=== PATIENT | male | born 1995 | race Caucasian/White ===

== ENCOUNTER 2017-12-21 10:34 | Inpatient (IN) | payer OTHER ==
[2017-12-21] VITALS (12 sets, daily range): BP systolic 102–136; BP diastolic 59–80
[~2017-12-21] VITALS: Ht 175.3 cm; Wt 70.3 kg
[2017-12-21 11:21] LABS: BASOPHILS % (AUTO) 0.7 % (0.0-2.0); EOSINOPHILS % (AUTO) 2.4 % (0.0-3.0); HEMATOCRIT 44.6 % (42.0-52.0); HEMOGLOBIN 14.6 G/DL (14.2-18.0); LYMPHOCYTES % (AUTO) 17.6 % (20.0-45.0); MEAN CORPUSCULAR VOLUME 79 FL (80-99); MONOCYTES % (AUTO) 8.1 % (1.0-10.0); NEUTROPHILS % (AUTO) 71.3 % (45.0-75.0); PLATELET COUNT 173 K/UL (150-450); RED BLOOD COUNT 5.65 M/UL (4.70-6.10); RED CELL DISTRIBUTION WIDTH 11.5 % (11.6-14.8); WHITE BLOOD COUNT 7.7 K/UL (4.8-10.8)
[2017-12-21 11:29] LABS: ANION GAP 7 mmol/L (5-15); BLOOD UREA NITROGEN 14 mg/dL (7-18); CALCIUM 9.3 MG/DL (8.5-10.1); CARBON DIOXIDE 27 MMOL/L (21-32); CHLORIDE 106 MMOL/L (98-107); CREATININE 1.2 MG/DL (0.55-1.30); POTASSIUM 4.1 MMOL/L (3.5-5.1); SODIUM 140 MMOL/L (136-145)
[2017-12-21] MEDS ORDERED: Vancomycin 1 GM in D5W 275 ML IVPB ONE (11:30)
[2017-12-21] MEDS ORDERED: Unasyn 3gm Inj IVPB ONE (11:30)
[2017-12-21 11:33] LABS: ALANINE AMINOTRANSFERASE 16 U/L (12-78); ALBUMIN 3.9 G/DL (3.4-5.0); ALBUMIN/GLOBULIN RATIO 0.9 (1.0-2.7); ALKALINE PHOSPHATASE 89 U/L (46-116); ASPARTATE AMINO TRANSFERASE 18 U/L (15-37); BILIRUBIN,TOTAL 0.6 MG/DL (0.2-1.0); INR 1.1 (0.9-1.1)
--- NOTE | 2017-12-21 13:01 | Emergency Room Report ---
History of Present Illness General Chief Complaint: General Complaint Source: Patient Present Illness HPI Mr. Marquez presents to ER for has infection involving pilonidal cyst. He has had previous surgical interventions by plastic surgeon Dr. Gay who evaluated patient this week. Dr. Gay is concerned for abscess and possible granulomatous tissue in the area. Dr. Gay plans to take patient to OR today for debridement and incision and drainage. Patient has mild pain in the area. Has copious amount of purulent drainage. He denies fever. +nasal congestion with recent cold symptoms. He has not eaten or drank anything since this morning. Allergies: Coded Allergies: No Known Allergies (Unverified , 12/21/17) Patient History Past Medical History: none, other - pilonidal cyst with history of infection Past Surgical History: other - sseveral surgeries for pilonidal cyst Social History: Reports: alcohol use Social History Narrative ggirlfriend is bedside patient is self-employed Nursing Documentation-PMH Past Medical History: No History, Except For Hx Asthma: Yes Review of Systems Constitutional: Denies: fever, malaise Respiratory: Denies: cough Cardiovascular: Denies: chest pain Gastrointestinal: Denies: abdominal pain All Other Systems: negative except mentioned in HPI Physical Exam Vital Signs Date Time Temp Pulse Resp B/P (MAP) Pulse Ox O2 Delivery O2 Flow Rate FiO2 12/21/17 10:49 98.4 80 16 111/62 99 Room Air 98.4 Sp02 EP Interpretation: reviewed, normal General Appearance: no apparent distress, alert, GCS 15, non-toxic Head: normocephalic, atraumatic Eyes: bilateral eye normal inspection ENT: hearing grossly normal, normal pharynx, no angioedema, normal voice Neck: full range of motion, supple/symm/no masses Respiratory: chest non-tender, lungs clear, normal breath sounds, speaking full sentences Cardiovascular #1: regular rate, rhythm Gastrointestinal: normal bowel sounds, non tender, soft, non-distended, no guarding, no rebound Genitourinary: normal inspection Musculoskeletal: normal range of motion, non-tender Neurologic: alert, oriented x3, responsive, motor strength/tone normal, sensory intact, speech normal Psychiatric: judgement/insight normal, memory normal, mood/affect normal Reflexes: 3+ bicep (R), 3+ bicep (L), 3+ tricep (R), 3+ tricep (L), 3+ knee (R) , 3+ knee (L) Skin: well hydrated, other - abscess in sacral region with purulent drainage Medical Decision Making ER Course Dr. Gay evaluated Mr. Marquez in the ED. Abx initiated in the ED as well as preop labs. Patient was transferred to OR. Kept NPO Labs Test 12/21/17 11:10 White Blood Count 7.7 K/UL (4.8-10.8) Red Blood Count 5.65 M/UL (4.70-6.10) Hemoglobin 14.6 G/DL (14.2-18.0) Hematocrit 44.6 % (42.0-52.0) Mean Corpuscular Volume 79 FL (80-99) Mean Corpuscular Hemoglobin 25.9 PG (27.0-31.0) Mean Corpuscular Hemoglobin Concent 32.7 G/DL (32.0-36.0) Red Cell Distribution Width 11.5 % (11.6-14.8) Platelet Count 173 K/UL (150-450) Mean Platelet Volume 8.8 FL (6.5-10.1) Neutrophils (%) (Auto) 71.3 % (45.0-75.0) Lymphocytes (%) (Auto) 17.6 % (20.0-45.0) Monocytes (%) (Auto) 8.1 % (1.0-10.0) Eosinophils (%) (Auto) 2.4 % (0.0-3.0) Basophils (%) (Auto) 0.7 % (0.0-2.0) Prothrombin Time 11.7 SEC (9.30-11.50) Prothromb Time International Ratio 1.1 (0.9-1.1) Activated Partial Thromboplast Time 32 SEC (23-33) Sodium Level 140 MMOL/L (136-145) Potassium Level 4.1 MMOL/L (3.5-5.1) Chloride Level 106 MMOL/L (98-107) Carbon Dioxide Level 27 MMOL/L (21-32) Anion Gap 7 mmol/L (5-15) Blood Urea Nitrogen 14 mg/dL (7-18) Creatinine 1.2 MG/DL (0.55-1.30) Estimat Glomerular Filtration Rate > 60 mL/min (>60) Glucose Level 93 MG/DL (74-106) Calcium Level 9.3 MG/DL (8.5-10.1) Total Bilirubin 0.6 MG/DL (0.2-1.0) Aspartate Amino Transf (AST/SGOT) 18 U/L (15-37) Alanine Aminotransferase (ALT/SGPT) 16 U/L (12-78) Alkaline Phosphatase 89 U/L (46-116) Total Protein 8.1 G/DL (6.4-8.2) Albumin 3.9 G/DL (3.4-5.0) Globulin 4.2 g/dL Albumin/Globulin Ratio 0.9 (1.0-2.7) Lab Results Impression labs are within normal limits Last Vital Signs Date Time Temp Pulse Resp B/P (MAP) Pulse Ox O2 Delivery O2 Flow Rate FiO2 12/21/17 11:11 98.4 16 111/62 99 Room Air 98.4 12/21/17 10:49 80 Disposition: PLACE IN OBSERVATION - OR Admit Decision Time: 11:00 Condition: Stable Physician Consult: Dr. Gay Referrals: NOT APPLICABLE THIS PATIENT,RE (PCP) RAHEL SÁNCHEZ Dec 21, 2017 13:01
--- NOTE | 2017-12-21 13:59 | Pre-Procedure Note/Attestation ---
Pre-Procedure Note/Attestation Complete Prior to Procedure Planned Procedure: not applicable Procedure Narrative: exploration, debridement of infected pilonidal abscess, wound vac placement Indications for Procedure Pre-Operative Diagnosis: infected pilonidal abscess Attestation I attest that I discussed the nature of the procedure; its benefits; risks and complications; and alternatives (and the risks and benefits of such alternatives ), prior to the procedure, with the patient (or the patient's legal customer support representative). I attest that, if there was a reasonable possibility of needing a blood transfusion, the patient (or the patient's legal customer support representative) was given the [facility] standardized written summary, pursuant to the Fred Ramone Blood Safety Act ([place] Health and Safety Code # 1645, as amended). I attest that I re-evaluated the patient just prior to the surgery and that there has been no change in the patient's H&P, except as documented below: Aleksandr Rodriguez M.D. (Steven) Dec 21, 2017 13:59
[2017-12-21] MEDS ORDERED: Bacitracin 50000 Units Vial ONE ×2 (14:29→15:27)
[2017-12-21] MEDS ORDERED: Zemuron 50mg/5ml Inj IV ONE (14:29)
[2017-12-21] MEDS ORDERED: Succinylcholine 20mg/ml 10ml vial ONE (14:29)
[2017-12-21] MEDS ORDERED: Sterile Water Irrig 1000ml IRRIG ONE (14:30)
[2017-12-21] MEDS ORDERED: Bupivacaine 0.5% Inj 30 ml vial INJ ONE (14:30)
[2017-12-21] MEDS ORDERED: NS Irrig 1000ml ONE (14:30)
[2017-12-21] MEDS ORDERED: Ketorolac 30mg Inj ONE (14:30)
[2017-12-21] MEDS ORDERED: LR 1000ml ONE (14:30)
[2017-12-21] MEDS ORDERED: Propofol 200mg/20ml IV ONE (14:32)
[2017-12-21] MEDS ORDERED: fentaNYL 100 mcg/2 mL IV ONE (14:32)
[2017-12-21] MEDS ORDERED: Midazolam 2mg/2ml Inj ONE (14:32)
[2017-12-21] MEDS ORDERED: LR 1000ml 1,000 ML IVLG SCH (15:32)
--- NOTE | 2017-12-21 15:32 | Anethesia Preoperative Eval ---
Anesthesia Pre-op PMH/ROS General Date of Evaluation: Dec 21, 2017 Time of Evaluation: 14:25 Anesthesiologist: Susy ASA Score: ASA 2 Mallampati Score Class I : Soft palate, uvula, fauces, pillars visible Class II: Soft palate, uvula, fauces visible Class III: Soft palate, base of uvula visible Class IV: Only hard plate visible Mallampati Classification: Class II Surgeon: Victor Hugo Diagnosis: Recurrent pylonidal cyst Surgical Procedure: Excision of pylonidal cyst Anesthesia History: none Allergies: Coded Allergies: No Known Allergies (Unverified , 12/21/17) Medications: see eMAR Past Medical History Cardiovascular: Reports: HTN Pulmonary: Denies: asthma, COPD, MABEL, other Gastrointestinal/Genitourinary: Denies: GERD, CRI, ESRD, other Neurologic/Psychiatric: Denies: dementia, CVA, depression/anxiety, TIA, other Endocrine: Denies: DM, hypothyroidism, steroids, other HEENT: Denies: cataract (L), cataract (R), glaucoma, [place] (L), [place] (R), other Hematology/Immune: Denies: anemia, DVT, bleeding disorder, other Musculoskeletal/Integumentary: Reports: other - recurrent infected pylonidal cyst; Denies: OA, RA, DJD, DDD, edema PMH Narrative: as above PSxH Narrative: see H&P Anesthesia Pre-op Phys. Exam Physician Exam Last Vital Signs Date Time Temp Pulse Resp B/P (MAP) Pulse Ox O2 Delivery O2 Flow Rate FiO2 12/21/17 13:25 98.8 76 18 124/68 99 Room Air Constitutional: NAD Neurologic: CN 2-12 intact Cardiovascular: RRR, no M/R/G Respiratory: CTA Gastrointestinal: S/NT/ND Airway Exam Mallampati Score: Class II MO: full Neck: flexible Teeth: intact Dentures: no upper, no lower Anesthesia Pre-op A/P Labs Hematology Test 12/21/17 11:10 White Blood Count 7.7 K/UL (4.8-10.8) Red Blood Count 5.65 M/UL (4.70-6.10) Hemoglobin 14.6 G/DL (14.2-18.0) Hematocrit 44.6 % (42.0-52.0) Mean Corpuscular Volume 79 FL (80-99) L Mean Corpuscular Hemoglobin 25.9 PG (27.0-31.0) L Mean Corpuscular Hemoglobin Concent 32.7 G/DL (32.0-36.0) Red Cell Distribution Width 11.5 % (11.6-14.8) L Platelet Count 173 K/UL (150-450) Mean Platelet Volume 8.8 FL (6.5-10.1) Neutrophils (%) (Auto) 71.3 % (45.0-75.0) Lymphocytes (%) (Auto) 17.6 % (20.0-45.0) L Monocytes (%) (Auto) 8.1 % (1.0-10.0) Eosinophils (%) (Auto) 2.4 % (0.0-3.0) Basophils (%) (Auto) 0.7 % (0.0-2.0) Coagulation Test 12/21/17 11:10 Prothrombin Time 11.7 SEC (9.30-11.50) H Prothromb Time International Ratio 1.1 (0.9-1.1) Activated Partial Thromboplast Time 32 SEC (23-33) Chemistry Test 12/21/17 11:10 Sodium Level 140 MMOL/L (136-145) Potassium Level 4.1 MMOL/L (3.5-5.1) Chloride Level 106 MMOL/L (98-107) Carbon Dioxide Level 27 MMOL/L (21-32) Anion Gap 7 mmol/L (5-15) Blood Urea Nitrogen 14 mg/dL (7-18) Creatinine 1.2 MG/DL (0.55-1.30) Estimat Glomerular Filtration Rate > 60 mL/min (>60) Glucose Level 93 MG/DL (74-106) Calcium Level 9.3 MG/DL (8.5-10.1) Total Bilirubin 0.6 MG/DL (0.2-1.0) Aspartate Amino Transf (AST/SGOT) 18 U/L (15-37) Alanine Aminotransferase (ALT/SGPT) 16 U/L (12-78) Alkaline Phosphatase 89 U/L (46-116) Total Protein 8.1 G/DL (6.4-8.2) Albumin 3.9 G/DL (3.4-5.0) Globulin 4.2 g/dL Albumin/Globulin Ratio 0.9 (1.0-2.7) L Risk Assessment & Plan Assessment: ASA 2 Plan: GA with ETT prone position ponv prevention Status Change Before Surgery: No Pre-Antibiotics Drug: as scheduled Sanchez Jain MD Dec 21, 2017 15:32
[2017-12-21] MEDS ORDERED: Bacitracin Oint 15gm Tube TOPIC ONE (15:39)
[2017-12-21] MEDS ORDERED: Metoclopramide 10mg/2ml Inj IVP PRN (15:45)
[2017-12-21] MEDS ORDERED: Midazolam 2mg/2ml Inj IVP PRN (15:45)
[2017-12-21] MEDS ORDERED: Meperidine 50mg/ml Inj(FOR RIGORS ONLY) IV PRN (15:45)
[2017-12-21] MEDS ORDERED: fentaNYL 100 mcg/2 mL IV PRN (15:45)
[2017-12-21] MEDS ORDERED: DiphenhydrAMINE 50mg/ml Inj IVP PRN (15:45)
[2017-12-21] MEDS ORDERED: Ketorolac 30mg Inj IV PRN (15:45)
--- NOTE | 2017-12-21 16:09 | Operative Note - PDOC ---
Operative Note Operative Note Date of Operation/Procedure: Dec 21, 2017 Pre-op Diagnosis: infected recurrent pilonidal abscess Procedure: exploration, debridement, pulse lavage and drainage and vac placement of infected pilonidal recurrent abscess Post-op Diagnosis: same Post-op Diagnosis: same as pre-op Surgeon: sharmin Ocean Lifeguard: adya Anesthesiologist: jacob Specimen: yes - pilonidal abscess Complications: none Condition: stable Estimated Blood Loss: volume - 50 Drains: wound vac Implant(s) used?: No Indications for Procedure infected recurrent pilonidal abscess Description of Procedure see dictation Aleksandr Rodriguez M.D. (Steven) Dec 21, 2017 16:09
--- NOTE | 2017-12-21 16:20 | Immediate Post-Op Evaluation ---
Immediate Post-Op Evalulation Immediate Post-Op Evalulation Procedure: Excision of infected pilonidal cyst Date of Evaluation: Dec 21, 2017 Time of Evaluation: 16:19 IV Fluids: 1200 Blood Products: none Estimated Blood Loss: 50 Urinary Output: none Blood Pressure Systolic: 120 Blood Pressure Diastolic: 64 Pulse Rate: 82 Respiratory Rate: 20 O2 Sat by Pulse Oximetry: 97 Temperature (Fahrenheit): 97.8 Pain Score (1-10): 2 Nausea: No Vomiting: No Complications none Patient Status: awake, patent, extubated, none Hydration Status: adequate Sanchez Jain MD Dec 21, 2017 16:20
--- NOTE | 2017-12-21 17:45 | 48 Hour Post Anesthesia Eval ---
Post Anesthesia Evaluation Procedure: Excision of infected pilonidal cyst Date of Evaluation: Dec 21, 2017 Time of Evaluation: 18:46 Blood Pressure Systolic: 106 0: 59 Pulse Rate: 60 Respiratory Rate: 16 Temperature (Fahrenheit): 98.3 O2 Sat by Pulse Oximetry: 100 Airway: patent Nausea: No Vomiting: No Pain Intensity: 2 Hydration Status: adequate Cardiopulmonary Status: Stable Mental Status/LOC: patient returned to baseline Follow-up Care/Observations: 0 Post-Anesthesia Complications: 0 Follow-up care needed: N/A Zane Izaguirre MD Dec 21, 2017 17:45
--- NOTE | 2017-12-21 17:55 | Anethesia Preoperative Eval ---
Anesthesia Pre-op PMH/ROS General Date of Evaluation: Dec 21, 2017 Time of Evaluation: 19:46 Anesthesiologist: Michael ASA Score: ASA 2 Mallampati Score Class I : Soft palate, uvula, fauces, pillars visible Class II: Soft palate, uvula, fauces visible Class III: Soft palate, base of uvula visible Class IV: Only hard plate visible Mallampati Classification: Class II Surgeon: Victor Hugo Diagnosis: Recurrant Infected Pyonidal Cyst Surgical Procedure: Excision And Closure Of Recurrant Infected Pyonidal Cyst Anesthesia History: none Family History: no anesthesia problems Allergies: Coded Allergies: No Known Allergies (Unverified , 12/21/17) Medications: see eMAR Past Medical History Cardiovascular: Reports: HTN Musculoskeletal/Integumentary: Reports: other - Recurrant Infected Pyonidal Cyst PSxH Narrative: Same 12/21/17 Anesthesia Pre-op Phys. Exam Physician Exam Last Vital Signs Date Time Temp Pulse Resp B/P (MAP) Pulse Ox O2 Delivery O2 Flow Rate FiO2 12/21/17 17:10 98.3 60 16 106/59 100 Nasal Cannula 3 98.3 Constitutional: NAD Neurologic: CN 2-12 intact Cardiovascular: RRR Respiratory: CTA Gastrointestinal: S/NT/ND Airway Exam Mallampati Score: Class II MO: full ROM: full Teeth: intact Anesthesia Pre-op A/P Labs Hematology Test 12/21/17 11:10 White Blood Count 7.7 K/UL (4.8-10.8) Red Blood Count 5.65 M/UL (4.70-6.10) Hemoglobin 14.6 G/DL (14.2-18.0) Hematocrit 44.6 % (42.0-52.0) Mean Corpuscular Volume 79 FL (80-99) L Mean Corpuscular Hemoglobin 25.9 PG (27.0-31.0) L Mean Corpuscular Hemoglobin Concent 32.7 G/DL (32.0-36.0) Red Cell Distribution Width 11.5 % (11.6-14.8) L Platelet Count 173 K/UL (150-450) Mean Platelet Volume 8.8 FL (6.5-10.1) Neutrophils (%) (Auto) 71.3 % (45.0-75.0) Lymphocytes (%) (Auto) 17.6 % (20.0-45.0) L Monocytes (%) (Auto) 8.1 % (1.0-10.0) Eosinophils (%) (Auto) 2.4 % (0.0-3.0) Basophils (%) (Auto) 0.7 % (0.0-2.0) Coagulation Test 12/21/17 11:10 Prothrombin Time 11.7 SEC (9.30-11.50) H Prothromb Time International Ratio 1.1 (0.9-1.1) Activated Partial Thromboplast Time 32 SEC (23-33) Chemistry Test 12/21/17 11:10 Sodium Level 140 MMOL/L (136-145) Potassium Level 4.1 MMOL/L (3.5-5.1) Chloride Level 106 MMOL/L (98-107) Carbon Dioxide Level 27 MMOL/L (21-32) Anion Gap 7 mmol/L (5-15) Blood Urea Nitrogen 14 mg/dL (7-18) Creatinine 1.2 MG/DL (0.55-1.30) Estimat Glomerular Filtration Rate > 60 mL/min (>60) Glucose Level 93 MG/DL (74-106) Calcium Level 9.3 MG/DL (8.5-10.1) Total Bilirubin 0.6 MG/DL (0.2-1.0) Aspartate Amino Transf (AST/SGOT) 18 U/L (15-37) Alanine Aminotransferase (ALT/SGPT) 16 U/L (12-78) Alkaline Phosphatase 89 U/L (46-116) Total Protein 8.1 G/DL (6.4-8.2) Albumin 3.9 G/DL (3.4-5.0) Globulin 4.2 g/dL Albumin/Globulin Ratio 0.9 (1.0-2.7) L Risk Assessment & Plan Assessment: ASA 2 Plan: GA Status Change Before Surgery: No Pre-Antibiotics Drug: Zane Swann MD Dec 21, 2017 17:55
[2017-12-21] MEDS: Docusate 100mg/10ml Liq NG SCH (18:00)
[2017-12-21] MEDS: LR 1000ml 1,000 ML IV SCH (19:09)
--- NOTE | 2017-12-21 20:06 | History & Physical ---
History and Physical History & Physicial dictated [id number] CARMEN CEDENO M.D. Dec 21, 2017 20:06
[2017-12-21] MEDS: HYDROmorphone 1mg/ml Carpuject IVP PRN (20:58)
[2017-12-21] MEDS: Ampicillin/Sulbactam Sod 3 GM in NS 110 ML IVPB SCH (21:01)
[2017-12-22 00:13] VITALS: BP 101/52
[2017-12-22] MEDS: Vancomycin 1 GM in D5W 275 ML IVPB SCH ×3 (00:34→20:00)
[2017-12-22] MEDS: LR 1000ml 1,000 ML IV SCH (00:34)
[2017-12-22] MEDS: Ampicillin/Sulbactam Sod 3 GM in NS 110 ML IVPB SCH ×3 (03:31→20:00)
[2017-12-22] MEDS: HYDROmorphone 1mg/ml Carpuject IVP PRN ×5 (03:43→22:32)
[2017-12-22 04:00] VITALS: BP 116/55
[2017-12-22] MEDS ORDERED: Albuterol ud Inhalation HHN PRN (07:00)
[2017-12-22 07:45] LABS: EOSINOPHILS % (AUTO) 5.1 % (0.0-3.0); HEMATOCRIT 34.5 % (42.0-52.0); HEMOGLOBIN 12.1 G/DL (14.2-18.0); LYMPHOCYTES % (AUTO) 24.4 % (20.0-45.0); MEAN CORPUSCULAR VOLUME 79 FL (80-99); MONOCYTES % (AUTO) 10.4 % (1.0-10.0); NEUTROPHILS % (AUTO) 59.2 % (45.0-75.0); PLATELET COUNT 142 K/UL (150-450); RED BLOOD COUNT 4.34 M/UL (4.70-6.10); RED CELL DISTRIBUTION WIDTH 11.4 % (11.6-14.8); WHITE BLOOD COUNT 5.5 K/UL (4.8-10.8)
[2017-12-22 07:59] LABS: ANION GAP 6 mmol/L (5-15); BLOOD UREA NITROGEN 20 mg/dL (7-18); CALCIUM 8.5 MG/DL (8.5-10.1); CARBON DIOXIDE 26 MMOL/L (21-32); CHLORIDE 105 MMOL/L (98-107); CREATININE 1.3 MG/DL (0.55-1.30); POTASSIUM 3.6 MMOL/L (3.5-5.1); SODIUM 137 MMOL/L (136-145)
[2017-12-22 08:00] VITALS: BP 96/52
[2017-12-22] MEDS: Docusate 100mg/10ml Liq NG SCH (08:05)
[2017-12-22 12:00] VITALS: BP 108/67
--- NOTE | 2017-12-22 12:16 | General Progress Note ---
Progress Note Progress Note pt doing well; pain controlled PE: flaps viable, VAC functioning; (-) collections (-) signs of infection WBC and H/H normal A/P 1. HLIVF; OOB 2. cont iv abx, f/u wound cx 3. to OR Sunday fo further washout, debridement, possible partial fasciocutaneous flap closure, VAC change 4. d/w pt options of continued hospitalization and gradual closure vs d/c home with VNS/ home VAC and delayed flap closure once space granulates in and he elected for former option. 5. Dr. Rodriguez will be covering/performing followup Ashok Gay M.D. Dec 22, 2017 12:16
[2017-12-22] MEDS ORDERED: Docusate 100mg cap ORAL SCH (13:00)
[2017-12-22] MEDS ORDERED: Docusate 100mg/10ml Liq ORAL SCH ×2 (13:00)
[2017-12-22 16:00] VITALS: BP 103/55
[2017-12-22] MEDS: Docusate 100mg cap ORAL SCH (17:16)
[2017-12-22 20:00] VITALS: BP 99/55
[2017-12-23] VITALS: BP 108/64
[2017-12-23 04:00] VITALS: BP 100/51
[2017-12-23] MEDS: Vancomycin 1 GM in D5W 275 ML IVPB SCH ×3 (04:00→21:36)
[2017-12-23] MEDS: Ampicillin/Sulbactam Sod 3 GM in NS 110 ML IVPB SCH ×3 (04:43→20:21)
[2017-12-23] MEDS: HYDROmorphone 1mg/ml Carpuject IVP PRN ×5 (04:44→23:43)
[2017-12-23 07:48] LABS: BASOPHILS % (AUTO) 0.8 % (0.0-2.0); EOSINOPHILS % (AUTO) 5.5 % (0.0-3.0); HEMATOCRIT 36.8 % (42.0-52.0); HEMOGLOBIN 12.5 G/DL (14.2-18.0); LYMPHOCYTES % (AUTO) 22.6 % (20.0-45.0); MEAN CORPUSCULAR VOLUME 79 FL (80-99); MONOCYTES % (AUTO) 10.1 % (1.0-10.0); NEUTROPHILS % (AUTO) 61.1 % (45.0-75.0); PLATELET COUNT 151 K/UL (150-450); RED BLOOD COUNT 4.66 M/UL (4.70-6.10); RED CELL DISTRIBUTION WIDTH 10.8 % (11.6-14.8); WHITE BLOOD COUNT 4.6 K/UL (4.8-10.8)
[2017-12-23 08:00] VITALS: BP 98/47
[2017-12-23 08:15] LABS: ANION GAP 4 mmol/L (5-15); BLOOD UREA NITROGEN 18 mg/dL (7-18); CALCIUM 8.7 MG/DL (8.5-10.1); CARBON DIOXIDE 31 MMOL/L (21-32); CHLORIDE 103 MMOL/L (98-107); CREATININE 1.3 MG/DL (0.55-1.30); POTASSIUM 4.1 MMOL/L (3.5-5.1); SODIUM 138 MMOL/L (136-145)
[2017-12-23 08:17] LABS: ALANINE AMINOTRANSFERASE 15 U/L (12-78); ALBUMIN 3.2 G/DL (3.4-5.0); ALBUMIN/GLOBULIN RATIO 0.9 (1.0-2.7); ALKALINE PHOSPHATASE 73 U/L (46-116); ANION GAP 5 mmol/L (5-15); ASPARTATE AMINO TRANSFERASE 22 U/L (15-37); BILIRUBIN,TOTAL 0.3 MG/DL (0.2-1.0); BLOOD UREA NITROGEN 18 mg/dL (7-18); CALCIUM 9.1 MG/DL (8.5-10.1); CARBON DIOXIDE 30 MMOL/L (21-32); CHLORIDE 103 MMOL/L (98-107); CREATININE 1.3 MG/DL (0.55-1.30); SODIUM 138 MMOL/L (136-145)
[2017-12-23] MEDS: Docusate 100mg cap ORAL SCH ×3 (08:42→17:45)
--- NOTE | 2017-12-23 12:28 | General Progress Note ---
Progress Note Progress Note pt without and c/o PE: AF/VSS Vac in place and functioning (-) signs infection A/P 1. to OR in am for exploration, debridement, partial flap closure and vac change 2. NPO, IVF p MN 3. cont iv abx 4. case mgmt consult stat for home vac and vns 5. dr Rodriguez will be covering from 12/23 on 6. treatment plan d/w pt and family and all questions answered Ashok Gay M.D. Dec 23, 2017 12:28
[2017-12-23 12:30] VITALS: BP 110/53
--- NOTE | 2017-12-23 12:30 | Pre-Procedure Note/Attestation ---
Pre-Procedure Note/Attestation Complete Prior to Procedure Planned Procedure: not applicable Procedure Narrative: washout, exploration, debridement, partial flap closure vac change to open sacral wound Indications for Procedure Pre-Operative Diagnosis: infected recurrent pilonidal abscess Attestation I attest that I discussed the nature of the procedure; its benefits; risks and complications; and alternatives (and the risks and benefits of such alternatives ), prior to the procedure, with the patient (or the patient's legal communications representative). I attest that, if there was a reasonable possibility of needing a blood transfusion, the patient (or the patient's legal communications representative) was given the [facility] standardized written summary, pursuant to the Fred Ramone Blood Safety Act ([place] Health and Safety Code # 1645, as amended). I attest that I re-evaluated the patient just prior to the surgery and that there has been no change in the patient's H&P, except as documented below: Aleksandr Rodriguez M.D. (Steven) Dec 23, 2017 12:30
[2017-12-23 15:53] VITALS: BP 100/45
[2017-12-23 20:00] VITALS: BP 105/54
[2017-12-24] VITALS (16 sets, daily range): BP systolic 101–125; BP diastolic 51–75
[2017-12-24] MEDS ORDERED: LR 1000ml 1,000 ML IV SCH
[2017-12-24] MEDS: HYDROmorphone 1mg/ml Carpuject IVP PRN ×4 (04:19→21:44)
[2017-12-24] MEDS: Ampicillin/Sulbactam Sod 3 GM in NS 110 ML IVPB SCH ×3 (04:20→20:21)
[2017-12-24] MEDS: Vancomycin 1 GM in D5W 275 ML IVPB SCH ×3 (05:13→20:21)
[2017-12-24 07:21] LABS: BASOPHILS % (AUTO) 1.1 % (0.0-2.0); HEMATOCRIT 38.3 % (42.0-52.0); LYMPHOCYTES % (AUTO) 34.7 % (20.0-45.0); MEAN CORPUSCULAR VOLUME 78 FL (80-99); MONOCYTES % (AUTO) 11.2 % (1.0-10.0); PLATELET COUNT 157 K/UL (150-450); RED CELL DISTRIBUTION WIDTH 10.6 % (11.6-14.8); WHITE BLOOD COUNT 4.5 K/UL (4.8-10.8)
[2017-12-24 07:44] LABS: ALANINE AMINOTRANSFERASE 16 U/L (12-78); ALBUMIN 3.3 G/DL (3.4-5.0); ALBUMIN/GLOBULIN RATIO 0.9 (1.0-2.7); ALKALINE PHOSPHATASE 73 U/L (46-116); ANION GAP 7 mmol/L (5-15); ASPARTATE AMINO TRANSFERASE 20 U/L (15-37); BILIRUBIN,TOTAL 0.3 MG/DL (0.2-1.0); BLOOD UREA NITROGEN 13 mg/dL (7-18); CALCIUM 8.9 MG/DL (8.5-10.1); CARBON DIOXIDE 30 MMOL/L (21-32); CHLORIDE 102 MMOL/L (98-107); CREATININE 1.2 MG/DL (0.55-1.30); POTASSIUM 4.1 MMOL/L (3.5-5.1); SODIUM 139 MMOL/L (136-145)
[2017-12-24] MEDS: Docusate 100mg cap ORAL SCH ×3 (08:21→17:27)
[2017-12-24] MEDS ORDERED: NS Irrig 1000ml ONE (09:30)
[2017-12-24] MEDS ORDERED: Zemuron 50mg/5ml Inj IV ONE (09:30)
[2017-12-24] MEDS ORDERED: Sterile Water Irrig 1000ml IRRIG ONE (09:30)
[2017-12-24] MEDS ORDERED: Dexamethasone 4mg/ml vial ONE (09:30)
[2017-12-24] MEDS ORDERED: LR 1000ml ONE (09:30)
[2017-12-24] MEDS ORDERED: fentaNYL 100 mcg/2 mL IV ONE (09:33)
[2017-12-24] MEDS ORDERED: Lidocaine 1% MPF 10mg/ml 5ml ONE (09:33)
[2017-12-24] MEDS ORDERED: Propofol 200mg/20ml IV ONE (09:33)
[2017-12-24] MEDS ORDERED: Midazolam 2mg/2ml Inj ONE (09:33)
[2017-12-24] MEDS ORDERED: Bacitracin 50000 Units Vial ONE (09:34)
[2017-12-24] MEDS ORDERED: Bupivacaine 0.5% Inj 30 ml vial INJ ONE (09:34)
[2017-12-24] MEDS ORDERED: LR 1000ml 1,000 ML IVLG SCH (09:35)
[2017-12-24] MEDS ORDERED: fentaNYL 100 mcg/2 mL IV PRN (09:45)
[2017-12-24] MEDS ORDERED: LORazepam Inj 2mg/ml 1ml IV PRN (09:45)
[2017-12-24] MEDS ORDERED: DiphenhydrAMINE 50mg/ml Inj IVP PRN (09:45)
[2017-12-24] MEDS ORDERED: Midazolam 2mg/2ml Inj IVP PRN (09:45)
[2017-12-24] MEDS ORDERED: Labetalol 5mg/ml 20ml vial IV PRN (09:45)
[2017-12-24] MEDS: LR 1000ml 1,000 ML IV SCH ×4 (10:00→20:21)
[2017-12-24] MEDS ORDERED: Bacitracin 50000 Units Vial IRRIG ONE (10:15)
--- NOTE | 2017-12-24 10:54 | Immediate Post-Op Evaluation ---
Immediate Post-Op Evalulation Immediate Post-Op Evalulation Procedure: Excision of infected pilonidal cyst Date of Evaluation: Dec 24, 2017 Time of Evaluation: 10:56 IV Fluids: 600 Blood Products: 0 Estimated Blood Loss: min Urinary Output: 0 Blood Pressure Systolic: 101 Blood Pressure Diastolic: 58 Pulse Rate: 57 Respiratory Rate: 16 O2 Sat by Pulse Oximetry: 100 Temperature (Fahrenheit): 97 Pain Score (1-10): 0 Nausea: No Vomiting: No Complications 0 Patient Status: awake, reacts, patent, none Hydration Status: adequate Drug: Unasyn and vanco Given Within 1 Hr of Incision: Yes Francoise Razo MD Dec 24, 2017 10:54
[2017-12-24] MEDS ORDERED: Bacitracin Oint 15gm Tube TOPIC ONE (10:55)
[2017-12-24] MEDS: Hydromorphone 0.5mg/0.5ml inj IVP PRN ×2 (11:27→11:52)
--- NOTE | 2017-12-24 12:31 | Operative Note - PDOC ---
Operative Note Operative Note Pre-op Diagnosis: infected recurrent pilonidal abscess Procedure: exploration, debridement, pulse lavage andpartial wound flap closure and vac placement of infected pilonidal recurrent abscess Post-op Diagnosis: same Post-op Diagnosis: same as pre-op Surgeon: sharmin Manufacturing Maintenance Manager: daya Anesthesiologist: marilou Anesthesia: general Specimen: none Complications: none Condition: stable Estimated Blood Loss: minimal Drains: wound vac Implant(s) used?: No Indications for Procedure infected recurrent pilonidal cyst Description of Procedure see dictation Aleksandr Rodriguez M.D. (Steven) Dec 24, 2017 12:31
[2017-12-24] MEDS ORDERED: oxyCODONE HCL/Acetaminophen 5/325mg ORAL PRN (12:47)
--- NOTE | 2017-12-24 19:02 | Consultation ---
History of Present Illness General Date patient seen: Dec 24, 2017 Chief Complaint: General Complaint Present Illness HPI the pt is a 22 yo male presents to ER for has infection involving pilonidal cyst. He has had previous surgical interventions by plastic surgeon Dr. Gay who evaluated patient this week. the pt pw severe anxiety he stated that he has suicidal thoughts however he doesn't have plan. the pt is having insomnia no current si Allergies: Coded Allergies: No Known Allergies (Unverified , 12/21/17) Patient History Limited by: medical condition History Provided By: Patient, Medical Record, PMD Healthcare decision maker Resuscitation status Full Code Advanced Directive on File Past Medical/Surgical History Past Medical/Surgical History: (1) Infected pilonidal cyst (2) pilonidal (3) Suicidal thoughts Review of Systems Psychiatric: Reports: prior hx, anxiety, depressed feelings, emotional problems Physical Exam General Appearance: no apparent distress, alert Neurologic: oriented x 3, responsive, depressed affect Last 24 Hour Vital Signs Date Time Temp Pulse Resp B/P (MAP) Pulse Ox O2 Delivery O2 Flow Rate FiO2 12/24/17 18:01 97.8 12/24/17 17:31 97.8 12/24/17 16:00 97.8 82 20 123/69 (87) 99 97.8 12/24/17 14:40 98.2 78 20 121/66 (84) 97 98.2 12/24/17 14:22 66 20 Room Air 12/24/17 13:27 98.7 12/24/17 12:25 97.9 66 20 119/51 (73) 100 97.9 12/24/17 12:22 98.7 12/24/17 12:15 98.7 55 17 125/66 100 Nasal Cannula 3 98.7 12/24/17 12:05 57 23 110/66 100 Nasal Cannula 3 12/24/17 11:52 59 15 117/73 100 Nasal Cannula 3 12/24/17 11:52 98.3 12/24/17 11:35 59 17 120/69 100 Nasal Cannula 3 12/24/17 11:27 98.3 12/24/17 11:25 54 15 116/75 100 Nasal Cannula 3 12/24/17 11:10 61 15 118/74 100 Nasal Cannula 3 12/24/17 11:00 62 15 116/62 100 Simple Mask 6 12/24/17 10:56 59 22 114/71 100 Simple Mask 6 12/24/17 10:54 206.6 57 16 100 12/24/17 10:51 97.0 57 16 101/58 100 Simple Mask 6 97.0 12/24/17 08:04 Room Air 12/24/17 08:00 97.1 65 21 103/55 (71) 97.1 12/24/17 04:00 97.5 60 16 101/52 (68) 99 97.5 12/24/17 00:00 97.9 65 16 108/58 (75) 97 97.9 12/23/17 21:00 Room Air 12/23/17 20:00 97.9 72 18 105/54 (71) 98 97.9 12/23/17 19:32 97.8 12/23/17 19:00 54 20 Room Air Intake and Output 12/23/17 12/24/17 19:00 07:00 Intake Total 855 ml 1170.000 ml Output Total 1030 ml 800 ml Balance -175 ml 370.000 ml Intake Oral 470 ml IV Total 385 ml 1170.000 ml Output Urine Total 1000 ml 800 ml Drainage Total 30 ml # Voids 3 2 Laboratory Tests Test 12/24/17 06:15 White Blood Count 4.5 K/UL (4.8-10.8) L Red Blood Count 4.90 M/UL (4.70-6.10) Hemoglobin 13.0 G/DL (14.2-18.0) L Hematocrit 38.3 % (42.0-52.0) L Mean Corpuscular Volume 78 FL (80-99) L Mean Corpuscular Hemoglobin 26.5 PG (27.0-31.0) L Mean Corpuscular Hemoglobin Concent 34.0 G/DL (32.0-36.0) Red Cell Distribution Width 10.6 % (11.6-14.8) L Platelet Count 157 K/UL (150-450) Mean Platelet Volume 8.7 FL (6.5-10.1) Neutrophils (%) (Auto) 46.0 % (45.0-75.0) Lymphocytes (%) (Auto) 34.7 % (20.0-45.0) Monocytes (%) (Auto) 11.2 % (1.0-10.0) H Eosinophils (%) (Auto) 7.0 % (0.0-3.0) H Basophils (%) (Auto) 1.1 % (0.0-2.0) Sodium Level 139 MMOL/L (136-145) Potassium Level 4.1 MMOL/L (3.5-5.1) Chloride Level 102 MMOL/L (98-107) Carbon Dioxide Level 30 MMOL/L (21-32) Anion Gap 7 mmol/L (5-15) Blood Urea Nitrogen 13 mg/dL (7-18) Creatinine 1.2 MG/DL (0.55-1.30) Estimat Glomerular Filtration Rate > 60 mL/min (>60) Glucose Level 109 MG/DL (74-106) H Calcium Level 8.9 MG/DL (8.5-10.1) Total Bilirubin 0.3 MG/DL (0.2-1.0) Aspartate Amino Transf (AST/SGOT) 20 U/L (15-37) Alanine Aminotransferase (ALT/SGPT) 16 U/L (12-78) Alkaline Phosphatase 73 U/L (46-116) Total Protein 6.8 G/DL (6.4-8.2) Albumin 3.3 G/DL (3.4-5.0) L Globulin 3.5 g/dL Albumin/Globulin Ratio 0.9 (1.0-2.7) L Height (Feet): 5 Height (Inches): 9.00 Weight (Pounds): 155 Medications Current Medications Medications (Trade) Dose Ordered Sig/Miguelina Route PRN Reason Start Time Stop Time Status Last Admin Dose Admin Albuterol Sulfate (Proventil) 2.5 mg TIDRT PRN HHN sob 12/22/17 07:00 12/27/17 06:59 Ampicillin Sodium/ Sulbactam Sodium 3 gm/Sodium Chloride 110 ml @ 220 mls/hr Q8H IVPB 12/21/17 20:00 12/28/17 19:59 12/24/17 14:18 Docusate Sodium (Colace) 100 mg THREE TIMES A DAY ORAL 12/22/17 18:00 01/21/18 17:59 12/24/17 17:27 Escitalopram Oxalate (Lexapro) 10 mg DAILY ORAL 12/25/17 09:00 01/24/18 08:59 Famotidine (Pepcid) 20 mg Q12H PRN ORAL HEARTBURN 12/22/17 14:00 01/21/18 13:59 12/24/17 17:30 Hydromorphone HCl (Dilaudid) 1 mg Q4H PRN IVP For severe pain 12/24/17 10:00 12/31/17 09:59 12/24/17 17:31 Lactated Ringer's 1,000 ml @ 100 mls/hr Q10H IV 12/24/17 10:00 01/23/18 09:59 12/24/17 17:39 Ondansetron HCl (Zofran) 4 mg Q6H PRN IVP Nausea & Vomiting 12/22/17 13:15 01/21/18 13:14 12/22/17 15:27 Oxycodone/ Acetaminophen (Percocet 5-325) 1 tab Q4H PRN ORAL Mild Pain (Pain Scale 1-3) 12/24/17 12:47 12/31/17 12:46 Vancomycin HCl 1 gm/Dextrose 275 ml @ 183.708 mls/hr Q8H IVPB 12/22/17 20:00 12/27/17 19:59 12/24/17 12:41 Assessment/Plan Status: stable, progressing Assessment/Plan Anxiety d/o mdd lexapro 10mg klonopin 1mg qhs Birdie Solomon MD Dec 24, 2017 19:02
--- NOTE | 2017-12-24 19:29 | Internal Med Progress Note ---
Subjective Physician Name Dom Cedeno Attending Physician Dom Cedeno M.D. Current Medications Medications (Trade) Dose Ordered Sig/Miguelina Route PRN Reason Start Time Stop Time Status Last Admin Dose Admin Albuterol Sulfate (Proventil) 2.5 mg TIDRT PRN HHN sob 12/22/17 07:00 12/27/17 06:59 Ampicillin Sodium/ Sulbactam Sodium 3 gm/Sodium Chloride 110 ml @ 220 mls/hr Q8H IVPB 12/21/17 20:00 12/28/17 19:59 12/24/17 14:18 Clonazepam (KlonoPIN) 1 mg BEDTIME ORAL 12/24/17 21:00 12/31/17 20:59 Docusate Sodium (Colace) 100 mg THREE TIMES A DAY ORAL 12/22/17 18:00 01/21/18 17:59 12/24/17 17:27 Escitalopram Oxalate (Lexapro) 10 mg DAILY ORAL 12/25/17 09:00 01/24/18 08:59 Famotidine (Pepcid) 20 mg Q12H PRN ORAL HEARTBURN 12/22/17 14:00 01/21/18 13:59 12/24/17 17:30 Hydromorphone HCl (Dilaudid) 1 mg Q4H PRN IVP For severe pain 12/24/17 10:00 12/31/17 09:59 12/24/17 17:31 Lactated Ringer's 1,000 ml @ 100 mls/hr Q10H IV 12/24/17 10:00 01/23/18 09:59 12/24/17 17:39 Ondansetron HCl (Zofran) 4 mg Q6H PRN IVP Nausea & Vomiting 12/22/17 13:15 01/21/18 13:14 12/22/17 15:27 Oxycodone/ Acetaminophen (Percocet 5-325) 1 tab Q4H PRN ORAL Mild Pain (Pain Scale 1-3) 12/24/17 12:47 12/31/17 12:46 Vancomycin HCl 1 gm/Dextrose 275 ml @ 183.708 mls/hr Q8H IVPB 12/22/17 20:00 12/27/17 19:59 12/24/17 12:41 Allergies: Coded Allergies: No Known Allergies (Unverified , 12/21/17) All Systems: reviewed and negative except above - + gas; no buttocks pain Objective Last Vital Signs Date Time Temp Pulse Resp B/P (MAP) Pulse Ox O2 Delivery O2 Flow Rate FiO2 12/24/17 18:01 97.8 12/24/17 16:00 82 20 123/69 (87) 99 12/24/17 14:22 Room Air 12/24/17 12:15 3 12/22/17 10:23 21 Laboratory Tests Test 12/24/17 06:15 White Blood Count 4.5 K/UL (4.8-10.8) L Red Blood Count 4.90 M/UL (4.70-6.10) Hemoglobin 13.0 G/DL (14.2-18.0) L Hematocrit 38.3 % (42.0-52.0) L Mean Corpuscular Volume 78 FL (80-99) L Mean Corpuscular Hemoglobin 26.5 PG (27.0-31.0) L Mean Corpuscular Hemoglobin Concent 34.0 G/DL (32.0-36.0) Red Cell Distribution Width 10.6 % (11.6-14.8) L Platelet Count 157 K/UL (150-450) Mean Platelet Volume 8.7 FL (6.5-10.1) Neutrophils (%) (Auto) 46.0 % (45.0-75.0) Lymphocytes (%) (Auto) 34.7 % (20.0-45.0) Monocytes (%) (Auto) 11.2 % (1.0-10.0) H Eosinophils (%) (Auto) 7.0 % (0.0-3.0) H Basophils (%) (Auto) 1.1 % (0.0-2.0) Sodium Level 139 MMOL/L (136-145) Potassium Level 4.1 MMOL/L (3.5-5.1) Chloride Level 102 MMOL/L (98-107) Carbon Dioxide Level 30 MMOL/L (21-32) Anion Gap 7 mmol/L (5-15) Blood Urea Nitrogen 13 mg/dL (7-18) Creatinine 1.2 MG/DL (0.55-1.30) Estimat Glomerular Filtration Rate > 60 mL/min (>60) Glucose Level 109 MG/DL (74-106) H Calcium Level 8.9 MG/DL (8.5-10.1) Total Bilirubin 0.3 MG/DL (0.2-1.0) Aspartate Amino Transf (AST/SGOT) 20 U/L (15-37) Alanine Aminotransferase (ALT/SGPT) 16 U/L (12-78) Alkaline Phosphatase 73 U/L (46-116) Total Protein 6.8 G/DL (6.4-8.2) Albumin 3.3 G/DL (3.4-5.0) L Globulin 3.5 g/dL Albumin/Globulin Ratio 0.9 (1.0-2.7) L Intake and Output 12/23/17 12/24/17 19:00 07:00 Intake Total 855 ml 1170.000 ml Output Total 1030 ml 800 ml Balance -175 ml 370.000 ml Intake Oral 470 ml IV Total 385 ml 1170.000 ml Output Urine Total 1000 ml 800 ml Drainage Total 30 ml # Voids 3 2 Objective gen - NAD. awake HEENT - NC/AT CVS - RRR. nl s1,s2 Lungs : CTA b/l ABd - nt/nd Gluteal - Wound vac in place, surgical wound covered, c/d/i Ext - no c/c/i Assessment/Plan Assessment/Plan Infected pilonidal recurrent abscess s/p exploration, debridement, pulse lavage and partial wound flap closure and vac placement - Pain control - Wound vac in place - Zofran prn nausea/vomiting - Plastics recs appreciated - Abx dc planning - possibly tomorrow if Wound vac arrives tomorrow; Rx in chart DOM CEDENO M.D. Dec 24, 2017 19:29
[2017-12-25 00:36] VITALS: BP 109/54
[2017-12-25 04:00] VITALS: BP 102/56
[2017-12-25] MEDS: Ampicillin/Sulbactam Sod 3 GM in NS 110 ML IVPB SCH ×2 (04:49→11:38)
[2017-12-25] MEDS: Vancomycin 1 GM in D5W 275 ML IVPB SCH ×2 (04:50→12:47)
[2017-12-25] MEDS: LR 1000ml 1,000 ML IV SCH (05:24)
[2017-12-25] MEDS: HYDROmorphone 1mg/ml Carpuject IVP PRN ×2 (05:54→11:43)
[2017-12-25 08:00] VITALS: BP 108/56
[2017-12-25] MEDS: Docusate 100mg cap ORAL SCH ×2 (08:47→13:18)
[2017-12-25] MEDS ORDERED: SOMA350 MG PO (10:43)
[2017-12-25] MEDS ORDERED: NORCO 5-325 TA1 EACH ORAL (10:43)
--- NOTE | 2017-12-25 10:49 | Operative Note - Dictated ---
DATE OF OPERATION: 12/21/2017 SURGEON: Aleksandr Rodriguez M.D. SUMAC TANNER: Ashok Gay M.D. ANESTHESIOLOGIST: Sanchez Jain M.D. ANESTHESIA: General endotracheal tube anesthesia. PREOPERATIVE DIAGNOSES: 1. Recurrent infected pilonidal cyst. 2. Open wound of sacrum. POSTOPERATIVE DIAGNOSES: 1. Recurrent infected pilonidal cyst. 2. Open wound of sacrum. PROCEDURES PERFORMED: 1. Exploration of open wound of sacrum/coccyx. 2. Incision and drainage of pilonidal abscess cyst. 3. Debridement of necrotic skin and soft tissues on sacral wound. 4. A 10 x 3 or 30 sq.cm. wound preparation for flap closure. 5. Pulse jet lavage irrigation of the open sacral wound. 6. Wound VAC placement of the open sacral wound. ANESTHESIA: General endotracheal anesthesia 0.5% Marcaine for postoperative analgesia. INDICATIONS FOR PROCEDURE FOLLOWS: Please refer to the consultation for history and physical. DESCRIPTION OF PROCEDURE: The patient was taken to the operating room. IV antibiotics, vancomycin, and Zosyn were given in the emergency room just prior to the patient getting to the operating room. SCDs were placed on bilateral lower extremities. He was intubated and then flipped in the prone position. After appropriate positioning and padding of his arms, the area was prepped and draped in the usual sterile manner. We started the operation by exploring the open superior wound. The 4 x 2 cm elliptical excision of skin and necrotic soft tissue was performed with a #10 scalpel. There was a significant drainage of serous purulent fluid. Wound cultures were sent. Gram stain was also sent superficial and deep into the open wound. We then explored the wound by making incision slightly larger with a blunt clamp. After doing this, we noticed there was pus that was coming out about two-thirds of the way down to a separate sinus to explore this. There were several strands of hair that were ingrown and going inside the midline wound recurrent pilonidal sinus tract, which is removed. We then debrided the skin edges with a #15 scalpel of that second inferior wound. After irrigating the wound, we then used a curette and we scraped all different aspects of the tunnel and the sinus and debrided some soft tissue with the rongeur instrument to get a healthy bleeding tissue. Hemostasis was achieved with electrocautery. We then pulse lavaged 2 liters of antibiotic irrigation. Bleeding streaked the wound to stimulate granulation tissue for eventual graft closure or flap closure. It was 30 sq. cm, 10 x 3. Wound preparation was performed by scraping the wound to get off of the fibrinous exudate and get the healthy tissue. Again, we did a significant debridement of skin and soft tissue and exploration and broke up any loculations. After doing this, we closed the inferior wound debriding the skin edges with a 2-0 chromic vertical mattress suture. Bacitracin, Xeroform, 4x4s and Tegaderm were placed in the inferior wound. For the upper wound, we open wound. The skin bridge was still intact. We then set the wound VAC to 125 mmHg. There is no leak The patient was flipped over, extubated, and transferred to recovery room in stable condition. FINDINGS: As above. SPECIMENS: Debrided skin and soft tissue and wound cultures and sacral ulcer abscess. Sacral open wound/pilonidal abscess/pilonidal cyst recurrence. ESTIMATED BLOOD LOSS: About 30 mL. DRAINS: Wound VAC to sacral open wound. COMPLICATIONS: None. CONDITION: Stable. Aleksandr Rodriguez M.D. DR: CAROL JOB#: [id number] CC: LOWELL
--- NOTE | 2017-12-25 11:47 | Consultation ---
DATE OF CONSULTATION: 12/21/2017 NOTE: "VERY POOR AUDIO QUALITY/DISTORTED AUDIO" EMERGENCY CONSULTATION CONSULTING PHYSICIAN: Aleksandr Rodriguez M.D. HISTORY OF PRESENT ILLNESS: Emergency room consultation is as follows. This is a 21-year-old male who presented to the emergency room open wound of his sacrum, likely a recurrent pilonidal abscess or cyst 10 months ago. The patient had radical debridement for pilonidal cyst and wounds are left to heal secondarily. The patient tolerated dressing changes with multiresistant bacteria. He was treated with IV antibiotic . He had flap closure of the open sacral wounds by Dr. Gay, plastic surgery, approximately 6 months ago. The patient has been doing well up until 2 to 3 weeks ago at which point, he noticed some drainage from the superior aspect of his wound and in the past day or so, there was significant drainage, redness, and pain, so he presented to the emergency room. PHYSICAL EXAMINATION: The superior aspect of his incision was erythematous and warm and there was pedunculated 1 x 1 cm . There was significant drainage and some tenderness to the area. There was another small sinus communicating approximately 7 cm inferior. I explained to the patient that recurrent pilonidal cyst and he would need to go to the operating room for excision and drainage, exploration, washout, debridement, and wound VAC placement. I explained to the patient after the aforementioned, we will discuss with him his options going forward that it is going to a multistaged approach, but the first goal today is to get IV antibiotics and has emergent washout, drainage, and wound VAC placement. He understood this and wished to proceed. I will now dictate a separate operative report. Aleksandr Rodriguez M.D. DR: Korin JOB#: [id number] CC:
[2017-12-25 12:08] VITALS: BP 108/51
[2017-12-25 14:18] VITALS: BP 108/51
--- NOTE | 2017-12-25 14:18 | 48 Hour Post Anesthesia Eval ---
Post Anesthesia Evaluation Procedure: Excision of infected pilonidal cyst Date of Evaluation: Dec 25, 2017 Time of Evaluation: 14:20 Blood Pressure Systolic: 108 0: 51 Pulse Rate: 73 Respiratory Rate: 14 Temperature (Fahrenheit): 97.5 O2 Sat by Pulse Oximetry: 97 Airway: patent Nausea: No Vomiting: No Pain Intensity: 3 Hydration Status: adequate Cardiopulmonary Status: Stable Mental Status/LOC: patient returned to baseline Follow-up Care/Observations: As per surgery Post-Anesthesia Complications: No anesthetic complication Follow-up care needed: N/A Fred Casey MD Dec 25, 2017 14:18
[2017-12-25] MEDS ORDERED: AUGMENTIN 875-1 EAC1 ORAL (15:14)
[2017-12-25] MEDS ORDERED: PERCOCET 5-3251 EACH ORAL (15:15)
--- NOTE | 2017-12-25 16:24 | Discharge Summary ---
Discharge Summary Hospital Course Date of Admission Dec 21, 2017 at 18:30 Date of Discharge Admitting Diagnosis INFECTED PYLAR ABSCESS HPI Sandip Marquez is a 22 year old male who was admitted on Dec 21, 2017 at 18:30 for Infected Pylar Abscess dc summary dictated [id number] Discharge Condition Upon Discharge: stable Discharge Disposition Patient was discharged to Home with Home Health(06) CARMEN CEDENO M.D. Dec 25, 2017 16:24
--- NOTE | 2017-12-25 22:01 | Discharge Summary ---
DATE OF ADMISSION: 12/21/2017 DATE OF DISCHARGE: 12/25/2017 REASON FOR ADMISSION: The patient has infected pilonidal cyst. PROCEDURES DONE HERE: Exploration, debridement, pulse lavage, and partial wound flap closure with VAC placement for infected pilonidal cyst. BRIEF HOSPITAL COURSE AND SUMMARY: This is a 22-year-old male with history of infected pilonidal cyst with recurrent abscess of the buttocks, who underwent exploration, debridement, pulse lavage, and pressure wound flap closure with VAC placement. The patient was given postop antibiotics. His pain is well controlled. His wound VAC is in place. He is stable for discharge. The patient did have episode of anxiety and he was started on Lexapro 10 mg p.o. daily. The patient no longer has much insight. He denies any suicidal ideation. The patient is stable for discharge. The patient is to follow up with Dr. Rodriguez in one week. DISCHARGE DIAGNOSES: 1. Infected pilonidal recurrent abscess status post exploration, debridement, pulse lavage, and partial wound flap closure with VAC placement. 2. Anxiety disorder. DISCHARGE INSTRUCTIONS: The patient to go home with wound VAC. The patient to have home health change wound VAC. The patient to return hospital for worsening symptoms or condition. The patient will follow up with Dr. Rodriguez within one week. Dom Fried MD DR: SHASHI JOB#: [id number] CC:
--- NOTE | 2017-12-27 09:02 | History and Physical Report ---
DATE OF ADMISSION: 12/21/2017 REASON FOR ADMISSION: The patient is here for infected perineal cyst. HISTORY OF PRESENT ILLNESS: This is a 22-year-old male with history of perineal cyst, status post resection in March of 2017, who was admitted because of infected recurrent perineal cyst of gluteal region. The patient underwent exploration, debridement, lavage, drainage, and wound VAC placement for the infected perineal recurrent abscess. The patient had estimated blood loss of 50 mL. He has a wound VAC that is intact and in place. He has no drainage. The patient denies any chest pain, shortness of breath, nausea, or vomiting. PAST MEDICAL HISTORY: History of asthma and perineal cyst. PAST SURGICAL HISTORY: Resection of perineal cyst. MEDICATIONS: Reviewed in [employer]. ALLERGIES: No known drug allergies. SOCIAL HISTORY: The patient does not smoke. He drinks alcohol occasionally. No drugs. FAMILY HISTORY: Noncontributory. REVIEW OF SYSTEMS: A 12-point review of systems is negative except for pertinent positives as mentioned above. PHYSICAL EXAMINATION: VITAL SIGNS: Temperature is 98, pulse is 65, respiratory rate 14, blood pressure 109/65, and O2 saturation is 100% on 3 liters. GENERAL: No acute distress. The patient is awake, alert, and oriented x3. HEENT: Normocephalic/atraumatic. NECK: Supple. No JVD. LUNGS: Clear to auscultation bilaterally. No crackles, rhonchi, or rales. CARDIOVASCULAR: Regular rate and rhythm. Normal S1, S2. ABDOMEN: Soft, nontender, and nondistended. EXTREMITIES: No clubbing, cyanosis, or edema. Gluteal region, the patient has a wound VAC over his gluteal region with no drainage. There is no tenderness. LABORATORY DATA: CBC, white count of 7.7, hemoglobin of 14.6, and platelet count of 173,000. BMP, sodium 140, potassium 4.1, chloride is 106, CO2 27, BUN is 14, and creatinine is 1.2. INR is 1.1. ASSESSMENT AND PLAN: Infected perineal cyst, status post debridement, wound VAC placement. PLAN: 1. The patient is admitted to Med/Surg. 2. Plastic Surgery following. 3. Pain control. 4. Lactated Ringer's 100 mL/hour. 5. Antibiotics/Unasyn. 6. Colace 3 times a day. 7. DVT prophylaxis, SCDs low risk. 8. Albuterol as needed for shortness of breath/asthma. Dom Fried MD DR: SHASHI JOB#: [id number] CC:
== END 2017-12-25 16:50 | disposition home health service (06) | DRG 581 ==
LOC: EMR 11:16 → EDBEDREQ 13:21 → SDS 13:22 → EDBEDREQ 14:09 → 3E 18:30
PROC: 0JX70ZZ Transfer Back Subcutaneous Tissue and Fascia, Open Approach (ICD-10-PCS; principal; 2017-12-21 16:15)
PROC: 0JD70ZZ Extraction of Back Subcutaneous Tissue and Fascia, Open Approach (ICD-10-PCS; principal; 2017-12-21 16:15)
PROC: 0H98XZZ Drainage of Buttock Skin, External Approach (ICD-10-PCS; principal; 2017-12-21 16:15)
DX: L05.01 Pilonidal cyst with abscess (principal); F41.9 Anxiety disorder, unspecified; G47.00 Insomnia, unspecified; S31.000A Unspecified open wound of lower back and pelvis without penetration into retroperitoneum, initial encounter; I10 Essential (primary) hypertension
CPT/HCPCS: 36415; 80048; 80053; 80202; 85025; 85610; 85730; 86850; 86900; 86901; 87070; 87075; 87205; 94003; 94150; 94664; 94760; J2250; J2405

== ENCOUNTER 2019-06-04 10:34 | Inpatient (IN) | payer OTHER ==
[~2019-06-04] VITALS: Ht 165.1 cm; Wt 81.6 kg
[2019-06-04] VITALS (14 sets, daily range): BP systolic 104–150; BP diastolic 54–89
[~2019-06-04 10:34] MED LIST: AUGMENTIN 875-1 EAC1 ORAL; NORCO 5-325 TA1 EACH ORAL; PERCOCET 5-3251 EACH ORAL; PROAIR HFA8.5 GM INH; SOMA350 MG PO
--- NOTE | 2019-06-04 11:32 | Anethesia Preoperative Eval ---
Anesthesia Pre-op PMH/ROS General Date of Evaluation: Jun 04, 2019 Anesthesiologist: John ASA Score: ASA 2 Mallampati Score Class I : Soft palate, uvula, fauces, pillars visible Class II: Soft palate, uvula, fauces visible Class III: Soft palate, base of uvula visible Class IV: Only hard plate visible Mallampati Classification: Class II Surgeon: Victor Hugo Diagnosis: Recurrent pilonidal cyst Surgical Procedure: Excision recurrent pilonidal cyst Anesthesia History: none Family History: no anesthesia problems Allergies: Coded Allergies: No Known Allergies (Unverified , 12/21/17) Medications: see eMAR Patient NPO?: Yes NPO Date: Jun 03, 2019 NPO Time: 1999 Past Medical History Cardiovascular: Denies: HTN, CAD, CA, valve dz, arrhythmia, other Pulmonary: Reports: asthma; Denies: COPD, MABEL, other Gastrointestinal/Genitourinary: Reports: GERD; Denies: CRI, ESRD, other Neurologic/Psychiatric: Reports: depression/anxiety; Denies: dementia, CVA, TIA, other Endocrine: Denies: DM, hypothyroidism, steroids, other HEENT: Denies: cataract (L), cataract (R), glaucoma, C[place]BA (L), C[place]BA (R), other Hematology/Immune: Denies: anemia, DVT, bleeding disorder, other Musculoskeletal/Integumentary: Denies: OA, RA, DJD, DDD, edema, other PSxH Narrative: pilonidal cyst excision Anesthesia Pre-op Phys. Exam Physician Exam Last Vital Signs Date Time Temp Pulse Resp B/P (MAP) Pulse Ox O2 Delivery O2 Flow Rate FiO2 06/04/19 11:18 97.9 62 18 104/70 (81) 97 Constitutional: NAD Cardiovascular: RRR Respiratory: CTA Airway Exam Mallampati Score: Class II MO: full ROM: full Teeth: intact Anesthesia Pre-op A/P Labs see chart Risk Assessment & Plan Assessment: ASA II Plan: GA Status Change Before Surgery: No Pre-Antibiotics Drug: TBD Given Within 1 Hr of Incision: Yes Francoise Razo MD Jun 04, 2019 11:32
[2019-06-04] MEDS ORDERED: PRILOSEC OTC20 MG ORAL (11:33)
[2019-06-04] MEDS ORDERED: Bacitracin 50000 Units Vial ONE (12:04)
[2019-06-04] MEDS ORDERED: NeoSporin Gu Irrig 1ml Amp IRRIG ONE (12:04)
[2019-06-04] MEDS ORDERED: Lidocaine 1% 10mg/ml/Epi 0.005mg/ml 30ml vial INJ ONE (12:04)
[2019-06-04] MEDS ORDERED: Lidocaine 1% MPF 10mg/ml 5ml ONE (12:12)
[2019-06-04] MEDS ORDERED: Propofol 200mg/20ml IV ONE (12:12)
[2019-06-04] MEDS ORDERED: Midazolam 2mg/2ml Inj ONE (12:12)
[2019-06-04] MEDS ORDERED: fentaNYL 100 mcg/2 mL IV ONE (12:12)
[2019-06-04] MEDS ORDERED: LR 1000ml 1,000 ML IVLG SCH (12:19)
[2019-06-04] MEDS ORDERED: Dexamethasone 4mg/ml vial ONE (12:24)
[2019-06-04] MEDS ORDERED: Hydromorphone 0.5mg/0.5ml inj IVP PRN (12:30)
[2019-06-04] MEDS ORDERED: Midazolam 2mg/2ml Inj IVP PRN (12:30)
[2019-06-04] MEDS ORDERED: Ketorolac 30mg Inj IV PRN (12:30)
[2019-06-04] MEDS ORDERED: DiphenhydrAMINE 50mg/ml Inj IVP PRN (12:30)
[2019-06-04] MEDS ORDERED: LORazepam Inj 2mg/ml 1ml IV PRN (12:30)
[2019-06-04] MEDS ORDERED: Metoclopramide 10mg/2ml Inj IVP PRN (12:30)
[2019-06-04] MEDS ORDERED: fentaNYL 100 mcg/2 mL IV PRN (12:30)
[2019-06-04] MEDS ORDERED: LR 1000ml ONE (13:00)
[2019-06-04] MEDS ORDERED: Sterile Water Irrig 1000ml IRRIG ONE (13:00)
[2019-06-04] MEDS ORDERED: NS Irrig 1000ml ONE (13:00)
--- NOTE | 2019-06-04 13:02 | Pre-Procedure Note/Attestation ---
Pre-Procedure Note/Attestation Complete Prior to Procedure Planned Procedure: not applicable Procedure Narrative: recurrent pilonidal cyst/sinus Indications for Procedure Pre-Operative Diagnosis: recurrent pilonidal cyst/sinus Attestation I attest that I discussed the nature of the procedure; its benefits; risks and complications; and alternatives (and the risks and benefits of such alternatives ), prior to the procedure, with the patient (or the patient's legal technical account representative). I attest that, if there was a reasonable possibility of needing a blood transfusion, the patient (or the patient's legal technical account representative) was given the [facility] standardized written summary, pursuant to the Fred Ramone Blood Safety Act ([place] Health and Safety Code # 1645, as amended). I attest that I re-evaluated the patient just prior to the surgery and that there has been no change in the patient's H&P, except as documented below: Ashok Gay M.D. Jun 04, 2019 13:02
[2019-06-04] MEDS ORDERED: cefOXitin 2gm Inj ONE (13:24)
[2019-06-04] MEDS ORDERED: Bupivacaine 0.5% Inj 30 ml vial INJ ONE (13:45)
--- NOTE | 2019-06-04 14:59 | Immediate Post-Op Evaluation ---
Immediate Post-Op Evalulation Immediate Post-Op Evalulation Procedure: Excision pilonidal cyst with wound vac placement Date of Evaluation: Jun 04, 2019 Time of Evaluation: 14:59 IV Fluids: 1L Blood Products: 0 Estimated Blood Loss: 10 Urinary Output: 0 Blood Pressure Systolic: 126 Blood Pressure Diastolic: 55 Pulse Rate: 68 Respiratory Rate: 18 O2 Sat by Pulse Oximetry: 98 Temperature (Fahrenheit): 97.1 Pain Score (1-10): 0 Nausea: No Vomiting: No Complications 0 Patient Status: awake, reacts, patent, none Hydration Status: adequate Drug: Cefoxitin 2g Given Within 1 Hr of Incision: Yes Francoise Razo MD Jun 04, 2019 14:59
--- NOTE | 2019-06-04 15:07 | Operative Note - PDOC ---
Operative Note Operative Note Date of Operation/Procedure: Jun 04, 2019 Chief Complaint: drainage pain sacrum Pre-op Diagnosis: recurrent pilonidal cyst/sinus Procedure: radical excision of recurrent pilonidal cyst; wound vac placement Post-op Diagnosis: same Post-op Diagnosis: same as pre-op Surgeon: daya Anesthesiologist: marilou Anesthesia: general Specimen: yes - pilonidal sinus cyst and wound cultures Complications: none Condition: stable Estimated Blood Loss: volume - 50 Drains: wound vac Implant(s) used?: No Indications for Procedure infected draining recurrent pilonidal cyst/sinus Description of Procedure see op note Ashok Gay M.D. Jun 04, 2019 15:06
[2019-06-04] MEDS ORDERED: PCA Education Pamphlet MISC ONE (15:15)
[2019-06-04] MEDS ORDERED: Naloxone 0.4mg/ml Inj IVP PRN (15:15)
[2019-06-04] MEDS ORDERED: Rate Change PCA 1 Each MISC PRN (15:15)
[2019-06-04] MEDS ORDERED: PCA HYDROmorphone 1mg/ml 30 ML IV PRN (15:17)
--- NOTE | 2019-06-04 16:10 | NUR ---
NURSE NOTES: Patient was admitted to room 318-1. Pt a/o x 4, in bed. No respiratory distress noted. Pt mentioned pain scale is 5/10. Recommended using FRONT END LOADER OPERATOR. Verbalized understanding. Wound vac is 125mmHg continuous mild for sacral surgical area. LR is running at this time. SCD is on. Unit orientation was given. Bed in lowest position, call light within reach. Will continue to monitor.
--- NOTE | 2019-06-04 16:48 | NUR ---
NURSE NOTES: Reconciles home meds with Dr. Cooper. Dr. Cooper ordered continue home meds.
--- NOTE | 2019-06-04 17:03 | Consultation ---
History of Present Illness General Date patient seen: Jun 04, 2019 Present Illness HPI This is a very pleasant 24-year-old male with history of chronic recurrent debilitating pilonidal cyst which has had multiple interventions in the past currently underwent with radical excision of recurrent pilonidal cyst wound vac placement by Dr. Maldonado. Patient admitted for further care and management postoperatively given extent of disease process and care plan required. Patient currently with wound VAC and large open wound in the sacrum requiring extensive prolonged care. Surgery called to evaluate and assist with the care plan as inpatient as well as therefore following outpatient. Patient seen, patient evaluated, chart reviewed. Patient states he is well but has been dealing with some time now. Caused him to go through a lot of discomfort in his knees hoping and happy to have it eliminated and managed Allergies: Coded Allergies: No Known Allergies (Unverified , 12/21/17) Medication History Scheduled Albuterol Sulfate* (Proair Hfa*), 2 PUFFS INH Q6H, (Reported) Omeprazole Magnesium (Prilosec Otc), 20 MG ORAL DAILY, (Reported) Discontinued Medications Amoxicillin/Potassium Clav 875-125* (Augmentin 875-125 Tablet*), 1 TAB ORAL TWICE A DAY, (Reported) Discontinued Reason: Pt stopped taking med Oxycodone/Acetaminophen 5-325* (Percocet 5-325 Mg Tablet*), 1 TAB ORAL Q4H PRN for For Pain, (Reported) Discontinued Reason: Pt stopped taking med Patient History History Provided By: Patient Healthcare decision maker parris(luis e) Resuscitation status Full Code Advanced Directive on File No Past Medical/Surgical History Past Medical/Surgical History: (1) Suicidal thoughts (2) Infected pilonidal cyst (3) pilonidal (4) PILONIDAL CYST SACRUM (5) PILONIDAL CSYT SACRUM Review of Systems Review of Symptoms General ROS: no weight loss or fever Psychological ROS: no depression or mood changes, no memory loss Ophthalmic ROS: no visual changes or eye irritation ENT ROS: no nasal congestion, hearing loss, dizziness Allergy and Immunology ROS: no allergic symptoms or urticaria Hematological and Lymphatic ROS: no swollen glands, unusual bleeding or bruising Endocrine ROS: no polyuria, polydipsia, weight changes, temperature intolerance Respiratory ROS: no cough, shortness of breath, or wheezing Cardiovascular ROS: no chest pain or dyspnea on exertion Gastrointestinal ROS: denies abdominal pain, bright red blood in stool. Musculoskeletal ROS: no myalgias or arthralgias Neurological ROS: no TIA or stroke symptoms Dermatological ROS: no new or changing skin lesions, rashes or pruritis Physical Exam Physical Exam General appearance: alert, cooperative, no distress, appears stated age Head: Normocephalic, without obvious abnormality, atraumatic Eyes: conjunctivae/corneas clear. PERRL, EOM's intact. Fundi benign Throat: Lips, mucosa, and tongue normal. Teeth and gums normal Neck: supple, symmetrical, trachea midline, no adenopathy, thyroid: not enlarged, symmetric, no tenderness/mass/nodules, no carotid bruit and no JVD Lungs: clear to auscultation bilaterally Heart: regular rate and rhythm, S1, S2 normal, no murmur, click, rub or gallop Abdomen: soft, non-tender. Bowel sounds normal. No masses, no organomegaly Extremities: extremities normal, atraumatic, no cyanosis or edema Pulses: 2+ and symmetric Skin: Skin see below Neurologic: Grossly normal Last 24 Hour Vital Signs Date Time Temp Pulse Resp B/P (MAP) Pulse Ox O2 Delivery O2 Flow Rate FiO2 06/04/19 16:00 15 06/04/19 15:55 97.9 62 15 129/76 100 Nasal Cannula 3 06/04/19 15:49 15 06/04/19 15:40 74 16 150/89 100 Nasal Cannula 3 06/04/19 15:24 73 15 126/73 100 Nasal Cannula 3 06/04/19 15:14 61 14 120/56 100 Simple Mask 6 06/04/19 15:04 62 15 122/55 100 Simple Mask 6 06/04/19 14:59 61 16 114/54 100 Simple Mask 6 06/04/19 14:59 68 18 98 06/04/19 14:54 97.1 68 18 126/55 98 Simple Mask 6 06/04/19 11:30 Room Air 06/04/19 11:18 97.9 62 18 104/70 (81) 97 Height (Feet): 5 Height (Inches): 10.00 Weight (Pounds): 170 Medications Current Medications Medications (Trade) Dose Ordered Sig/Miguelina Route PRN Reason Start Time Stop Time Status Last Admin Dose Admin Diphenhydramine HCl (Benadryl) 25 mg Q6H PRN IVP Itching/Pruritis 06/04/19 15:15 06/06/19 15:14 Heparin Sodium (Porcine) (Heparin 5000 units/ml) 5,000 units EVERY 8 HOURS SUBQ 06/04/19 22:00 07/04/19 21:59 Hydromorphone HCl 30 ml @ 0 mls/hr Q24H PRN IV For Pain 06/04/19 15:17 06/06/19 15:16 06/04/19 15:49 Lactated Ringer's 1,000 ml @ 100 mls/hr Q10H IV 06/04/19 18:00 07/04/19 17:59 Metronidazole 100 ml @ 100 mls/hr Q8HR IVPB 06/04/19 22:00 06/11/19 21:59 Miscellaneous Medication (FISH SKINNING MACHINE FEEDER Rate Change) 1 ea DAILY PRN MISC rate change 06/04/19 15:15 06/06/19 15:14 Miscellaneous Medication (FISH SKINNING MACHINE FEEDER shift volume) 1 ea Q12HR@0700,1900 MISC 06/04/19 19:00 06/06/19 18:59 Naloxone HCl (Narcan) 0.1 mg Q1M PRN IVP RR<10/min OR SBP<90 mmHg 06/04/19 15:15 06/06/19 15:14 Ondansetron HCl (Zofran) 4 mg Q6H PRN IVP Nausea & Vomiting 06/04/19 15:15 06/06/19 15:14 Piperacillin Sod/ Tazobactam Sod 3.375 gm/Sodium Chloride 110 ml @ 27.5 mls/hr EVERY 8 HOURS IVPB 06/04/19 22:00 06/09/19 21:59 Temazepam (RestoriL) 7.5 mg HSPRN PRN ORAL Insomnia 06/04/19 15:15 06/06/19 15:14 Assessment/Plan Problem List: (1) Infected pilonidal cyst Assessment & Plan: This is a 24-year-old male with 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 Maldonado for radical excision of recurrent pilonidal cyst; wound vac placement. Patient will require prolonged care plan and close monitoring to ensure adequate healing and improvement. Patient will be admitted postoperatively Okay for diet Plan for take back on Sunday for wound VAC change which given the location and size and recent intervention would be better utilized in the operating room as bedside would not be tolerated. I would be available with Dr. Maldonado for evaluation and change in the operating room Wound VAC settings as entered Rx is written Given chronicity and evaluation wound is been cultured and infectious disease has been called to evaluate We will follow with recommendations Thank you for let me participate in patient's care ICD Codes: L05.91 - Pilonidal cyst without abscess SNOMED: [id number], [id number] Chet Cooper Jun 04, 2019 17:03
[2019-06-04] MEDS ORDERED: Albuterol 90mcg Inhaler 8gm INH SCH (17:15)
--- NOTE | 2019-06-04 18:39 | Infectious Diseases Prog Note ---
Assessment/Plan Assessment/Plan Full consult dictated: A) 1) sacral/left buttock wound infection 2) recurrent pilonidal cyst/sinus 3) s/p pilonidal cyst resection and wound vac P) 1) vancomycin and zosyn 2) f/u on wound culture 3) d/w Dr. Cooper 4) thank you Subjective Allergies: Coded Allergies: No Known Allergies (Unverified , 12/21/17) Objective Vital Signs Last 24 Hour Vital Signs Date Time Temp Pulse Resp B/P (MAP) Pulse Ox O2 Delivery O2 Flow Rate FiO2 06/04/19 16:00 15 06/04/19 15:55 97.9 62 15 129/76 100 Nasal Cannula 3 06/04/19 15:49 15 06/04/19 15:40 74 16 150/89 100 Nasal Cannula 3 06/04/19 15:24 73 15 126/73 100 Nasal Cannula 3 06/04/19 15:14 61 14 120/56 100 Simple Mask 6 06/04/19 15:04 62 15 122/55 100 Simple Mask 6 06/04/19 14:59 61 16 114/54 100 Simple Mask 6 06/04/19 14:59 68 18 98 06/04/19 14:54 97.1 68 18 126/55 98 Simple Mask 6 06/04/19 11:30 Room Air 06/04/19 11:18 97.9 62 18 104/70 (81) 97 Height (Feet): 5 Height (Inches): 10.00 Weight (Pounds): 170 Current Medications Medications (Trade) Dose Ordered Sig/Miguelina Route PRN Reason Start Time Stop Time Status Last Admin Dose Admin Albuterol Sulfate (Proventil MDI) 1 puff Q6H INH 06/04/19 17:15 07/04/19 17:14 UNV Diphenhydramine HCl (Benadryl) 25 mg Q6H PRN IVP Itching/Pruritis 06/04/19 15:15 06/06/19 15:14 Heparin Sodium (Porcine) (Heparin 5000 units/ml) 5,000 units EVERY 8 HOURS SUBQ 06/04/19 22:00 07/04/19 21:59 Hydromorphone HCl 30 ml @ 0 mls/hr Q24H PRN IV For Pain 06/04/19 15:17 06/06/19 15:16 06/04/19 15:49 Lactated Ringer's 1,000 ml @ 100 mls/hr Q10H IV 06/04/19 18:00 07/04/19 17:59 Metronidazole 100 ml @ 100 mls/hr Q8HR IVPB 06/04/19 22:00 06/11/19 21:59 Miscellaneous Medication (JEWEL DIAMETER GAUGER Rate Change) 1 ea DAILY PRN MISC rate change 06/04/19 15:15 06/06/19 15:14 Miscellaneous Medication (JEWEL DIAMETER GAUGER shift volume) 1 ea Q12HR@0700,1900 MISC 06/04/19 19:00 06/06/19 18:59 Naloxone HCl (Narcan) 0.1 mg Q1M PRN IVP RR<10/min OR SBP<90 mmHg 06/04/19 15:15 06/06/19 15:14 Ondansetron HCl (Zofran) 4 mg Q6H PRN IVP Nausea & Vomiting 06/04/19 15:15 06/06/19 15:14 Piperacillin Sod/ Tazobactam Sod 3.375 gm/Sodium Chloride 110 ml @ 27.5 mls/hr EVERY 8 HOURS IVPB 06/04/19 22:00 06/09/19 21:59 Temazepam (RestoriL) 7.5 mg HSPRN PRN ORAL Insomnia 06/04/19 15:15 06/06/19 15:14 Navneet Oakes MD Jun 04, 2019 18:39
[2019-06-04] MEDS: LR 1000ml 1,000 ML IV SCH (18:40)
[2019-06-04] MEDS ORDERED: Albuterol 90mcg Inhaler 8gm INH PRN (18:45)
[2019-06-04] MEDS: PCA shift volume MISC SCH (19:00)
--- NOTE | 2019-06-04 19:31 | History & Physical ---
History and Physical History & Physicial #[id number] H&P dictated Dom Fried MD Jun 04, 2019 19:31
--- NOTE | 2019-06-04 19:36 | NUR ---
HAND-OFF: Report given to ANDIE Dominguez. Pt is stable.
--- NOTE | 2019-06-04 20:00 | NUR ---
NURSE NOTES: RECEIVED PT FROM ANDIE BAÑUELOS. PT IS AWAKE, AAOX4, ON NC 3L, NO ACUTE DISTRESS NOTED. PT IS ON CERTIFIED CONTROL SYSTEMS TECHNICIAN DILAUDID. WOUND VAC ON SACRUM IS IN PLACE, INTACT AND DRY. IV ON LEFT HAND IS INTACT AND PATENT. BED IS LOCKED AND LOW, BED ALARMS ACTIVE, SIDE RAILS UP X2, AND CALL LIGHT IS WITHIN REACH. WILL CONTINUE TO MONITOR.
[2019-06-04] MEDS ORDERED: Vancomycin 1.5gm/NS Premix IVPB ONE (20:30)
[2019-06-04] MEDS ORDERED: Piperacillin/Tazobactam 3.375 GM in NS 110 ML IVPB SCH (22:00)
[2019-06-04] MEDS: DiphenhydrAMINE 50mg/ml Inj IVP PRN (22:49)
[2019-06-04] MEDS: Heparin 5000 units/ml inj SUBQ SCH (22:57)
[2019-06-05] VITALS: BP 110/54
[2019-06-05] MEDS: LR 1000ml 1,000 ML IV SCH (03:56)
[2019-06-05 04:00] VITALS: BP 126/73
[2019-06-05] MEDS: DiphenhydrAMINE 50mg/ml Inj IVP PRN ×3 (05:37→22:28)
[2019-06-05] MEDS: Heparin 5000 units/ml inj SUBQ SCH ×3 (05:45→22:31)
[2019-06-05] MEDS: PCA shift volume MISC SCH ×2 (07:00→19:00)
[2019-06-05 07:07] LABS: ANION GAP 8 mmol/L (5-15); BLOOD UREA NITROGEN 15 mg/dL (7-18); CALCIUM 8.5 MG/DL (8.5-10.1); CARBON DIOXIDE 28 MMOL/L (21-32); CHLORIDE 104 MMOL/L (98-107); CREATININE 1.3 MG/DL (0.55-1.30); POTASSIUM 3.9 MMOL/L (3.5-5.1); SODIUM 140 MMOL/L (136-145)
--- NOTE | 2019-06-05 07:17 | History and Physical Report ---
DATE OF ADMISSION: 06/04/2019 HISTORY OF PRESENT ILLNESS: This is a pleasant 24-year-old male with history of pilonidal cyst in sacrum with past surgery, asthma, GERD, and history of depression, who underwent radical excision of recurrent pilonidal cyst with wound VAC. He had an estimated blood loss of 50 mL. The patient does not have significant pain. He has wound VAC in place. He denies any nausea vomiting, or shortness of breath. He denies any fevers. PAST MEDICAL HISTORY: Includes recurrent pilonidal cyst, status post pilonidal cyst resection in the past, asthma, GERD, and depression. PAST SURGICAL HISTORY: As above, history of pilonidal cyst resection. SOCIAL HISTORY: The patient smokes marijuana. No cigarettes. Alcohol occasionally. No drugs. FAMILY HISTORY: Noncontributory. MEDICATIONS: Reviewed in [employer]. PHYSICAL EXAMINATION: VITAL SIGNS: Temperature is 97.9, pulse 62, respiratory rate of 15, and blood pressure 129/76. O2 saturation 100% on room air. GENERAL: No acute distress. The patient is alert, awake, and oriented x3. HEENT: Normocephalic/atraumatic. NECK: Supple. No JVD. LUNGS: Clear to auscultation bilaterally. No crackles, rhonchi, or rales. CARDIOVASCULAR: Regular rate and rhythm. Normal S1, S2. ABDOMEN: Soft, nontender, and nondistended. EXTREMITIES: No clubbing, cyanosis, or edema. LABORATORY DATA: None. ASSESSMENT: 1. Pilonidal cyst status post resection and wound VAC placement. 2. Gastroesophageal reflux disease. 3. Asthma-controlled. PLAN: 1. The patient to be admitted to Med/Surg. 2. Antibiotics-vancomycin and Zosyn. 3. ID consult. 4. IV fluids. 5. SQUIRT MACHINE OPERATOR for pain. 6. Surgery is following. 7. Plan for a flap in the next few days. 8. DVT prophylaxis. 9. Full Code. Dom Fried MD DR: MICHAEL JOB#: [id number] CC:
--- NOTE | 2019-06-05 07:17 | Consultation ---
DATE OF CONSULTATION: 06/04/2019 INFECTIOUS DISEASE CONSULTATION CONSULTING PHYSICIAN: Navneet Oakes M.D. ATTENDING PHYSICIAN: Ashok Gay M.D. REFERRING PHYSICIAN: Chet Cooper M.D. REASON FOR CONSULTATION: Is what looks like possible sacral and left buttock infected wound with history of recurrent pilonidal cyst and secondary infected wounds. CHIEF COMPLAINT: The patient's chief complaint coming in to the hospital is open sacral wound, sacral pain, drainage of sacral wound, and also excision of pilonidal cyst of the sacrum. HISTORY OF PRESENT ILLNESS: This is a very pleasant 24-year-old male, who has a history of recurrent pilonidal cyst with what sounds like is recurrent infected wounds and possible abscesses with closure of wound and then wound being opened again with drainage. The patient has had this issue since 2017 and has a history of recurrent chronic pilonidal cysts with multiple interventions. The patient comes to [facility] and is status post radical excision of the recurrent pilonidal cyst. The patient had sacral pain and wound drainage. It looks like also his left buttock is involved. The patient has a wound VAC at this time postsurgery. Infectious Disease consultation is requested for antibiotic management. The patient was placed on vancomycin and Zosyn. He is also on Flagyl, which I will discontinue since Zosyn has excellent anaerobic coverage. Wound culture is pending at this time. Case discussed with Dr. Cooper. Case discussed with the RN and the patient also. REVIEW OF SYSTEMS: The patient has no fever or chills. He did come in with sacral pain.CARDIAC: No chest pain. GASTROINTESTINAL: No nausea, vomiting, or diarrhea. GENITOURINARY: No dysuria or frequency. PULMONARY: No congestion or shortness of breath. SKIN: No rash. EXTREMITIES: No pain. NEUROLOGIC: No seizures. PAST MEDICAL HISTORY: The patient's past medical history includes the history of the recurrent pilonidal cyst with history of what sounds like multiple wounds that close and reopen. The patient has multiple interventions with this. The patient also has history of asthma. Otherwise, past medical history is unremarkable. MEDICATIONS: Upon reviewing the MAR, he is on following medications. He is on heparin, Zosyn, and vancomycin. I stopped Flagyl. He is on albuterol, lactated Ringer's, hydromorphone, Zofran p.r.n., diphenhydramine p.r.n., and Restoril p.r.n. ALLERGIES: No known drug allergies. SOCIAL HISTORY: Negative for smoking, alcohol, or drug abuse. FAMILY HISTORY: Noncontributory. PHYSICAL EXAMINATION: VITAL SIGNS: Temperature 98.0, pulse rate 80, respiratory rate 18, blood pressure 112/56, and saturation 98%. GENERAL: The patient is alert, responsive, and in no acute distress. He is oriented x3. HEAD AND NECK: Oral exam, no thrush. Eye exam, no icterus. Normocephalic. No JVD. Neck is supple. HEART: Regular. No gallop or murmur. No friction rub. ABDOMEN: Soft. Positive bowel sounds. Nontender. LUNGS: Clear bilaterally. No rhonchi or rales. SKIN: No rash. MUSCULOSKELETAL: No effusion. Legs are without cellulitis. PERIPHERAL VASCULAR: No gangrene or cyanosis. GENITOURINARY: No Freedman. NEUROLOGIC: Intact. Line sites without phlebitis. He has the wound VAC of the left buttock and also the sacral wound. This is post surgery. LABORATORY DATA: White count 4.5 and hemoglobin 13.0. Creatinine is 1.2. That is the most recent laboratories I have. This is from what looks like 2018. Followup laboratories have been ordered. Wound culture is pending from the surgery. ASSESSMENT AND PLAN: 1. The patient has recurrent pilonidal cyst what looks like sacral and left buttock wounds, possible infection with drainage and sacral pain. The patient is status post radical excision of the recurrent pilonidal cyst. The patient has wound VAC. We will continue with vancomycin and Zosyn for polymicrobial coverage including Staph aureus, gram-negatives, and anaerobes. Zosyn has excellent anaerobic coverage and we will discontinue Flagyl. Continue vancomycin and Zosyn. Follow up on wound culture again for possible infected sacral and left buttock wound. The patient has wound VAC. Continue treatment per Dr. Gay and Dr. Cooper. 2. History of asthma. 3. History of recurrent pilonidal cyst. 4. History of wounds. 5. History of antibiotic use. 6. Asthma. Continue treatment per primary care team. 7. Allergies are negative. 8. Social history is negative. 9. Family history is noncontributory. 10. MAR is noted. 11. Case was discussed with RN. 12. Case was discussed with Dr. Cooper. Navneet Oakes M.D. DR: LAURA JOB#: [id number] CC:
[2019-06-05 07:44] LABS: BASOPHILS % (AUTO) 0.5 % (0.0-2.0); EOSINOPHILS % (AUTO) 0.1 % (0.0-3.0); HEMATOCRIT 39.7 % (42.0-52.0); LYMPHOCYTES % (AUTO) 15.9 % (20.0-45.0); MEAN CORPUSCULAR VOLUME 82 FL (80-99); MONOCYTES % (AUTO) 8.9 % (1.0-10.0); NEUTROPHILS % (AUTO) 74.6 % (45.0-75.0); PLATELET COUNT 125 K/UL (150-450); RED BLOOD COUNT 4.85 M/UL (4.70-6.10); RED CELL DISTRIBUTION WIDTH 11.1 % (11.6-14.8); WHITE BLOOD COUNT 9.7 K/UL (4.8-10.8)
--- NOTE | 2019-06-05 07:49 | NUR ---
NURSE NOTES: Received report from Angelica, RN. Rounding done with outgoing nurse. Pt a/o x 4, in bed. Pt c/o itching for whole body and medicine will be given as MD ordered. Surgical site dressing is C/D/I. Wound vac is on. Pt is on left side. Pt mentioned pain level is 4/10. Bed in lowest position, call light within reach. Will continue to monitor.
--- NOTE | 2019-06-05 07:53 | NUR ---
HAND-OFF: Report given to ANDIE Saldana. Endorsed plan of care.
[2019-06-05 08:00] VITALS: BP 121/72
[2019-06-05] MEDS ORDERED: Vancomycin 1.25gm/NS Premix IVPB SCH (09:00)
--- NOTE | 2019-06-05 09:56 | 48 Hour Post Anesthesia Eval ---
Post Anesthesia Evaluation Procedure: Excision pilonidal cyst with wound vac placement Date of Evaluation: Jun 05, 2019 Time of Evaluation: 09:55 Blood Pressure Systolic: 132 0: 74 Pulse Rate: 68 Respiratory Rate: 20 Temperature (Fahrenheit): 97.6 O2 Sat by Pulse Oximetry: 98 Airway: patent Nausea: No Vomiting: No Pain Intensity: 3 Hydration Status: adequate Cardiopulmonary Status: stable Mental Status/LOC: patient returned to baseline Follow-up Care/Observations: n/a Post-Anesthesia Complications: none Follow-up care needed: N/A Sanchez Jain MD Jun 05, 2019 09:56
[2019-06-05 12:00] VITALS: BP 120/59
--- NOTE | 2019-06-05 12:12 | General Progress Note ---
Subjective Date patient seen: Jun 05, 2019 Time patient seen: 12:00 ROS Limited/Unobtainable: No Allergies: Coded Allergies: No Known Allergies (Unverified , 12/21/17) All Systems: reviewed and negative except above Subjective PT is POD # 1 s/p radical re-excision of recurrent (3rd recurrence) pilonidal sinus/cyst and partial closure and wound VAC placement Pt w/o any c/o (+) OOB PE: AF,VSS VAC in place sacrum and functioning A/P1. Cont wound vac 2. f/u wound cx; abx per ID 3. OOB, DVT ppx 4. to OR tmw am with General Surgery for exploration/possible debridement/ possible partial flap closure/VAC change 5. NPO after midnight6. d/w pt and family he will likely be discharged next week after visiting nurses set up with a home wound VAC to allow the large 10 x 8 cm open sacral wound to granulate given his complicated history; appropriate positioning/ limitations in activity/ proper hygiene/etx d/w pt and all questions answered Objective Last 24 Hour Vital Signs Date Time Temp Pulse Resp B/P (MAP) Pulse Ox O2 Delivery O2 Flow Rate FiO2 06/05/19 09:56 68 20 98 06/05/19 09:00 Room Air 06/05/19 08:00 97.3 76 18 121/72 (88) 97 06/05/19 08:00 76 18 97 06/05/19 04:00 97.6 82 14 126/73 (90) 98 06/05/19 04:00 82 14 98 06/05/19 00:00 72 14 97 06/05/19 00:00 97.5 72 15 110/54 (72) 97 06/04/19 21:00 Room Air 06/04/19 20:57 87 15 96 06/04/19 20:00 97.8 87 16 117/67 (84) 96 06/04/19 18:10 98.2 68 18 108/70 (83) 98 06/04/19 17:10 97.8 70 18 115/70 (85) 98 06/04/19 16:40 97.8 77 18 120/62 (81) 98 06/04/19 16:10 98.0 80 18 112/56 (74) 98 06/04/19 16:00 15 06/04/19 15:55 97.9 62 15 129/76 100 Nasal Cannula 3 06/04/19 15:49 15 06/04/19 15:40 74 16 150/89 100 Nasal Cannula 3 06/04/19 15:24 73 15 126/73 100 Nasal Cannula 3 06/04/19 15:14 61 14 120/56 100 Simple Mask 6 06/04/19 15:04 62 15 122/55 100 Simple Mask 6 06/04/19 14:59 61 16 114/54 100 Simple Mask 6 06/04/19 14:59 68 18 98 06/04/19 14:54 97.1 68 18 126/55 98 Simple Mask 6 Intake and Output 06/04/19 06/05/19 19:00 07:00 Intake Total 1400 ml 1200 ml Output Total 15 ml 1000 ml Balance 1385 ml 200 ml Intake Oral 200 ml IV Total 1200 ml 1200 ml Output Urine Total 1000 ml Estimated Blood Loss 15 ml # Voids 1 Laboratory Tests 06/05/19 06:20: White Blood Count 9.7, Red Blood Count 4.85, Hemoglobin 14.0L, Hematocrit 39.7L , Mean Corpuscular Volume 82, Mean Corpuscular Hemoglobin 28.9, Mean Corpuscular Hemoglobin Concent 35.3, Red Cell Distribution Width 11.1L, Platelet Count 125L, Mean Platelet Volume 10.2H, Neutrophils (%) (Auto) 74.6, Lymphocytes (%) (Auto) 15.9L, Monocytes (%) (Auto) 8.9, Eosinophils (%) (Auto) 0.1, Basophils (%) (Auto) 0.5, Sodium Level 140, Potassium Level 3.9, Chloride Level 104, Carbon Dioxide Level 28, Anion Gap 8, Blood Urea Nitrogen 15, Creatinine 1.3, Estimat Glomerular Filtration Rate > 60, Glucose Level 82, Calcium Level 8.5 Height (Feet): 5 Height (Inches): 10.00 Weight (Pounds): 170 Ashok Gay M.D. Jun 05, 2019 12:12
--- NOTE | 2019-06-05 12:13 | Pre-Procedure Note/Attestation ---
Pre-Procedure Note/Attestation Complete Prior to Procedure Planned Procedure: not applicable Procedure Narrative: sacral wound washout/exploration/possible debridement/possible flap closure/ VAC change Indications for Procedure Pre-Operative Diagnosis: recurrent pilonidal cyst/sinus Attestation I attest that I discussed the nature of the procedure; its benefits; risks and complications; and alternatives (and the risks and benefits of such alternatives ), prior to the procedure, with the patient (or the patient's legal indirect sales representative). I attest that, if there was a reasonable possibility of needing a blood transfusion, the patient (or the patient's legal indirect sales representative) was given the [facility] standardized written summary, pursuant to the Fred Ramone Blood Safety Act ([place] Health and Safety Code # 1645, as amended). I attest that I re-evaluated the patient just prior to the surgery and that there has been no change in the patient's H&P, except as documented below: Ahsok Gay M.D. Jun 05, 2019 12:13
--- NOTE | 2019-06-05 13:10 | NUR ---
CASE MANAGEMENT:REVIEW 24YR OLD MALE HERE FOR ELECTIVE SURGERY SI: RECURRENT PILONIDAL CYST/SINUS 97.9 62 18 104/70 97% ON RA WBC+14.0/39.7 PLT-125 IS: TO SURGERY FOR: RADICAL EXCISION OF RECURRENT PILONIDAL CYST W/WOUND VAC PLACEMENT IV VANCOMYCIN Q12 IV ZOSYN Q8HRS [place] NURSE DILAUDID : MED/SURG STATUS 3 EAST PLAN: ORDER FOR WOUND VAC UPON DISCHARGE ~ NEED INSURANCE AUTHORIZATION
--- NOTE | 2019-06-05 13:19 | NUR ---
8WOUND VAC FOR DISCHARGE [facility] WOUND VAC FORM PLACED IN FRONT OF CHART. NEEDS TO BE COMPLETED BY MD NOTIFY TOOL DESIGN DRAFTER ONCE FORM IS COMPLETED
--- NOTE | 2019-06-05 13:34 | NUR ---
*-* INSURANCE *-* ALL CLINICALS AND REVIEWS HAVE BEENF AXED TO: [facility] REF # [id number] GARRISON GARCIA PLS FAX CLINICALS TO [phone] PER TASHIA REP [phone]
--- NOTE | 2019-06-05 13:54 | Internal Med Progress Note ---
Subjective Physician Name RosaleeDom vazquez Attending Physician Ashok Gay M.D. Current Medications Medications (Trade) Dose Ordered Sig/Miguelina Route PRN Reason Start Time Stop Time Status Last Admin Dose Admin Albuterol Sulfate (Proventil MDI) 1 puff Q6H PRN INH Shortness of Breath 06/04/19 18:45 07/04/19 17:14 Diphenhydramine HCl (Benadryl) 25 mg Q6H PRN IVP Itching/Pruritis 06/04/19 15:15 06/06/19 15:14 06/05/19 11:58 Heparin Sodium (Porcine) (Heparin 5000 units/ml) 5,000 units EVERY 8 HOURS SUBQ 06/04/19 22:00 07/04/19 21:59 06/05/19 05:45 Hydromorphone HCl 30 ml @ 0 mls/hr Q24H PRN IV For Pain 06/04/19 15:17 06/06/19 15:16 06/04/19 15:49 Miscellaneous Medication (FUR SEWER Rate Change) 1 ea DAILY PRN MISC rate change 06/04/19 15:15 06/06/19 15:14 Miscellaneous Medication (FUR SEWER shift volume) 1 ea Q12HR@0700,1900 MISC 06/04/19 19:00 06/06/19 18:59 06/05/19 07:00 Naloxone HCl (Narcan) 0.1 mg Q1M PRN IVP RR<10/min OR SBP<90 mmHg 06/04/19 15:15 06/06/19 15:14 Ondansetron HCl (Zofran) 4 mg Q6H PRN IVP Nausea & Vomiting 06/04/19 15:15 06/06/19 15:14 Pantoprazole (Protonix) 40 mg DAILY ORAL 06/05/19 09:00 07/05/19 08:59 06/05/19 09:40 Piperacillin Sod/ Tazobactam Sod 3.375 gm/Dextrose 100 ml @ 25 mls/hr EVERY 8 HOURS IVPB 06/04/19 22:00 06/09/19 21:59 06/05/19 05:37 Temazepam (RestoriL) 7.5 mg HSPRN PRN ORAL Insomnia 06/04/19 15:15 06/06/19 15:14 Vancomycin HCl (Vanco rx to dose) 1 ea DAILY PRN MISC Per rx protocol 06/04/19 18:45 07/04/19 18:44 Vancomycin/Sodium Chloride 275 ml @ 183.333 mls/hr Q12H IVPB 06/05/19 09:00 06/10/19 08:59 06/05/19 09:40 Allergies: Coded Allergies: No Known Allergies (Unverified , 12/21/17) All Systems: reviewed and negative except above - itching w vancomycin Objective Last Vital Signs Date Time Temp Pulse Resp B/P (MAP) Pulse Ox O2 Delivery O2 Flow Rate FiO2 06/05/19 12:00 98.8 84 20 120/59 (79) 99 06/05/19 09:00 Room Air 06/04/19 15:55 3 General Appearance: WD/WN, no apparent distress EENT: PERRL/EOMI, normal ENT inspection Neck: normal alignment, supple Cardiovascular: normal rate, regular rhythm Respiratory/Chest: lungs clear, normal breath sounds Abdomen: soft, no organomegaly Extremities: normal range of motion, non-tender Edema: trace edema Laboratory Tests Test 06/05/19 06:20 White Blood Count 9.7 K/UL (4.8-10.8) Red Blood Count 4.85 M/UL (4.70-6.10) Hemoglobin 14.0 G/DL (14.2-18.0) L Hematocrit 39.7 % (42.0-52.0) L Mean Corpuscular Volume 82 FL (80-99) Mean Corpuscular Hemoglobin 28.9 PG (27.0-31.0) Mean Corpuscular Hemoglobin Concent 35.3 G/DL (32.0-36.0) Red Cell Distribution Width 11.1 % (11.6-14.8) L Platelet Count 125 K/UL (150-450) L Mean Platelet Volume 10.2 FL (6.5-10.1) H Neutrophils (%) (Auto) 74.6 % (45.0-75.0) Lymphocytes (%) (Auto) 15.9 % (20.0-45.0) L Monocytes (%) (Auto) 8.9 % (1.0-10.0) Eosinophils (%) (Auto) 0.1 % (0.0-3.0) Basophils (%) (Auto) 0.5 % (0.0-2.0) Sodium Level 140 MMOL/L (136-145) Potassium Level 3.9 MMOL/L (3.5-5.1) Chloride Level 104 MMOL/L (98-107) Carbon Dioxide Level 28 MMOL/L (21-32) Anion Gap 8 mmol/L (5-15) Blood Urea Nitrogen 15 mg/dL (7-18) Creatinine 1.3 MG/DL (0.55-1.30) Estimat Glomerular Filtration Rate > 60 mL/min (>60) Glucose Level 82 MG/DL (74-106) Calcium Level 8.5 MG/DL (8.5-10.1) Intake and Output 06/04/19 06/05/19 19:00 07:00 Intake Total 1400 ml 1200 ml Output Total 15 ml 1000 ml Balance 1385 ml 200 ml Intake Oral 200 ml IV Total 1200 ml 1200 ml Output Urine Total 1000 ml Estimated Blood Loss 15 ml # Voids 1 Assessment/Plan Assessment/Plan ASSESSMENT: 1. Pilonidal cyst status post resection s/p wound VAC placement. 2. Gastroesophageal reflux disease. 3. Asthma-controlled. PLAN: 1. Med/Surg. 2. Antibiotics- Zosyn. dc vanco bc itching. start doxycycline 100mg PO BID 3. ID consult. 4. IV fluids. 5. FUR SEWER for pain. 6. Surgery is following. 7. Plan for a woundvac change tomorrow ; NPO past midnight 8. DVT prophylaxis. 9. Full Code. oDm Fried MD Jun 05, 2019 13:54
--- NOTE | 2019-06-05 14:19 | NUR ---
NURSE NOTES: PLT was 125 and pt will get surgery tomorrow. Asked Dr. Cooper if it is okay to give heparin. said that okay to give heparin. Will carry out.
--- NOTE | 2019-06-05 15:19 | Surgery Progress Note ---
Surgery Progress Note Subjective Additional Comments pain controlled no n/v/f/c labs noted exam stabl vac in place Objective Last 24 Hour Vital Signs Date Time Temp Pulse Resp B/P (MAP) Pulse Ox O2 Delivery O2 Flow Rate FiO2 06/05/19 12:00 98.8 84 20 120/59 (79) 99 06/05/19 12:00 84 20 99 06/05/19 09:56 68 20 98 06/05/19 09:00 Room Air 06/05/19 08:00 97.3 76 18 121/72 (88) 97 06/05/19 08:00 76 18 97 06/05/19 04:00 97.6 82 14 126/73 (90) 98 06/05/19 04:00 82 14 98 06/05/19 00:00 72 14 97 06/05/19 00:00 97.5 72 15 110/54 (72) 97 06/04/19 21:00 Room Air 06/04/19 20:57 87 15 96 06/04/19 20:00 97.8 87 16 117/67 (84) 96 06/04/19 18:10 98.2 68 18 108/70 (83) 98 06/04/19 17:10 97.8 70 18 115/70 (85) 98 06/04/19 16:40 97.8 77 18 120/62 (81) 98 06/04/19 16:10 98.0 80 18 112/56 (74) 98 06/04/19 16:00 15 06/04/19 15:55 97.9 62 15 129/76 100 Nasal Cannula 3 06/04/19 15:49 15 06/04/19 15:40 74 16 150/89 100 Nasal Cannula 3 06/04/19 15:24 73 15 126/73 100 Nasal Cannula 3 I&O Intake and Output 06/04/19 06/05/19 19:00 07:00 Intake Total 1400 ml 1200 ml Output Total 15 ml 1000 ml Balance 1385 ml 200 ml Intake Oral 200 ml IV Total 1200 ml 1200 ml Output Urine Total 1000 ml Estimated Blood Loss 15 ml # Voids 1 Dressing: dry Wound: clean Drains: wound vac Cardiovascular: RSR Respiratory: clear Abdomen: soft, flat, non-tender, present bowel sounds Extremities: no edema, no tenderness, no cyanosis Laboratory Tests Test 06/05/19 06:20 White Blood Count 9.7 K/UL (4.8-10.8) Red Blood Count 4.85 M/UL (4.70-6.10) Hemoglobin 14.0 G/DL (14.2-18.0) L Hematocrit 39.7 % (42.0-52.0) L Mean Corpuscular Volume 82 FL (80-99) Mean Corpuscular Hemoglobin 28.9 PG (27.0-31.0) Mean Corpuscular Hemoglobin Concent 35.3 G/DL (32.0-36.0) Red Cell Distribution Width 11.1 % (11.6-14.8) L Platelet Count 125 K/UL (150-450) L Mean Platelet Volume 10.2 FL (6.5-10.1) H Neutrophils (%) (Auto) 74.6 % (45.0-75.0) Lymphocytes (%) (Auto) 15.9 % (20.0-45.0) L Monocytes (%) (Auto) 8.9 % (1.0-10.0) Eosinophils (%) (Auto) 0.1 % (0.0-3.0) Basophils (%) (Auto) 0.5 % (0.0-2.0) Sodium Level 140 MMOL/L (136-145) Potassium Level 3.9 MMOL/L (3.5-5.1) Chloride Level 104 MMOL/L (98-107) Carbon Dioxide Level 28 MMOL/L (21-32) Anion Gap 8 mmol/L (5-15) Blood Urea Nitrogen 15 mg/dL (7-18) Creatinine 1.3 MG/DL (0.55-1.30) Estimat Glomerular Filtration Rate > 60 mL/min (>60) Glucose Level 82 MG/DL (74-106) Calcium Level 8.5 MG/DL (8.5-10.1) Plan Problems: (1) Infected pilonidal cyst Assessment & Plan: This is a 24-year-old male with 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 Maldonado for radical excision of recurrent pilonidal cyst; wound vac placement. Patient will require prolonged care plan and close monitoring to ensure adequate healing and improvement. Patient will be admitted postoperatively Okay for diet Plan for take back on Sunday for wound VAC change which given the location and size and recent intervention would be better utilized in the operating room as bedside would not be tolerated. I would be available with Dr. Maldonado for evaluation and change in the operating room Wound VAC settings as entered Rx is written Given chronicity and evaluation wound is been cultured and infectious disease has been called to evaluate We will follow with recommendations npo p mn Thank you for let me participate in patient's care Chet Cooper Jun 05, 2019 15:19
[2019-06-05 16:00] VITALS: BP 101/60
[2019-06-05] MEDS ORDERED: NS w/KCl 20mEq 1000ml 1,000 ML IV SCH (16:00)
--- NOTE | 2019-06-05 17:22 | NUR ---
NURSE NOTES: Offered getting out of bed two times but pt said will do later.
[2019-06-05 20:00] VITALS: BP 101/53
--- NOTE | 2019-06-05 20:04 | NUR ---
HAND-OFF: Report given to ANDIE Garrett. Pt is stable.
--- NOTE | 2019-06-05 20:05 | NUR ---
NURSE NOTES: Patient in bed, awake and alert x4. Surgical site dressing dry and intact. Wound vac in place - 125/continuous/mild. No C/O pain at this time. Bed locked and in lowest position. Call light within easy reach. Will continue to monitor.
[2019-06-05] MEDS: Doxycycline Monohydrate 100mg ORAL SCH (22:24)
[2019-06-06] VITALS (16 sets, daily range): BP systolic 101–114; BP diastolic 49–70
[2019-06-06] MEDS: Heparin 5000 units/ml inj SUBQ SCH ×3 (04:32→21:19)
[2019-06-06] MEDS ORDERED: Rocuronium Bromide 50mg/5ml Inj IV ONE (06:56)
[2019-06-06] MEDS ORDERED: cefOXitin 2gm Inj ONE (06:56)
[2019-06-06] MEDS ORDERED: Bacitracin 50000 Units Vial ONE (06:57)
[2019-06-06] MEDS: PCA shift volume MISC SCH (07:00)
[2019-06-06] MEDS ORDERED: LR 1000ml 1,000 ML IVLG SCH (07:03)
--- NOTE | 2019-06-06 07:03 | Anethesia Preoperative Eval ---
Anesthesia Pre-op PMH/ROS General Date of Evaluation: Jun 06, 2019 Anesthesiologist: John ASA Score: ASA 2 Mallampati Score Class I : Soft palate, uvula, fauces, pillars visible Class II: Soft palate, uvula, fauces visible Class III: Soft palate, base of uvula visible Class IV: Only hard plate visible Mallampati Classification: Class II Surgeon: Victor Hugo Diagnosis: Sacral wound Surgical Procedure: Wound vac change vs wound closure sacral wound Anesthesia History: none Family History: no anesthesia problems Allergies: Coded Allergies: No Known Allergies (Unverified , 12/21/17) Medications: see eMAR Patient NPO?: Yes NPO Date: Jun 06, 2019 NPO Time: 1999 Past Medical History Cardiovascular: Denies: HTN, CAD, SD, valve dz, arrhythmia, other Pulmonary: Reports: asthma; Denies: COPD, MABEL, other Gastrointestinal/Genitourinary: Denies: GERD, CRI, ESRD, other Neurologic/Psychiatric: Reports: depression/anxiety; Denies: dementia, CVA, TIA, other Endocrine: Denies: DM, hypothyroidism, steroids, other HEENT: Denies: cataract (L), cataract (R), glaucoma, [place] (L), [place] (R), other Hematology/Immune: Denies: anemia, DVT, bleeding disorder, other Musculoskeletal/Integumentary: Denies: OA, RA, DJD, DDD, edema, other PSxH Narrative: multiple pilonidal cyst surgeries Anesthesia Pre-op Phys. Exam Physician Exam Last Vital Signs Date Time Temp Pulse Resp B/P (MAP) Pulse Ox O2 Delivery O2 Flow Rate FiO2 06/06/19 04:00 69 12 96 06/06/19 04:00 97.9 114/64 (81) 06/05/19 20:30 Room Air 06/05/19 19:57 21 06/04/19 15:55 3 Constitutional: NAD Cardiovascular: RRR Respiratory: CTA Airway Exam Mallampati Score: Class II MO: full ROM: full Teeth: intact Anesthesia Pre-op A/P Labs Chemistry Test 06/06/19 06:46 Sodium Level Pending Potassium Level Pending Chloride Level Pending Carbon Dioxide Level Pending Blood Urea Nitrogen Pending Creatinine Pending Estimat Glomerular Filtration Rate Pending Glucose Level Pending Calcium Level Pending Studies Pre-op Studies: EKG - sr Risk Assessment & Plan Assessment: ASA II Plan: GA Status Change Before Surgery: No Pre-Antibiotics Drug: cefoxitin 2g Given Within 1 Hr of Incision: Yes Francoise Razo MD Jun 06, 2019 07:03
[2019-06-06] MEDS ORDERED: DiphenhydrAMINE 50mg/ml Inj IVP PRN (07:15)
[2019-06-06] MEDS ORDERED: Hydromorphone 0.5mg/0.5ml inj IVP PRN (07:15)
[2019-06-06] MEDS ORDERED: fentaNYL 100 mcg/2 mL IV PRN (07:15)
[2019-06-06] MEDS ORDERED: Midazolam 2mg/2ml Inj IVP PRN (07:15)
[2019-06-06] MEDS ORDERED: LORazepam Inj 2mg/ml 1ml IV PRN (07:15)
[2019-06-06] MEDS ORDERED: oxyCODONE HCL/Acetaminophen 5/325mg ORAL PRN (07:15)
[2019-06-06] MEDS ORDERED: Lidocaine 1% MPF 10mg/ml 5ml ONE (07:23)
[2019-06-06] MEDS ORDERED: Propofol 200mg/20ml IV ONE (07:23)
[2019-06-06 07:27] LABS: ANION GAP 8 mmol/L (5-15); BLOOD UREA NITROGEN 13 mg/dL (7-18); CALCIUM 8.5 MG/DL (8.5-10.1); CARBON DIOXIDE 29 MMOL/L (21-32); CHLORIDE 106 MMOL/L (98-107); CREATININE 1.5 MG/DL (0.55-1.30); POTASSIUM 3.8 MMOL/L (3.5-5.1); SODIUM 143 MMOL/L (136-145)
[2019-06-06] MEDS ORDERED: Dexamethasone 4mg/ml vial ONE (07:30)
[2019-06-06] MEDS ORDERED: Sterile Water Irrig 1000ml IRRIG ONE (07:30)
[2019-06-06] MEDS ORDERED: NS Irrig 1000ml ONE (07:30)
[2019-06-06] MEDS ORDERED: LR 1000ml ONE (07:30)
--- NOTE | 2019-06-06 07:30 | NUR ---
NURSE NOTES: Patient is off unit.
--- NOTE | 2019-06-06 07:41 | NUR ---
HAND-OFF: Report given to ANDIE Rodriguez.
[2019-06-06] MEDS ORDERED: NS Irrig 2000ml IRRIG ONE (07:45)
--- NOTE | 2019-06-06 08:34 | Operative Note - PDOC ---
Operative Note Operative Note Chief Complaint: drainage pain sacrum Pre-op Diagnosis: recurrent pilonidal cyst/sinus Procedure: washout, partial closure, vac change to open sacral wound s/p radical debridement of recurrent pilonidal sinus Post-op Diagnosis: same Post-op Diagnosis: same as pre-op Surgeon: daya News Librarian: noemy Anesthesiologist: marilou Anesthesia: general Specimen: yes Complications: none Condition: stable Estimated Blood Loss: volume - 10 Drains: wound vac Implant(s) used?: No Ashok Gay M.D. Jun 06, 2019 08:34
--- NOTE | 2019-06-06 08:43 | General Progress Note ---
Progress Note Progress Note pt went to operating room with me and dr salguero today for washout vac change and partial closure; wound looks grossly clean and free of infection. CR increased to 1.5. I would suggest stopping vancomycin and hydrating and repeat daily BMP; may consider renal consult; Dr. salguero will assume surgical care for me starting 06/08. next operation is friday 06/09; cont vac and abx per ID; f/u wound cx Ashok Gay M.D. Jun 06, 2019 08:43
--- NOTE | 2019-06-06 08:51 | Immediate Post-Op Evaluation ---
Immediate Post-Op Evalulation Immediate Post-Op Evalulation Procedure: wound vac change sacral wound Date of Evaluation: Jun 06, 2019 Time of Evaluation: 08:48 IV Fluids: 500 Blood Products: 0 Estimated Blood Loss: min Urinary Output: 0 Blood Pressure Systolic: 102 Blood Pressure Diastolic: 52 Pulse Rate: 58 Respiratory Rate: 16 O2 Sat by Pulse Oximetry: 100 Temperature (Fahrenheit): 97 Pain Score (1-10): 0 Nausea: No Vomiting: No Complications 0 Patient Status: awake, reacts, patent, none Hydration Status: adequate Drug: Zosyn Given Within 1 Hr of Incision: Yes Francoise Razo MD Jun 06, 2019 08:51
--- NOTE | 2019-06-06 10:21 | Surgery Progress Note ---
Surgery Progress Note Subjective Additional Comments no acute events OR this AM wound looks good healthy no signs of active infection labs noted Objective Last 24 Hour Vital Signs Date Time Temp Pulse Resp B/P (MAP) Pulse Ox O2 Delivery O2 Flow Rate FiO2 06/06/19 09:59 97.4 57 15 108/58 100 Nasal Cannula 3 06/06/19 09:50 57 12 112/56 100 Nasal Cannula 3 06/06/19 09:45 60 15 111/62 100 Nasal Cannula 3 06/06/19 09:25 63 16 107/58 100 Nasal Cannula 3 06/06/19 09:15 59 15 105/55 100 Nasal Cannula 3 06/06/19 09:10 61 12 104/54 100 Simple Mask 6 06/06/19 09:00 60 12 103/55 100 Simple Mask 6 06/06/19 08:55 57 11 102/54 100 Simple Mask 6 06/06/19 08:51 58 16 100 06/06/19 08:50 57 13 103/51 100 Simple Mask 6 06/06/19 08:43 97.0 58 12 102/52 100 Simple Mask 6 06/06/19 04:00 69 12 96 06/06/19 04:00 97.9 69 12 114/64 (81) 96 06/06/19 00:00 98.2 77 12 101/53 (69) 98 06/06/19 00:00 77 12 98 06/05/19 20:30 Room Air 06/05/19 20:00 73 12 95 06/05/19 20:00 98.4 73 12 101/53 (69) 95 06/05/19 19:57 98 Room Air 21 06/05/19 16:00 98.2 70 21 101/60 (74) 95 06/05/19 16:00 70 21 95 06/05/19 12:00 98.8 84 20 120/59 (79) 99 06/05/19 12:00 84 20 99 I&O Intake and Output 06/05/19 06/06/19 19:00 07:00 Intake Total 1030.000 ml 50 ml Output Total 1200 ml 1000 ml Balance -170.000 ml -950 ml Intake Oral 480 ml IV Total 550.000 ml 50 ml Output Urine Total 1200 ml 1000 ml Drains: wound vac Cardiovascular: RSR Respiratory: clear Abdomen: soft, flat, non-tender, present bowel sounds Extremities: no edema, no tenderness, no cyanosis Laboratory Tests Test 06/06/19 05:50 06/06/19 06:46 Vancomycin Level Trough Pending Sodium Level 143 MMOL/L (136-145) Potassium Level 3.8 MMOL/L (3.5-5.1) Chloride Level 106 MMOL/L (98-107) Carbon Dioxide Level 29 MMOL/L (21-32) Anion Gap 8 mmol/L (5-15) Blood Urea Nitrogen 13 mg/dL (7-18) Creatinine 1.5 MG/DL (0.55-1.30) H Estimat Glomerular Filtration Rate 56.6 mL/min (>60) Glucose Level 83 MG/DL (74-106) Calcium Level 8.5 MG/DL (8.5-10.1) Plan Problems: (1) Infected pilonidal cyst Assessment & Plan: This is a 24-year-old male with 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 Maldonado for radical excision of recurrent pilonidal cyst; wound vac placement. Patient will require prolonged care plan and close monitoring to ensure adequate healing and improvement. Okay for diet Plan VAC change in the operating room Sunday Wound VAC settings as entered Rx is written stop vanco hydration We will follow with recommendations Thank you for let me participate in patient's care Chet Cooper Jun 06, 2019 10:21
--- NOTE | 2019-06-06 10:31 | NUR ---
NURSE NOTES: Patient arrived on unit via hospital bed. Stable. Breathing is even and unlabored. Patient AOx4, able to verbalize needs. Patient complains of pain and is reconnected to [employer]. Patient's surgical dressing c/d/i. Wound vac on and set at 125 continuous suction. Patient is side lying in bed in locked and lowest position with call light within reach. All needs met at this time. Will continue to monitor.
[2019-06-06] MEDS: Doxycycline Monohydrate 100mg ORAL SCH ×2 (10:44→21:19)
[2019-06-06] MEDS: DiphenhydrAMINE 50mg/ml Inj IVP PRN ×2 (12:05→22:05)
--- NOTE | 2019-06-06 13:03 | Anethesia Preoperative Eval ---
Anesthesia Pre-op PMH/ROS General Date of Evaluation: Jun 06, 2019 Anesthesiologist: Zina ASA Score: ASA 2 Mallampati Score Class I : Soft palate, uvula, fauces, pillars visible Class II: Soft palate, uvula, fauces visible Class III: Soft palate, base of uvula visible Class IV: Only hard plate visible Mallampati Classification: Class II Surgeon: Allison Diagnosis: Recurrent Pilonidal Cyst Surgical Procedure: Vac Change, Possible Closure, Open Sacral Wound Anesthesia History: none Family History: no anesthesia problems Allergies: Coded Allergies: No Known Allergies (Unverified , 12/21/17) Medications: see eMAR Patient NPO?: Yes NPO Date: Jun 06, 2019 NPO Time: 1999 Past Medical History Pulmonary: Reports: asthma Neurologic/Psychiatric: Reports: depression/anxiety PSxH Narrative: Multiole Pilonidal Cyst SX Anesthesia Pre-op Phys. Exam Physician Exam Last Vital Signs Date Time Temp Pulse Resp B/P (MAP) Pulse Ox O2 Delivery O2 Flow Rate FiO2 06/06/19 12:00 97.7 82 16 108/70 (83) 98 06/06/19 09:59 Nasal Cannula 3 06/06/19 09:00 21 Constitutional: NAD Neurologic: CN 2-12 intact Cardiovascular: RRR Respiratory: CTA Gastrointestinal: S/NT/ND Airway Exam Mallampati Score: Class II MO: full ROM: full Teeth: intact Anesthesia Pre-op A/P Labs Chemistry Test 06/06/19 06:46 Sodium Level 143 MMOL/L (136-145) Potassium Level 3.8 MMOL/L (3.5-5.1) Chloride Level 106 MMOL/L (98-107) Carbon Dioxide Level 29 MMOL/L (21-32) Anion Gap 8 mmol/L (5-15) Blood Urea Nitrogen 13 mg/dL (7-18) Creatinine 1.5 MG/DL (0.55-1.30) H Estimat Glomerular Filtration Rate 56.6 mL/min (>60) Glucose Level 83 MG/DL (74-106) Calcium Level 8.5 MG/DL (8.5-10.1) Risk Assessment & Plan Assessment: ASA 2 Plan: GA Pre-Antibiotics Drug: Zane Swann MD Jun 06, 2019 13:02
[2019-06-06] MEDS: Hydromorphone 0.5mg/0.5ml inj IVP PRN (13:52)
[2019-06-06] MEDS ORDERED: NS w/KCl 20mEq 1000ml 1,000 ML IV SCH (16:00)
--- NOTE | 2019-06-06 16:45 | History and Physical Report ---
DATE OF ADMISSION: 06/04/2019 SURGEON: Ashok Gay M.D. CHIEF COMPLAINT: Drainage from the sacral wound/pilonidal cyst. HISTORY OF PRESENT ILLNESS: This is a 24-year-old male with a past surgical history significant for pilonidal cyst excisions and flap closures and wound VAC treatments in the past, who presents now for the fourth time with recurrent large pilonidal cyst and sinus, and he is scheduled today for further surgery. PAST MEDICAL HISTORY: Significant for asthma that is controlled with an inhaler. The patient denies any other medical history. MEDICATIONS: An inhaler for asthma. SOCIAL HISTORY: The patient smokes marijuana. He does not smoke cigarettes. He does drink alcohol. PAST SURGICAL HISTORY: The patient has had radical wide excisions of pilonidal cyst x3. He has also had multiple closure operations including muscle flap closure as well as wound VAC placement as well as wet-to-dry dressing. PHYSICAL EXAMINATION: GENERAL: The patient has a large pilonidal recurrent cyst measured 14 cm long x 7 cm wide. The superior aspect of the wound is very attenuated, skin very thin. In the midportion of the sinus, there was open wound and overlapping skin and in an inferior portion, there was an open wound with drainage. There was communication from both sides of the top and the inferior portion. This was all connected. With active drainage from the wound, the patient was unable to sit. CARDIAC: S1, S2. Regular rate and rhythm. LUNGS: Clear to auscultation bilaterally. ABDOMEN: Soft. NEURO: Alert and oriented x3. No acute distress. He had good pulses to his left lower extremities and radial pulse. SKIN: There was a large pilonidal cyst as described above. ASSESSMENT/PLAN: The patient went to the operating room with me today for radical excision for the fourth time of the recurrent infected pilonidal cyst and sinus is left with a 14 x 7 cm open wound. Wound VAC was placed. There was a partial flap closure of the inferior portion of the wound. Wound cultures were sent. General surgeon Dr. Cooper, was consulted for assistance, Infectious Disease was consulted, and Dr. Fried, from Internal Medicine is also consulted for multidisciplinary team. The patient is to be admitted to the hospital with IV antibiotics for Infectious Disease, wound VAC placement, DVT prophylaxis, and we are going to follow up with wound cultures and the patient is going to go back to the operating room for VAC change in a couple days and was explained to the patient and his mother that he will likely be in the hospital for several days and have to go to the operating room for serial washout, debridement, partial closures of the granulation. Ashok Gay M.D. DR: DAPHNE JOB#: [id number] CC:
--- NOTE | 2019-06-06 17:23 | NUR ---
CASE MANAGEMENT:REVIEW 06/06/19 SI: POD #2 S/P RADICAL EXCISION 97.4 82 16 108/70 98% ON RA IS: BACK TO SURGERY FOR PARTIAL CLOSURE IVF@125/HR `RAIL CAR REPAIR CARMAN DILAUDID IV ZOSYN Q8HRS : MED/SURG 3 EAST PLAN: PATIENT WILL NEED WOUND VAC FOR HOME USE.....FAXED REQUEST TO [facility]
--- NOTE | 2019-06-06 17:26 | NUR ---
DISCHARGE PLANNING WOUND VAC FORM COMPLETED BY DR ACOSTA FAXED FORM TO [facility]
--- NOTE | 2019-06-06 18:34 | General Progress Note ---
Assessment/Plan Assessment/Plan: ASSESSMENT: 1. Pilonidal cyst status post resection and wound VAC placement. 2. Gastroesophageal reflux disease. 3. Asthma-controlled. PLAN: 1. Med/Surg. 2. Antibiotics-Doxycycline + Zosyn. 3. ID recs appreciated 4. IV fluids. 5. TILTING HEAD BAND SAWYER for pain. 6. Surgery is following. 7. wound vac changed 06/06 8. DVT prophylaxis. 9. Full Code. DR BELTRAN TO Cover over the weekend Subjective Allergies: Coded Allergies: No Known Allergies (Unverified , 12/21/17) All Systems: reviewed and negative except above - less itching Objective Last 24 Hour Vital Signs Date Time Temp Pulse Resp B/P (MAP) Pulse Ox O2 Delivery O2 Flow Rate FiO2 06/06/19 16:00 62 20 95 06/06/19 16:00 96.8 62 20 108/69 (82) 95 06/06/19 12:00 97.7 82 16 108/70 (83) 98 06/06/19 12:00 82 16 98 06/06/19 10:00 97.4 06/06/19 09:59 97.4 57 15 108/58 100 Nasal Cannula 3 06/06/19 09:50 57 12 112/56 100 Nasal Cannula 3 06/06/19 09:45 60 15 111/62 100 Nasal Cannula 3 06/06/19 09:25 63 16 107/58 100 Nasal Cannula 3 06/06/19 09:15 59 15 105/55 100 Nasal Cannula 3 06/06/19 09:10 61 12 104/54 100 Simple Mask 6 06/06/19 09:00 Nasal Cannula 2.0 06/06/19 09:00 60 12 103/55 100 Simple Mask 6 06/06/19 09:00 100 Room Air 21 06/06/19 08:55 57 11 102/54 100 Simple Mask 6 06/06/19 08:51 58 16 100 06/06/19 08:50 57 13 103/51 100 Simple Mask 6 06/06/19 08:43 97.0 58 12 102/52 100 Simple Mask 6 06/06/19 04:00 69 12 96 06/06/19 04:00 97.9 69 12 114/64 (81) 96 06/06/19 00:00 98.2 77 12 101/53 (69) 98 06/06/19 00:00 77 12 98 06/05/19 20:30 Room Air 06/05/19 20:00 73 12 95 06/05/19 20:00 98.4 73 12 101/53 (69) 95 06/05/19 19:57 98 Room Air 21 Intake and Output 06/05/19 06/06/19 19:00 07:00 Intake Total 1030.000 ml 50 ml Output Total 1200 ml 1000 ml Balance -170.000 ml -950 ml Intake Oral 480 ml IV Total 550.000 ml 50 ml Output Urine Total 1200 ml 1000 ml Laboratory Tests 06/06/19 05:50: Vancomycin Level Trough 4.0L 06/06/19 06:46: Sodium Level 143, Potassium Level 3.8, Chloride Level 106, Carbon Dioxide Level 29, Anion Gap 8, Blood Urea Nitrogen 13, Creatinine 1.5H, Estimat Glomerular Filtration Rate 56.6, Glucose Level 83, Calcium Level 8.5 Height (Feet): 5 Height (Inches): 10.00 Weight (Pounds): 170 General Appearance: WD/WN, no apparent distress EENT: PERRL/EOMI, normal ENT inspection Neck: non-tender, normal alignment Cardiovascular: normal peripheral pulses, regular rhythm Respiratory/Chest: chest wall non-tender, normal breath sounds Abdomen: non tender, soft Extremities: normal range of motion, non-tender Skin: normal pigmentation - wound vac over sacrum Dom Fried MD Jun 06, 2019 18:34
--- NOTE | 2019-06-06 18:37 | NUR ---
NURSE NOTES: Patient voided x2. No c/o burning or discomfort at this time.
--- NOTE | 2019-06-06 19:00 | NUR ---
NURSE NOTES: wound vac output: 50cc .
--- NOTE | 2019-06-06 19:16 | 48 Hour Post Anesthesia Eval ---
Post Anesthesia Evaluation Procedure: wound vac change sacral wound Date of Evaluation: Jun 06, 2019 Time of Evaluation: 19:14 Blood Pressure Systolic: 106 0: 69 Pulse Rate: 62 Respiratory Rate: 20 Temperature (Fahrenheit): 96.6 O2 Sat by Pulse Oximetry: 95 Airway: patent Nausea: No Vomiting: No Pain Intensity: 2 Hydration Status: adequate Cardiopulmonary Status: Stable Mental Status/LOC: patient returned to baseline Follow-up Care/Observations: 0 Post-Anesthesia Complications: 0 Follow-up care needed: N/A Zane Iazguirre MD Jun 06, 2019 19:16
--- NOTE | 2019-06-06 19:30 | Infectious Diseases Prog Note ---
Assessment/Plan Assessment/Plan A) 1) sacral/left buttock wound infection 2) recurrent pilonidal cyst/sinus, hx asthma 3) s/p pilonidal cyst resection and wound vac 4) allergies - ? vancomycin infusion, sh-negative, fh-nc 5) d/w RN P) 1) zosyn and doxycycline, vancomycin discontinued yesterday secondary to rash 2) f/u on wound culture, monitor labs 3) d/w Dr. Cooper 4) d/w Dr. Fried 5) d/w patient 6) will f/u Subjective Constitutional: Denies: fever HEENT: Denies: congestion Respiratory: Denies: shortness of breath Cardiovascular: Denies: chest pain Gastrointestinal/Abdominal: Denies: nausea, vomiting, diarrhea Genitourinary: Denies: dysuria Neurologic: Denies: headache Psychiatric: Denies: depression Skin: Reports: rash - + rash with vancomycin infusion, less rash with doxycycline Hematologic: Denies: bleeding Musculoskeletal: Denies: pain Allergies: Coded Allergies: No Known Allergies (Unverified , 12/21/17) Objective Vital Signs Last 24 Hour Vital Signs Date Time Temp Pulse Resp B/P (MAP) Pulse Ox O2 Delivery O2 Flow Rate FiO2 06/06/19 19:16 62 20 95 06/06/19 16:00 62 20 95 06/06/19 16:00 96.8 62 20 108/69 (82) 95 06/06/19 12:00 97.7 82 16 108/70 (83) 98 06/06/19 12:00 82 16 98 06/06/19 10:00 97.4 06/06/19 09:59 97.4 57 15 108/58 100 Nasal Cannula 3 06/06/19 09:50 57 12 112/56 100 Nasal Cannula 3 06/06/19 09:45 60 15 111/62 100 Nasal Cannula 3 06/06/19 09:25 63 16 107/58 100 Nasal Cannula 3 06/06/19 09:15 59 15 105/55 100 Nasal Cannula 3 06/06/19 09:10 61 12 104/54 100 Simple Mask 6 06/06/19 09:00 Nasal Cannula 2.0 06/06/19 09:00 60 12 103/55 100 Simple Mask 6 06/06/19 09:00 100 Room Air 21 06/06/19 08:55 57 11 102/54 100 Simple Mask 6 06/06/19 08:51 58 16 100 06/06/19 08:50 57 13 103/51 100 Simple Mask 6 06/06/19 08:43 97.0 58 12 102/52 100 Simple Mask 6 06/06/19 04:00 69 12 96 06/06/19 04:00 97.9 69 12 114/64 (81) 96 06/06/19 00:00 98.2 77 12 101/53 (69) 98 06/06/19 00:00 77 12 98 06/05/19 20:30 Room Air 06/05/19 20:00 73 12 95 06/05/19 20:00 98.4 73 12 101/53 (69) 95 06/05/19 19:57 98 Room Air 21 Height (Feet): 5 Height (Inches): 10.00 Weight (Pounds): 170 General Appearance: no acute distress HEENT: normocephalic, atraumatic, anicteric, mucous membranes moist Respiratory/Chest: lungs clear, normal breath sounds, no accessory muscle use, respiratory distress Cardiovascular: normal rate, regular rhythm, no gallop/murmur, no JVD Abdomen: normal bowel sounds, soft, non tender, no organomegaly, non distended Genitourinary: other - no garza Extremities: no cyanosis Skin: other - rash better off vancomycin 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 Complete 06/04/19 13:05 Sacral Cyst Gram Stain - Final Resulted 06/04/19 13:05 Sacral Cyst Aerobic Culture - Preliminary Resulted 06/04/19 13:05 Sacral Cyst Anaerobic Culture - Preliminary Resulted 06/04/19 13:05 Sacral Cyst Gram Stain - Final Resulted 06/04/19 13:05 Sacral Cyst Aerobic Culture - Preliminary NO GROWTH AFTER 24 HOURS Resulted 06/04/19 13:05 Sacral Cyst Anaerobic Culture - Preliminary NO GROWTH AFTER 24 HOURS Resulted Labs Test 06/05/19 06:20 06/06/19 05:50 06/06/19 06:46 White Blood Count 9.7 K/UL (4.8-10.8) Red Blood Count 4.85 M/UL (4.70-6.10) Hemoglobin 14.0 G/DL (14.2-18.0) Hematocrit 39.7 % (42.0-52.0) Mean Corpuscular Volume 82 FL (80-99) Mean Corpuscular Hemoglobin 28.9 PG (27.0-31.0) Mean Corpuscular Hemoglobin Concent 35.3 G/DL (32.0-36.0) Red Cell Distribution Width 11.1 % (11.6-14.8) Platelet Count 125 K/UL (150-450) Mean Platelet Volume 10.2 FL (6.5-10.1) Neutrophils (%) (Auto) 74.6 % (45.0-75.0) Lymphocytes (%) (Auto) 15.9 % (20.0-45.0) Monocytes (%) (Auto) 8.9 % (1.0-10.0) Eosinophils (%) (Auto) 0.1 % (0.0-3.0) Basophils (%) (Auto) 0.5 % (0.0-2.0) Sodium Level 140 MMOL/L (136-145) 143 MMOL/L (136-145) Potassium Level 3.9 MMOL/L (3.5-5.1) 3.8 MMOL/L (3.5-5.1) Chloride Level 104 MMOL/L (98-107) 106 MMOL/L (98-107) Carbon Dioxide Level 28 MMOL/L (21-32) 29 MMOL/L (21-32) Anion Gap 8 mmol/L (5-15) 8 mmol/L (5-15) Blood Urea Nitrogen 15 mg/dL (7-18) 13 mg/dL (7-18) Creatinine 1.3 MG/DL (0.55-1.30) 1.5 MG/DL (0.55-1.30) Estimat Glomerular Filtration Rate > 60 mL/min (>60) 56.6 mL/min (>60) Glucose Level 82 MG/DL (74-106) 83 MG/DL (74-106) Calcium Level 8.5 MG/DL (8.5-10.1) 8.5 MG/DL (8.5-10.1) Vancomycin Level Trough 4.0 ug/mL (5.0-12.0) Laboratory Tests Test 06/06/19 05:50 06/06/19 06:46 Vancomycin Level Trough 4.0 ug/mL (5.0-12.0) L Sodium Level 143 MMOL/L (136-145) Potassium Level 3.8 MMOL/L (3.5-5.1) Chloride Level 106 MMOL/L (98-107) Carbon Dioxide Level 29 MMOL/L (21-32) Anion Gap 8 mmol/L (5-15) Blood Urea Nitrogen 13 mg/dL (7-18) Creatinine 1.5 MG/DL (0.55-1.30) H Estimat Glomerular Filtration Rate 56.6 mL/min (>60) Glucose Level 83 MG/DL (74-106) Calcium Level 8.5 MG/DL (8.5-10.1) Current Medications Medications (Trade) Dose Ordered Sig/Miguelina Route PRN Reason Start Time Stop Time Status Last Admin Dose Admin Albuterol Sulfate (Proventil MDI) 1 puff Q6H PRN INH Shortness of Breath 06/04/19 18:45 07/04/19 17:14 Doxycycline Monohydrate (Doxycycline Monohydrate) 100 mg EVERY 12 HOURS ORAL 06/05/19 21:00 06/12/19 20:59 06/06/19 10:44 Heparin Sodium (Porcine) (Heparin 5000 units/ml) 5,000 units EVERY 8 HOURS SUBQ 06/04/19 22:00 07/04/19 21:59 06/05/19 14:51 Hydromorphone HCl (Dilaudid) 0.5 mg Q4H PRN IVP Severe Breakthru Pain (>7) 06/06/19 11:15 06/13/19 11:14 06/06/19 13:52 Pantoprazole (Protonix) 40 mg DAILY ORAL 06/05/19 09:00 07/05/19 08:59 06/06/19 10:44 Piperacillin Sod/ Tazobactam Sod 3.375 gm/Dextrose 100 ml @ 25 mls/hr EVERY 8 HOURS IVPB 06/04/19 22:00 06/09/19 21:59 06/06/19 14:06 Sodium Chloride 1,000 ml @ 125 mls/hr Q8H IV 06/06/19 10:40 07/06/19 10:39 06/06/19 18:13 Navneet Oakes MD Jun 06, 2019 19:30
--- NOTE | 2019-06-06 19:40 | NUR ---
NURSE NOTES: Received report from ANDIE Rodriguez. Pt is awake, lying semi correa's; comfortably resting. No signs of acute distress noted. Pt denies any pain at this time. AOx4; able to make needs known. Checked IV site, line, and rate; patent and running. No erythema, bleeding, or infiltration noted. Bed at lowest position. Brakes on. Siderails up x2. Call light within reach. Will continue to monitor.
--- NOTE | 2019-06-06 20:14 | NUR ---
HAND-OFF: Report given to Mary CHAVES. Patient is stable.
[2019-06-06] MEDS ORDERED: PCA HYDROmorphone 1mg/ml 30 ML IV PRN (20:15)
[2019-06-06] MEDS ORDERED: Rate Change PCA 1 Each MISC PRN (20:30)
[2019-06-06] MEDS ORDERED: Naloxone 0.4mg/ml Inj IVP PRN (20:30)
--- NOTE | 2019-06-06 20:45 | Operative Note - Dictated ---
DATE OF OPERATION: 06/06/2019 SURGEON: Ashok Gay M.D. BENEFITS CLERK SURGEON: Chet Cooper M.D. ANESTHESIOLOGIST: Francoise Lopez M.D. ANESTHESIA: General endotracheal tube anesthesia. PREOPERATIVE DIAGNOSES: 1. A 9 x 6 cm open wound to the sacrum on the superior aspect and 3 cm open inferior aspect of sacrum. 2. Status post radical debridement of recurrent pilonidal cyst sinus. POSTOPERATIVE DIAGNOSES: 1. A 9 x 6 cm open wound to the sacrum on the superior aspect and 3 cm open inferior aspect of sacrum. 2. Status post radical debridement of recurrent pilonidal cyst sinus. PROCEDURE PERFORMED: 1. Wound preparation of 54 square cm open superior sacral wound for future graft and the flap closure. 2. Complex closure of 3 cm inferior sacrum/buttock open wound. 3. Wound VAC change to open sacral wound. INDICATIONS FOR PROCEDURE: This is a 24-year-old male who I previously operated on 3 days ago. The patient's baseline creatinine was 1.3 when he came into the hospital. He has been on vancomycin and Zosyn per the Infectious Disease consult. Dr. Fried of Internal Medicine has been following him. Dr. Cooper of General Surgery/Colorectal Surgery to assist me in the operation as well and to take care of the wound care after today's operation because the patient need an extensive wound care. In the last couple of days, the patient has been doing well on the floor. His white count was normal. Again, his creatinine was elevated. Wound cultures were pending. They were growing some bacteria, which were growing in the preliminary results. Today the plan is to take the patient back to the operating room since it was such an extensive wound right at the anus for further washout, possible debridement, possible partial closure, and possible VAC change. Risks and benefits to the operation including, but not limited to wound dehiscence, bleeding, infection, hematoma, seroma, open wounds, poor scarring, sinus fracture, recurrence of pilonidal cyst, need for multiple operations, possibility of letting this heal secondarily with a VAC and then needing a skin graft or flap closure in the future and was discussed with the patient and his mother in the preop holding area. All questions were answered. It was explained to the patient and his mother that after today's operation, Dr. Cooper is going to take over his care. The patient will likely go home back with a wound VAC and have to have VAC changes 3 times a week by the bedside and he will see Dr. Cooper once a week and appropriate wound care. Positioning, limitations in physical activity, meticulous hygiene especially after bowel movements, need to be on antibiotics per Infectious Disease doctor and the possibility of this being a very extensive recovery and need for future operations were discussed and all questions answered. DESCRIPTION OF PROCEDURE: The patient was taken to the operating room, placed under general endotracheal tube anesthesia. Perioperative antibiotics were given. SCDs were placed on bilateral lower extremities in a prone position. The wound VAC was removed. The area was prepped and draped in usual clean sterile manner. We explored the wound. There was a 3 cm dehiscence of the inferior portion of the wound. The rest of the wounds were free of any gross infection. There was no significant evidence of disease or bleeding. We then did wound preparation of 9 x6 or 54 square cm with a Bovie scratch pad and the curette. off and given the fact that bacteria from the wound for preparations of graft, future flap closure, or grafting. After doing the wound preparation, we also pulse lavaged 2 L of antibiotic irrigation to the open wound. The inferior part of the wound was dehisced 3 cm debrided the skin edges with scissors and undermined to take tension off the wound and then closed this with 2-0 chromic vertical mattress sutures. We then were unable to close the superior aspect of the wound with the significant amount of tension and also we put the wound VAC sponge back in the wound. We placed some stoma paste and Xeroform on the inferior portion of the wound and then did a VAC wedge over protective skin, set the VAC to 175 mmHg. Once the VAC was in place, there was no leak. We then put the patient over, extubated, transferred to recovery room in stable condition. SPECIMENS: None. ESTIMATED BLOOD LOSS: 120 mL. DRAINS: Wound VAC. COMPLICATIONS: None. CONDITION: Stable. Ashok Gay M.D. DR: SANDIP JOB#: [id number] CC:
--- NOTE | 2019-06-06 20:45 | Operative Note - Dictated ---
DATE OF OPERATION: 06/04/2019 SURGEON: Ashok Gay M.D. ANESTHESIOLOGIST: Dr. Francoise Lopez. ANESTHESIA: General anesthesia as well as local 60 mL of 0.5% Marcaine. PREOPERATIVE DIAGNOSIS: Recurrent infected pilonidal cyst/pilonidal sinus. POSTOPERATIVE DIAGNOSIS: Recurrent infected pilonidal cyst/pilonidal sinus. PROCEDURES PERFORMED: 1. Wide plus radical excision of recurrent pilonidal cyst/sinus. 2. Wound preparation 14 x 7 or 98 square centimeters flap closure or grafting. 3. A 35 square centimeter adjacent tissue transfer for partial wound closure, inferior aspect of the wound. 4. Wound VAC placement to open sacral wound. INDICATIONS FOR PROCEDURE: This is a 24-year-old male who is scheduled today to go to the operating room for his fourth pilonidal cyst/sinus recurrent infected pilonidal cyst excision. The patient has been having significant pain and drainage from his pilonidal cyst in sacrum area for the past many months. He has been seeing Dr. Rodriguez in the office. The patient has not gotten any better. On physical exam, there was a large 14 x 7 centimeter area of very attenuated skin. There are three components to his wound. The superior aspect of the wound with very attenuated skin. On mid aspect of the wound, there was skin that overlapped and healed secondarily and in the inferior aspect there was an open draining wound that was communicating at the 12 o'clock position. When we put pressure on the 12 o'clock position of the sinus, there was significant drainage. The wound was probed and it showed that the entire sinus came back and there was an infected recurrent pilonidal cyst. The plan today was to take the patient to the operating room under general anesthesia to do radical wide excision with recurrent pilonidal cyst, sinus and a possible partial flap closure and wound VAC placement. Wound cultures will be sent. Infectious Disease doctor will be consulted and his mother noted that even in the hospital likely if the wound cannot be closed depending on the intraoperative findings are for some amount of time and he may need to have a delayed closure in the next several days to weeks or months or may go home with local wound care for wound VAC dressing to let it granulate in. Risks and benefits included, but not limited to, need for future operations, infection, bleeding, hematoma, seroma, secondary effects of antibiotics to the kidneys and other parts of the body, need for meticulous wound care, need for proper hygiene, pressure avoidance, limitations in sitting were discussed and all questions were answered. DESCRIPTION OF PROCEDURE: The patient was taken to the operating room. Perioperative antibiotics were given and SCDs were placed on bilateral lower extremities. He was placed under general endotracheal tube anesthesia in the supine position. He was then flipped in the prone position after appropriate positioning and padding of the arms and the rest of the body, the area was prepped and draped in usual clean sterile manner. I started the operation by probing with a small probe and entered three different parts of his wounds, which were 14 x 7 centimeters. There was communication and fluid and drainage that is coming out. Wound cultures were sent superficially as well as deep to the lab. We have to cut out a large amount of skin and soft tissue 14 centimeters long and 7 centimeters wide and this was marked with a marking pen with a #10 scalpel and electrocautery and we are cutting out this recurrent pilonidal cyst. There were several draining sinus tracts and necrotic hard scar tissue inside. We went all the way down to the gluteus amanda muscle and the presacral fascia with electrocautery. We stayed away from the levator muscle. We sent wound cultures deep as well to the lab for Gram stain, wound culture, AFB, and fungus. After doing this, we selected a 14 x 7 centimeter wound with the pulse lavage irrigation, 2 liters of antibiotic irrigation given a wound preparation with the curette to prepare the wound for future grafting with flap closure thus creating this 98 square centimeters. I was left with a huge defect. At this point, it could not be closed primarily. However, the inferior portion of the wound was very close to the anus. I needed to close this, so that I can get a seal from the wound VAC as well as try to prevent contamination from the anus into the wound, so I did a 7 x 5 centimeter or 35 square centimeters adjacent tissue transfer by making a back cut using the Portage clamps and rotating the skin, so I can close the inferior portion. I used 2-0 PDS for the deep Andrew fascial sutures to close any space after making a back cut and reorienting the skin and then 2-0 PDS for the deep dermis and then 2-0 and 3-0 chromic vertical mattress sutures. After doing this, I placed a wound VAC in the superior portion of the wound, I then placed stoma Xeroform on the inferior portion of the wound and I placed a wound VAC set at 125 mmHg. There was no leak and a good seal. The ABDs were placed underneath the wound VAC tubing for padding. The patient was flipped over, extubated, transferred to the recovery room in stable condition. FINDINGS: As above. SPECIMENS: Wound culture x2 and open sacral wound. ESTIMATED BLOOD LOSS: Was about 75 mL. COMPLICATIONS: None. CONDITION: Stable. DRAINS: Wound VAC wound. Ashok Gay M.D. DR: DAPHNE JOB#: [id number] CC:
[2019-06-07] VITALS: BP 111/66
[2019-06-07] MEDS: Hydromorphone 0.5mg/0.5ml inj IVP PRN ×2 (03:11→09:02)
[2019-06-07 04:00] VITALS: BP 128/68
[2019-06-07 05:48] LABS: BASOPHILS % (AUTO) 0.8 % (0.0-2.0); EOSINOPHILS % (AUTO) 0.6 % (0.0-3.0); HEMATOCRIT 36.6 % (42.0-52.0); LYMPHOCYTES % (AUTO) 25.9 % (20.0-45.0); MEAN CORPUSCULAR VOLUME 83 FL (80-99); MONOCYTES % (AUTO) 8.6 % (1.0-10.0); NEUTROPHILS % (AUTO) 64.1 % (45.0-75.0); PLATELET COUNT 102 K/UL (150-450); RED BLOOD COUNT 4.41 M/UL (4.70-6.10); RED CELL DISTRIBUTION WIDTH 11.1 % (11.6-14.8); WHITE BLOOD COUNT 7.4 K/UL (4.8-10.8)
[2019-06-07 05:57] LABS: ANION GAP 7 mmol/L (5-15); BLOOD UREA NITROGEN 11 mg/dL (7-18); CALCIUM 8.3 MG/DL (8.5-10.1); CARBON DIOXIDE 28 MMOL/L (21-32); CHLORIDE 105 MMOL/L (98-107); CREATININE 1.3 MG/DL (0.55-1.30); POTASSIUM 3.8 MMOL/L (3.5-5.1); SODIUM 140 MMOL/L (136-145)
[2019-06-07] MEDS: Heparin 5000 units/ml inj SUBQ SCH ×3 (06:00→21:05)
[2019-06-07] MEDS: PCA shift volume MISC SCH ×2 (07:21→19:00)
--- NOTE | 2019-06-07 07:45 | NUR ---
NURSE NOTES: Received report from Mary CHAVSE. Patient is awake and oriented, no acute distress noted, reporting pain in lumbosacral area, patient reports he would like breakthrough medication when AM meds are due, patient using [employer], settings checked and verified against order. IV running IVF and antibiotic per order. Wound vac running at 125mmHg continuous without issue. Patient updated on plan of care for the day. Side rails upx2, bed low and locked, call light within reach.
[2019-06-07 08:00] VITALS: BP 126/73
--- NOTE | 2019-06-07 08:07 | NUR ---
HAND-OFF: Report given to ANDIE Skinner. Pt is awake and in stable condition. Plan of care endorsed.
[2019-06-07] MEDS: Doxycycline Monohydrate 100mg ORAL SCH ×2 (09:01→21:04)
--- NOTE | 2019-06-07 10:51 | NUR ---
NURSE NOTES: Informed Dr. Cooper platelets 102, MD stated to proceed with ordered subcut heparin, per MD "don't hold it unless there's a 50% drop in platelets."
--- NOTE | 2019-06-07 11:47 | Surgery Progress Note ---
Surgery Progress Note Subjective Additional Comments doing well post op no n/v/f/c comfortable pain controlled no n/v/f/c labs noted vac functional Objective Last 24 Hour Vital Signs Date Time Temp Pulse Resp B/P (MAP) Pulse Ox O2 Delivery O2 Flow Rate FiO2 06/07/19 08:00 96.6 86 16 126/73 (90) 97 06/07/19 04:00 98.0 60 16 128/68 (88) 99 06/07/19 04:00 60 16 60 06/07/19 00:00 98.0 69 12 111/66 (81) 96 06/07/19 00:00 69 12 96 06/06/19 21:00 Nasal Cannula 2.0 06/06/19 20:00 68 16 95 06/06/19 20:00 97.9 68 16 111/64 (80) 95 06/06/19 19:28 99 Room Air 21 06/06/19 19:16 62 20 95 06/06/19 16:00 62 20 95 06/06/19 16:00 96.8 62 20 108/69 (82) 95 06/06/19 12:00 97.7 82 16 108/70 (83) 98 06/06/19 12:00 82 16 98 I&O Intake and Output 06/06/19 06/07/19 19:00 07:00 Intake Total 850 ml Output Total 50 ml Balance 800 ml Intake Oral 300 ml IV Total 550 ml Estimated Blood Loss 50 ml # Voids 2 3 Drains: wound vac Cardiovascular: RSR Respiratory: clear Abdomen: soft, flat, non-tender, present bowel sounds Extremities: no edema, no tenderness, no cyanosis Laboratory Tests Test 06/07/19 04:35 White Blood Count 7.4 K/UL (4.8-10.8) Red Blood Count 4.41 M/UL (4.70-6.10) L Hemoglobin 13.0 G/DL (14.2-18.0) L Hematocrit 36.6 % (42.0-52.0) L Mean Corpuscular Volume 83 FL (80-99) Mean Corpuscular Hemoglobin 29.5 PG (27.0-31.0) Mean Corpuscular Hemoglobin Concent 35.5 G/DL (32.0-36.0) Red Cell Distribution Width 11.1 % (11.6-14.8) L Platelet Count 102 K/UL (150-450) L Mean Platelet Volume 9.7 FL (6.5-10.1) Neutrophils (%) (Auto) 64.1 % (45.0-75.0) Lymphocytes (%) (Auto) 25.9 % (20.0-45.0) Monocytes (%) (Auto) 8.6 % (1.0-10.0) Eosinophils (%) (Auto) 0.6 % (0.0-3.0) Basophils (%) (Auto) 0.8 % (0.0-2.0) Sodium Level 140 MMOL/L (136-145) Potassium Level 3.8 MMOL/L (3.5-5.1) Chloride Level 105 MMOL/L (98-107) Carbon Dioxide Level 28 MMOL/L (21-32) Anion Gap 7 mmol/L (5-15) Blood Urea Nitrogen 11 mg/dL (7-18) Creatinine 1.3 MG/DL (0.55-1.30) Estimat Glomerular Filtration Rate > 60 mL/min (>60) Glucose Level 90 MG/DL (74-106) Calcium Level 8.3 MG/DL (8.5-10.1) L Plan Problems: (1) Infected pilonidal cyst Assessment & Plan: This is a 24-year-old male with 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 Maldonado for radical excision of recurrent pilonidal cyst; wound vac placement. Patient will require prolonged care plan and close monitoring to ensure adequate healing and improvement. Okay for diet Plan VAC change in the operating room Sunday Wound VAC settings as entered Rx is written We will follow with recommendations Thank you for let me participate in patient's care Chet Cooper Jun 07, 2019 11:47
[2019-06-07 12:00] VITALS: BP 127/74
[2019-06-07 16:00] VITALS: BP 113/64
--- NOTE | 2019-06-07 16:56 | NUR ---
CASE MANAGEMENT: REVIEW SI: INFECTED PILONIDAL CYST . DRAINAGE PAIN SACRUM RADICAL EXCISION OF RECURRENT PILONIDAL CYST 06/04 T 97.0 HR 68 RR 16 BP 113/64 SAT 97% ROOM AIR H/H 13.0/36.6 IS: IVF@125/HR CLINICAL PHARMACOLOGIST DILAUDID ZOSYN IV Q8HR DOXYCYCLINE 100MG PO Q12 HR WOUND VAC PLACEMENT TO OPEN SACRAL WOUND MED/SURG STATUS DCP: PATIENT IS FROM HOME
--- NOTE | 2019-06-07 17:52 | General Progress Note ---
Assessment/Plan Problem List: (1) Infected pilonidal cyst ICD Codes: L05.91 - Pilonidal cyst without abscess SNOMED: 89139140, 244249122 (2) Constipation ICD Codes: K59.00 - Constipation, unspecified SNOMED: 03370815 Assessment/Plan: start Miralax Abxs pain meds Subjective Allergies: Coded Allergies: No Known Allergies (Unverified , 12/21/17) Subjective C/O constipation Objective Last 24 Hour Vital Signs Date Time Temp Pulse Resp B/P (MAP) Pulse Ox O2 Delivery O2 Flow Rate FiO2 06/07/19 16:00 16 06/07/19 16:00 97.0 68 16 113/64 (80) 97 06/07/19 12:00 16 06/07/19 12:00 96.8 70 16 127/74 (91) 96 06/07/19 09:00 Room Air 06/07/19 08:00 96.6 86 16 126/73 (90) 97 06/07/19 08:00 16 06/07/19 04:00 98.0 60 16 128/68 (88) 99 06/07/19 04:00 60 16 60 06/07/19 00:00 98.0 69 12 111/66 (81) 96 06/07/19 00:00 69 12 96 06/06/19 21:00 Nasal Cannula 2.0 06/06/19 20:00 68 16 95 06/06/19 20:00 97.9 68 16 111/64 (80) 95 06/06/19 19:28 99 Room Air 21 06/06/19 19:16 62 20 95 Intake and Output 06/06/19 06/07/19 19:00 07:00 Intake Total 850 ml 125 ml Output Total 50 ml Balance 800 ml 125 ml Intake Oral 300 ml IV Total 550 ml 125 ml Estimated Blood Loss 50 ml # Voids 2 3 Laboratory Tests 06/07/19 04:35: White Blood Count 7.4, Red Blood Count 4.41L, Hemoglobin 13.0L, Hematocrit 36.6L , Mean Corpuscular Volume 83, Mean Corpuscular Hemoglobin 29.5, Mean Corpuscular Hemoglobin Concent 35.5, Red Cell Distribution Width 11.1L, Platelet Count 102L, Mean Platelet Volume 9.7, Neutrophils (%) (Auto) 64.1, Lymphocytes (%) (Auto) 25.9, Monocytes (%) (Auto) 8.6, Eosinophils (%) (Auto) 0.6, Basophils (%) (Auto) 0.8, Sodium Level 140, Potassium Level 3.8, Chloride Level 105, Carbon Dioxide Level 28, Anion Gap 7, Blood Urea Nitrogen 11, Creatinine 1.3, Estimat Glomerular Filtration Rate > 60, Glucose Level 90, Calcium Level 8.3L Height (Feet): 5 Height (Inches): 10.00 Weight (Pounds): 170 Cardiovascular: normal rate Respiratory/Chest: lungs clear Abdomen: distended Edema: no edema noted Generalized Andre Charles MD Jun 07, 2019 17:52
[2019-06-07] MEDS ORDERED: Miralax 17gm pkt ORAL ONE (18:00)
--- NOTE | 2019-06-07 19:30 | NUR ---
HAND-OFF: Report given to Arianna CHAVES.
[2019-06-07 20:00] VITALS: BP 120/68
--- NOTE | 2019-06-07 20:32 | NUR ---
NURSE NOTES: Received patient in bed. awake, alert, oriented, able to make his needs known, IV site is clean dry and intact, wound vac is in place, CURBING STONECUTTER pump is being used accordingly. Call light is within reach, bed is lowered, locked and alarm is on, will continue to monitor for comfort and safety.
[2019-06-07] MEDS: DiphenhydrAMINE 50mg/ml Inj IVP PRN (21:04)
[2019-06-08] VITALS: BP 116/72
[2019-06-08 04:00] VITALS: BP 113/69
[2019-06-08] MEDS: Heparin 5000 units/ml inj SUBQ SCH ×3 (05:46→22:00)
[2019-06-08 06:01] LABS: ANION GAP 7 mmol/L (5-15); BLOOD UREA NITROGEN 10 mg/dL (7-18); CALCIUM 8.9 MG/DL (8.5-10.1); CARBON DIOXIDE 31 MMOL/L (21-32); CHLORIDE 103 MMOL/L (98-107); CREATININE 1.2 MG/DL (0.55-1.30); POTASSIUM 3.8 MMOL/L (3.5-5.1); SODIUM 141 MMOL/L (136-145)
[2019-06-08] MEDS: PCA shift volume MISC SCH ×2 (07:29→19:00)
--- NOTE | 2019-06-08 07:45 | NUR ---
NURSE NOTES: Received report from Arianna CHAVES. Patient is awake and oriented, no acute distress noted, reporting breakthrough pain rated 8/10, will medicate per order, TRAFFIC CHECKER settings checked and verified against order. Noted patient's IV leaking during rounds, removed IV intact and started new IV in LAC 18g. IVF running per order. Patient updated on plan of care. Side rails upx2, bed low and locked, call light within reach.
[2019-06-08 08:00] VITALS: BP 105/54
[2019-06-08] MEDS: Doxycycline Monohydrate 100mg ORAL SCH (08:17)
[2019-06-08] MEDS: Hydromorphone 0.5mg/0.5ml inj IVP PRN (08:18)
[2019-06-08] MEDS ORDERED: Rate Change PCA 1 Each MISC PRN (10:45)
--- NOTE | 2019-06-08 11:08 | NUR ---
NURSE NOTES: Received order from Dr. Cooper to renew PROJECT ACCOUNTANT, orders entered.
--- NOTE | 2019-06-08 11:56 | Surgery Progress Note ---
Surgery Progress Note Subjective Symptoms: improved, tolerating diet, passing flatus Objective Last 24 Hour Vital Signs Date Time Temp Pulse Resp B/P (MAP) Pulse Ox O2 Delivery O2 Flow Rate FiO2 06/08/19 08:00 97.5 56 16 105/54 (71) 97 06/08/19 04:00 16 06/08/19 04:00 97.4 59 20 113/69 (84) 98 06/08/19 00:00 97.6 61 20 116/72 (87) 98 06/08/19 00:00 16 06/07/19 21:46 Nasal Cannula 2.0 06/07/19 20:35 98 Room Air 21 06/07/19 20:00 16 06/07/19 20:00 97.2 61 20 120/68 (85) 98 06/07/19 16:00 16 06/07/19 16:00 97.0 68 16 113/64 (80) 97 06/07/19 12:00 16 06/07/19 12:00 96.8 70 16 127/74 (91) 96 I&O Intake and Output 06/07/19 06/08/19 19:00 07:00 Intake Total 1975 ml Output Total 1050 ml Balance 925 ml Intake Oral 400 ml IV Total 1575 ml Output Urine Total 1000 ml Drainage Total 50 ml Drains: wound vac Cardiovascular: RSR Respiratory: clear Abdomen: soft, non-tender, present bowel sounds Extremities: no edema, no tenderness, no cyanosis Laboratory Tests Test 06/08/19 04:35 Sodium Level 141 MMOL/L (136-145) Potassium Level 3.8 MMOL/L (3.5-5.1) Chloride Level 103 MMOL/L (98-107) Carbon Dioxide Level 31 MMOL/L (21-32) Anion Gap 7 mmol/L (5-15) Blood Urea Nitrogen 10 mg/dL (7-18) Creatinine 1.2 MG/DL (0.55-1.30) Estimat Glomerular Filtration Rate > 60 mL/min (>60) Glucose Level 88 MG/DL (74-106) Calcium Level 8.9 MG/DL (8.5-10.1) Plan Problems: (1) Infected pilonidal cyst Assessment & Plan: This is a 24-year-old male with 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 Maldonado for radical excision of recurrent pilonidal cyst; wound vac placement. Patient will require prolonged care plan and close monitoring to ensure adequate healing and improvement. Okay for diet Plan VAC change in the operating room Sunday Wound VAC settings as entered Rx is written We will follow with recommendations Thank you for let me participate in patient's care Chet Cooper Jun 08, 2019 11:56
[2019-06-08 12:00] VITALS: BP 107/65
--- NOTE | 2019-06-08 12:00 | Pre-Procedure Note/Attestation ---
Pre-Procedure Note/Attestation Complete Prior to Procedure Procedure Narrative: wound vac change sacrum possible excisional debridement of non viable tissue Indications for Procedure Pre-Operative Diagnosis: open wound sacrum Attestation I attest that I discussed the nature of the procedure; its benefits; risks and complications; and alternatives (and the risks and benefits of such alternatives ), prior to the procedure, with the patient (or the patient's legal tour sales representative). I attest that, if there was a reasonable possibility of needing a blood transfusion, the patient (or the patient's legal tour sales representative) was given the [place] Department [employer] Services standardized written summary, pursuant to the Fred [place]one Blood Safety Act ([place] Health and Safety Code # 1645, as amended). I attest that I re-evaluated the patient just prior to the surgery and that there has been no change in the patient's H&P, except as documented below: Chet Cooper Jun 08, 2019 12:00
[2019-06-08] MEDS: Miralax 17gm pkt ORAL PRN ×2 (12:15→21:46)
--- NOTE | 2019-06-08 12:49 | General Progress Note ---
Assessment/Plan Problem List: (1) Infected pilonidal cyst ICD Codes: L05.91 - Pilonidal cyst without abscess SNOMED: 51757699, [id number] (2) Constipation ICD Codes: K59.00 - Constipation, unspecified SNOMED: [id number] Assessment/Plan: cont Miralax fleet enema X1 Abxs pain meds discussed with pt and RN Subjective Allergies: Coded Allergies: No Known Allergies (Unverified , 12/21/17) Subjective no BM yet Objective Last 24 Hour Vital Signs Date Time Temp Pulse Resp B/P (MAP) Pulse Ox O2 Delivery O2 Flow Rate FiO2 06/08/19 08:00 97.5 56 16 105/54 (71) 97 06/08/19 04:00 16 06/08/19 04:00 97.4 59 20 113/69 (84) 98 06/08/19 00:00 97.6 61 20 116/72 (87) 98 06/08/19 00:00 16 06/07/19 21:46 Nasal Cannula 2.0 06/07/19 20:35 98 Room Air 21 06/07/19 20:00 16 06/07/19 20:00 97.2 61 20 120/68 (85) 98 06/07/19 16:00 16 06/07/19 16:00 97.0 68 16 113/64 (80) 97 Intake and Output 06/07/19 06/08/19 19:00 07:00 Intake Total 1975 ml Output Total 1050 ml Balance 925 ml Intake Oral 400 ml IV Total 1575 ml Output Urine Total 1000 ml Drainage Total 50 ml Laboratory Tests 06/08/19 04:35: Sodium Level 141, Potassium Level 3.8, Chloride Level 103, Carbon Dioxide Level 31, Anion Gap 7, Blood Urea Nitrogen 10, Creatinine 1.2, Estimat Glomerular Filtration Rate > 60, Glucose Level 88, Calcium Level 8.9 Height (Feet): 5 Height (Inches): 10.00 Weight (Pounds): 170 Cardiovascular: normal rate Respiratory/Chest: lungs clear Abdomen: distended Andre Charles MD Jun 08, 2019 12:49
[2019-06-08] MEDS: PCA HYDROmorphone 1mg/ml 30 ML IV PRN (14:12)
--- NOTE | 2019-06-08 15:31 | NUR ---
NURSE NOTES: Patient had small BM, refusing enema, stated he will continue taking Miralax instead.
--- NOTE | 2019-06-08 15:55 | Infectious Diseases Prog Note ---
Assessment/Plan Assessment/Plan A) 1) sacral/left buttock wound infection - wound culture with strep species and marketing development representative cultured at two different sites 2) recurrent pilonidal cyst/sinus, hx asthma 3) s/p pilonidal cyst resection and wound vac 4) allergies - ? vancomycin infusion, sh-negative, fh-nc 5) d/w RN P) 1) zosyn and zyvox 2) f/u on wound culture final, monitor labs 3) d/w Dr. Cooper 4) d/w Dr. Fried 5) d/w patient and mom 6) will f/u Subjective Constitutional: Denies: fever HEENT: Denies: congestion Respiratory: Denies: shortness of breath Cardiovascular: Denies: chest pain Gastrointestinal/Abdominal: Denies: nausea, vomiting, diarrhea Genitourinary: Denies: dysuria, hematuria Neurologic: Denies: headache Psychiatric: Denies: depression Skin: Denies: rash Hematologic: Denies: bleeding Musculoskeletal: Denies: pain Allergies: Coded Allergies: No Known Allergies (Unverified , 12/21/17) Objective Vital Signs Last 24 Hour Vital Signs Date Time Temp Pulse Resp B/P (MAP) Pulse Ox O2 Delivery O2 Flow Rate FiO2 06/08/19 12:00 97.8 62 16 107/65 (79) 97 06/08/19 12:00 16 06/08/19 09:00 Room Air 06/08/19 08:00 97.5 56 16 105/54 (71) 97 06/08/19 08:00 16 06/08/19 04:00 16 06/08/19 04:00 97.4 59 20 113/69 (84) 98 06/08/19 00:00 97.6 61 20 116/72 (87) 98 06/08/19 00:00 16 06/07/19 21:46 Nasal Cannula 2.0 06/07/19 20:35 98 Room Air 21 06/07/19 20:00 16 06/07/19 20:00 97.2 61 20 120/68 (85) 98 06/07/19 16:00 16 06/07/19 16:00 97.0 68 16 113/64 (80) 97 Height (Feet): 5 Height (Inches): 10.00 Weight (Pounds): 170 General Appearance: no acute distress HEENT: normocephalic, atraumatic, anicteric, mucous membranes moist Respiratory/Chest: lungs clear, normal breath sounds, no respiratory distress, no accessory muscle use Cardiovascular: normal rate, regular rhythm, no gallop/murmur, no JVD Abdomen: normal bowel sounds, soft, non tender, no organomegaly, non distended Genitourinary: other - no garza Extremities: no cyanosis Skin: no rash Neurologic/Psychiatric: automatic engraver II-XII grossly normal, alert, oriented x 3, responsive Lymphatic: no neck adenopathy Musculoskeletal: no effusion Objective none Microbiology Date/Time Source Procedure Growth Status 06/04/19 11:15 Nasal Nares MRSA Culture - Final NO METHICILLIN RESISTANT STAPH AUREUS... Complete 06/04/19 13:05 Sacral Cyst Gram Stain - Final Complete 06/04/19 13:05 Aerobic Culture - Final Staphylococcus Sp Coag Neg Complete 06/04/19 13:05 Sacral Cyst Anaerobic Culture - Final NO ANAEROBES ISOLATED Complete Labs Test 06/06/19 05:50 06/06/19 06:46 06/07/19 04:35 06/08/19 04:35 Vancomycin Level Trough 4.0 ug/mL (5.0-12.0) Sodium Level 143 MMOL/L (136-145) 140 MMOL/L (136-145) 141 MMOL/L (136-145) Potassium Level 3.8 MMOL/L (3.5-5.1) 3.8 MMOL/L (3.5-5.1) 3.8 MMOL/L (3.5-5.1) Chloride Level 106 MMOL/L (98-107) 105 MMOL/L (98-107) 103 MMOL/L (98-107) Carbon Dioxide Level 29 MMOL/L (21-32) 28 MMOL/L (21-32) 31 MMOL/L (21-32) Anion Gap 8 mmol/L (5-15) 7 mmol/L (5-15) 7 mmol/L (5-15) Blood Urea Nitrogen 13 mg/dL (7-18) 11 mg/dL (7-18) 10 mg/dL (7-18) Creatinine 1.5 MG/DL (0.55-1.30) 1.3 MG/DL (0.55-1.30) 1.2 MG/DL (0.55-1.30) Estimat Glomerular Filtration Rate 56.6 mL/min (>60) > 60 mL/min (>60) > 60 mL/min (>60) Glucose Level 83 MG/DL (74-106) 90 MG/DL (74-106) 88 MG/DL (74-106) Calcium Level 8.5 MG/DL (8.5-10.1) 8.3 MG/DL (8.5-10.1) 8.9 MG/DL (8.5-10.1) White Blood Count 7.4 K/UL (4.8-10.8) Red Blood Count 4.41 M/UL (4.70-6.10) Hemoglobin 13.0 G/DL (14.2-18.0) Hematocrit 36.6 % (42.0-52.0) Mean Corpuscular Volume 83 FL (80-99) Mean Corpuscular Hemoglobin 29.5 PG (27.0-31.0) Mean Corpuscular Hemoglobin Concent 35.5 G/DL (32.0-36.0) Red Cell Distribution Width 11.1 % (11.6-14.8) Platelet Count 102 K/UL (150-450) Mean Platelet Volume 9.7 FL (6.5-10.1) Neutrophils (%) (Auto) 64.1 % (45.0-75.0) Lymphocytes (%) (Auto) 25.9 % (20.0-45.0) Monocytes (%) (Auto) 8.6 % (1.0-10.0) Eosinophils (%) (Auto) 0.6 % (0.0-3.0) Basophils (%) (Auto) 0.8 % (0.0-2.0) Laboratory Tests Test 06/08/19 04:35 Sodium Level 141 MMOL/L (136-145) Potassium Level 3.8 MMOL/L (3.5-5.1) Chloride Level 103 MMOL/L (98-107) Carbon Dioxide Level 31 MMOL/L (21-32) Anion Gap 7 mmol/L (5-15) Blood Urea Nitrogen 10 mg/dL (7-18) Creatinine 1.2 MG/DL (0.55-1.30) Estimat Glomerular Filtration Rate > 60 mL/min (>60) Glucose Level 88 MG/DL (74-106) Calcium Level 8.9 MG/DL (8.5-10.1) Current Medications Medications (Trade) Dose Ordered Sig/Miguelina Route PRN Reason Start Time Stop Time Status Last Admin Dose Admin Albuterol Sulfate (Proventil MDI) 1 puff Q6H PRN INH Shortness of Breath 06/04/19 18:45 07/04/19 17:14 Diphenhydramine HCl (Benadryl) 25 mg Q6H PRN IVP Itching/Pruritis 06/06/19 20:30 07/06/19 20:29 06/07/19 21:04 Heparin Sodium (Porcine) (Heparin 5000 units/ml) 5,000 units EVERY 8 HOURS SUBQ 06/04/19 22:00 07/04/19 21:59 06/08/19 14:11 Hydromorphone HCl 30 ml @ 0 mls/hr CHIEF ENGINEER WATERWORKS protocol PRN IV For Pain 06/08/19 11:00 06/10/19 10:59 06/08/19 14:12 Hydromorphone HCl (Dilaudid) 0.5 mg Q4H PRN IVP Severe Breakthru Pain (>7) 06/06/19 11:15 06/13/19 11:14 06/08/19 08:18 Linezolid (Zyvox) 600 mg EVERY 12 HOURS ORAL 06/08/19 21:00 06/13/19 20:59 Miscellaneous Medication (CHIEF ENGINEER WATERWORKS Rate Change) 1 ea DAILY PRN MISC rate change 06/08/19 10:45 06/10/19 10:44 Miscellaneous Medication (CHIEF ENGINEER WATERWORKS shift volume) 1 ea Q12HR@0700,1900 MISC 06/08/19 19:00 06/10/19 18:59 Naloxone HCl (Narcan) 0.1 mg Q1M PRN IVP RR<10/min OR SBP<90 mmHg 06/06/19 20:30 07/06/19 20:29 Ondansetron HCl (Zofran) 4 mg Q6H PRN IVP Nausea & Vomiting 06/06/19 20:30 07/06/19 20:29 Pantoprazole (Protonix) 40 mg DAILY ORAL 06/05/19 09:00 07/05/19 08:59 06/08/19 08:17 Piperacillin Sod/ Tazobactam Sod 3.375 gm/Dextrose 100 ml @ 25 mls/hr EVERY 8 HOURS IVPB 06/08/19 22:00 06/13/19 21:59 Polyethylene Glycol (Miralax) 17 gm TID PRN ORAL Constipation 06/07/19 18:00 07/07/19 17:59 06/08/19 12:15 Sodium Chloride 1,000 ml @ 125 mls/hr Q8H IV 06/06/19 10:40 07/06/19 10:39 06/08/19 04:29 Sodium Phosphate (Fleet's Sodium Phosl Enema) 133 ml ONCE RECTAL 06/08/19 16:00 06/08/19 18:00 Navneet Oakes MD Jun 08, 2019 15:55
[2019-06-08 16:00] VITALS: BP 135/69
[2019-06-08] MEDS ORDERED: Fleet's Enema 133ml RECTAL SCH (16:00)
--- NOTE | 2019-06-08 19:35 | NUR ---
HAND-OFF: Report given to Micha CHAVES.
--- NOTE | 2019-06-08 19:40 | NUR ---
NURSE NOTES: Received report from ANDIE Skinner and rounds made with outgoing nurse. Received pt lying in bed, AOx4, pain level 3/10. No distress noted. SUSTAINABILITY OFFICER setting checked and verified. Instructed pt to use SUSTAINABILITY OFFICER for pain management. Verbalized understanding. Sacral area with wound vac. Setting checked and verified 125mm Hg mild continuos. Bed in lowest position and locked, side rails up x 2, call light within reach. Will continue to monitor.
[2019-06-08 20:00] VITALS: BP 110/75
[2019-06-09] VITALS (11 sets, daily range): BP systolic 102–136; BP diastolic 54–74
[2019-06-09] MEDS: DiphenhydrAMINE 50mg/ml Inj IVP PRN (00:02)
--- NOTE | 2019-06-09 02:50 | NUR ---
NURSE NOTES: Pt's mom called and states her son was texting his sister stating he is having Sudal Ideation due to recent brake up with his girlfriend. Per pt's mom, she states the pt texted "he does not want to live", "he does not want to get out of surgery alive". Mom states she's on her way here to the hospital to spend the night. Checked on pt in the room. Pt is sleeping, no distress noted. Will continue to monitor.
[2019-06-09] MEDS: Heparin 5000 units/ml inj SUBQ SCH ×3 (05:40→21:46)
[2019-06-09 06:27] LABS: BASOPHILS % (AUTO) 1.3 % (0.0-2.0); EOSINOPHILS % (AUTO) 6.1 % (0.0-3.0); HEMATOCRIT 42.2 % (42.0-52.0); HEMOGLOBIN 14.5 G/DL (14.2-18.0); LYMPHOCYTES % (AUTO) 31.5 % (20.0-45.0); MEAN CORPUSCULAR VOLUME 83 FL (80-99); NEUTROPHILS % (AUTO) 51.2 % (45.0-75.0); PLATELET COUNT 120 K/UL (150-450); RED BLOOD COUNT 5.12 M/UL (4.70-6.10); RED CELL DISTRIBUTION WIDTH 11.2 % (11.6-14.8); WHITE BLOOD COUNT 5.4 K/UL (4.8-10.8)
[2019-06-09] MEDS ORDERED: Lidocaine 1% Plain 30 ml INJ ONE (06:46)
[2019-06-09] MEDS ORDERED: Sodium Chloride 10ml vial INJ ONE (06:52)
[2019-06-09] MEDS ORDERED: Dexamethasone 4mg/ml vial ONE (06:52)
[2019-06-09] MEDS ORDERED: Lidocaine 1% MPF 10mg/ml 5ml ONE (06:52)
[2019-06-09] MEDS ORDERED: Alfentanil 2ml Inj ONE (06:57)
[2019-06-09] MEDS ORDERED: cefOXitin 2gm Inj ONE (06:59)
[2019-06-09] MEDS ORDERED: Bacitracin Oint 15gm Tube TOPIC ONE (07:00)
[2019-06-09] MEDS ORDERED: Propofol 1,000mg/ 100ml btl IV ONE (07:00)
[2019-06-09] MEDS ORDERED: Bupivacaine w/Epi 0.5% 30ml Vial INJ ONE (07:01)
[2019-06-09] MEDS ORDERED: Bacitracin 50000 Units Vial ONE (07:01)
--- NOTE | 2019-06-09 07:09 | NUR ---
NURSE NOTES: Pt taken down to O.R. for procedure. Pt in stable condition.
[2019-06-09 07:10] LABS: ANION GAP 4 mmol/L (5-15); BLOOD UREA NITROGEN 11 mg/dL (7-18); CALCIUM 8.9 MG/DL (8.5-10.1); CARBON DIOXIDE 30 MMOL/L (21-32); CHLORIDE 105 MMOL/L (98-107); CREATININE 1.3 MG/DL (0.55-1.30); POTASSIUM 4.1 MMOL/L (3.5-5.1); SODIUM 139 MMOL/L (136-145)
[2019-06-09] MEDS ORDERED: NS Irrig 2000ml IRRIG ONE ×3 (07:11→07:48)
[2019-06-09] MEDS: PCA shift volume MISC SCH ×2 (07:14→19:28)
--- NOTE | 2019-06-09 07:15 | NUR ---
HAND-OFF: Report given to ANDIE Rodriguez via phone. Pt in stable condition.
[2019-06-09] MEDS ORDERED: LR 1000ml ONE (07:30)
[2019-06-09] MEDS ORDERED: NS Irrig 1000ml ONE (07:30)
[2019-06-09] MEDS ORDERED: Sterile Water Irrig 1000ml IRRIG ONE (07:30)
[2019-06-09] MEDS ORDERED: LR 1000ml 1,000 ML IVLG SCH (07:38)
[2019-06-09] MEDS ORDERED: DiphenhydrAMINE 50mg/ml Inj IVP PRN (07:45)
[2019-06-09] MEDS ORDERED: HYDROcodone/Acetamin 7.5/325 tab ORAL PRN (07:45)
[2019-06-09] MEDS ORDERED: Acetaminophen (Non formulary) 100 ML IV ONE (07:45)
[2019-06-09] MEDS ORDERED: LORazepam Inj 2mg/ml 1ml IV PRN (07:45)
[2019-06-09] MEDS ORDERED: Midazolam 2mg/2ml Inj IVP PRN (07:45)
[2019-06-09] MEDS ORDERED: Hydromorphone 0.5mg/0.5ml inj IVP PRN (07:45)
[2019-06-09] MEDS ORDERED: oxyCODONE HCL/Acetaminophen 5/325mg ORAL PRN (07:45)
[2019-06-09] MEDS ORDERED: Atropine Sulfate 0.4mg/ml inj IVP PRN (07:45)
[2019-06-09] MEDS ORDERED: HYDROcodone/Acetamin 5/325 tab ORAL PRN (07:45)
[2019-06-09] MEDS ORDERED: Labetalol 5mg/ml 20ml vial IV PRN (07:45)
--- NOTE | 2019-06-09 08:00 | NUR ---
NURSE NOTES: Patient is off unit.
--- NOTE | 2019-06-09 08:48 | Immediate Post-Op Evaluation ---
Immediate Post-Op Evalulation Immediate Post-Op Evalulation Procedure: wound vac change sacral wound Date of Evaluation: Jun 09, 2019 Time of Evaluation: 08:57 IV Fluids: 300 LR Blood Products: 0 Estimated Blood Loss: 5 Urinary Output: 0 Blood Pressure Systolic: 102 Blood Pressure Diastolic: 56 Pulse Rate: 73 Respiratory Rate: 16 O2 Sat by Pulse Oximetry: 100 Temperature (Fahrenheit): 97.7 Pain Score (1-10): 1 Nausea: No Vomiting: No Complications 0 Patient Status: awake, reacts, patent, none Hydration Status: adequate Dru Grams Cefoxitin IV Given Within 1 Hr of Incision: Yes Time Given: 07:46 Zane Izaguirre MD Jun 09, 2019 08:48
--- NOTE | 2019-06-09 09:30 | NUR ---
NURSE NOTES: Patient arrived on unit. Stable. Breathing is even and unlabored. Patient arousable to verbal stimuli. Patient appears comfortable. No distress noted at this time. Wound vac dressing c/d/i. RN spoke to mother regarding patient's alleged suicidal ideation. Dr. Cooper aware and gave orders for social service consult and consult by Dr. Solomon. Patient is in bed in locked and lowest position with call light within reach and mother at bedside. WIll continue to monitor.
--- NOTE | 2019-06-09 09:36 | Brief Operative Note ---
Immediate Post Operative Note Operative Note Pre-op Diagnosis: open wound sacrum Procedure: 1. wound vac change under MAC 2. preparation of wound bed for potential closure Post-op Diagnosis: same as pre-op Surgeon: Chet Cooper MD Anesthesiologist: Michael Anesthesia: MAC Specimen: none Complications: none Condition: stable Fluids: see records Estimated Blood Loss: minimal Drains: none Implant(s) used?: No Chet Cooper Jun 09, 2019 09:36
--- NOTE | 2019-06-09 10:00 | NUR ---
NURSE NOTES: Wound vac running as ordered. 125 continuous mild suction.
[2019-06-09] MEDS ORDERED: LORazepam 1mg tab ORAL SCH (11:00)
[2019-06-09] MEDS: Hydromorphone 0.5mg/0.5ml inj IVP PRN ×2 (11:27→18:54)
--- NOTE | 2019-06-09 11:57 | NUR ---
RD ASSESSMENT & RECOMMENDATIONS SEE CARE ACTIVITY FOR COMPLETE ASSESSMENT DAILY ESTIMATED NEEDS: Needs based on wound/ 67kg abw 25-30 kcals/kg total kcals 1.25-1.5 g protein/kg 83-100 g total protein 25-30 mL/kg total fluid mLs NUTRITION DIAGNOSIS: Increased protein intake needs R/T wound healing as evidenced by s/p radical excision of recurrent pilonidal cyst, wound vac placement and change. CURRENT DIET:Regular PO DIET RECOMMENDATIONS: REGULAR ADDITIONAL RECOMMENDATIONS: * Calibrated bedscale wt * Wound healing: add MVI x 1, Vit C 500mg QD Cesar 1pkt BID * Plastic utensils only for safety: suicidal ideation reported * High prot snacks BID in b/w meals
--- NOTE | 2019-06-09 13:37 | NUR ---
BIOMEDICAL INSTRUMENT TECHNICIAN CONSULT SW received a referral for assessing suicidal ideation on 06/09/2019. Per chart review, pt texted his sister endorsing SI. SW met w/ pt and completed the assessment. Pt presents as A&O 4x, cooperative, and depressed. 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 Pt resides w/ two roommates at [address] [place] [address]. Pt has hx of Depression and Anxiety. Pt states he is currently prescribed w/ psychotropic medication. Pt has hx of attending therapy/counseling in the past. Pt reports he has hx of SI a few times. However, pt denies hx of suicide attempt and having no suicide specific plan. Pt reports he had SI last night d/t loneliness but pt currently denies SI and a clear suicide plan. Per pt, break up w/ his girlfriend whom he dated for 4 years triggered him to feel suicidal last night. Pt currently blocked his ex-girlfriend's phone number. Pt reports poor social support in [place]. Emergency contact provided: Charlee Marquez (mother living in [place]) [phone]. Pt uses THC but denies other substance abuse/tobacco use. Pt declined counseling/tx intervention/resource on substance abuse. SW reviewed the safety plan w/ pt. SW provided mental health resource and encouraged pt to utilize such as suicide prevention hotline and [facility] for non-crisis counseling. Pt was able to identify possible contact people when pt is in crisis. Pt states he will consider starting therapy. Pt plans to return home upon DC. SW met w/ pt's mother Charlee Marquez who is currently visiting pt for a few weeks. Pt's mother addressed pt's safety concern upon DC. SW discussed possible safety plan that Charlee can assist. SW encouraged Charlee to have roommates' contact information, contact local police station for welfare check if she concerns pt's safety, encourage pt to check himself to get evaluated by MH clinician at any emergency room, encourage pt to receive in person or online therapy. Charlee verbalized understanding. Signed: 06/09/19 at 1352 by LATISHA BECERRA <Co-Signature Required>
--- NOTE | 2019-06-09 16:18 | NUR ---
CASE MANAGEMENT: REVIEW 06/08/2019 SI:INFECTED PILONIDAL CYST . DRAINAGE PAIN SACRUM RADICAL EXCISION OF RECURRENT PILONIDAL CYST 06/04 97.5 56 16 105/54 97% ROOM AIR IS: IV NS@50/HR GYM TEACHER DILAUDID ZOSYN IV Q8HR MED/SURG STATUS DCP: PATIENT IS FROM HOME CASE MANAGEMENT: REVIEW 06/09/2019 SI:INFECTED PILONIDAL CYST . DRAINAGE PAIN SACRUM RADICAL EXCISION OF RECURRENT PILONIDAL CYST 06/04 97.7 73 12 102/56 100% SIMPLE MASK 6L IS: IV NS@50/HR GYM TEACHER DILAUDID ZOSYN IV Q8HR MED/SURG STATUS DCP: PATIENT IS FROM HOME PLAN: I&D OF SACRAL WOUND PLACEMENT OF WOUND VAC ORDER WOUND VAC
--- NOTE | 2019-06-09 18:04 | Internal Med Progress Note ---
Subjective Physician Name RosaleeDom vazquez Attending Physician Ashok Gay M.D. Current Medications Medications (Trade) Dose Ordered Sig/Miguelina Route PRN Reason Start Time Stop Time Status Last Admin Dose Admin Albuterol Sulfate (Proventil MDI) 1 puff Q6H PRN INH Shortness of Breath 06/04/19 18:45 07/04/19 17:14 Clonazepam (KlonoPIN) 1 mg BEDTIME ORAL 06/09/19 21:00 06/16/19 20:59 Diphenhydramine HCl (Benadryl) 25 mg Q6H PRN IVP Itching/Pruritis 06/06/19 20:30 07/06/19 20:29 06/09/19 00:02 Escitalopram Oxalate (Lexapro) 10 mg DAILY ORAL 06/09/19 11:00 07/09/19 10:59 06/09/19 11:28 Heparin Sodium (Porcine) (Heparin 5000 units/ml) 5,000 units EVERY 8 HOURS SUBQ 06/04/19 22:00 07/04/19 21:59 06/08/19 14:11 Hydromorphone HCl 30 ml @ 0 mls/hr MOLD CAR PUSHER protocol PRN IV For Pain 06/08/19 11:00 06/10/19 10:59 06/08/19 14:12 Hydromorphone HCl (Dilaudid) 0.5 mg Q4H PRN IVP Severe Breakthru Pain (>7) 06/06/19 11:15 06/13/19 11:14 06/09/19 11:27 Miscellaneous Medication (MOLD CAR PUSHER Rate Change) 1 ea DAILY PRN MISC rate change 06/08/19 10:45 06/10/19 10:44 Miscellaneous Medication (MOLD CAR PUSHER shift volume) 1 ea Q12HR@0700,1900 MISC 06/08/19 19:00 06/10/19 18:59 06/09/19 07:14 Naloxone HCl (Narcan) 0.1 mg Q1M PRN IVP RR<10/min OR SBP<90 mmHg 06/06/19 20:30 07/06/19 20:29 Ondansetron HCl (Zofran) 4 mg Q6H PRN IVP Nausea & Vomiting 06/06/19 20:30 07/06/19 20:29 Pantoprazole (Protonix) 40 mg DAILY ORAL 06/05/19 09:00 07/05/19 08:59 06/08/19 08:17 Polyethylene Glycol (Miralax) 17 gm TID PRN ORAL Constipation 06/07/19 18:00 07/07/19 17:59 06/08/19 21:46 Sodium Chloride 1,000 ml @ 50 mls/hr Q20H IV 06/09/19 10:00 07/09/19 09:59 06/09/19 10:00 Allergies: Coded Allergies: No Known Allergies (Unverified , 12/21/17) Subjective no pain + depression screen w/ suicidal thoughts s/p wound vac exchanged Objective Last Vital Signs Date Time Temp Pulse Resp B/P (MAP) Pulse Ox O2 Delivery O2 Flow Rate FiO2 06/09/19 12:00 97.5 66 20 122/59 (80) 98 06/09/19 09:25 Nasal Cannula 3 06/07/19 20:35 21 General Appearance: WD/WN, no apparent distress EENT: PERRL/EOMI, normal ENT inspection Neck: non-tender, normal alignment Cardiovascular: normal peripheral pulses, normal rate Respiratory/Chest: chest wall non-tender, lungs clear Abdomen: normal bowel sounds, non tender Extremities: normal range of motion, non-tender Edema: trace edema, mild edema Skin: normal pigmentation, warm/dry Laboratory Tests Test 06/09/19 05:45 White Blood Count 5.4 K/UL (4.8-10.8) Red Blood Count 5.12 M/UL (4.70-6.10) Hemoglobin 14.5 G/DL (14.2-18.0) Hematocrit 42.2 % (42.0-52.0) Mean Corpuscular Volume 83 FL (80-99) Mean Corpuscular Hemoglobin 28.4 PG (27.0-31.0) Mean Corpuscular Hemoglobin Concent 34.4 G/DL (32.0-36.0) Red Cell Distribution Width 11.2 % (11.6-14.8) L Platelet Count 120 K/UL (150-450) L Mean Platelet Volume 8.9 FL (6.5-10.1) Neutrophils (%) (Auto) 51.2 % (45.0-75.0) Lymphocytes (%) (Auto) 31.5 % (20.0-45.0) Monocytes (%) (Auto) 10.0 % (1.0-10.0) Eosinophils (%) (Auto) 6.1 % (0.0-3.0) H Basophils (%) (Auto) 1.3 % (0.0-2.0) Sodium Level 139 MMOL/L (136-145) Potassium Level 4.1 MMOL/L (3.5-5.1) Chloride Level 105 MMOL/L (98-107) Carbon Dioxide Level 30 MMOL/L (21-32) Anion Gap 4 mmol/L (5-15) L Blood Urea Nitrogen 11 mg/dL (7-18) Creatinine 1.3 MG/DL (0.55-1.30) Estimat Glomerular Filtration Rate > 60 mL/min (>60) Glucose Level 93 MG/DL (74-106) Calcium Level 8.9 MG/DL (8.5-10.1) Intake and Output 06/08/19 06/09/19 19:00 07:00 Intake Total 1575 ml 1325 ml Output Total 845 ml 600 ml Balance 730 ml 725 ml Intake Oral 700 ml 200 ml IV Total 875 ml 1125 ml Output Urine Total 800 ml 600 ml Drainage Total 45 ml # Voids 2 # Bowel Movements 1 Assessment/Plan Assessment/Plan ASSESSMENT: 1. Pilonidal cyst status post resection s/p wound VAC placement s/p wound vac change sacral wound 06/09 2. Gastroesophageal reflux disease. 3. Asthma-controlled. 4. + depression screen w/ suicidal thoughts PLAN: 1. Med/Surg. 2. Antibiotics- off 3. ID consult. 4. IV fluids. 5. pain control 6. Surgery is following. 7. s/p wound vac exchange today 8. DVT prophylaxis. 9. Full Code. 10. Psych consulted Dom Fried MD Jun 09, 2019 18:04
--- NOTE | 2019-06-09 19:00 | NUR ---
NURSE NOTES: 0cc output noted from wound vac.
--- NOTE | 2019-06-09 19:15 | Operative Note - Dictated ---
DATE OF OPERATION: 06/09/2019 PREOPERATIVE DIAGNOSIS: Open wound in the sacrum. POSTOPERATIVE DIAGNOSIS: Open wound in the sacrum. OPERATION PERFORMED: 1. Wound VAC change under MAC. 2. Preparation of wound bed for potential closure in the future. ATTENDING SURGEON: Chet Cooper M.D. SOCIAL SCIENCE TEACHER: None. ANESTHESIOLOGIST: Zane Izaguirre M.D. ANESTHESIA: MAC. SPECIMENS: None. DRAINS: Wound VAC. COUNTS: Sponge and needle count correct x2. ESTIMATED BLOOD LOSS: Minimal. IV FLUIDS: Please see anesthesia records. COMPLICATIONS: None. ANTIBIOTICS: The patient is on scheduled IV antibiotics. 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 He recently had prior flap excision with large remaining open wound by Dr. Ashok Gay and now is undergoing wound care for potential closure versus secondary intention closure. The patient is requiring a second wound VAC change since initial placement and pressure with discomfort. Given the size and location requiring CHILDREN'S TUTOR NURSERY and would not be able to tolerate at bedside, therefore taken to the operating room for MAC as well as preparation of the wound for potential closure if possible currently or at a later time. Consent was obtained from the patient. OPERATIVE NOTE: The patient was taken to the operating room and placed on the operating table in the prone position with all bony prominences well padded. The patient was monitored and given MAC sedation by the anesthesiologist. Preoperative time-out was taken identifying the patient, procedure, operative staff, and surgical staff. The prior wound VAC was removed and the wound bed was evaluated. All the wound VAC dressing was removed in entirety as well as the wound VAC placed. Once this was completed, the wound was washed, prepped and draped in standard surgical fashion. The wound was inspected and good granulation tissue is currently forming. Prior areas of closure in the inferior aspect near the anus have been holding well. The wound bed was debrided non-excisionally with gauze. Following this, electrocautery was used and the wound bed was prepped by slowly elevating fat flaps in multiple directions in the right and left lateral aspects to allow for a more suitable tension-free closure as the skin and granulation tissue come together during secondary intention. The wide area of defect was approximately 8 cm in width x 15 cm in the craniocaudal direction as well as 5 to 6 cm deep depending on the aspect. The sacral bone was palpable and the prior flap was viable and noted. Wound bed was irrigated. Hemostasis was achieved with electrocautery. Following this, a wound VAC was placed bridging to the right hip. Wound VAC was placed on suction and good seal was identified. The patient was taken back to postanesthesia care unit at which time in stable condition. Planned change of wound VAC in the next subsequently 3-4 days. Chet Cooper M.D. DR: Deandra JOB#: [id number] CC: LOWELL
--- NOTE | 2019-06-09 19:30 | NUR ---
NURSE NOTES: SCIENTIFIC DATABASE CURATOR Dilaudid syringe wasted with To pharmacist.
--- NOTE | 2019-06-09 19:30 | NUR ---
HAND-OFF: Report given to Sofia CHAVES. Patient is stable.
[2019-06-09] MEDS: PCA HYDROmorphone 1mg/ml 30 ML IV PRN (19:50)
[2019-06-10] VITALS (7 sets, daily range): BP systolic 109–142; BP diastolic 54–70
[2019-06-10] MEDS: DiphenhydrAMINE 50mg/ml Inj IVP PRN ×2 (00:06→21:46)
[2019-06-10] MEDS: Miralax 17gm pkt ORAL PRN ×2 (01:06→08:32)
--- NOTE | 2019-06-10 02:19 | NUR ---
NURSES NOTE: Met pt in bed, A/OX4, able to express needs. No outward s/s of distress noted. Breathing pattern is even and unlabored on RA. INSTRUMENT REPAIR SUPERVISOR pump syringe, Dilaudid, changed, and infusing according to EMAR. New Iv site started, R hand, 22 gauge. Pt being monitored for suicidal thoughts. Pt demonstrates no ideation NOC shift thus far. Stable affect noted. Wound vac set to low suction, continuous setting, 125 mmhg. All due meds will be given. Bed at lowest level. Call light within reach. Mother at bed side.
[2019-06-10] MEDS: Hydromorphone 0.5mg/0.5ml inj IVP PRN (04:38)
[2019-06-10] MEDS: Heparin 5000 units/ml inj SUBQ SCH ×3 (06:00→21:54)
[2019-06-10 06:38] LABS: BASOPHILS % (AUTO) 0.3 % (0.0-2.0); EOSINOPHILS % (AUTO) 0.5 % (0.0-3.0); HEMATOCRIT 40.3 % (42.0-52.0); HEMOGLOBIN 14.1 G/DL (14.2-18.0); LYMPHOCYTES % (AUTO) 16.6 % (20.0-45.0); MEAN CORPUSCULAR VOLUME 82 FL (80-99); MONOCYTES % (AUTO) 8.4 % (1.0-10.0); NEUTROPHILS % (AUTO) 74.2 % (45.0-75.0); PLATELET COUNT 135 K/UL (150-450); RED BLOOD COUNT 4.89 M/UL (4.70-6.10); WHITE BLOOD COUNT 10.3 K/UL (4.8-10.8)
[2019-06-10] MEDS: PCA shift volume MISC SCH (07:10)
[2019-06-10 07:16] LABS: ANION GAP 7 mmol/L (5-15); BLOOD UREA NITROGEN 15 mg/dL (7-18); CARBON DIOXIDE 28 MMOL/L (21-32); CHLORIDE 104 MMOL/L (98-107); CREATININE 1.1 MG/DL (0.55-1.30); POTASSIUM 3.8 MMOL/L (3.5-5.1); SODIUM 139 MMOL/L (136-145)
--- NOTE | 2019-06-10 07:25 | NUR ---
HAND OFF: Report given to ANDIE Burns. Pt stable. Wound vac- 50cc
--- NOTE | 2019-06-10 07:35 | NUR ---
NURSE NOTES: WALKING ROUNDS DONE WITH OUTGOING NIGHT RN. PT AOX4 AND SMILING. MOTHER AT BEDSIDE. QUESTIONS ANSWERED, NEEDS MET. WOUND VAC AND SENIOR ENVIRONMENTAL TECHNICIAN SETTINGS VERIFIED AGAINST MD ORDERS. DISCUSSED PLAN OF CARE FOR THE DAY. VERBALIZED UNDERSTANDING. PATIENT STATES THEY HAD A RESTFUL NIGHT. BED IN LOW AND LOCKED POSITION. CALL LIGHT WITHIN REACH.
--- NOTE | 2019-06-10 07:45 | Consultation ---
DATE OF CONSULTATION: 06/09/2019 CONSULTING PHYSICIAN: Birdie Solomon M.D. HISTORY OF PRESENT ILLNESS: This is a 24-year-old male with a history of depression and anxiety who has been admitted to the hospital due to The patient is presenting with depressed mood and anxiety. He and went through a breakup with a girlfriend after four years and stated that he wants to end his life. During the evaluation, the mother was at bedside and was concerned. The patient presents with depressed mood, anhedonia, worthlessness, decreased energy, anxiety, insomnia, and decreased appetite. PAST PSYCHIATRIC HISTORY: Depression and anxiety. Has been taking Zoloft in the past. PAST MEDICAL HISTORY: Asthma. ALLERGIES: No known drug allergies. SUBSTANCE ABUSE HISTORY: The patient smokes marijuana and socially drink alcohol. MENTAL STATUS EXAMINATION: Alert and oriented times self, place, situation, and date. Mood is depressed. Affect is blunted, congruent with mood. Thought process is linear and goal oriented. Thought content, no suicidal or homicidal ideation. Cognition is intact. Insight and judgement are fair. ASSESSMENT: Tyler I Major depressive disorder, rule out adjustment disorder. Tyler II Deferred. Tyler III As above. Tyler IV Moderate. Tyler V 50. PLAN: 1. Start the patient on Lexapro. 2. Remeron. 3. Ativan p.r.n. 4. Provide the patient with reality orientation and supportive therapy. Birdie Solomon M.D. DR: MANOHAR JOB#: [id number] CC: LOWELL
--- NOTE | 2019-06-10 08:06 | 48 Hour Post Anesthesia Eval ---
Post Anesthesia Evaluation Procedure: wound vac change sacral wound Date of Evaluation: Jun 10, 2019 Time of Evaluation: 06:16 Blood Pressure Systolic: 109 0: 54 Pulse Rate: 79 Respiratory Rate: 19 Temperature (Fahrenheit): 97.9 O2 Sat by Pulse Oximetry: 96 Airway: patent Nausea: No Vomiting: No Pain Intensity: 2 Hydration Status: adequate Cardiopulmonary Status: Stable Mental Status/LOC: patient returned to baseline Follow-up Care/Observations: 0 Post-Anesthesia Complications: 0 Follow-up care needed: N/A Zane Izaguirre MD Jun 10, 2019 08:06
--- NOTE | 2019-06-10 08:29 | NUR ---
CASE MANAGEMENT:REVIEW 06/10/19 SI: POD#6...S/P RADICAL EXCISION OF RECURRENT PILONIDAL CYST POD #4..S/P WASHOUT,PARTIAL CLOSURE AND WOUND VAC CHANGE 97.9 99 16 111/67 98% ON RA H/H-14.1/40.3 PLT-135 IS: IVF@50/HR NURSERY WORKER DILAUDID HEPARIN SQ Q8HRS : MED/SURG STATUS PLAN: DISCHARGE PLANNING ~ NEEDS WOUND VAC AND HOME HEALTH UPON DISCHARGE DO NOT HAVE A DIRECT PHONE NUMBER TO DIETITIAN ASSISTANT MINH AND HE HAS NOT CALLED US SINCE ADMISSION OF THIS PATIENT
--- NOTE | 2019-06-10 08:44 | NUR ---
INSURANCE FAXED UPDATED CLINICALS AND [facility] FORM TO [facility]ILKIN[facility] REF#[id number] F: [phone]
--- NOTE | 2019-06-10 12:55 | Internal Med Progress Note ---
Subjective Physician Name RosaleeDom vazquez Attending Physician Ashok Gay M.D. Current Medications Medications (Trade) Dose Ordered Sig/Miguelina Route PRN Reason Start Time Stop Time Status Last Admin Dose Admin Albuterol Sulfate (Proventil MDI) 1 puff Q6H PRN INH Shortness of Breath 06/04/19 18:45 07/04/19 17:14 Clonazepam (KlonoPIN) 1 mg BEDTIME ORAL 06/09/19 21:00 06/16/19 20:59 06/09/19 21:42 Diphenhydramine HCl (Benadryl) 25 mg Q6H PRN IVP Itching/Pruritis 06/06/19 20:30 07/06/19 20:29 06/10/19 00:06 Escitalopram Oxalate (Lexapro) 10 mg DAILY ORAL 06/09/19 11:00 07/09/19 10:59 06/10/19 08:32 Heparin Sodium (Porcine) (Heparin 5000 units/ml) 5,000 units EVERY 8 HOURS SUBQ 06/04/19 22:00 07/04/19 21:59 06/08/19 14:11 Hydromorphone HCl (Dilaudid) 0.5 mg Q4H PRN IVP Severe Breakthru Pain (>7) 06/06/19 11:15 06/13/19 11:14 06/10/19 04:38 Miscellaneous Medication (QUILL BUNCHER AND SORTER shift volume) 1 ea Q12HR@0700,1900 MISC 06/08/19 19:00 06/10/19 18:59 06/10/19 07:10 Naloxone HCl (Narcan) 0.1 mg Q1M PRN IVP RR<10/min OR SBP<90 mmHg 06/06/19 20:30 07/06/19 20:29 Ondansetron HCl (Zofran) 4 mg Q6H PRN IVP Nausea & Vomiting 06/06/19 20:30 07/06/19 20:29 Pantoprazole (Protonix) 40 mg DAILY ORAL 06/05/19 09:00 07/05/19 08:59 06/10/19 08:32 Polyethylene Glycol (Miralax) 17 gm TID PRN ORAL Constipation 06/07/19 18:00 07/07/19 17:59 06/10/19 08:32 Sodium Chloride 1,000 ml @ 50 mls/hr Q20H IV 06/09/19 10:00 07/09/19 09:59 06/09/19 10:00 Allergies: Coded Allergies: No Known Allergies (Unverified , 12/21/17) Subjective pain over sacrum; requires dilaudid no depression trying to have a bowel movement Objective Last Vital Signs Date Time Temp Pulse Resp B/P (MAP) Pulse Ox O2 Delivery O2 Flow Rate FiO2 06/10/19 12:00 78 20 96 06/10/19 11:49 97.9 109/70 (83) 06/10/19 09:00 Room Air 06/10/19 08:08 21 06/09/19 09:25 3 General Appearance: WD/WN, no apparent distress EENT: PERRL/EOMI, normal ENT inspection Neck: non-tender, normal alignment Cardiovascular: normal peripheral pulses, normal rate Respiratory/Chest: normal breath sounds Abdomen: normal bowel sounds, non tender, soft Edema: trace edema, mild edema Skin: normal pigmentation, other - wound vac over sacrum Laboratory Tests Test 06/10/19 05:50 White Blood Count 10.3 K/UL (4.8-10.8) # Red Blood Count 4.89 M/UL (4.70-6.10) Hemoglobin 14.1 G/DL (14.2-18.0) L Hematocrit 40.3 % (42.0-52.0) L Mean Corpuscular Volume 82 FL (80-99) Mean Corpuscular Hemoglobin 28.8 PG (27.0-31.0) Mean Corpuscular Hemoglobin Concent 35.0 G/DL (32.0-36.0) Red Cell Distribution Width 11.0 % (11.6-14.8) L Platelet Count 135 K/UL (150-450) L Mean Platelet Volume 9.2 FL (6.5-10.1) Neutrophils (%) (Auto) 74.2 % (45.0-75.0) Lymphocytes (%) (Auto) 16.6 % (20.0-45.0) L Monocytes (%) (Auto) 8.4 % (1.0-10.0) Eosinophils (%) (Auto) 0.5 % (0.0-3.0) Basophils (%) (Auto) 0.3 % (0.0-2.0) Sodium Level 139 MMOL/L (136-145) Potassium Level 3.8 MMOL/L (3.5-5.1) Chloride Level 104 MMOL/L (98-107) Carbon Dioxide Level 28 MMOL/L (21-32) Anion Gap 7 mmol/L (5-15) Blood Urea Nitrogen 15 mg/dL (7-18) Creatinine 1.1 MG/DL (0.55-1.30) Estimat Glomerular Filtration Rate > 60 mL/min (>60) Glucose Level 105 MG/DL (74-106) Calcium Level 9.0 MG/DL (8.5-10.1) Intake and Output 06/09/19 06/10/19 19:00 07:00 Intake Total 1180 ml 290 ml Output Total 5 ml 850 ml Balance 1175 ml -560 ml Intake Oral 780 ml 240 ml IV Total 400 ml 50 ml Output Urine Total 800 ml Drainage Total 50 ml Estimated Blood Loss 5 ml # Voids 2 Assessment/Plan Assessment/Plan ASSESSMENT: 1. Pilonidal cyst status post resection s/p wound VAC placement s/p wound vac change sacral wound 06/09 2. Gastroesophageal reflux disease. 3. Asthma-controlled. 4. + depression screen w/ suicidal thoughts PLAN: 1. Med/Surg. 2. Antibiotics- off 3. ID consult. 4. IV fluids. 5. pain control 6. Surgery is following. 7. lexpro for depression 8. DVT prophylaxis. 9. Full Code. 10. Psych consulted awaiting insurance approval for wound vac Dom Fried MD Jun 10, 2019 12:55
--- NOTE | 2019-06-10 13:28 | Surgery Progress Note ---
Surgery Progress Note Subjective Procedure Performed 1. wound vac change under MAC 2. preparation of wound bed for potential closure Symptoms: improved Additional Comments Patient seen exam bedside. States he feels well. Mother at bedside. States he had a full night sleep last night. Reviewed notes and discussed with renal case manager still no reply from his insurance company for home health and supplies. Patient will be ready for discharge soon if has supplies and home health set up. Otherwise we will continue to manage inpatient. Objective Last 24 Hour Vital Signs Date Time Temp Pulse Resp B/P (MAP) Pulse Ox O2 Delivery O2 Flow Rate FiO2 06/10/19 12:00 78 20 96 06/10/19 11:49 97.9 78 20 109/70 (83) 96 06/10/19 09:00 Room Air 06/10/19 08:08 98 Room Air 21 06/10/19 08:06 79 19 96 06/10/19 08:00 97.9 99 16 111/67 (82) 98 06/10/19 08:00 99 16 98 06/10/19 04:00 97.9 79 19 109/54 (72) 96 06/10/19 04:00 79 19 96 06/09/19 21:00 Room Air 06/09/19 20:48 96 Room Air 21 06/09/19 20:00 98.7 92 19 136/74 (94) 96 06/09/19 16:00 94 19 98 06/09/19 16:00 98.0 94 19 107/59 (75) 98 I&O Intake and Output 06/09/19 06/10/19 19:00 07:00 Intake Total 1180 ml 290 ml Output Total 5 ml 850 ml Balance 1175 ml -560 ml Intake Oral 780 ml 240 ml IV Total 400 ml 50 ml Output Urine Total 800 ml Drainage Total 50 ml Estimated Blood Loss 5 ml # Voids 2 Dressing: dry Wound: clean Drains: wound vac Cardiovascular: RSR Respiratory: clear Abdomen: soft, non-tender, present bowel sounds, non-distended Extremities: no edema, no tenderness, no cyanosis Laboratory Tests Test 06/10/19 05:50 White Blood Count 10.3 K/UL (4.8-10.8) # Red Blood Count 4.89 M/UL (4.70-6.10) Hemoglobin 14.1 G/DL (14.2-18.0) L Hematocrit 40.3 % (42.0-52.0) L Mean Corpuscular Volume 82 FL (80-99) Mean Corpuscular Hemoglobin 28.8 PG (27.0-31.0) Mean Corpuscular Hemoglobin Concent 35.0 G/DL (32.0-36.0) Red Cell Distribution Width 11.0 % (11.6-14.8) L Platelet Count 135 K/UL (150-450) L Mean Platelet Volume 9.2 FL (6.5-10.1) Neutrophils (%) (Auto) 74.2 % (45.0-75.0) Lymphocytes (%) (Auto) 16.6 % (20.0-45.0) L Monocytes (%) (Auto) 8.4 % (1.0-10.0) Eosinophils (%) (Auto) 0.5 % (0.0-3.0) Basophils (%) (Auto) 0.3 % (0.0-2.0) Sodium Level 139 MMOL/L (136-145) Potassium Level 3.8 MMOL/L (3.5-5.1) Chloride Level 104 MMOL/L (98-107) Carbon Dioxide Level 28 MMOL/L (21-32) Anion Gap 7 mmol/L (5-15) Blood Urea Nitrogen 15 mg/dL (7-18) Creatinine 1.1 MG/DL (0.55-1.30) Estimat Glomerular Filtration Rate > 60 mL/min (>60) Glucose Level 105 MG/DL (74-106) Calcium Level 9.0 MG/DL (8.5-10.1) Plan Problems: (1) Infected pilonidal cyst Assessment & Plan: This is a 24-year-old male with 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 Maldonado for radical excision of recurrent pilonidal cyst; wound vac placement. Patient will require prolonged care plan and close monitoring to ensure adequate healing and improvement. Okay for diet Plan VAC change in the operating room Sunday Wound VAC settings as entered Rx is written awaiting supplies and coordination for home health seen by psych, input appreciated d/c planning will plan for wound vac change at bedside if still in patient We will follow with recommendations Thank you for let me participate in patient's care Chet Cooper Jun 10, 2019 13:28
--- NOTE | 2019-06-10 14:23 | NUR ---
DISCHARGE PLANNING WOUND VAC FORM WAS FAXED LAST WEEK CALLED JACK @ [phone] AND SPOKE WITH CHRIS PEREZ THE WOUND VAC HAS BEEN APPROVED AND SUGGESTED WE CALL BACK IN THE MORNING REGARDING DELIVERY TIME. PATIENT WAS PREVIOUSLY ON SERVICE WITH [facility] T: [phone] F: [phone] Addendum: 06/10/19 at 1646 by OSEI WIGGINS LVN LVN FAXED CLINICALS TO [facility]
--- NOTE | 2019-06-10 18:38 | Infectious Diseases Prog Note ---
Assessment/Plan Assessment/Plan A) 1) sacral/left buttock wound infection - wound culture with strep species and repair department manager cultured at two different sites 2) recurrent pilonidal cyst/sinus, hx asthma 3) s/p pilonidal cyst resection and wound vac 4) allergies - ? vancomycin infusion, sh-negative, fh-nc 5) d/w RN P) 1) zosyn and zyvox - s/p abx, discontinued 2) d/w Dr. Cooper and wound healing well and will discontinue abx and continue with local wound care 3) wound VAC, local wound care 4) d/w Dr. Fried 5) d/w patient 6) will f/u Subjective Constitutional: Denies: fever, fatigue HEENT: Denies: congestion Respiratory: Denies: shortness of breath Cardiovascular: Denies: chest pain Gastrointestinal/Abdominal: Denies: nausea, vomiting, diarrhea Genitourinary: Reports: other - no garza Neurologic: Denies: headache Psychiatric: Denies: depression Skin: Denies: rash Hematologic: Denies: bleeding Musculoskeletal: Denies: pain Allergies: Coded Allergies: No Known Allergies (Unverified , 12/21/17) Objective Vital Signs Last 24 Hour Vital Signs Date Time Temp Pulse Resp B/P (MAP) Pulse Ox O2 Delivery O2 Flow Rate FiO2 06/10/19 16:00 70 20 95 06/10/19 16:00 97.9 82 20 127/67 (87) 95 06/10/19 12:00 78 20 96 06/10/19 11:49 97.9 78 20 109/70 (83) 96 06/10/19 09:00 Room Air 06/10/19 08:08 98 Room Air 21 06/10/19 08:06 79 19 96 06/10/19 08:00 97.9 99 16 111/67 (82) 98 06/10/19 08:00 99 16 98 06/10/19 04:00 97.9 79 19 109/54 (72) 96 06/10/19 04:00 79 19 96 06/09/19 21:00 Room Air 06/09/19 20:48 96 Room Air 21 06/09/19 20:00 98.7 92 19 136/74 (94) 96 Height (Feet): 5 Height (Inches): 5.00 Weight (Pounds): 180 General Appearance: no acute distress HEENT: normocephalic, atraumatic, anicteric Respiratory/Chest: lungs clear, normal breath sounds, no respiratory distress, no accessory muscle use Cardiovascular: normal rate, regular rhythm, no gallop/murmur, no JVD Abdomen: normal bowel sounds, soft, non tender, no organomegaly, non distended Extremities: no cyanosis Skin: no rash, other - wound covered Neurologic/Psychiatric: embossing machine tender II-XII grossly normal, alert, oriented x 3, responsive Lymphatic: no neck adenopathy Musculoskeletal: no effusion Objective none Laboratory Tests Test 06/10/19 05:50 White Blood Count 10.3 K/UL (4.8-10.8) # Red Blood Count 4.89 M/UL (4.70-6.10) Hemoglobin 14.1 G/DL (14.2-18.0) L Hematocrit 40.3 % (42.0-52.0) L Mean Corpuscular Volume 82 FL (80-99) Mean Corpuscular Hemoglobin 28.8 PG (27.0-31.0) Mean Corpuscular Hemoglobin Concent 35.0 G/DL (32.0-36.0) Red Cell Distribution Width 11.0 % (11.6-14.8) L Platelet Count 135 K/UL (150-450) L Mean Platelet Volume 9.2 FL (6.5-10.1) Neutrophils (%) (Auto) 74.2 % (45.0-75.0) Lymphocytes (%) (Auto) 16.6 % (20.0-45.0) L Monocytes (%) (Auto) 8.4 % (1.0-10.0) Eosinophils (%) (Auto) 0.5 % (0.0-3.0) Basophils (%) (Auto) 0.3 % (0.0-2.0) Sodium Level 139 MMOL/L (136-145) Potassium Level 3.8 MMOL/L (3.5-5.1) Chloride Level 104 MMOL/L (98-107) Carbon Dioxide Level 28 MMOL/L (21-32) Anion Gap 7 mmol/L (5-15) Blood Urea Nitrogen 15 mg/dL (7-18) Creatinine 1.1 MG/DL (0.55-1.30) Estimat Glomerular Filtration Rate > 60 mL/min (>60) Glucose Level 105 MG/DL (74-106) Calcium Level 9.0 MG/DL (8.5-10.1) Current Medications Medications (Trade) Dose Ordered Sig/Miguelina Route PRN Reason Start Time Stop Time Status Last Admin Dose Admin Albuterol Sulfate (Proventil MDI) 1 puff Q6H PRN INH Shortness of Breath 06/04/19 18:45 07/04/19 17:14 Clonazepam (KlonoPIN) 1 mg BEDTIME ORAL 06/09/19 21:00 06/16/19 20:59 06/09/19 21:42 Diphenhydramine HCl (Benadryl) 25 mg Q6H PRN IVP Itching/Pruritis 06/06/19 20:30 07/06/19 20:29 06/10/19 00:06 Escitalopram Oxalate (Lexapro) 10 mg DAILY ORAL 06/09/19 11:00 07/09/19 10:59 06/10/19 08:32 Heparin Sodium (Porcine) (Heparin 5000 units/ml) 5,000 units EVERY 8 HOURS SUBQ 06/10/19 22:00 07/04/19 21:59 Hydromorphone HCl (Dilaudid) 0.5 mg Q4H PRN IVP Severe Breakthru Pain (>7) 06/06/19 11:15 06/13/19 11:14 06/10/19 04:38 Miscellaneous Medication (FILTER TIP INSPECTOR shift volume) 1 ea Q12HR@0700,1900 MISC 06/08/19 19:00 06/10/19 18:59 06/10/19 07:10 Naloxone HCl (Narcan) 0.1 mg Q1M PRN IVP RR<10/min OR SBP<90 mmHg 06/06/19 20:30 07/06/19 20:29 Ondansetron HCl (Zofran) 4 mg Q6H PRN IVP Nausea & Vomiting 06/06/19 20:30 07/06/19 20:29 Pantoprazole (Protonix) 40 mg DAILY ORAL 06/05/19 09:00 07/05/19 08:59 06/10/19 08:32 Polyethylene Glycol (Miralax) 17 gm TID PRN ORAL Constipation 06/07/19 18:00 07/07/19 17:59 06/10/19 08:32 Sodium Chloride 1,000 ml @ 50 mls/hr Q20H IV 06/09/19 10:00 07/09/19 09:59 06/10/19 16:36 Navneet Oakes MD Jun 10, 2019 18:37
--- NOTE | 2019-06-10 18:44 | NUR ---
NURSE NOTES: UNEVENTFUL DAY. PATIENT STATES HE HAD A BETTER DAY TODAY. ENGAGING IN CONVERSATION WITH STAFF AND ON CELL PHONE. PAIN MANAGED WITH BIZTALK CONSULTANT. MOTHER AT BEDSIDE MOST OF THE DAY.
[2019-06-10] MEDS ORDERED: LORazepam 1mg tab ORAL PRN (19:30)
[2019-06-10] MEDS ORDERED: PCA Education Pamphlet MISC ONE (19:30)
[2019-06-10] MEDS ORDERED: Naloxone 0.4mg/ml Inj IVP PRN (20:00)
[2019-06-10] MEDS ORDERED: Rate Change PCA 1 Each MISC PRN (20:00)
[2019-06-10] MEDS ORDERED: PCA HYDROmorphone 1mg/ml 30 ML IV PRN (20:00)
--- NOTE | 2019-06-10 20:00 | NUR ---
NURSE NOTES: Pt is in bed, awake and alert. No acute distress noted. Pt is ambulatory. Vials stable. Pt has SHOTGUN SHELL REPRINTING UNIT OPERATOR Dilaudid in place. Pt complains of no pain at this moment. Wound vac in place, no leaks, barely producing any output. Pt's mom is by bedside. Bed lockwed low in position,side rails up and call light within reach. Pt will be monitored.
[2019-06-11] VITALS: BP 126/78
[2019-06-11 04:00] VITALS: BP 123/80
--- NOTE | 2019-06-11 05:31 | NUR ---
NURSE NOTES: Pt slept well overnight without any complaints of pain or discomfort. PHYSICIAN LIAISON Dilaudid in place. NO significant amount of drainge from the wound vac. Pt's mother by bedside.
[2019-06-11] MEDS: Heparin 5000 units/ml inj SUBQ SCH ×3 (05:40→21:12)
[2019-06-11] MEDS: PCA shift volume MISC SCH ×2 (07:20→19:21)
--- NOTE | 2019-06-11 07:23 | NUR ---
HAND-OFF: Report given to ANDIE Skinner.
--- NOTE | 2019-06-11 07:30 | NUR ---
NURSE NOTES: Received report from Jose Luis RN. Patient is awake and oriented, no acute distress noted, reporting pain rated 7/10 at surgical site currently but does not want breakthrough pain medication, patient states he will continue using REAL ESTATE SERVICES COORDINATOR as needed. REAL ESTATE SERVICES COORDINATOR settings checked and verified against order, IVF running per order. Wound vac running at 125mmHg continuous suction, surgical site is clean, wound vac seal intact with no leaks. Patient updated on plan of care for the day. Side rails upx2, bed low and locked, call light within reach.
[2019-06-11 08:00] VITALS: BP 116/74
[2019-06-11 12:00] VITALS: BP 121/68
--- NOTE | 2019-06-11 12:36 | NUR ---
DISCHARGE PLANNING: SPOKE TO (ERICK) FROM [facility] ABOUT WOUND VAC T:[phone] WOUND VAC IS STILL PENDING AUTHORIZATION MAY TAKE 72HRS WILL CONT TO F/U PATIENT WILL REESTABLISH SERVICES WITH [facility] POST DISCHARGE T: [phone]
--- NOTE | 2019-06-11 13:29 | NUR ---
CASE MANAGEMENT:REVIEW 06/11/19 SI: POD#7...S/P RADICAL EXCISION OF RECURRENT PILONIDAL CYST POD #5..S/P WASHOUT,PARTIAL CLOSURE AND WOUND VAC CHANGE 98.1 85 16 116/74 98% ON RA IS: IVF NS@50/HR GRIEF COUNSELOR DILAUDID Q24HR HEPARIN SQ Q8HRS PROTONIX PO QD :3E MED/SURG STATUS PLAN: DISCHARGE PLANNING ~ NEEDS WOUND VAC AUTHORIZATION FOR WOUND VAC -PENDING HOME HEALTH SERVICES ESTABLISHED WITH [facility]
--- NOTE | 2019-06-11 14:57 | Surgery Progress Note ---
Surgery Progress Note Subjective Procedure Performed 1. wound vac change under MAC 2. preparation of wound bed for potential closure Additional Comments doing well comfortable no n/v/f/c comfortable Objective Last 24 Hour Vital Signs Date Time Temp Pulse Resp B/P (MAP) Pulse Ox O2 Delivery O2 Flow Rate FiO2 06/11/19 12:00 98.0 76 16 121/68 (85) 94 06/11/19 12:00 16 06/11/19 09:00 Room Air 06/11/19 08:00 16 06/11/19 08:00 98.1 85 16 116/74 (88) 98 06/11/19 04:00 74 18 96 06/11/19 04:00 98.1 74 18 123/80 (94) 96 06/11/19 00:00 79 18 96 06/11/19 00:00 97.9 79 18 126/78 (94) 96 06/10/19 21:00 Room Air 06/10/19 20:00 60 18 96 06/10/19 20:00 99.8 56 16 142/58 (86) 96 06/10/19 16:00 70 20 95 06/10/19 16:00 97.9 82 20 127/67 (87) 95 I&O Intake and Output 06/10/19 06/11/19 19:00 07:00 Intake Total 1025 ml 960 ml Output Total 810 ml 600 ml Balance 215 ml 360 ml Intake Oral 700 ml 360 ml IV Total 325 ml 600 ml Output Urine Total 800 ml 600 ml Drainage Total 10 ml # Voids 1 Dressing: dry Wound: clean Drains: wound vac Cardiovascular: RSR Respiratory: clear Abdomen: soft, flat, non-tender, present bowel sounds Extremities: no edema, no tenderness, no cyanosis Plan Problems: (1) Infected pilonidal cyst Assessment & Plan: This is a 24-year-old male with 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 Maldonado for radical excision of recurrent pilonidal cyst; wound vac placement. Patient will require prolonged care plan and close monitoring to ensure adequate healing and improvement. Okay for diet Plan VAC change in the operating room Sunday Wound VAC settings as entered Rx is written awaiting supplies and coordination for home health seen by psych, input appreciated d/c planning will plan for wound vac change at bedside tomorrow needs home health, supplies cannot d/c without these items We will follow with recommendations Thank you for let me participate in patient's care Chet Cooper Jun 11, 2019 14:57
[2019-06-11 16:00] VITALS: BP 112/73
--- NOTE | 2019-06-11 17:11 | Internal Med Progress Note ---
Subjective Physician Name RosaleetaylorDom Attending Physician Ashok Gay M.D. Current Medications Medications (Trade) Dose Ordered Sig/Miguelina Route PRN Reason Start Time Stop Time Status Last Admin Dose Admin Albuterol Sulfate (Proventil MDI) 1 puff Q6H PRN INH Shortness of Breath 06/04/19 18:45 07/04/19 17:14 Clonazepam (KlonoPIN) 1 mg BEDTIME ORAL 06/09/19 21:00 06/16/19 20:59 06/10/19 21:46 Diphenhydramine HCl (Benadryl) 25 mg Q6H PRN IVP Itching/Pruritis 06/06/19 20:30 07/06/19 20:29 06/10/19 21:46 Escitalopram Oxalate (Lexapro) 10 mg DAILY ORAL 06/09/19 11:00 07/09/19 10:59 06/11/19 08:45 Heparin Sodium (Porcine) (Heparin 5000 units/ml) 5,000 units EVERY 8 HOURS SUBQ 06/10/19 22:00 07/04/19 21:59 06/11/19 14:40 Hydromorphone HCl 30 ml @ 0 mls/hr Q24H PRN IV For Pain 06/10/19 20:00 06/12/19 19:59 Hydromorphone HCl (Dilaudid) 0.5 mg Q4H PRN IVP Severe Breakthru Pain (>7) 06/06/19 11:15 06/13/19 11:14 06/10/19 04:38 Lorazepam (Ativan) 1 mg Q4H PRN ORAL Muscle Spasm 06/10/19 19:30 06/12/19 19:29 Miscellaneous Medication (OUTPATIENT SERVICES DIRECTOR Rate Change) 1 ea DAILY PRN MISC rate change 06/10/19 20:00 06/12/19 19:59 Miscellaneous Medication (OUTPATIENT SERVICES DIRECTOR shift volume) 1 ea Q12HR@0700,1900 MISC 06/11/19 07:00 06/13/19 06:59 06/11/19 07:20 Naloxone HCl (Narcan) 0.1 mg Q1M PRN IVP RR<10/min OR SBP<90 mmHg 06/10/19 20:00 06/12/19 19:59 Ondansetron HCl (Zofran) 4 mg Q6H PRN IVP Nausea & Vomiting 06/10/19 19:30 06/12/19 19:29 Pantoprazole (Protonix) 40 mg DAILY ORAL 06/05/19 09:00 07/05/19 08:59 06/11/19 08:45 Polyethylene Glycol (Miralax) 17 gm TID PRN ORAL Constipation 06/07/19 18:00 07/07/19 17:59 06/10/19 08:32 Sodium Chloride 1,000 ml @ 50 mls/hr Q20H IV 06/09/19 10:00 07/09/19 09:59 06/10/19 16:36 Temazepam (RestoriL) 7.5 mg HSPRN PRN ORAL Insomnia 06/10/19 19:30 06/12/19 19:29 Allergies: Coded Allergies: No Known Allergies (Unverified , 12/21/17) Subjective Less pain over sacrum + BM no depression Objective Last Vital Signs Date Time Temp Pulse Resp B/P (MAP) Pulse Ox O2 Delivery O2 Flow Rate FiO2 06/11/19 12:00 98.0 76 16 121/68 (85) 94 06/11/19 09:00 Room Air 06/10/19 08:08 21 06/09/19 09:25 3 General Appearance: no apparent distress, mild distress EENT: PERRL/EOMI, normal ENT inspection Neck: non-tender, normal alignment Cardiovascular: normal rate, regular rhythm Respiratory/Chest: lungs clear, normal breath sounds Abdomen: non tender, soft Extremities: normal range of motion, non-tender Edema: trace edema Skin: other - sacral wound vac c/d/i Intake and Output 06/10/19 06/11/19 19:00 07:00 Intake Total 1025 ml 960 ml Output Total 810 ml 600 ml Balance 215 ml 360 ml Intake Oral 700 ml 360 ml IV Total 325 ml 600 ml Output Urine Total 800 ml 600 ml Drainage Total 10 ml # Voids 1 Assessment/Plan Assessment/Plan ASSESSMENT: 1. Pilonidal cyst status post resection s/p wound VAC placement s/p wound vac change sacral wound 06/09 2. Gastroesophageal reflux disease. 3. Asthma-controlled. 4. + depression screen w/ suicidal thoughts PLAN: 1. Med/Surg. 2. Antibiotics- off 3. ID consult. 4. IV fluids. 5. pain control 6. Surgery is following. 7. lexpro for depression 8. DVT prophylaxis. 9. Full Code. 10. Psych consulted awaiting insurance approval for wound vac Dom Fried MD Jun 11, 2019 17:11
--- NOTE | 2019-06-11 19:15 | NUR ---
NURSE NOTES: Received report from ANDIE Skinner. Pt is awake, lying semi-correa's; comfortably resting. No signs of acute distress noted. Pt denies any pain at this time. AOx4; able to make needs known. Checked IV site, line, and rate; patent and running. Wound vac drainage noted. No erythema, bleeding, or infiltration noted. Bed at lowest position. Brakes on. Siderails up x2. Call light within reach. Will continue to monitor.
--- NOTE | 2019-06-11 19:23 | NUR ---
HAND-OFF: Report given to Mary CHAVES.
[2019-06-11 20:00] VITALS: BP 125/74
--- NOTE | 2019-06-11 21:01 | Progress Note ---
DATE: 06/11/2019 SUBJECTIVE: The patient is doing better. No behavioral issues noted. He continues to have anxiety, however, much improved. We discussed the case with the mother. MENTAL STATUS EXAMINATION: Alert, oriented times self, place, situation, and date. Mood is anxious. Affect is constricted, congruent with mood. Thought process is concrete. Thought content, no suicidal or homicidal ideations. ASSESSMENT: Stable. PLAN: 1. We will continue current medications. 2. Provide the patient with reality orientation, supportive therapy. Birdie Solomon M.D. DR: JOSE JOB#: [id number] CC:
[2019-06-11] MEDS: DiphenhydrAMINE 50mg/ml Inj IVP PRN (21:07)
[2019-06-11] MEDS: Miralax 17gm pkt ORAL PRN (21:08)
[2019-06-12] VITALS: BP 139/70
[2019-06-12] MEDS: Hydromorphone 0.5mg/0.5ml inj IVP PRN (03:49)
[2019-06-12 04:00] VITALS: BP 114/67
[2019-06-12] MEDS: Heparin 5000 units/ml inj SUBQ SCH ×3 (06:00→21:54)
--- NOTE | 2019-06-12 07:12 | NUR ---
NURSE NOTES: Report received from Mary RN, rounds made. Patient resting in right lateral position in bed. No distress on RA, no NV, denies need for breakthrough pain medication. IV (NS at 50 ml/hr) with FLEXO OPERATOR (Dilaudid) in place, to right hand. Sacral wound dressing CDI, wound vac at continuous, low, 125 mmHg setting, serosanguineous output noted in canister. Bilateral SCDs on. Mom at bedside. Call light in reach, bed in lowest position, will continue to monitor.
--- NOTE | 2019-06-12 07:15 | NUR ---
HAND-OFF: Report given to ANDIE Jose. Pt is awake and in stable condition. Plan of care endorsed.
[2019-06-12] MEDS: PCA shift volume MISC SCH ×2 (07:18→19:00)
[2019-06-12 08:00] VITALS: BP 121/61
[2019-06-12 12:00] VITALS: BP 109/74
--- NOTE | 2019-06-12 12:35 | Surgery Progress Note ---
Surgery Progress Note Subjective Procedure Performed 1. wound vac change under MAC 2. preparation of wound bed for potential closure Additional Comments vac changed at bedside Objective Last 24 Hour Vital Signs Date Time Temp Pulse Resp B/P (MAP) Pulse Ox O2 Delivery O2 Flow Rate FiO2 06/12/19 08:00 84 18 95 06/12/19 08:00 97.7 84 18 121/61 (81) 95 06/12/19 07:25 97 Room Air 21 06/12/19 07:25 78 16 97 Room Air 21 06/12/19 04:00 77 16 97 06/12/19 04:00 98.1 77 16 114/67 (83) 97 06/12/19 00:00 97.5 79 20 139/70 (93) 98 06/12/19 00:00 79 20 98 06/11/19 21:00 Room Air 06/11/19 20:02 98 Room Air 21 06/11/19 20:00 78 16 97 06/11/19 20:00 98.7 78 20 125/74 (91) 97 06/11/19 16:00 98.4 83 16 112/73 (86) 98 06/11/19 16:00 16 I&O Intake and Output 06/11/19 06/12/19 19:00 07:00 Intake Total 1350 ml 1100 ml Output Total 0 ml 30 ml Balance 1350 ml 1070 ml Intake Oral 1000 ml 600 ml IV Total 350 ml 500 ml Drainage Total 0 ml 30 ml # Voids 3 Dressing: dry Wound: clean Drains: wound vac Cardiovascular: RSR Respiratory: clear Abdomen: soft, flat, non-tender, present bowel sounds Extremities: no edema, no tenderness, no cyanosis Plan Problems: (1) Infected pilonidal cyst Assessment & Plan: This is a 24-year-old male with 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 Maldonado for radical excision of recurrent pilonidal cyst; wound vac placement. Patient will require prolonged care plan and close monitoring to ensure adequate healing and improvement. Okay for diet Plan VAC change in the operating room Sunday Wound VAC settings as entered Rx is written awaiting supplies and coordination for home health seen by psych, input appreciated d/c planning will plan for wound vac change at bedside sunday needs home health, supplies cannot d/c without these items We will follow with recommendations Thank you for let me participate in patient's care Chet Cooper Jun 12, 2019 12:35
--- NOTE | 2019-06-12 12:38 | Operative Note - PDOC ---
Operative Note Operative Note Chief Complaint: drainage pain sacrum Pre-op Diagnosis: open wound sacrum Procedure: 1. wound vac change Post-op Diagnosis: same as pre-op Surgeon: Chet Cooper MD Doctor Of Naprapathy: noemy Specimen: none Complications: none Condition: stable Fluids: see records Estimated Blood Loss: minimal Drains: none Implant(s) used?: No Indications for Procedure 24-year-old male with open sacral wound from excision of pilonidal cyst chronic debilitating disease. Recently is been having wound VAC change in the operating room but this is the third change and likely pain threshold to be lower at this point to be allowing for change at the bedside. Plan for change the bedside which is scheduled today. Patient prepped Description of Procedure Patient was made comfortable at the bedside in the prone position. The prior wound VAC was disconnected. Prior wound VAC was removed. Wound bed was inspected noted to be hemostatic granulation tissue forming well-healing no compromise no infection no issues. New tape and foam dressing applied bridging to the right hip. Wound VAC initiated good seal noted no complication. Patient tolerated well. We will plan for next wound VAC change soon. Chet Cooper Jun 12, 2019 12:38
--- NOTE | 2019-06-12 13:14 | NUR ---
CASE MANAGEMENT:REVIEW 06/12/19 SI: POD#8...S/P RADICAL EXCISION OF RECURRENT PILONIDAL CYST POD #6..S/P WASHOUT,PARTIAL CLOSURE AND WOUND VAC CHANGE 97.7 84 18 121/61 95% ON RA IS: IVF NS@50/HR COGNOS ARCHITECT DILAUDID Q24HR HEPARIN SQ Q8HRS PROTONIX PO QD :3E MED/SURG STATUS PLAN: DISCHARGE PLANNING ~ NEEDS WOUND VAC AUTHORIZATION FOR WOUND VAC -PENDING INSURANCE HOME HEALTH SERVICES ESTABLISHED WITH [facility]
--- NOTE | 2019-06-12 13:17 | NUR ---
DISCHARGE PLANNING: SPOKE WITH [facility] THIS AM T:[phone] PATIENT WOUND VAC STILL PENDING SPOKE TO AGUSTO FROM [facility] WHO WILL REACH OUT TO [facility] TO RESOLVE THIS MATTER T:[phone]
--- NOTE | 2019-06-12 15:00 | NUR ---
NURSE NOTES: No suicidal ideation throughout shift. Mom at bedside. Patient remains safe. Will continue to monitor.
[2019-06-12 16:00] VITALS: BP 109/57
--- NOTE | 2019-06-12 17:27 | Infectious Diseases Prog Note ---
Assessment/Plan Assessment/Plan A) 1) sacral/left buttock wound infection - wound culture with strep species and independent film maker cultured at two different sites 2) recurrent pilonidal cyst/sinus, hx asthma 3) s/p pilonidal cyst resection and wound vac 4) allergies - ? vancomycin infusion, sh-negative, fh-nc 5) d/w RN P) 1) stable off abx, wound without infection per operative report, s/p wound vac 2) will sign off, call if any questions 3) thank you Subjective Constitutional: Reports: fatigue; Denies: fever HEENT: Denies: congestion Respiratory: Denies: shortness of breath Cardiovascular: Denies: chest pain Gastrointestinal/Abdominal: Denies: nausea, vomiting, diarrhea Genitourinary: Reports: other - no garza Neurologic: Denies: headache Psychiatric: Denies: depression Skin: Denies: rash Hematologic: Denies: bleeding Musculoskeletal: Denies: pain Allergies: Coded Allergies: No Known Allergies (Unverified , 12/21/17) Objective Vital Signs Last 24 Hour Vital Signs Date Time Temp Pulse Resp B/P (MAP) Pulse Ox O2 Delivery O2 Flow Rate FiO2 06/12/19 12:00 98.0 73 16 109/74 (86) 97 06/12/19 09:00 Room Air 06/12/19 08:00 84 18 95 06/12/19 08:00 97.7 84 18 121/61 (81) 95 06/12/19 07:25 97 Room Air 21 06/12/19 07:25 78 16 97 Room Air 21 06/12/19 04:00 77 16 97 06/12/19 04:00 98.1 77 16 114/67 (83) 97 06/12/19 00:00 97.5 79 20 139/70 (93) 98 06/12/19 00:00 79 20 98 06/11/19 21:00 Room Air 06/11/19 20:02 98 Room Air 21 06/11/19 20:00 78 16 97 06/11/19 20:00 98.7 78 20 125/74 (91) 97 Height (Feet): 5 Height (Inches): 5.00 Weight (Pounds): 180 General Appearance: no acute distress HEENT: normocephalic, atraumatic, anicteric, mucous membranes moist Respiratory/Chest: lungs clear, normal breath sounds, no respiratory distress, no accessory muscle use Cardiovascular: normal rate, regular rhythm, no gallop/murmur, no JVD Abdomen: normal bowel sounds, soft, non tender, no organomegaly, non distended Genitourinary: other - no garza Extremities: no cyanosis Skin: no rash Neurologic/Psychiatric: mothers helper II-XII grossly normal, alert, responsive Lymphatic: no neck adenopathy Musculoskeletal: no effusion Objective none Microbiology Date/Time Source Procedure Growth Status 06/04/19 11:15 Nasal Nares MRSA Culture - Final NO METHICILLIN RESISTANT STAPH AUREUS... Complete 06/04/19 13:05 Sacral Cyst Gram Stain - Final Complete 06/04/19 13:05 Aerobic Culture - Final Staphylococcus Sp Coag Neg Complete 06/04/19 13:05 Sacral Cyst Anaerobic Culture - Final NO ANAEROBES ISOLATED Complete Labs Test 06/10/19 05:50 White Blood Count 10.3 K/UL (4.8-10.8) Red Blood Count 4.89 M/UL (4.70-6.10) Hemoglobin 14.1 G/DL (14.2-18.0) Hematocrit 40.3 % (42.0-52.0) Mean Corpuscular Volume 82 FL (80-99) Mean Corpuscular Hemoglobin 28.8 PG (27.0-31.0) Mean Corpuscular Hemoglobin Concent 35.0 G/DL (32.0-36.0) Red Cell Distribution Width 11.0 % (11.6-14.8) Platelet Count 135 K/UL (150-450) Mean Platelet Volume 9.2 FL (6.5-10.1) Neutrophils (%) (Auto) 74.2 % (45.0-75.0) Lymphocytes (%) (Auto) 16.6 % (20.0-45.0) Monocytes (%) (Auto) 8.4 % (1.0-10.0) Eosinophils (%) (Auto) 0.5 % (0.0-3.0) Basophils (%) (Auto) 0.3 % (0.0-2.0) Sodium Level 139 MMOL/L (136-145) Potassium Level 3.8 MMOL/L (3.5-5.1) Chloride Level 104 MMOL/L (98-107) Carbon Dioxide Level 28 MMOL/L (21-32) Anion Gap 7 mmol/L (5-15) Blood Urea Nitrogen 15 mg/dL (7-18) Creatinine 1.1 MG/DL (0.55-1.30) Estimat Glomerular Filtration Rate > 60 mL/min (>60) Glucose Level 105 MG/DL (74-106) Calcium Level 9.0 MG/DL (8.5-10.1) Current Medications Medications (Trade) Dose Ordered Sig/Miguelina Route PRN Reason Start Time Stop Time Status Last Admin Dose Admin Albuterol Sulfate (Proventil MDI) 1 puff Q6H PRN INH Shortness of Breath 06/04/19 18:45 07/04/19 17:14 Clonazepam (KlonoPIN) 1 mg BEDTIME ORAL 06/09/19 21:00 06/16/19 20:59 06/11/19 21:08 Diphenhydramine HCl (Benadryl) 25 mg Q6H PRN IVP Itching/Pruritis 06/06/19 20:30 07/06/19 20:29 06/11/19 21:07 Escitalopram Oxalate (Lexapro) 10 mg DAILY ORAL 06/09/19 11:00 07/09/19 10:59 06/12/19 09:26 Heparin Sodium (Porcine) (Heparin 5000 units/ml) 5,000 units EVERY 8 HOURS SUBQ 06/10/19 22:00 07/04/19 21:59 06/12/19 15:07 Hydromorphone HCl 30 ml @ 0 mls/hr Q24H PRN IV For Pain 06/10/19 20:00 06/12/19 19:59 06/11/19 18:14 Hydromorphone HCl (Dilaudid) 0.5 mg Q4H PRN IVP Severe Breakthru Pain (>7) 06/06/19 11:15 06/13/19 11:14 06/12/19 03:49 Lorazepam (Ativan) 1 mg Q4H PRN ORAL Muscle Spasm 06/10/19 19:30 06/12/19 19:29 Miscellaneous Medication (TURBINE ATTENDANT Rate Change) 1 ea DAILY PRN MISC rate change 06/10/19 20:00 06/12/19 19:59 Miscellaneous Medication (TURBINE ATTENDANT shift volume) 1 ea Q12HR@0700,1900 MISC 06/11/19 07:00 06/13/19 06:59 06/12/19 07:18 Naloxone HCl (Narcan) 0.1 mg Q1M PRN IVP RR<10/min OR SBP<90 mmHg 06/10/19 20:00 06/12/19 19:59 Ondansetron HCl (Zofran) 4 mg Q6H PRN IVP Nausea & Vomiting 06/10/19 19:30 06/12/19 19:29 Pantoprazole (Protonix) 40 mg DAILY ORAL 06/05/19 09:00 07/05/19 08:59 06/12/19 09:26 Polyethylene Glycol (Miralax) 17 gm TID PRN ORAL Constipation 06/07/19 18:00 07/07/19 17:59 06/11/19 21:08 Sodium Chloride 1,000 ml @ 50 mls/hr Q20H IV 06/09/19 10:00 07/09/19 09:59 06/12/19 15:10 Temazepam (RestoriL) 7.5 mg HSPRN PRN ORAL Insomnia 06/10/19 19:30 06/12/19 19:29 Navneet Oakes MD Jun 12, 2019 17:27
--- NOTE | 2019-06-12 19:32 | NUR ---
NURSE NOTES: Received report from ANDIE Jose. Pt is awake, lying semi-correa's; comfortably resting. No signs of acute distress noted. Pt denies any pain at this time. Family at bedside. AOx4; able to make needs known. Checked IV site, line, and rate; patent and running. No erythema, bleeding, or infiltration noted. Bed at lowest position. Brakes on. Siderails up x2. Call light within reach. Will continue to monitor.
--- NOTE | 2019-06-12 19:32 | NUR ---
HAND-OFF: Report given to Mary CHAVES, rounds made. Output: Wound Vac: 20 ml
[2019-06-12 20:00] VITALS: BP 122/65
[2019-06-12] MEDS ORDERED: Rate Change PCA 1 Each MISC PRN (20:15)
[2019-06-12] MEDS ORDERED: PCA Education Pamphlet MISC ONE (20:15)
[2019-06-12] MEDS: Miralax 17gm pkt ORAL PRN (20:44)
[2019-06-12] MEDS: DiphenhydrAMINE 50mg/ml Inj IVP PRN (20:44)
[2019-06-13] VITALS: BP 131/85
[2019-06-13 04:00] VITALS: BP 108/60
[2019-06-13] MEDS: PCA HYDROmorphone 1mg/ml 30 ML IV PRN (04:54)
[2019-06-13] MEDS: PCA shift volume MISC SCH ×2 (07:00→19:30)
[2019-06-13] MEDS: Heparin 5000 units/ml inj SUBQ SCH ×3 (07:02→21:07)
--- NOTE | 2019-06-13 07:20 | NUR ---
HAND-OFF: Report given to ANDIE Saldana. Pt is awake and in stable condition. Plan of care endorsed. Addendum: 06/13/19 at 0822 by Ana Sargent RN Wound vac output: 25 mL
--- NOTE | 2019-06-13 07:50 | NUR ---
NURSE NOTES: Received report from ANDIE Ortiz. Rounding done with outgoing nurse. Pt a/o x 4, in bed, watching movie with his mom. No respiratory distress noted. Wound vac is on, 125mmHg with low continuous. NS is running @50ml/hr. Bed in lowest position, call light within reach. Will continue to monitor.
[2019-06-13 08:00] VITALS: BP 103/59
[2019-06-13] MEDS: DiphenhydrAMINE 50mg/ml Inj IVP PRN ×2 (11:23→19:42)
[2019-06-13 12:00] VITALS: BP 117/73
--- NOTE | 2019-06-13 14:52 | Surgery Progress Note ---
Surgery Progress Note Subjective Procedure Performed 1. wound vac change Symptoms: improved, tolerating diet, voiding well, passing flatus, BM, pain decreased Objective Last 24 Hour Vital Signs Date Time Temp Pulse Resp B/P (MAP) Pulse Ox O2 Delivery O2 Flow Rate FiO2 06/13/19 12:00 76 18 99 06/13/19 12:00 98.2 76 18 117/73 (88) 99 06/13/19 09:00 Room Air 06/13/19 08:32 80 17 97 Room Air 21 06/13/19 08:30 97 Room Air 21 06/13/19 08:00 85 20 99 06/13/19 08:00 98.0 85 20 103/59 (74) 99 06/13/19 04:00 72 20 98 06/13/19 04:00 97.8 72 20 108/60 (76) 98 06/13/19 00:00 97.1 71 19 131/85 (100) 98 06/13/19 00:00 71 19 98 06/12/19 21:00 Room Air 06/12/19 20:04 82 18 96 Room Air 21 06/12/19 20:04 96 Room Air 21 06/12/19 20:00 81 18 96 06/12/19 20:00 98.8 81 18 122/65 (84) 96 06/12/19 16:00 81 20 95 06/12/19 16:00 97.7 81 20 109/57 (74) 95 I&O Intake and Output 06/12/19 06/13/19 19:00 07:00 Intake Total 900 ml 550 ml Output Total 1020 ml 1035 ml Balance -120 ml -485 ml Intake Oral 400 ml 400 ml IV Total 500 ml 150 ml Output Urine Total 1000 ml 1000 ml Drainage Total 20 ml 30 ml Estimated Blood Loss 5 ml # Voids 3 # Bowel Movements 1 Drains: wound vac Cardiovascular: RSR Respiratory: clear Abdomen: soft, non-tender, present bowel sounds Extremities: no edema, no tenderness, no cyanosis Plan Problems: (1) Infected pilonidal cyst Assessment & Plan: This is a 24-year-old male with 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 Maldonado for radical excision of recurrent pilonidal cyst; wound vac placement. Patient will require prolonged care plan and close monitoring to ensure adequate healing and improvement. Okay for diet Plan VAC change in the operating room Sunday Wound VAC settings as entered Rx is written awaiting supplies and coordination for home health seen by psych, input appreciated d/c planning will plan for wound vac change at bedside sunday needs home health, supplies cannot d/c without these items We will follow with recommendations Thank you for let me participate in patient's care Chet Cooper Jun 13, 2019 14:52
[2019-06-13 16:00] VITALS: BP 110/62
[2019-06-13] MEDS: Miralax 17gm pkt ORAL PRN (16:52)
--- NOTE | 2019-06-13 17:03 | NUR ---
CASE MANAGEMENT:REVIEW 06/13/19 SI: POD#9...S/P RADICAL EXCISION OF RECURRENT PILONIDAL CYST POD #7..S/P WASHOUT,PARTIAL CLOSURE AND WOUND VAC CHANGE 98.4 80 18 110/62 99% ON RA IS: IVF NS@50/HR SENIOR SCRUM MASTER DILAUDID Q24HR HEPARIN SQ Q8HRS PROTONIX PO QD KLONOPIN PO QHS :3E MED/SURG STATUS PLAN: DISCHARGE PLANNING ~ NEEDS WOUND VAC AUTHORIZATION FOR WOUND VAC -PENDING INSURANCE HOME HEALTH SERVICES ESTABLISHED WITH [facility] CALLED TO VERIFY STATUS -STILL PENDING PER INSURANCE
--- NOTE | 2019-06-13 17:15 | Progress Note ---
DATE: 06/13/2019 SUBJECTIVE: The patient is doing better. Less depressed and anxious. Coping more. We discussed his anxiety, insomnia. Compliant with medication. No behavior issues noted. MENTAL STATUS EXAMINATION: The patient is alert, oriented times self, place, and situation. Mood is depressed and anxious. Affect is constricted, congruent with mood. Thought process, linear and goal oriented. Thought content, no suicidal or homicidal ideation. Cognition is intact. Insight and judgment is fair. ASSESSMENT: 1. Anxiety disorder. 2. Major depressive disorder. 3. Adjustment disorder. PLAN: 1. Continue the Lexapro. 2. Continue the Ativan p.r.n. 3. Continue Remeron. 4. Provide the patient with reality orientation and supportive therapy. Birdie Solomon M.D. DR: MADINA JOB#: [id number] CC:
--- NOTE | 2019-06-13 18:19 | Internal Med Progress Note ---
Subjective Physician Name CourtneyDom crockett Attending Physician Ashok Gay M.D. Current Medications Medications (Trade) Dose Ordered Sig/Miguelina Route PRN Reason Start Time Stop Time Status Last Admin Dose Admin Albuterol Sulfate (Proventil MDI) 1 puff Q6H PRN INH Shortness of Breath 06/04/19 18:45 07/04/19 17:14 Clonazepam (KlonoPIN) 1 mg BEDTIME ORAL 06/09/19 21:00 06/16/19 20:59 06/12/19 20:44 Diphenhydramine HCl (Benadryl) 25 mg Q6H PRN IVP Itching/Pruritis 06/06/19 20:30 07/06/19 20:29 06/13/19 11:23 Escitalopram Oxalate (Lexapro) 10 mg DAILY ORAL 06/09/19 11:00 07/09/19 10:59 06/13/19 08:59 Heparin Sodium (Porcine) (Heparin 5000 units/ml) 5,000 units EVERY 8 HOURS SUBQ 06/10/19 22:00 07/04/19 21:59 06/13/19 14:11 Hydromorphone HCl 30 ml @ 0 mls/hr Q24H PRN IV For Pain 06/12/19 20:15 06/14/19 20:14 06/13/19 04:54 Miscellaneous Medication (OPERA SINGER Rate Change) 1 ea DAILY PRN MISC rate change 06/12/19 20:15 06/14/19 20:14 Miscellaneous Medication (OPERA SINGER shift volume) 1 ea Q12HR@0700,1900 MISC 06/13/19 07:00 06/15/19 06:59 06/13/19 07:00 Pantoprazole (Protonix) 40 mg DAILY ORAL 06/05/19 09:00 07/05/19 08:59 06/13/19 08:59 Polyethylene Glycol (Miralax) 17 gm TID PRN ORAL Constipation 06/07/19 18:00 07/07/19 17:59 06/13/19 16:52 Sodium Chloride 1,000 ml @ 50 mls/hr Q20H IV 06/09/19 10:00 07/09/19 09:59 06/13/19 11:14 Allergies: Coded Allergies: No Known Allergies (Unverified , 12/21/17) ROS Limited/Unobtainable: No Subjective reports pain over sacrum no BM awaiting Insurance to send wound vac in no depression Objective Last Vital Signs Date Time Temp Pulse Resp B/P (MAP) Pulse Ox O2 Delivery O2 Flow Rate FiO2 06/13/19 16:00 80 18 99 06/13/19 16:00 98.4 110/62 (78) 06/13/19 09:00 Room Air 06/13/19 08:32 21 06/09/19 09:25 3 Intake and Output 06/12/19 06/13/19 18:59 06:59 Intake Total 950 ml 550 ml Output Total 1020 ml 1035 ml Balance -70 ml -485 ml Intake Oral 400 ml 400 ml IV Total 550 ml 150 ml Output Urine Total 1000 ml 1000 ml Drainage Total 20 ml 30 ml Estimated Blood Loss 5 ml # Voids 3 # Bowel Movements 1 Assessment/Plan Assessment/Plan ASSESSMENT: 1. Pilonidal cyst status post resection s/p wound VAC placement s/p wound vac change sacral wound 06/09 2. Gastroesophageal reflux disease. 3. Asthma-controlled. 4. + depression screen w/ suicidal thoughts PLAN: 1. Med/Surg. 2. Antibiotics- off 3. ID consult. 4. IV fluids. 5. pain control 6. Surgery is following. 7. lexpro for depression 8. DVT prophylaxis. 9. Full Code. 10. Psych recs appreciated 11. change wound vac on sunday awaiting insurance approval for wound vac Dom Fried MD Jun 13, 2019 18:19
--- NOTE | 2019-06-13 19:22 | NUR ---
HAND-OFF: Report given to ANDIE Muse. Pt is stable.
--- NOTE | 2019-06-13 19:30 | NUR ---
NURSE NOTES: Pt. received from ANDIE Ennis. Pt. AAOx4, on room air, no indications of respiratory distress at this time. Pt. reports pain 4/10, manageable with current pain interventions. IV right hand 22g asymptomatic, intact, and patent, running NS 50cc/hr. Sacral wound vac intact, 125mmHg, continuous. Parent currently at bedside. Bed is low and locked, side rails x2 up, and call light is in reach. Will continue to monitor.
[2019-06-13 20:00] VITALS: BP 112/61
[2019-06-14] VITALS: BP 107/51
[2019-06-14 04:00] VITALS: BP 105/69
[2019-06-14] MEDS: Miralax 17gm pkt ORAL PRN (05:14)
[2019-06-14] MEDS: DiphenhydrAMINE 50mg/ml Inj IVP PRN ×3 (05:17→21:38)
[2019-06-14] MEDS: Heparin 5000 units/ml inj SUBQ SCH ×3 (05:18→21:37)
[2019-06-14] MEDS: PCA shift volume MISC SCH (07:00)
[2019-06-14 07:18] LABS: BASOPHILS % (AUTO) 0.8 % (0.0-2.0); EOSINOPHILS % (AUTO) 3.2 % (0.0-3.0); HEMATOCRIT 40.9 % (42.0-52.0); HEMOGLOBIN 14.1 G/DL (14.2-18.0); LYMPHOCYTES % (AUTO) 20.9 % (20.0-45.0); MEAN CORPUSCULAR VOLUME 82 FL (80-99); MONOCYTES % (AUTO) 10.4 % (1.0-10.0); NEUTROPHILS % (AUTO) 64.7 % (45.0-75.0); PLATELET COUNT 125 K/UL (150-450); RED BLOOD COUNT 4.97 M/UL (4.70-6.10); RED CELL DISTRIBUTION WIDTH 10.9 % (11.6-14.8); WHITE BLOOD COUNT 8.5 K/UL (4.8-10.8)
--- NOTE | 2019-06-14 07:48 | NUR ---
HAND-OFF: Report given to ANDIE Wheatley. Pt in stable condition.
[2019-06-14 08:00] VITALS: BP_SYST 105; BP_SYST 109; BP_DIAS 62; BP_DIAS 69
--- NOTE | 2019-06-14 08:02 | NUR ---
NURSE NOTES: Received pt from ANDIE Chin. Pt was resting c/o pain 3/10, managed with STEM THRESHING MACHINE OPERATOR, sacral wound vac was in place 125mmHg, continuous, call light w/in reach. and mom was at bedside. will continue to monitor.
[2019-06-14] MEDS: PCA HYDROmorphone 1mg/ml 30 ML IV PRN (08:47)
[2019-06-14 12:00] VITALS: BP_SYST 102; BP_SYST 105; BP_DIAS 61; BP_DIAS 69
--- NOTE | 2019-06-14 13:25 | Surgery Progress Note ---
Surgery Progress Note Subjective Procedure Performed 1. wound vac change Additional Comments need to wean off research electrician otherwise well vac functional Objective Last 24 Hour Vital Signs Date Time Temp Pulse Resp B/P (MAP) Pulse Ox O2 Delivery O2 Flow Rate FiO2 06/14/19 12:00 96 16 95 06/14/19 12:00 98.3 95 18 102/61 (75) 95 06/14/19 09:00 Room Air 06/14/19 08:00 97.7 81 18 109/62 (78) 95 06/14/19 08:00 96 16 95 06/14/19 04:00 96 16 95 06/14/19 04:00 98.0 96 16 105/69 (81) 95 06/14/19 00:00 87 16 96 06/14/19 00:00 99.1 87 16 107/51 (69) 96 06/13/19 21:00 Room Air 06/13/19 20:23 82 18 96 Room Air 21 06/13/19 20:23 96 Room Air 21 06/13/19 20:00 96 18 96 06/13/19 20:00 98.0 96 18 112/61 (78) 96 06/13/19 16:00 80 18 99 06/13/19 16:00 98.4 80 18 110/62 (78) 99 I&O Intake and Output 06/13/19 06/14/19 19:00 07:00 Intake Total 2550 ml 840 ml Output Total 900 ml 125 ml Balance 1650 ml 715 ml Intake Oral 2000 ml 240 ml IV Total 550 ml 600 ml Output Urine Total 900 ml Drainage Total 125 ml # Voids 1 Wound: clean, dry Drains: wound vac Cardiovascular: RSR Respiratory: clear Abdomen: soft, flat, non-tender, present bowel sounds Extremities: no edema, no tenderness, no cyanosis Laboratory Tests Test 06/14/19 05:30 White Blood Count 8.5 K/UL (4.8-10.8) Red Blood Count 4.97 M/UL (4.70-6.10) Hemoglobin 14.1 G/DL (14.2-18.0) L Hematocrit 40.9 % (42.0-52.0) L Mean Corpuscular Volume 82 FL (80-99) Mean Corpuscular Hemoglobin 28.4 PG (27.0-31.0) Mean Corpuscular Hemoglobin Concent 34.6 G/DL (32.0-36.0) Red Cell Distribution Width 10.9 % (11.6-14.8) L Platelet Count 125 K/UL (150-450) L Mean Platelet Volume 9.8 FL (6.5-10.1) Neutrophils (%) (Auto) 64.7 % (45.0-75.0) Lymphocytes (%) (Auto) 20.9 % (20.0-45.0) Monocytes (%) (Auto) 10.4 % (1.0-10.0) H Eosinophils (%) (Auto) 3.2 % (0.0-3.0) H Basophils (%) (Auto) 0.8 % (0.0-2.0) Plan Problems: (1) Infected pilonidal cyst Assessment & Plan: This is a 24-year-old male with 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 Maldonado for radical excision of recurrent pilonidal cyst; wound vac placement. Patient will require prolonged care plan and close monitoring to ensure adequate healing and improvement. Okay for diet Plan VAC change in the operating room Sunday Wound VAC settings as entered Rx is written awaiting supplies and coordination for home health seen by psych, input appreciated d/c planning will plan for wound vac change at bedside sunday needs home health, supplies cannot d/c without these items d/c research electrician start oral meds We will follow with recommendations Thank you for let me participate in patient's care Chet Cooper Jun 14, 2019 13:24
[2019-06-14 15:48] VITALS: BP 121/72
[2019-06-14] MEDS: Ketorolac 30mg Inj IV PRN (15:53)
--- NOTE | 2019-06-14 18:26 | General Progress Note ---
Assessment/Plan Problem List: (1) Infected pilonidal cyst ICD Codes: L05.91 - Pilonidal cyst without abscess SNOMED: 56805339, 652156806 (2) Constipation ICD Codes: K59.00 - Constipation, unspecified SNOMED: 18465337 (3) ARF (acute renal failure) Assessment & Plan: resolved ICD Codes: N17.9 - Acute kidney failure, unspecified SNOMED: 63424362 Status Narrative had BMs today Assessment/Plan: laxatives PRN off Abxs pain meds tapered discussed with pt await outpt wound vac Subjective Allergies: Coded Allergies: No Known Allergies (Unverified , 12/21/17) Subjective feels ok Objective Last 24 Hour Vital Signs Date Time Temp Pulse Resp B/P (MAP) Pulse Ox O2 Delivery O2 Flow Rate FiO2 06/14/19 15:48 98.8 83 18 121/72 (88) 95 06/14/19 12:00 96 16 95 06/14/19 12:00 98.3 95 18 102/61 (75) 95 06/14/19 09:00 Room Air 06/14/19 08:00 97.7 81 18 109/62 (78) 95 06/14/19 08:00 96 16 95 06/14/19 04:00 96 16 95 06/14/19 04:00 98.0 96 16 105/69 (81) 95 06/14/19 00:00 87 16 96 06/14/19 00:00 99.1 87 16 107/51 (69) 96 06/13/19 21:00 Room Air 06/13/19 20:23 82 18 96 Room Air 21 06/13/19 20:23 96 Room Air 21 06/13/19 20:00 96 18 96 06/13/19 20:00 98.0 96 18 112/61 (78) 96 Intake and Output 06/13/19 06/14/19 19:00 07:00 Intake Total 2550 ml 840 ml Output Total 900 ml 125 ml Balance 1650 ml 715 ml Intake Oral 2000 ml 240 ml IV Total 550 ml 600 ml Output Urine Total 900 ml Drainage Total 125 ml # Voids 1 Laboratory Tests 06/14/19 05:30: White Blood Count 8.5, Red Blood Count 4.97, Hemoglobin 14.1L, Hematocrit 40.9L , Mean Corpuscular Volume 82, Mean Corpuscular Hemoglobin 28.4, Mean Corpuscular Hemoglobin Concent 34.6, Red Cell Distribution Width 10.9L, Platelet Count 125L, Mean Platelet Volume 9.8, Neutrophils (%) (Auto) 64.7, Lymphocytes (%) (Auto) 20.9, Monocytes (%) (Auto) 10.4H, Eosinophils (%) (Auto) 3.2H, Basophils (%) (Auto) 0.8 Height (Feet): 5 Height (Inches): 5.00 Weight (Pounds): 180 Cardiovascular: normal rate Respiratory/Chest: lungs clear Andre Charles MD Jun 14, 2019 18:26
--- NOTE | 2019-06-14 19:46 | NUR ---
HAND-OFF: Report given to ANDIE Daley. pt is in stable condition.
--- NOTE | 2019-06-14 19:47 | NUR ---
NURSE NOTES: Received report & pt from ANDIE Wheatley. Pt lying in bed, a&ox4, in room air, family member at bedside. No s/s of acute distress & c/o 7/10 pain. Will give PRN pain med when due. Wound vac intact & settings checked, 125mmHG mild continuous. Sacral drsg C/D/I. IV site intact. Plan of care discussed.
[2019-06-14 20:00] VITALS: BP 120/69
[2019-06-14] MEDS: Tylenol #3 tab (300mg/30mg) ORAL PRN (20:17)
[2019-06-15] VITALS: BP 100/69
[2019-06-15] MEDS: Heparin 5000 units/ml inj SUBQ SCH ×3 (05:20→21:03)
[2019-06-15] MEDS: Tylenol #3 tab (300mg/30mg) ORAL PRN ×2 (05:23→13:44)
[2019-06-15 06:37] LABS: BASOPHILS % (AUTO) 0.8 % (0.0-2.0); EOSINOPHILS % (AUTO) 4.1 % (0.0-3.0); HEMATOCRIT 38.8 % (42.0-52.0); HEMOGLOBIN 13.5 G/DL (14.2-18.0); LYMPHOCYTES % (AUTO) 26.1 % (20.0-45.0); MEAN CORPUSCULAR VOLUME 82 FL (80-99); PLATELET COUNT 119 K/UL (150-450); RED BLOOD COUNT 4.73 M/UL (4.70-6.10); RED CELL DISTRIBUTION WIDTH 11.1 % (11.6-14.8); WHITE BLOOD COUNT 5.4 K/UL (4.8-10.8)
[2019-06-15 07:07] LABS: ALANINE AMINOTRANSFERASE 57 U/L (12-78); ALBUMIN 3.5 G/DL (3.4-5.0); ALKALINE PHOSPHATASE 85 U/L (46-116); ANION GAP 7 mmol/L (5-15); ASPARTATE AMINO TRANSFERASE 34 U/L (15-37); BILIRUBIN,TOTAL 0.3 MG/DL (0.2-1.0); BLOOD UREA NITROGEN 17 mg/dL (7-18); CARBON DIOXIDE 28 MMOL/L (21-32); CHLORIDE 105 MMOL/L (98-107); CREATININE 1.2 MG/DL (0.55-1.30); POTASSIUM 4.2 MMOL/L (3.5-5.1); SODIUM 140 MMOL/L (136-145)
--- NOTE | 2019-06-15 07:25 | NUR ---
HAND-OFF: Report given to ANDIE Dorsey. Rounds done.
[2019-06-15 08:00] VITALS: BP 127/65
[2019-06-15] MEDS: Ketorolac 30mg Inj IV PRN ×2 (08:45→18:24)
[2019-06-15] MEDS: DiphenhydrAMINE 50mg/ml Inj IVP PRN ×2 (08:45→21:11)
--- NOTE | 2019-06-15 10:51 | Surgery Progress Note ---
Surgery Progress Note Subjective Procedure Performed 1. wound vac change Additional Comments no acute events comfortable no n/v/f/c/ Objective Last 24 Hour Vital Signs Date Time Temp Pulse Resp B/P (MAP) Pulse Ox O2 Delivery O2 Flow Rate FiO2 06/15/19 00:00 97.8 71 16 100/69 (79) 96 06/14/19 21:00 Room Air 06/14/19 20:00 98.3 86 18 120/69 (86) 97 06/14/19 15:48 98.8 83 18 121/72 (88) 95 06/14/19 12:00 96 16 95 06/14/19 12:00 98.3 95 18 102/61 (75) 95 I&O Intake and Output 06/14/19 06/15/19 19:00 07:00 Intake Total 700 ml 360 ml Output Total 15 ml 20 ml Balance 685 ml 340 ml Intake Oral 700 ml 360 ml Drainage Total 15 ml 20 ml # Voids 3 2 Drains: wound vac Cardiovascular: RSR Respiratory: clear Abdomen: soft, non-tender, present bowel sounds, non-distended Extremities: no edema, no tenderness, no cyanosis Laboratory Tests Test 06/15/19 05:20 White Blood Count 5.4 K/UL (4.8-10.8) Red Blood Count 4.73 M/UL (4.70-6.10) Hemoglobin 13.5 G/DL (14.2-18.0) L Hematocrit 38.8 % (42.0-52.0) L Mean Corpuscular Volume 82 FL (80-99) Mean Corpuscular Hemoglobin 28.5 PG (27.0-31.0) Mean Corpuscular Hemoglobin Concent 34.7 G/DL (32.0-36.0) Red Cell Distribution Width 11.1 % (11.6-14.8) L Platelet Count 119 K/UL (150-450) L Mean Platelet Volume 10.7 FL (6.5-10.1) H Neutrophils (%) (Auto) 56.0 % (45.0-75.0) Lymphocytes (%) (Auto) 26.1 % (20.0-45.0) Monocytes (%) (Auto) 13.0 % (1.0-10.0) H Eosinophils (%) (Auto) 4.1 % (0.0-3.0) H Basophils (%) (Auto) 0.8 % (0.0-2.0) Sodium Level 140 MMOL/L (136-145) Potassium Level 4.2 MMOL/L (3.5-5.1) Chloride Level 105 MMOL/L (98-107) Carbon Dioxide Level 28 MMOL/L (21-32) Anion Gap 7 mmol/L (5-15) Blood Urea Nitrogen 17 mg/dL (7-18) Creatinine 1.2 MG/DL (0.55-1.30) Estimat Glomerular Filtration Rate > 60 mL/min (>60) Glucose Level 82 MG/DL (74-106) Calcium Level 9.0 MG/DL (8.5-10.1) Total Bilirubin 0.3 MG/DL (0.2-1.0) Aspartate Amino Transf (AST/SGOT) 34 U/L (15-37) Alanine Aminotransferase (ALT/SGPT) 57 U/L (12-78) Alkaline Phosphatase 85 U/L (46-116) Total Protein 7.1 G/DL (6.4-8.2) Albumin 3.5 G/DL (3.4-5.0) Globulin 3.6 g/dL Albumin/Globulin Ratio 1.0 (1.0-2.7) Plan Problems: (1) Infected pilonidal cyst Assessment & Plan: This is a 24-year-old male with 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 Maldonado for radical excision of recurrent pilonidal cyst; wound vac placement. Patient will require prolonged care plan and close monitoring to ensure adequate healing and improvement. Okay for diet Plan VAC change in the operating room Sunday Wound VAC settings as entered Rx is written awaiting supplies and coordination for home health seen by psych, input appreciated d/c planning will plan for wound vac change at bedside sunday needs home health, supplies cannot d/c without these items cont oral meds We will follow with recommendations Thank you for let me participate in patient's care Chet Cooper Jun 15, 2019 10:51
[2019-06-15 12:00] VITALS: BP 128/75
[2019-06-15 16:00] VITALS: BP 114/63
--- NOTE | 2019-06-15 19:32 | NUR ---
HAND-OFF: Report given to ANDIE Daley.
--- NOTE | 2019-06-15 19:35 | NUR ---
NURSE NOTES: Received report & pt from ANDIE Dorsey. Pt lying in bed, a&ox4, in room air, family member at bedside. No s/s of acute distress & c/o 6/10 pain. Will give PRN pain med when due. Wound vac intact & settings checked, 125mmHG mild continuous. Sacral drsg C/D/I. IV site intact & S/L'd. Bed in lowest position, call light within reach. Will continue to monitor.
[2019-06-15 20:00] VITALS: BP 119/73
[2019-06-16] MEDS: Heparin 5000 units/ml inj SUBQ SCH ×2 (06:39→14:01)
[2019-06-16] MEDS: Ketorolac 30mg Inj IV PRN ×2 (06:45→14:03)
--- NOTE | 2019-06-16 07:30 | NUR ---
HAND-OFF: Report given to ANDIE Glover. Rounds done.
--- NOTE | 2019-06-16 07:30 | NUR ---
NURSE NOTES: Report received from Thuy CHAVES. Patient awake and alert x 4. Patient currently has no complaints at this time. Wound vac noted running at 125. Patient noted to have 22 poly IV in right hand, patent and in tact. Will continue to follow plan of care.
[2019-06-16 08:00] VITALS: BP 115/66
[2019-06-16] MEDS: Tylenol #3 tab (300mg/30mg) ORAL PRN (08:16)
--- NOTE | 2019-06-16 09:40 | NUR ---
DISCHARGE BARRIERS: SPOKE TO SHERI FROM [facility] WHO STATED THAT WOUND VAC IS PARTIALLY DENIED. TWO REFERENCE NUMBERS HAVE BEEN ASSIGNED REF#[id number] (DENIED D/T SURGERY HAS NOT TAKE PLACE) REF#[id number] ([facility]-PENDING) THE 2ND CASE WAS STARTED ON 06/11/19 SHERI INFORMED ME THAT THIS PROSSES COULD TAKE TWO WEEKS
[2019-06-16 12:00] VITALS: BP 102/60
--- NOTE | 2019-06-16 12:20 | Surgery Progress Note ---
Surgery Progress Note Subjective Procedure Performed 1. wound vac change Symptoms: improved Additional Comments VAC changed at bedside Objective Last 24 Hour Vital Signs Date Time Temp Pulse Resp B/P (MAP) Pulse Ox O2 Delivery O2 Flow Rate FiO2 06/16/19 12:00 98.4 73 20 102/60 (74) 98 06/16/19 09:00 Room Air 06/16/19 08:11 81 16 95 Room Air 21 06/16/19 08:11 96 Room Air 21 06/16/19 08:00 98.4 81 20 115/66 (82) 97 06/15/19 20:54 Room Air 06/15/19 20:19 96 Room Air 21 06/15/19 20:18 81 16 95 Room Air 21 06/15/19 20:00 98.1 66 16 119/73 (88) 98 06/15/19 16:00 98.5 81 18 114/63 (80) 97 I&O Intake and Output 06/15/19 06/16/19 19:00 07:00 Intake Total 480 ml Output Total 15 ml 15 ml Balance -15 ml 465 ml Intake Oral 480 ml Drainage Total 15 ml 15 ml # Voids 2 2 # Bowel Movements 1 Dressing: dry Wound: clean Drains: wound vac Cardiovascular: RSR Respiratory: clear Abdomen: soft, non-tender, present bowel sounds Extremities: no tenderness, no cyanosis Plan Problems: (1) Infected pilonidal cyst Assessment & Plan: This is a 24-year-old male with 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 Maldonado for radical excision of recurrent pilonidal cyst; wound vac placement. Patient will require prolonged care plan and close monitoring to ensure adequate healing and improvement. Okay for diet Plan VAC change in the operating room Sunday Wound VAC settings as entered Rx is written awaiting supplies and coordination for home health seen by psych, input appreciated d/c planning will plan for wound vac change at bedside as needed needs home health, supplies cannot d/c without these items cont oral meds We will follow with recommendations Thank you for let me participate in patient's care Chet Cooper Jun 16, 2019 12:20
--- NOTE | 2019-06-16 12:21 | Operative Note - PDOC ---
Operative Note Operative Note Chief Complaint: drainage pain sacrum Pre-op Diagnosis: open wound sacrum Procedure: 1. wound vac change Post-op Diagnosis: same as pre-op Surgeon: Chet Cooper MD Environmental Health Technologist: noemy Specimen: none Complications: none Condition: stable Fluids: see records Estimated Blood Loss: minimal Drains: none Implant(s) used?: No Description of Procedure Chief Complaint: drainage pain sacrum Pre-op Diagnosis: open wound sacrum Procedure: 1. wound vac change Post-op Diagnosis: same as pre-op Surgeon: Chet Cooper MD Environmental Health Technologist: noemy Specimen: none Complications: none Condition: stable Fluids: see records Estimated Blood Loss: minimal Drains: none Implant(s) used?: No Indications for Procedure 24-year-old male with open sacral wound from excision of pilonidal cyst chronic debilitating disease. Recently is been having wound VAC change in the operating room but this is the third change and likely pain threshold to be lower at this point to be allowing for change at the bedside. Plan for change the bedside which is scheduled today. Patient prepped Description of Procedure Patient was made comfortable at the bedside in the prone position. The prior wound VAC was disconnected. Prior wound VAC was removed. Wound bed was inspected noted to be hemostatic granulation tissue forming well-healing no compromise no infection no issues. New tape and foam dressing applied bridging to the right hip. Wound VAC initiated good seal noted no complication. Patient tolerated well. We will plan for next wound VAC change soon. Chet Cooper Jun 16, 2019 12:21
[2019-06-16] MEDS: DiphenhydrAMINE 50mg/ml Inj IVP PRN (14:02)
--- NOTE | 2019-06-16 14:18 | NUR ---
WOUND VAC DELIVERY RECEIVED CALL FROM KARSTEN DAVIES WITH [facility] PER KARSTEN WOUND VAC WILL BE DELIVERED IN 3-4 HOURS, POSSIBLY SOONER
--- NOTE | 2019-06-16 15:52 | NUR ---
CASE MANAGEMENT:REVIEW 06/14/19 SI: POD#10...S/P RADICAL EXCISION OF RECURRENT PILONIDAL CYST POD #8..S/P WASHOUT,PARTIAL CLOSURE AND WOUND VAC CHANGE 97.7 81 18 109/62 95% ON RA IS: IVF NS@50/HR EDITOR & CO FOUNDER DILAUDID Q24HR HEPARIN SQ Q8HRS PROTONIX PO QD KLONOPIN PO QHS :3E MED/SURG STATUS PLAN: DISCHARGE PLANNING ~ NEEDS WOUND VAC AUTHORIZATION FOR WOUND VAC -PENDING INSURANCE HOME HEALTH SERVICES ESTABLISHED WITH [facility] CALLED TO VERIFY STATUS -STILL PENDING PER INSURANCE CASE MANAGEMENT:REVIEW 06/15/19 SI: POD#11...S/P RADICAL EXCISION OF RECURRENT PILONIDAL CYST POD #9..S/P WASHOUT,PARTIAL CLOSURE AND WOUND VAC CHANGE 98.2 83 18 127/65 95% ON RA IS: TORADOL Q6HR/PRN HEPARIN SQ Q8HRS KLONOPIN PO QHS :3E MED/SURG STATUS PLAN: DISCHARGE PLANNING ~ NEEDS WOUND VAC AUTHORIZATION FOR WOUND VAC -PENDING INSURANCE HOME HEALTH SERVICES ESTABLISHED WITH [facility]
[2019-06-16 16:00] VITALS: BP_SYST 116; BP_SYST 166; BP_DIAS 66
--- NOTE | 2019-06-16 17:35 | NUR ---
DISCHARGE PLANNED: PATIENT WILL REESTABLISH SERVICES WITH [facility] POST DISCHARGE T: [phone] WOUND VAC TO BE PLACED ON PATIENT BY NURSE PATIENT TO BE DISCHARGE WITH Addendum: 06/16/19 at 1739 by RIGO HUGHES LVN SPOKE TO JR) FROM [facility] PATIENT WILL ESTABLISH SERVICES IN
--- NOTE | 2019-06-16 17:56 | NUR ---
NURSE NOTES: Wound vac dressing and sponge changed today by Doctor Cooper. Patients wound vac to take home has arrived. Will transfer patient to new wound vac prior to discharge.
--- NOTE | 2019-06-16 18:53 | Discharge Summary ---
Discharge Summary Hospital Course Date of Admission Jun 04, 2019 at 10:34 Date of Discharge Jun Admitting Diagnosis HPI Sandip Marquez is a 24 year old male who was admitted on Jun 04, 2019 at 10:34 for pilonial cyst s/p resection s/p wound vac. Patient was empirically started on abx during hospitalization. wound vac placed and wound is clean/dry. Procedures Piloneal cyst excision Hospital Course 1. Pilonidal cyst status post resection and wound VAC placement. 2. Gastroesophageal reflux disease. 3. Asthma-controlled. Discharge Condition Upon Discharge: stable Discharge Disposition Patient was discharged to HOME Dom Fried MD Jun 16, 2019 18:53
--- NOTE | 2019-06-16 19:00 | NUR ---
Patient discharge home with home health services with [facility]. Patient discharged with mother. Patient sent home with own wound vac and set home with all supplies needed. Transferred to patient to new wound vac and ensured proper function. Ensured patient had prescription and all supplies needed. Ensured patient had number to [facility]. IV and name band removed. Patient left care in stable condition
--- NOTE | 2019-06-17 | Progress Note ---
DATE: 06/16/2019 SUBJECTIVE: The patient is doing well, much improved. The patient has no behavior issues. Episodes of anxiety, depressed mood is improved. No suicidal or homicidal ideation noted. The patient is calm. MENTAL STATUS EXAMINATION: The patient is alert and oriented times to self, place, situation, and date. Mood is neutral. Affect is constricted, congruent with mood. Thought process is concrete. Thought content, no suicidal or homicidal ideation noted. Cognition is intact. Insight and judgment is intact. ASSESSMENT: Major depressive disorder. PLAN: 1. We will continue the Lexapro. 2. Continue the Remeron. 3. The patient will be followed with outpatient psychiatrist. Birdie Solomon M.D. DR: MAYE JOB#: [id number] CC:
== END 2019-06-16 19:00 | disposition home or self-care (01) | DRG 577 ==
LOC: SDSOVERFLO 10:34 → 3E 16:10
PROC: 0JB90ZZ Excision of Buttock Subcutaneous Tissue and Fascia, Open Approach (ICD-10-PCS; 2019-06-04)
PROC: 0JX70ZC Transfer Back Subcutaneous Tissue and Fascia with Skin, Subcutaneous Tissue and Fascia, Open Approach (ICD-10-PCS; 2019-06-04)
PROC: 2W15X6Z Compression of Back using Pressure Dressing (ICD-10-PCS; 2019-06-04)
PROC: 2W15X6Z Compression of Back using Pressure Dressing (ICD-10-PCS; principal; 2019-06-06 07:30)
PROC: 0JD70ZZ Extraction of Back Subcutaneous Tissue and Fascia, Open Approach (ICD-10-PCS; principal; 2019-06-06 07:30)
PROC: 0JQ70ZZ Repair Back Subcutaneous Tissue and Fascia, Open Approach (ICD-10-PCS; principal; 2019-06-06 07:30)
PROC: 2W15X6Z Compression of Back using Pressure Dressing (ICD-10-PCS; 2019-06-09)
PROC: 0JD70ZZ Extraction of Back Subcutaneous Tissue and Fascia, Open Approach (ICD-10-PCS; 2019-06-09)
PROC: 2W05X6Z Change Pressure Dressing on Back (ICD-10-PCS; 2019-06-12)
PROC: 2W05X6Z Change Pressure Dressing on Back (ICD-10-PCS; 2019-06-16)
DX: L05.91 Pilonidal cyst without abscess (principal); T81.30XA Disruption of wound, unspecified, initial encounter; R45.851 Suicidal ideations; N17.9 Acute kidney failure, unspecified; F32.9 Major depressive disorder, single episode, unspecified; K21.9 Gastro-esophageal reflux disease without esophagitis; J45.909 Unspecified asthma, uncomplicated; K59.00 Constipation, unspecified; F41.9 Anxiety disorder, unspecified
CPT/HCPCS: 36415; 80048; 80053; 80202; 85025; 86850; 86900; 86901; 87070; 87075; 87081; 87205; 94003; 94150; 94664; J2250; J2405; J3490; J7030

== ENCOUNTER 2019-08-27 13:06 | Inpatient (IN) | payer OTHER ==
[~2019-08-27] VITALS: Ht 175.3 cm; Wt 75.6 kg
[~2019-08-27 13:06] MED LIST changes: +PRILOSEC OTC20 MG ORAL
[2019-08-27] MEDS ORDERED: Omnipaque-300 100ml vial INJ ONE (13:45)
[2019-08-27] MEDS ORDERED: Meropenem 1 GM in NS 55 ML IVPB ONE (13:45)
[2019-08-27 13:48] VITALS: BP 123/75
--- NOTE | 2019-08-27 14:13 | Emergency Room Report ---
History of Present Illness General Chief Complaint: Wound Recheck/Suture Removal Source: Patient Present Illness HPI 24-year-old male presents to the emergency department for 3 out of 10 severity localized pain to the sacral area with progressive dehiscence of wound. Patient status post pilonidal cyst removal surgery on June 04. Patient reports he had frequent wound checks and his wound was almost completely healed however 2 weeks ago he noticed what appeared to be a blister filled with blood which progressed to an open wound that was just bleeding initially but now he describes some greenish colored discharge. Patient denies fevers or chills. He denies history of immune compromise. He denies taking any medications at this time. Patient reports only significant past medical history is asthma. He reports direct pressure such as sitting exacerbates his pain. No relieving factors at this time. Allergies: Coded Allergies: No Known Allergies (Unverified , 12/21/17) COVID-19 Screening Contact w/high risk pt: No Recent Travel to affected area: No Experienced COVID-19 symptoms?: No Patient History Past Medical History: see triage record Past Surgical History: none Pertinent Family History: none Immunizations: UTD Reviewed Nursing Documentation: PMH: Agreed; PSxH: Agreed Nursing Documentation-PMH Past Medical History: No History, Except For Hx Asthma: Yes Hx Cancer: No Hx Gastrointestinal Problems: Yes Hx Neurological Problems: No Review of Systems All Other Systems: negative except mentioned in HPI Physical Exam Vital Signs Date Time Temp Pulse Resp B/P (MAP) Pulse Ox O2 Delivery O2 Flow Rate FiO2 08/27/19 13:29 98.4 85 18 123/75 (91) 98 Room Air Sp02 EP Interpretation: reviewed, normal General Appearance: no apparent distress, alert, GCS 15, non-toxic Head: normocephalic, atraumatic Eyes: bilateral eye normal inspection, bilateral eye PERRL ENT: hearing grossly normal, normal voice Neck: full range of motion Respiratory: chest non-tender, lungs clear, normal breath sounds, speaking full sentences Cardiovascular #1: regular rate, rhythm Rectal: other - open sacral wound approx 3.5cm- slight oozing of purulent blood. Genitourinary: deferred Musculoskeletal: back normal, normal range of motion, gait/station normal, tender - ttp over the sacral bone Neurologic: alert, motor strength/tone normal, oriented x3, sensory intact, responsive, speech normal Psychiatric: judgement/insight normal Skin: other - open sacral wound approx 3.5cm- slight oozing of purulent blood. Lymphatic: no adenopathy Medical Decision Making PA Attestation Dr. Brantley Is my supervising Physician whom patient management has been discussed with. Diagnostic Impression: Primary Impression: Wound dehiscence ER Course 24-year-old male presents to the emergency department for 3 out of 10 severity localized pain to the sacral area with progressive dehiscence of wound. Patient status post pilonidal cyst removal surgery on June 04. Patient reports he had frequent wound checks and his wound was almost completely healed however 2 weeks ago he noticed what appeared to be a blister filled with blood which progressed to an open wound that was just bleeding initially but now he describes some greenish colored discharge. Patient denies fevers or chills. He denies history of immune compromise. He denies taking any medications at this time. Patient reports only significant past medical history is asthma. He reports direct pressure such as sitting exacerbates his pain. No relieving factors at this time. Ddx considered but are not limited to cellulitis, dehiscence, abscess, osteomyelitis just to name a few Vital signs: are WNL, pt. is afebrile H&PE are most consistent with sacral wound dehiscence with presumed ST infection ORDERS: -CBC, BMP, CRP: All unremarkable / WNL -CT Pelvis W. Contrast: ED INTERVENTIONS: -Meropenem 1g IV DISPOSITION: at this time pt. will be admitted to Dr. Sales for wound dehiscence. Dr. Sales agreed to admit the pt. and to continue pt. care management. Labs Test 08/27/19 14:15 White Blood Count 7.8 K/UL (4.8-10.8) Red Blood Count 5.42 M/UL (4.70-6.10) Hemoglobin 14.7 G/DL (14.2-18.0) Hematocrit 43.1 % (42.0-52.0) Mean Corpuscular Volume 80 FL (80-99) Mean Corpuscular Hemoglobin 27.2 PG (27.0-31.0) Mean Corpuscular Hemoglobin Concent 34.1 G/DL (32.0-36.0) Red Cell Distribution Width 11.4 % (11.6-14.8) Platelet Count 147 K/UL (150-450) Mean Platelet Volume 8.7 FL (6.5-10.1) Neutrophils (%) (Auto) 74.4 % (45.0-75.0) Lymphocytes (%) (Auto) 17.8 % (20.0-45.0) Monocytes (%) (Auto) 6.1 % (1.0-10.0) Eosinophils (%) (Auto) 1.0 % (0.0-3.0) Basophils (%) (Auto) 0.7 % (0.0-2.0) Sodium Level 146 MMOL/L (136-145) Potassium Level 3.7 MMOL/L (3.5-5.1) Chloride Level 108 MMOL/L (98-107) Carbon Dioxide Level 26 MMOL/L (21-32) Anion Gap 12 mmol/L (5-15) Blood Urea Nitrogen 16 mg/dL (7-18) Creatinine 1.2 MG/DL (0.55-1.30) Estimat Glomerular Filtration Rate > 60 mL/min (>60) Glucose Level 95 MG/DL (74-106) Calcium Level 9.2 MG/DL (8.5-10.1) C-Reactive Protein, Quantitative < 0.4 mg/dL (0.00-0.90) CT/MRI/US Diagnostic Results CT/MRI/US Diagnostic Results : Imaging Test Ordered: CT Pelvis W. Contrast Impression "3 x 1 x 3.5 cm subcutaneous fluid collection in the soft tissues of the gluteal cleft concerning for abscess." Per official radiology report- Please see report for specific details. Last Vital Signs Date Time Temp Pulse Resp B/P (MAP) Pulse Ox O2 Delivery O2 Flow Rate FiO2 08/27/19 13:48 98.4 74 18 123/75 98 Room Air Disposition: ADMITTED INPATIENT Condition: Serious Physician Consult: Damari Khan Aug 27, 2019 14:13
[2019-08-27 14:37] LABS: BASOPHILS % (AUTO) 0.7 % (0.0-2.0); HEMATOCRIT 43.1 % (42.0-52.0); HEMOGLOBIN 14.7 G/DL (14.2-18.0); LYMPHOCYTES % (AUTO) 17.8 % (20.0-45.0); MEAN CORPUSCULAR VOLUME 80 FL (80-99); MONOCYTES % (AUTO) 6.1 % (1.0-10.0); NEUTROPHILS % (AUTO) 74.4 % (45.0-75.0); PLATELET COUNT 147 K/UL (150-450); RED BLOOD COUNT 5.42 M/UL (4.70-6.10); RED CELL DISTRIBUTION WIDTH 11.4 % (11.6-14.8); WHITE BLOOD COUNT 7.8 K/UL (4.8-10.8)
[2019-08-27 15:00] LABS: ANION GAP 12 mmol/L (5-15); BLOOD UREA NITROGEN 16 mg/dL (7-18); CALCIUM 9.2 MG/DL (8.5-10.1); CARBON DIOXIDE 26 MMOL/L (21-32); CHLORIDE 108 MMOL/L (98-107); CREATININE 1.2 MG/DL (0.55-1.30); POTASSIUM 3.7 MMOL/L (3.5-5.1); SODIUM 146 MMOL/L (136-145)
--- NOTE | 2019-08-27 15:17 | History and Physical ---
History of Present Illness General Reason for Hospitalization: Wound Recheck/Suture Removal Present Illness HPI 24-year-old male with PMH of pilonidal cyst s/p multiple surgeries with wound vacs in the past, asthma, GERD [place] [facility] [place]. Patient states he was in his usual state of health, had a recent surgery 1 month ago with wound VAC that was removed. Patient noted 2 weeks ago wound started to become red with blister formation. 1 week later blister broke with evidence of serosanguineous fluid, over the course the next few days he noted yellow fluid drainage. 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 Pt denies any MARTIN, F/C, cough, CP, S OB, abdominal pain, dysuria/hematuria or diarrhea/constipation. PMH: Asthma, GERD, pilonidal cyst s/p surgeries x4 w/wound vac in past FH: father with CAD in his 50's Sx: multiple wide excisions of pilonidal cyst with wound VAC SH: drinks etoh socially, no withdrawl symptoms, denies tobacco, recreational marijuana usage Allergies: NKDA Allergies: Coded Allergies: No Known Allergies (Unverified , 12/21/17) COVID-19 Screening Contact w/high risk pt: No Recent Travel to affected area: No Experienced COVID-19 symptoms?: No Medication History Scheduled Albuterol Sulfate* (Proair Hfa*), 2 PUFFS INH Q6H, (Reported) Omeprazole Magnesium (Prilosec Otc), 20 MG ORAL DAILY, (Reported) Patient History Healthcare decision maker Resuscitation status Advanced Directive on File Review of Systems Constitutional: Denies: no symptoms, see HPI, chills, sweats, fever, malaise, weakness, other Eye: Denies: no symptoms, see HPI, eye pain, blurred vision, tearing, double vision, nose pain, nose congestion, acuity changes, discharge, other ENT: Denies: no symptoms, see HPI, ear pain, ear discharge, nose pain, nose congestion, throat pain, throat swelling, mouth pain, hearing loss, nasal discharge, other Respiratory: Denies: no symptoms, see HPI, cough, orthopnea, shortness of breath, stridor, wheezing, DEVINE, sputum, other Cardiovascular: Denies: no symptoms, see HPI, chest pain, edema, palpitations, syncope, PND, other Gastrointestinal: Denies: no symptoms, see HPI, abdominal pain, constipation, diarrhea, nausea, vomiting, melena, hematemesis, other Genitourinary: Denies: no symptoms, see HPI, discharge, dysuria, frequency, hematuria, pain, retention, incontinence, urgency, vag bleed/dc, other Musculoskeletal: Denies: no symptoms, see HPI, back pain, gout, joint pain, joint swelling, muscle pain, muscle stiffness, other Skin: Reports: other - mild pain near pilonidal cyst; Denies: no symptoms, see HPI, rash, change in color, change in hair/nails, dryness, lesions Psychiatric: Denies: no symptoms, see HPI, prior hx, anxiety, depressed feelings, emotional problems, SI, HI, hallucinations, other Neurological: Denies: no symptoms, see HPI, headache, numbness, paresthesia, seizure, tingling, tremors, focal weakness, syncope, dizziness, other Endocrine: Denies: no symptoms, see HPI, excessive sweating, flushing, intolerance to temperature, increased thirst, increased urine, unexplained weight loss, other Hematologic/Lymphatic: Denies: no symptoms, see HPI, anemia, blood clots, easy bleeding, easy bruising, swollen glands, diathesis, other Physical Exam Physical Exam Narrative General: NAD, A&O x 3 HEENT: NCAT, EOMi, MMM CV: RRR, no murmurs, rubs, or gallops Pulm: CTAB, No wheezes, rhonchi, or rales, no accessory muscle usage or conversational dyspnea GI: Soft, nontender, nondistended, bowel sounds present Ext: No lower extremity edema bilaterally Skin: Pilonidal cyst noted w/guaze/bandage, blood noted on gauze, no surrounding erythema Msk: Joints symmetrical in upper extremity and lower extremity bilaterally, no joint swelling. Neuro: CN 2-12 grossly intact bilaterally, no focal signs. Last 24 Hour Vital Signs Date Time Temp Pulse Resp B/P (MAP) Pulse Ox O2 Delivery O2 Flow Rate FiO2 08/27/19 13:48 98.4 74 18 123/75 98 Room Air 08/27/19 13:29 98.4 85 18 123/75 (91) 98 Room Air Laboratory Tests Test 08/27/19 14:15 White Blood Count 7.8 K/UL (4.8-10.8) Red Blood Count 5.42 M/UL (4.70-6.10) Hemoglobin 14.7 G/DL (14.2-18.0) Hematocrit 43.1 % (42.0-52.0) Mean Corpuscular Volume 80 FL (80-99) Mean Corpuscular Hemoglobin 27.2 PG (27.0-31.0) Mean Corpuscular Hemoglobin Concent 34.1 G/DL (32.0-36.0) Red Cell Distribution Width 11.4 % (11.6-14.8) L Platelet Count 147 K/UL (150-450) L Mean Platelet Volume 8.7 FL (6.5-10.1) Neutrophils (%) (Auto) 74.4 % (45.0-75.0) Lymphocytes (%) (Auto) 17.8 % (20.0-45.0) L Monocytes (%) (Auto) 6.1 % (1.0-10.0) Eosinophils (%) (Auto) 1.0 % (0.0-3.0) Basophils (%) (Auto) 0.7 % (0.0-2.0) Sodium Level 146 MMOL/L (136-145) H Potassium Level 3.7 MMOL/L (3.5-5.1) Chloride Level 108 MMOL/L (98-107) H Carbon Dioxide Level 26 MMOL/L (21-32) Anion Gap 12 mmol/L (5-15) Blood Urea Nitrogen 16 mg/dL (7-18) Creatinine 1.2 MG/DL (0.55-1.30) Estimat Glomerular Filtration Rate > 60 mL/min (>60) Glucose Level 95 MG/DL (74-106) Calcium Level 9.2 MG/DL (8.5-10.1) C-Reactive Protein, Quantitative < 0.4 mg/dL (0.00-0.90) Height (Feet): 5 Height (Inches): 9.00 Weight (Pounds): 170 Medications Current Medications Medications (Trade) Dose Ordered Sig/Miguelina Route PRN Reason Start Time Stop Time Status Last Admin Dose Admin Acetaminophen (Tylenol) 650 mg Q4H PRN ORAL Mild Pain (Pain Scale 1-3) 08/27/19 14:45 09/26/19 14:44 Acetaminophen (Tylenol) 650 mg Q4H PRN ORAL fever 08/27/19 14:45 09/26/19 14:44 Dextrose (Dextrose 50%) 25 ml Q30M PRN IV Hypoglycemia 08/27/19 14:45 11/25/19 14:44 Dextrose (Dextrose 50%) 50 ml Q30M PRN IV Hypoglycemia 08/27/19 14:45 11/25/19 14:44 Assessment/Plan Assessment/Plan: 24-year-old male with PMH of pilonidal cyst s/p multiple surgeries with wound vacs in the past, asthma, GERD who [place] [facility] [place]. #Infected Pilonidal Cyst #Wound dehiscence -admit to medical floor, med surg -pain control -s/p merrem x1 in ED -d/w general surgery, plan for bedside debridement tomorrow -d/w ID, start Zosyn -CT abd/pel ordered #H/o Asthma -no acute exacerbation -cont to monitor #h/o GERD -no issues at this time DVT PPx: Encourage ambulation, SCDs Time spent on encounter: 56 mins, 37 mins spent on coordination of care, discussed care plan w/ER physician, [employer], general surgeon and ID. Time of note doesn't reflect time of encounter. Lori Farrell M.D. Aug 27, 2019 15:17
[2019-08-27] MEDS ORDERED: Albuterol ud Inhalation HHN PRN (15:30)
--- NOTE | 2019-08-27 15:57 | Diagnostic Imaging Report ---
Indication: Abscess, cellulitis. Technique: CT of the pelvis utilizing automated exposure control with intravenous contrast. Venous scanning performed. Axial, sagittal and coronal reformats presented. CT dose: Total DLP 267.6 mGycm; CTDI vol 7.3 mGy Comparison: None Findings: There is subcutaneous fat stranding with ulceration involving the superior aspects of the medial gluteal cleft with a associated small fluid collection which measures approximately 3 cm AP by 1 cm transverse by 3.5 cm craniocaudal concerning for abscess. Question if this is related to an infected. No discrete bony changes in the underlying lower sacrum/coccyx 2 suggest an acute osteomyelitis. No evidence of acute fracture. Imaged portions of the visceral pelvis are without acute abnormality. There is a small fat-containing left inguinal hernia. Small bilateral inguinal lymph nodes are noted, nonspecific and possibly reactive in etiology. Visualized vascular structures appear patent and normal in caliber. IMPRESSION: 3 x 1 x 3.5 cm subcutaneous fluid collection in the soft tissues of the medial gluteal cleft concerning for abscess. Question overlying skin ulceration/breakdown. Possibility that this may represent a infected epidermal inclusion or pilonidal cyst can be considered. The CT scanner at [facility] is accredited by the [employer] and the scans are performed using protocols designed to limit radiation exposure to as low as reasonably achievable to attain images of sufficient resolution adequate for diagnostic evaluation.
[2019-08-27 16:00] VITALS: BP 119/65
[2019-08-27 16:15] VITALS: BP 142/88
[2019-08-27] MEDS: Piperacillin/Tazobactam 3.375 GM in NS 110 ML IVPB SCH (21:43)
[2019-08-28] VITALS (7 sets, daily range): BP systolic 104–123; BP diastolic 62–79
[2019-08-28] MEDS: Piperacillin/Tazobactam 3.375 GM in NS 110 ML IVPB SCH ×3 (05:21→22:19)
[2019-08-28 06:36] LABS: BASOPHILS % (AUTO) 0.5 % (0.0-2.0); EOSINOPHILS % (AUTO) 1.9 % (0.0-3.0); HEMOGLOBIN 14.3 G/DL (14.2-18.0); LYMPHOCYTES % (AUTO) 27.9 % (20.0-45.0); MEAN CORPUSCULAR VOLUME 80 FL (80-99); MONOCYTES % (AUTO) 8.2 % (1.0-10.0); NEUTROPHILS % (AUTO) 61.5 % (45.0-75.0); PLATELET COUNT 147 K/UL (150-450); RED BLOOD COUNT 5.13 M/UL (4.70-6.10); RED CELL DISTRIBUTION WIDTH 11.1 % (11.6-14.8); WHITE BLOOD COUNT 6.5 K/UL (4.8-10.8)
[2019-08-28 06:57] LABS: ANION GAP 11 mmol/L (5-15); BLOOD UREA NITROGEN 16 mg/dL (7-18); CALCIUM 8.8 MG/DL (8.5-10.1); CARBON DIOXIDE 27 MMOL/L (21-32); CHLORIDE 106 MMOL/L (98-107); CREATININE 1.2 MG/DL (0.55-1.30); SODIUM 144 MMOL/L (136-145)
--- NOTE | 2019-08-28 09:51 | General Progress Note ---
Assessment/Plan Assessment/Plan: 24-year-old male with PMH of pilonidal cyst s/p multiple surgeries with wound vacs in the past, asthma, GERD who presents to [facility] [place] for worsening pilonidal cyst. #Infected Pilonidal Cyst #Wound dehiscence -cont. in-pt medical care -pain control -CT abd/pel reviewed, 3 x 3.5 subq fluid collection -ID: Zosyn -General Sx following: recs appreciated #H/o Asthma -no acute exacerbation -cont to monitor #h/o GERD -no issues at this time DVT PPx: Encourage ambulation, SCDs Time spent on encounter: 25 mins, 15 mins spent on coordination of care, discussed care plan w/RN and ID. Additional 30 mins non-face to face time spent on chart review, reviewed previous progress notes, H&Ps, labs and cultures. Time of note doesn't reflect time of encounter. Subjective Allergies: Coded Allergies: No Known Allergies (Unverified , 12/21/17) Subjective F/u for pilonidal cyst. No acute events overnight, cont. to have some discomfort when laying supine, prefers his side. Pt denies F/C, cough, SOB, CP, abd pain, dysuria/diarrhea. Objective Last 24 Hour Vital Signs Date Time Temp Pulse Resp B/P (MAP) Pulse Ox O2 Delivery O2 Flow Rate FiO2 08/28/19 08:00 98.0 74 18 115/67 (83) 98 08/28/19 04:00 97.2 65 18 113/64 (80) 97 08/28/19 00:00 96.8 75 18 116/68 (84) 98 08/27/19 21:00 Room Air 08/27/19 16:15 98.1 77 18 142/88 (106) 98 08/27/19 16:11 97.6 74 18 119/65 99 Room Air 77 08/27/19 16:01 Room Air 08/27/19 16:00 97.6 77 18 119/65 99 Room Air 08/27/19 13:48 98.4 74 18 123/75 98 Room Air 08/27/19 13:29 98.4 85 18 123/75 (91) 98 Room Air Laboratory Tests 08/27/19 14:15: White Blood Count 7.8, Red Blood Count 5.42, Hemoglobin 14.7, Hematocrit 43.1, Mean Corpuscular Volume 80, Mean Corpuscular Hemoglobin 27.2, Mean Corpuscular Hemoglobin Concent 34.1, Red Cell Distribution Width 11.4L, Platelet Count 147L , Mean Platelet Volume 8.7, Neutrophils (%) (Auto) 74.4, Lymphocytes (%) (Auto) 17.8L, Monocytes (%) (Auto) 6.1, Eosinophils (%) (Auto) 1.0, Basophils (%) (Auto ) 0.7, Sodium Level 146H, Potassium Level 3.7, Chloride Level 108H, Carbon Dioxide Level 26, Anion Gap 12, Blood Urea Nitrogen 16, Creatinine 1.2, Estimat Glomerular Filtration Rate > 60, Glucose Level 95, Calcium Level 9.2, C- Reactive Protein, Quantitative < 0.4 08/28/19 05:15: White Blood Count 6.5, Red Blood Count 5.13, Hemoglobin 14.3, Hematocrit 41.0L, Mean Corpuscular Volume 80, Mean Corpuscular Hemoglobin 27.9, Mean Corpuscular Hemoglobin Concent 34.8, Red Cell Distribution Width 11.1L, Platelet Count 147L , Mean Platelet Volume 9.1, Neutrophils (%) (Auto) 61.5, Lymphocytes (%) (Auto) 27.9, Monocytes (%) (Auto) 8.2, Eosinophils (%) (Auto) 1.9, Basophils (%) (Auto ) 0.5, Sodium Level 144, Potassium Level 4.0, Chloride Level 106, Carbon Dioxide Level 27, Anion Gap 11, Blood Urea Nitrogen 16, Creatinine 1.2, Estimat Glomerular Filtration Rate > 60, Glucose Level 85, Calcium Level 8.8 Height (Feet): 5 Height (Inches): 9.00 Weight (Pounds): 170 Objective General: NAD, walking around in room HEENT: NCAT, EOMi, MMM CV: RRR, no murmurs Respiratory: CTAB, no accessory muscle usage/conversational dyspnea Abdomen: soft, NT/ND, +BS Ext: no edema Lori Farrell M.D. Aug 28, 2019 09:51
--- NOTE | 2019-08-28 14:23 | Consultation ---
History of Present Illness General Date patient seen: Aug 28, 2019 Reason for Hospitalization: Wound Recheck/Suture Removal Present Illness HPI 24-year-old male presents to the emergency department for 3 out of 10 severity localized pain to the sacral area with progressive dehiscence of wound. Patient status post pilonidal cyst removal surgery on June 04. Patient reports he had frequent wound checks and his wound was almost completely healed however 2 weeks ago he noticed what appeared to be a blister filled with blood which progressed to an open wound that was just bleeding initially but now he describes some greenish colored discharge. Patient denies fevers or chills. He denies history of immune compromise. He denies taking any medications at this time. Patient reports only significant past medical history is asthma. He reports direct pressure such as sitting exacerbates his pain. No relieving factors at this time. He is well known to me from the office and I have been caring for him for weeks and wound has been getting better but recently received call about worsening. given covid have had to do telemedicine methods but needed to be seen. saw 08/26 and abnormal drainage from wound and compared to telemedicine worsening. recommend eval in ED. Ct noted with abscess. admitted for care and management. Allergies: Coded Allergies: No Known Allergies (Unverified , 12/21/17) COVID-19 Screening Contact w/high risk pt: No Recent Travel to affected area: No Experienced COVID-19 symptoms?: No Medication History Scheduled Albuterol Sulfate* (Proair Hfa*), 2 PUFFS INH Q6H, (Reported) Omeprazole Magnesium (Prilosec Otc), 20 MG ORAL DAILY, (Reported) Patient History History Provided By: Patient, Medical Record, PMD Healthcare decision maker N Resuscitation status Full Code Advanced Directive on File Past Medical/Surgical History Past Medical/Surgical History: (1) Suicidal thoughts (2) Infected pilonidal cyst (3) PILONIDAL CSYT SACRUM (4) PILONIDAL CYST SACRUM (5) pilonidal (6) Constipation (7) ARF (acute renal failure) (8) Wound dehiscence (9) Asthma (10) GERD (gastroesophageal reflux disease) Review of Systems Review of Symptoms General ROS: no weight loss or fever Psychological ROS: no depression or mood changes, no memory loss Ophthalmic ROS: no visual changes or eye irritation ENT ROS: no nasal congestion, hearing loss, dizziness Allergy and Immunology ROS: no allergic symptoms or urticaria Hematological and Lymphatic ROS: no swollen glands, unusual bleeding or bruising Endocrine ROS: no polyuria, polydipsia, weight changes, temperature intolerance Respiratory ROS: no cough, shortness of breath, or wheezing Cardiovascular ROS: no chest pain or dyspnea on exertion Gastrointestinal ROS: denies abdominal pain, bright red blood in stool. Musculoskeletal ROS: no myalgias or arthralgias Neurological ROS: no TIA or stroke symptoms Dermatological ROS: no new or changing skin lesions, rashes or pruritis Physical Exam Physical Exam General appearance: alert, cooperative, no distress, appears stated age Head: Normocephalic, without obvious abnormality, atraumatic Eyes: conjunctivae/corneas clear. PERRL, EOM's intact. Fundi benign Throat: Lips, mucosa, and tongue normal. Teeth and gums normal Neck: supple, symmetrical, trachea midline, no adenopathy, thyroid: not enlarged, symmetric, no tenderness/mass/nodules, no carotid bruit and no JVD Lungs: clear to auscultation bilaterally Heart: regular rate and rhythm, S1, S2 normal, no murmur, click, rub or gallop Abdomen: soft, non-tender. Bowel sounds normal. No masses, no organomegaly Extremities: extremities normal, atraumatic, no cyanosis or edema Pulses: 2+ and symmetric Skin: Skin color, see below Neurologic: Grossly normal Last 24 Hour Vital Signs Date Time Temp Pulse Resp B/P (MAP) Pulse Ox O2 Delivery O2 Flow Rate FiO2 08/28/19 12:00 97.1 89 18 104/78 (87) 98 08/28/19 09:00 Room Air 08/28/19 08:00 98.0 74 18 115/67 (83) 98 08/28/19 04:00 97.2 65 18 113/64 (80) 97 08/28/19 00:00 96.8 75 18 116/68 (84) 98 08/27/19 21:00 Room Air 08/27/19 16:15 98.1 77 18 142/88 (106) 98 08/27/19 16:11 97.6 74 18 119/65 99 Room Air 77 08/27/19 16:01 Room Air 08/27/19 16:00 97.6 77 18 119/65 99 Room Air Laboratory Tests Test 08/28/19 05:15 White Blood Count 6.5 K/UL (4.8-10.8) Red Blood Count 5.13 M/UL (4.70-6.10) Hemoglobin 14.3 G/DL (14.2-18.0) Hematocrit 41.0 % (42.0-52.0) L Mean Corpuscular Volume 80 FL (80-99) Mean Corpuscular Hemoglobin 27.9 PG (27.0-31.0) Mean Corpuscular Hemoglobin Concent 34.8 G/DL (32.0-36.0) Red Cell Distribution Width 11.1 % (11.6-14.8) L Platelet Count 147 K/UL (150-450) L Mean Platelet Volume 9.1 FL (6.5-10.1) Neutrophils (%) (Auto) 61.5 % (45.0-75.0) Lymphocytes (%) (Auto) 27.9 % (20.0-45.0) Monocytes (%) (Auto) 8.2 % (1.0-10.0) Eosinophils (%) (Auto) 1.9 % (0.0-3.0) Basophils (%) (Auto) 0.5 % (0.0-2.0) Sodium Level 144 MMOL/L (136-145) Potassium Level 4.0 MMOL/L (3.5-5.1) Chloride Level 106 MMOL/L (98-107) Carbon Dioxide Level 27 MMOL/L (21-32) Anion Gap 11 mmol/L (5-15) Blood Urea Nitrogen 16 mg/dL (7-18) Creatinine 1.2 MG/DL (0.55-1.30) Estimat Glomerular Filtration Rate > 60 mL/min (>60) Glucose Level 85 MG/DL (74-106) Calcium Level 8.8 MG/DL (8.5-10.1) Height (Feet): 5 Height (Inches): 9.00 Weight (Pounds): 170 Medications Current Medications Medications (Trade) Dose Ordered Sig/Miguelina Route PRN Reason Start Time Stop Time Status Last Admin Dose Admin Acetaminophen (Tylenol) 650 mg Q4H PRN ORAL Mild Pain (Pain Scale 1-3) 08/27/19 14:45 09/26/19 14:44 Acetaminophen (Tylenol) 650 mg Q4H PRN ORAL fever 08/27/19 14:45 09/26/19 14:44 Albuterol Sulfate (Proventil) 2.5 mg Q12H PRN HHN Shortness of Breath 08/27/19 15:30 09/01/19 15:29 Dextrose (Dextrose 50%) 25 ml Q30M PRN IV Hypoglycemia 08/27/19 14:45 11/25/19 14:44 Dextrose (Dextrose 50%) 50 ml Q30M PRN IV Hypoglycemia 08/27/19 14:45 11/25/19 14:44 Ondansetron HCl (Zofran ODT) 4 mg Q6H PRN ORAL Nausea & Vomiting 08/27/19 15:30 09/26/19 15:29 Piperacillin Sod/ Tazobactam Sod 3.375 gm/Sodium Chloride 110 ml @ 27.5 mls/hr EVERY 8 HOURS IVPB 08/27/19 22:00 09/01/19 21:59 08/28/19 05:21 Assessment/Plan Problem List: (1) Wound dehiscence Assessment & Plan: There is subcutaneous fat stranding with ulceration involving the superior aspects of the medial gluteal cleft with a associated small fluid collection which measures approximately 3 cm AP by 1 cm transverse by 3.5 cm craniocaudal concerning for abscess. Question if this is related to an infected. No discrete bony changes in the underlying lower sacrum/coccyx 2 suggest an acute osteomyelitis. No evidence of acute fracture. Imaged portions of the visceral pelvis are without acute abnormality. There is a small fat-containing left inguinal hernia. Small bilateral inguinal lymph nodes are noted, nonspecific and possibly reactive in etiology. Visualized vascular structures appear patent and normal in caliber. IMPRESSION: 3 x 1 x 3.5 cm subcutaneous fluid collection in the soft tissues of the medial gluteal cleft concerning for abscess. Question overlying skin ulceration/ breakdown. Possibility that this may represent a infected epidermal inclusion or pilonidal cyst can be considered. wound open. tunneling. poor granulation tissue biofilm needs to go to OR for debridement or will expand and worseng npo p mn iv fluids consent to or tomorrow at 11am ICD Codes: T81.30XA - Disruption of wound, unspecified, initial encounter SNOMED: [id number] Chet Cooper Aug 28, 2019 14:23
--- NOTE | 2019-08-28 14:27 | Pre-Procedure Note/Attestation ---
Pre-Procedure Note/Attestation Complete Prior to Procedure Planned Procedure: not applicable Procedure Narrative: excisional debridement of sacral wound ; wound vac placement Indications for Procedure Pre-Operative Diagnosis: sacral wound dehiscence Attestation I attest that I discussed the nature of the procedure; its benefits; risks and complications; and alternatives (and the risks and benefits of such alternatives ), prior to the procedure, with the patient (or the patient's legal account retention representative). I attest that, if there was a reasonable possibility of needing a blood transfusion, the patient (or the patient's legal account retention representative) was given the [facility] standardized written summary, pursuant to the [place] Blood Safety Act ([place] Health and Safety Code # 1645, as amended). I attest that I re-evaluated the patient just prior to the surgery and that there has been no change in the patient's H&P, except as documented below: Chet Cooper Aug 28, 2019 14:27
--- NOTE | 2019-08-28 16:17 | Anethesia Preoperative Eval ---
Anesthesia Pre-op PMH/ROS General Date of Evaluation: Aug 28, 2019 Time of Evaluation: 16:10 Anesthesiologist: Zina ASA Score: ASA 2 Mallampati Score Class I : Soft palate, uvula, fauces, pillars visible Class II: Soft palate, uvula, fauces visible Class III: Soft palate, base of uvula visible Class IV: Only hard plate visible Mallampati Classification: Class II Surgeon: Allison Diagnosis: Sacral Wound Surgical Procedure: Excisional Debridement of Sacral Wound, Wound Vac Placement Anesthesia History: none Family History: no anesthesia problems Allergies: Coded Allergies: No Known Allergies (Unverified , 12/21/17) Medications: see eMAR Patient NPO?: Yes Past Medical History Pulmonary: Reports: asthma Gastrointestinal/Genitourinary: Reports: GERD Neurologic/Psychiatric: Reports: depression/anxiety Musculoskeletal/Integumentary: Reports: other - Sacral Wound PSxH Narrative: (1) Suicidal thoughts (2) Infected pilonidal cyst (3) PILONIDAL CSYT SACRUM (4) PILONIDAL CYST SACRUM (5) pilonidal (6) Constipation (7) ARF (acute renal failure) (8) Wound dehiscence (9) Asthma (10) GERD (gastroesophageal reflux disease) Anesthesia Pre-op Phys. Exam Physician Exam Last Vital Signs Date Time Temp Pulse Resp B/P (MAP) Pulse Ox O2 Delivery O2 Flow Rate FiO2 08/28/19 12:00 97.1 89 18 104/78 (87) 98 08/28/19 09:00 Room Air Constitutional: NAD Neurologic: CN 2-12 intact Cardiovascular: RRR Respiratory: CTA Gastrointestinal: S/NT/ND Airway Exam Mallampati Score: Class II MO: full ROM: full Teeth: intact Anesthesia Pre-op A/P Labs Hematology Test 08/28/19 05:15 White Blood Count 6.5 K/UL (4.8-10.8) Red Blood Count 5.13 M/UL (4.70-6.10) Hemoglobin 14.3 G/DL (14.2-18.0) Hematocrit 41.0 % (42.0-52.0) L Mean Corpuscular Volume 80 FL (80-99) Mean Corpuscular Hemoglobin 27.9 PG (27.0-31.0) Mean Corpuscular Hemoglobin Concent 34.8 G/DL (32.0-36.0) Red Cell Distribution Width 11.1 % (11.6-14.8) L Platelet Count 147 K/UL (150-450) L Mean Platelet Volume 9.1 FL (6.5-10.1) Neutrophils (%) (Auto) 61.5 % (45.0-75.0) Lymphocytes (%) (Auto) 27.9 % (20.0-45.0) Monocytes (%) (Auto) 8.2 % (1.0-10.0) Eosinophils (%) (Auto) 1.9 % (0.0-3.0) Basophils (%) (Auto) 0.5 % (0.0-2.0) Chemistry Test 08/28/19 05:15 Sodium Level 144 MMOL/L (136-145) Potassium Level 4.0 MMOL/L (3.5-5.1) Chloride Level 106 MMOL/L (98-107) Carbon Dioxide Level 27 MMOL/L (21-32) Anion Gap 11 mmol/L (5-15) Blood Urea Nitrogen 16 mg/dL (7-18) Creatinine 1.2 MG/DL (0.55-1.30) Estimat Glomerular Filtration Rate > 60 mL/min (>60) Glucose Level 85 MG/DL (74-106) Calcium Level 8.8 MG/DL (8.5-10.1) Risk Assessment & Plan Assessment: ASA 2 Plan: GA Status Change Before Surgery: No Pre-Antibiotics Drug: Zane Swann MD Aug 28, 2019 16:17
--- NOTE | 2019-08-28 18:25 | Infectious Diseases Prog Note ---
Assessment/Plan Assessment/Plan Full consult dictated: A) 1) wound infection, abscess on CT 2) pilonidal cyst 3) pmh noted 4) allergies - nkda P) 1) zosyn and doxycycline (hx of LEXIE, avoid vancomycin if possible 2) for debridement 3) thank you Subjective Allergies: Coded Allergies: No Known Allergies (Unverified , 12/21/17) Objective Vital Signs Last 24 Hour Vital Signs Date Time Temp Pulse Resp B/P (MAP) Pulse Ox O2 Delivery O2 Flow Rate FiO2 08/28/19 16:00 98.4 89 18 111/62 (78) 98 08/28/19 12:00 97.1 89 18 104/78 (87) 98 08/28/19 09:00 Room Air 08/28/19 08:00 98.0 74 18 115/67 (83) 98 08/28/19 04:00 97.2 65 18 113/64 (80) 97 08/28/19 00:00 96.8 75 18 116/68 (84) 98 08/27/19 21:00 Room Air Height (Feet): 5 Height (Inches): 9.00 Weight (Pounds): 170 Laboratory Tests Test 08/28/19 05:15 White Blood Count 6.5 K/UL (4.8-10.8) Red Blood Count 5.13 M/UL (4.70-6.10) Hemoglobin 14.3 G/DL (14.2-18.0) Hematocrit 41.0 % (42.0-52.0) L Mean Corpuscular Volume 80 FL (80-99) Mean Corpuscular Hemoglobin 27.9 PG (27.0-31.0) Mean Corpuscular Hemoglobin Concent 34.8 G/DL (32.0-36.0) Red Cell Distribution Width 11.1 % (11.6-14.8) L Platelet Count 147 K/UL (150-450) L Mean Platelet Volume 9.1 FL (6.5-10.1) Neutrophils (%) (Auto) 61.5 % (45.0-75.0) Lymphocytes (%) (Auto) 27.9 % (20.0-45.0) Monocytes (%) (Auto) 8.2 % (1.0-10.0) Eosinophils (%) (Auto) 1.9 % (0.0-3.0) Basophils (%) (Auto) 0.5 % (0.0-2.0) Sodium Level 144 MMOL/L (136-145) Potassium Level 4.0 MMOL/L (3.5-5.1) Chloride Level 106 MMOL/L (98-107) Carbon Dioxide Level 27 MMOL/L (21-32) Anion Gap 11 mmol/L (5-15) Blood Urea Nitrogen 16 mg/dL (7-18) Creatinine 1.2 MG/DL (0.55-1.30) Estimat Glomerular Filtration Rate > 60 mL/min (>60) Glucose Level 85 MG/DL (74-106) Calcium Level 8.8 MG/DL (8.5-10.1) Current Medications Medications (Trade) Dose Ordered Sig/Miguelina Route PRN Reason Start Time Stop Time Status Last Admin Dose Admin Acetaminophen (Tylenol) 650 mg Q4H PRN ORAL fever 08/27/19 14:45 09/26/19 14:44 Acetaminophen (Tylenol) 650 mg Q4H PRN ORAL Mild Pain (Pain Scale 1-3) 08/28/19 14:30 09/27/19 14:29 Albuterol Sulfate (Proventil) 2.5 mg Q12H PRN HHN Shortness of Breath 08/27/19 15:30 09/01/19 15:29 Dextrose (Dextrose 50%) 25 ml Q30M PRN IV Hypoglycemia 08/27/19 14:45 11/25/19 14:44 Dextrose (Dextrose 50%) 50 ml Q30M PRN IV Hypoglycemia 08/27/19 14:45 11/25/19 14:44 Ondansetron HCl (Zofran ODT) 4 mg Q6H PRN ORAL Nausea & Vomiting 08/27/19 15:30 09/26/19 15:29 Piperacillin Sod/ Tazobactam Sod 3.375 gm/Sodium Chloride 110 ml @ 27.5 mls/hr EVERY 8 HOURS IVPB 08/27/19 22:00 09/01/19 21:59 08/28/19 14:43 Sodium Chloride 1,000 ml @ 75 mls/hr [id number] IV 08/28/19 14:30 09/27/19 14:29 08/28/19 14:43 Navneet Oakes MD Aug 28, 2019 18:25
[2019-08-28] MEDS: Doxycycline Hyclate 100 MG in D5W 110 ML IV SCH (20:29)
[2019-08-29] VITALS (13 sets, daily range): BP systolic 101–141; BP diastolic 55–92
[2019-08-29] MEDS: Piperacillin/Tazobactam 3.375 GM in NS 110 ML IVPB SCH ×3 (05:01→22:50)
[2019-08-29 06:41] LABS: BASOPHILS % (AUTO) 0.8 % (0.0-2.0); EOSINOPHILS % (AUTO) 2.1 % (0.0-3.0); HEMOGLOBIN 14.3 G/DL (14.2-18.0); LYMPHOCYTES % (AUTO) 29.3 % (20.0-45.0); MEAN CORPUSCULAR VOLUME 80 FL (80-99); MONOCYTES % (AUTO) 7.5 % (1.0-10.0); NEUTROPHILS % (AUTO) 60.4 % (45.0-75.0); PLATELET COUNT 144 K/UL (150-450); RED BLOOD COUNT 5.13 M/UL (4.70-6.10); RED CELL DISTRIBUTION WIDTH 11.3 % (11.6-14.8); WHITE BLOOD COUNT 6.2 K/UL (4.8-10.8)
[2019-08-29 07:39] LABS: ANION GAP 12 mmol/L (5-15); BLOOD UREA NITROGEN 14 mg/dL (7-18); CALCIUM 8.4 MG/DL (8.5-10.1); CARBON DIOXIDE 24 MMOL/L (21-32); CHLORIDE 107 MMOL/L (98-107); CREATININE 1.3 MG/DL (0.55-1.30); POTASSIUM 4.2 MMOL/L (3.5-5.1); SODIUM 143 MMOL/L (136-145)
--- NOTE | 2019-08-29 08:43 | Consultation ---
DATE OF CONSULTATION: 08/28/2019 INFECTIOUS DISEASE CONSULTATION CONSULTING PHYSICIAN: Navneet Oakes M.D. ATTENDING PHYSICIAN: Franki Sales M.D. REFERRING PHYSICIAN: Norma Farrell M.D. REASON FOR CONSULTATION: Infected wound and abscess involving sacral and buttocks or gluteal area and also a pilonidal cyst. REASON FOR ADMISSION: Wound dehiscence and infection. HISTORY OF PRESENT ILLNESS: This is a very pleasant 24-year-old male with a history of pilonidal cyst. It involves he says the sacral area in between the buttocks and gluteal area. Patient had the cyst removed on 06/04/2019 and had frequent wound checks with complete healing. However, 2 weeks ago, he noted that there was a blister filled area that progressed to an open wound. The patient presents to [facility] for debridement. CT imaging showed patient has what looks like a gluteal abscess in the medial aspect concerning for abscess with a fluid collection in the medial gluteal area. Infectious Disease consultation requested for antibiotic management. Patient is on Zosyn. I am going to add doxycycline for MRSA coverage. Avoid nephrotoxic drugs because patient has history of acute kidney injury in the past. Patient for debridement tomorrow of the abscess and wound. MAR was noted. Orders noted. Notes and records were reviewed. Case was communicated with Dr. Farrell and Dr. Cooper. Case was discussed with patient's RN. REVIEW OF SYSTEMS: CONSTITUTIONAL: Main issue is the pain in the sacral area. He has no fever, chills, night sweats. HEAD AND NECK: No head pain or neck pain. CARDIAC: No chest pain. GASTROINTESTINAL: No nausea, vomiting, or diarrhea. GENITOURINARY: No dysuria or frequency. PULMONARY: No shortness of breath. SKIN: No rash. PAST MEDICAL HISTORY: Includes history of pilonidal cyst, asthma, GERD, renal failure in the past looks like I think that is resolved. Also history of constipation, wound dehiscence, pilonidal cyst and possibly infected cyst also in addition to infected wound and abscess. ALLERGIES: No known drug allergies. No antibiotic allergies. SOCIAL HISTORY: Negative for smoking, alcohol, or drug abuse. FAMILY HISTORY: Noncontributory. MEDICATIONS: Upon reviewing the MAR, he is on following medications. He is on Zosyn, doxycycline, albuterol, acetaminophen, IV fluids. Outside medications noted and reconciliated. PHYSICAL EXAMINATION: VITAL SIGNS: Temperature 98.4, pulse 89, respiratory rate 18, blood pressure 111/62, saturation 98%. GENERAL: Alert, responsive. No acute distress. HEAD AND NECK: Oral exam, no thrush. Eye exam, no icterus. Normocephalic. Neck is supple. No JVD. HEART: Regular. No gallop or murmur. ABDOMEN: Soft. Positive bowel sounds. Nontender. LUNGS: Clear bilaterally. No rhonchi or rales. SKIN: No rash. Patient has a wound in the sacral area that is dehisced in between the buttocks. There is some slough noted. The picture was also reviewed and my exam. MUSCULOSKELETAL: No effusion. Legs are without cellulitis. PERIPHERAL VASCULAR: No cyanosis or gangrene. GENITOURINARY: No [place]. LINES: Lines sites are without phlebitis. NEUROLOGIC: Intact. Nonfocal. Alert and oriented. LABORATORY DATA: Creatinine is 1.2. White count 6.5, hemoglobin 14.3. IMAGING: CT scan of the pelvis showed the following, it did show a medial gluteal fluid collection concerning for abscess. ASSESSMENT AND PLAN: 1. Patient has a sacral and gluteal pilonidal cysts that are now opened and has wound dehiscence. Infected wound looks like underlying abscess in the gluteal area or buttocks. At this time, continue Zosyn and doxycycline for MRSA gram-negative anaerobic coverage. Avoid nephrotoxic drugs because of history of renal failure per the records. Continue Zosyn and doxycycline. Patient is for debridement for the wound and abscesses tomorrow. Case communicated with Dr. Farrell and Dr. Cooper. Await cultures from surgery. Continue Zosyn and doxy for abscess and infected wound coverage. 2. Patient has history of GERD. 3. Asthma. 4. Continue treatment per primary consultants. 5. History of renal failure in the past. 6. No diabetes or hypertension. 7. No known allergies. 8. Social history negative. 9. Family history noncontributory. 10. MAR is noted. 11. Case discussed with RN. 12. Orders were noted and entered. Navneet Oakes M.D. DR: CRYSTAL JOB#: [id number] CC:
--- NOTE | 2019-08-29 08:43 | General Progress Note ---
Assessment/Plan Assessment/Plan: 24-year-old male with PMH of pilonidal cyst s/p multiple surgeries with wound vacs in the past, asthma, GERD who presents to [facility] for worsening pilonidal cyst. #Infected Pilonidal Cyst #Wound dehiscence -cont. in-pt medical care -cont pain control -CT abd/pel reviewed, 3 x 3.5 subq fluid collection -ID: Zosyn -General Sx following: plan for OR today Pre-Op clearance Mets>4, states is able to ambulate/climb stairs w/o SOB. PMH asthma, no previous OK/CVA. Previous surgeries with no anesthesia issues. With the above, the pt is at low risk for a low risk non-cardiac surgery. #H/o Asthma -no acute exacerbation -cont to monitor #h/o GERD -no issues at this time DVT PPx: Encourage ambulation, SCDs Time spent on encounter: 35 mins, 25 mins spent on pt couseling, coordination of care, discussed care plan w/RN, ID and General sx. Time of note doesn't reflect time of encounter. Subjective Allergies: Coded Allergies: No Known Allergies (Unverified , 12/21/17) Subjective F/u for pilonidal cyst. States pain in tolerable, states he is hungry. No CP, SOB, F/C. To OR today. Objective Last 24 Hour Vital Signs Date Time Temp Pulse Resp B/P (MAP) Pulse Ox O2 Delivery O2 Flow Rate FiO2 08/29/19 04:00 97.6 65 18 101/58 (72) 97 08/28/19 23:52 97.4 76 16 110/63 (79) 96 08/28/19 21:00 Room Air 08/28/19 20:00 98.6 83 18 123/79 (94) 96 08/28/19 16:00 98.4 89 18 111/62 (78) 98 08/28/19 12:00 97.1 89 18 104/78 (87) 98 08/28/19 09:00 Room Air Intake and Output 08/28/19 08/29/19 19:00 07:00 Intake Total 675 ml 662.5 ml Balance 675 ml 662.5 ml Intake Oral 600 ml IV Total 75 ml 662.5 ml # Voids 4 1 Laboratory Tests 08/29/19 05:10: White Blood Count 6.2, Red Blood Count 5.13, Hemoglobin 14.3, Hematocrit 41.0L, Mean Corpuscular Volume 80, Mean Corpuscular Hemoglobin 27.9, Mean Corpuscular Hemoglobin Concent 34.9, Red Cell Distribution Width 11.3L, Platelet Count 144L , Mean Platelet Volume 8.6, Neutrophils (%) (Auto) 60.4, Lymphocytes (%) (Auto) 29.3, Monocytes (%) (Auto) 7.5, Eosinophils (%) (Auto) 2.1, Basophils (%) (Auto ) 0.8, Erythrocyte Sedimentation Rate [Pending], Prothrombin Time 10.9, Prothromb Time International Ratio 1.0, Activated Partial Thromboplast Time 29, Sodium Level 143, Potassium Level 4.2, Chloride Level 107, Carbon Dioxide Level 24, Anion Gap 12, Blood Urea Nitrogen 14, Creatinine 1.3, Estimat Glomerular Filtration Rate > 60, Glucose Level 86, Calcium Level 8.4L, C-Reactive Protein, Quantitative < 0.4 Height (Feet): 5 Height (Inches): 9.00 Weight (Pounds): 167 Objective General: NAD, laying in bed comfortably using laptop HEENT: NCAT, EOMi, MMM CV: RRR, no murmurs Respiratory: CTAB, no accessory muscle usage/conversational dyspnea Abdomen: soft, NT/ND, +BS Ext: no edema Lori Farrell M.D. Aug 29, 2019 08:43
[2019-08-29] MEDS: Doxycycline Hyclate 100 MG in D5W 110 ML IV SCH ×2 (09:27→21:23)
[2019-08-29] MEDS ORDERED: ProvayBlue 5mg/ml 10ml amp INJ ONE (09:37)
[2019-08-29] MEDS ORDERED: Bacitracin 50000 Units Vial ONE (10:20)
[2019-08-29] MEDS ORDERED: Lidocaine 1% 10mg/ml/Epi 0.005mg/ml 30ml vial INJ ONE (10:20)
[2019-08-29] MEDS ORDERED: Bupivacaine w/Epi 0.5% 30ml Vial INJ ONE (10:20)
[2019-08-29] MEDS ORDERED: Sodium Chloride 10ml vial INJ ONE (12:05)
[2019-08-29] MEDS ORDERED: Propofol 200mg/20ml IV ONE (12:05)
[2019-08-29] MEDS ORDERED: Lidocaine 1% MPF 10mg/ml 5ml ONE (12:05)
[2019-08-29] MEDS ORDERED: Dexamethasone 4mg/ml vial ONE (12:05)
[2019-08-29] MEDS ORDERED: fentaNYL 100 mcg/2 mL IV ONE (12:06)
[2019-08-29] MEDS ORDERED: Ketamine 500mg/10ml vial ONE (12:13)
--- NOTE | 2019-08-29 12:47 | Immediate Post-Op Evaluation ---
Immediate Post-Op Evalulation Immediate Post-Op Evalulation Procedure: Excisional Debridement of Sacral Wound, Wound Vac Placement Date of Evaluation: Aug 29, 2019 Time of Evaluation: 13:55 IV Fluids: 1000 LR Blood Products: 0 Estimated Blood Loss: 50 Urinary Output: 0 Blood Pressure Systolic: 116 Blood Pressure Diastolic: 62 Pulse Rate: 81 Respiratory Rate: 16 O2 Sat by Pulse Oximetry: 100 Temperature (Fahrenheit): 98 Pain Score (1-10): 2 Nausea: No Vomiting: No Complications 0 Patient Status: awake, reacts, patent, extubated, none Hydration Status: adequate Dru Gram Ancef IV Given Within 1 Hr of Incision: Yes Time Given: 12:16 Zane Izaguirre MD Aug 29, 2019 12:47
--- NOTE | 2019-08-29 12:48 | 48 Hour Post Anesthesia Eval ---
Post Anesthesia Evaluation Procedure: Excisional Debridement of Sacral Wound, Wound Vac Placement Date of Evaluation: Aug 29, 2019 Time of Evaluation: 16:23 Blood Pressure Systolic: 112 0: 72 Pulse Rate: 73 Respiratory Rate: 18 Temperature (Fahrenheit): 98.4 O2 Sat by Pulse Oximetry: 100 Airway: patent Nausea: No Vomiting: No Pain Intensity: 2 Hydration Status: adequate Cardiopulmonary Status: Stable Mental Status/LOC: patient returned to baseline Follow-up Care/Observations: 0 Post-Anesthesia Complications: 0 Follow-up care needed: N/A Zane Izaguirre MD Aug 29, 2019 12:48
[2019-08-29] MEDS ORDERED: Sterile Water Irrig 1000ml IRRIG ONE (12:49)
[2019-08-29] MEDS ORDERED: Neostigmine 1mg/ml 10ml Inj ONE (12:49)
[2019-08-29] MEDS ORDERED: Rocuronium Bromide 50mg/5ml Inj IV ONE (12:49)
[2019-08-29] MEDS ORDERED: LR 1000ml ONE (12:49)
[2019-08-29] MEDS ORDERED: NS Irrig 1000ml IRRIG ONE (13:01)
[2019-08-29] MEDS ORDERED: Glycopyrrolate 0.2mg/ml 1ml Vial ONE (13:03)
--- NOTE | 2019-08-29 13:56 | Brief Operative Note ---
Immediate Post Operative Note Operative Note Pre-op Diagnosis: sacral wound dehiscence Procedure: excisional debridement of sacral wound 11 x4 x 3cm with 6cm tunneling inferior wound vac placement Post-op Diagnosis: same as pre-op Surgeon: noemy Anesthesiologist: emma Anesthesia: general, local Specimen: yes Complications: none Condition: stable Fluids: see records Estimated Blood Loss: minimal Drains: wound vac Implant(s) used?: No Chet Cooper Aug 29, 2019 13:56
[2019-08-29] MEDS ORDERED: Hydromorphone 0.5mg/0.5ml inj ONE (14:23)
[2019-08-29] MEDS ORDERED: Hydromorphone 0.5mg/0.5ml inj IVP PRN (14:30)
[2019-08-29] MEDS: Morphine Sulfate 2mg/ml Inj(IV/IM USE ONLY) IVP PRN (20:18)
--- NOTE | 2019-08-29 22:15 | Operative Note - Dictated ---
DATE OF OPERATION: 08/29/2019 PREOPERATIVE DIAGNOSIS: Wound dehiscence of sacral wound after complete excision with flap by Plastic surgery prior for severe pilonidal disease and history of wound failure. POSTOPERATIVE DIAGNOSIS: Wound dehiscence of sacral wound after complete excision with flap by Plastic surgery prior for severe pilonidal disease and history of wound failure. OPERATION PERFORMED: 1. Excisional debridement of sacral wound dehiscence 11 x 4 cm wide by 3 cm deep with a 6 cm area of tunneling inferiorly. 2. Wound VAC placement. ATTENDING SURGEON: Chet Cooper MD TIN FLOPPER: None. ANESTHESIOLOGIST: Zane Izaguirre MD. ANESTHESIA: General GETA plus local. ESTIMATED BLOOD LOSS: Minimal. IV FLUIDS: Please see anesthesia records. COMPLICATIONS: None. DRAINS: None. COUNTS: Sponge and needle count correct x2. WOUND CLASSIFICATION: Class 3. SPECIMENS: Cultures taken and sent to [facility] for evaluation. Wound VAC placement. INDICATIONS FOR PROCEDURE: This is a very pleasant 24-year-old male who I had initially met a few months prior after he had received preoperative wound care for severe pilonidal disease. The patient years ago had pilonidal disease where it was resected and closed with failure, progressed to have future problems and was seen by Dr. Gay prior in [place] where he was initially cared for by Dr. Gay. He transitioned to [place] at which time Dr. Gay continued to help the patient, and during last admission, requested my assistance in the care of the patient. I had seen the patient and assisted in the operating room and cared for the wound ever since and had been seeing patient weekly until approximately a few weeks ago when the wound had considerably healed with the help of home health wound VAC and local care. The patient was doing well and was discharged from my care initially until approximately 2 weeks ago where he contacted me stating that he began to notice the wound opening and drainage. Given the COVID-19, the office has been closed and the patient has been managing and monitoring via telemedicine and I did identify all his dressings and he was beginning to notice some purulent drainage and therefore saw me independently in the office for evaluation, at which time I identified wound dehiscence and potential infection. Therefore, the patient was recommended to go to the emergency department for further evaluation and testing. In the emergency department, the patient was identified to have a 3 centimeter abscess down deep to the sacrum and therefore was admitted for IV antibiotics, care and management. Given the wound and the CT findings, I had a long decision with the patient's mother in regard to care plan and findings and it was recommended going to the operating room for wound evaluation and debridement of nonviable, infected or nonhealing tissue. Consent was obtained. Surgery was scheduled for August 29, 2019. OPERATIVE NOTE: The patient was taken to the operating room and placed on the operating table in supine position with bilateral arms out. All bony prominences were well padded. SCDs placed. Preoperative time-out taken in identifying the patient, procedure, operative staff, and surgical staff. General anesthesia was induced and the patient was intubated. The patient was placed in the prone jackknife position. The sacral area was prepped and draped in standard surgical fashion. We started with wound evaluation, identified an open area dehiscence in the prior healed sacral wound of approximately 4 cm x 1.5 cm wide and probing this identified a tunneling tract significantly deeper and at this time given this tunnel tract, I was able to identify an area that was not healing and therefore decided to proceed with excisional debridement of this tunnel tract and debridement of the wound bed to allow for new tissue for closure given the prior tissue did not close and the tunnel tract was formed given the location. A fresh #10 scalpel was used and prior incision was opened up and carried down to the tunnel tract. In total, the area of debridement was 11 cm x 4 cm x 3 cm deep. The tissue was debrided down to healthy viable tissue that could be identified and tunnel tract was flayed open. Once this was completed, the wound was irrigated. Hemostasis obtained with electrocautery and direct pressure. Following this, decision was made to leave a wound VAC. Of note, at the most distal aspect of the prior surgical incision, there was a small opening at the exit point of the tract. Decision was made to not completely open the prior incision to its complete length and given that the wound VAC would suffice in obtaining the majority of the tunnel tract and allow for closure. Wound VAC was placed and good seal was identified. The patient was extubated and taken to postanesthetic care unit in stable condition. Chet Cooper M.D. DR: Deandra JOB#: [id number] CC:
[2019-08-29] MEDS ORDERED: TraZODone 50mg tab ORAL PRN (22:45)
[2019-08-30] VITALS: BP 117/64
[2019-08-30] MEDS: Piperacillin/Tazobactam 3.375 GM in NS 110 ML IVPB SCH ×3 (05:54→22:33)
[2019-08-30 06:20] LABS: BASOPHILS % (AUTO) 0.4 % (0.0-2.0); EOSINOPHILS % (AUTO) 0.1 % (0.0-3.0); HEMATOCRIT 40.5 % (42.0-52.0); HEMOGLOBIN 14.1 G/DL (14.2-18.0); LYMPHOCYTES % (AUTO) 13.2 % (20.0-45.0); MEAN CORPUSCULAR VOLUME 80 FL (80-99); MONOCYTES % (AUTO) 6.1 % (1.0-10.0); NEUTROPHILS % (AUTO) 80.2 % (45.0-75.0); PLATELET COUNT 157 K/UL (150-450); RED BLOOD COUNT 5.08 M/UL (4.70-6.10); RED CELL DISTRIBUTION WIDTH 11.3 % (11.6-14.8); WHITE BLOOD COUNT 10.6 K/UL (4.8-10.8)
[2019-08-30 06:33] LABS: ANION GAP 10 mmol/L (5-15); BLOOD UREA NITROGEN 15 mg/dL (7-18); CALCIUM 9.4 MG/DL (8.5-10.1); CARBON DIOXIDE 27 MMOL/L (21-32); CHLORIDE 103 MMOL/L (98-107); CREATININE 1.2 MG/DL (0.55-1.30); SODIUM 139 MMOL/L (136-145)
[2019-08-30 08:00] VITALS: BP 111/63
[2019-08-30] MEDS: Morphine Sulfate 2mg/ml Inj(IV/IM USE ONLY) IVP PRN (09:23)
[2019-08-30] MEDS: Doxycycline Hyclate 100 MG in D5W 110 ML IV SCH ×2 (09:23→21:26)
[2019-08-30 12:00] VITALS: BP 113/75
[2019-08-30] MEDS ORDERED: Tubing IV Secondary IV ONE ×2 (14:15→14:20)
[2019-08-30] MEDS ORDERED: Sterile Water Irrig 1000ml IRRIG ONE (14:20)
[2019-08-30] MEDS ORDERED: NS 275ml ONE (14:20)
--- NOTE | 2019-08-30 14:57 | Surgery Progress Note ---
Surgery Progress Note Subjective Procedure Performed excisional debridement of sacral wound 11 x4 x 3cm with 6cm tunneling inferior wound vac placement Symptoms: improved Objective Last 24 Hour Vital Signs Date Time Temp Pulse Resp B/P (MAP) Pulse Ox O2 Delivery O2 Flow Rate FiO2 08/30/19 12:00 97.6 91 18 113/75 (88) 97 08/30/19 09:53 97.7 08/30/19 09:00 Room Air 08/30/19 08:00 97.7 77 18 111/63 (79) 97 08/30/19 00:00 98.2 72 18 117/64 (81) 95 08/29/19 21:00 Room Air 08/29/19 20:00 98.1 86 17 120/70 (87) 94 08/29/19 17:45 98.7 108 18 111/77 (88) 97 08/29/19 15:20 97.2 70 18 139/77 (97) 100 08/29/19 14:59 98.0 I&O Intake and Output 08/29/19 08/30/19 19:00 07:00 Intake Total 2150 ml 150 ml Output Total 930 ml 45 ml Balance 1220 ml 105 ml Intake Oral 450 ml 150 ml IV Total 1700 ml Output Urine Total 875 ml Drainage Total 5 ml 45 ml Estimated Blood Loss 50 ml # Voids 2 2 # Bowel Movements 1 Dressing: bloody Wound: other Drains: wound vac Cardiovascular: RSR Respiratory: decreased breath sounds Abdomen: soft, non-tender, present bowel sounds Extremities: no edema, no tenderness, no cyanosis Laboratory Tests Test 08/30/19 04:45 White Blood Count 10.6 K/UL (4.8-10.8) # Red Blood Count 5.08 M/UL (4.70-6.10) Hemoglobin 14.1 G/DL (14.2-18.0) L Hematocrit 40.5 % (42.0-52.0) L Mean Corpuscular Volume 80 FL (80-99) Mean Corpuscular Hemoglobin 27.7 PG (27.0-31.0) Mean Corpuscular Hemoglobin Concent 34.8 G/DL (32.0-36.0) Red Cell Distribution Width 11.3 % (11.6-14.8) L Platelet Count 157 K/UL (150-450) Mean Platelet Volume 8.6 FL (6.5-10.1) Neutrophils (%) (Auto) 80.2 % (45.0-75.0) H Lymphocytes (%) (Auto) 13.2 % (20.0-45.0) L Monocytes (%) (Auto) 6.1 % (1.0-10.0) Eosinophils (%) (Auto) 0.1 % (0.0-3.0) Basophils (%) (Auto) 0.4 % (0.0-2.0) Sodium Level 139 MMOL/L (136-145) Potassium Level 4.0 MMOL/L (3.5-5.1) Chloride Level 103 MMOL/L (98-107) Carbon Dioxide Level 27 MMOL/L (21-32) Anion Gap 10 mmol/L (5-15) Blood Urea Nitrogen 15 mg/dL (7-18) Creatinine 1.2 MG/DL (0.55-1.30) Estimat Glomerular Filtration Rate > 60 mL/min (>60) Glucose Level 102 MG/DL (74-106) Calcium Level 9.4 MG/DL (8.5-10.1) Plan Problems: (1) Wound dehiscence Assessment & Plan: There is subcutaneous fat stranding with ulceration involving the superior aspects of the medial gluteal cleft with a associated small fluid collection which measures approximately 3 cm AP by 1 cm transverse by 3.5 cm craniocaudal concerning for abscess. Question if this is related to an infected. No discrete bony changes in the underlying lower sacrum/coccyx 2 suggest an acute osteomyelitis. No evidence of acute fracture. Imaged portions of the visceral pelvis are without acute abnormality. There is a small fat-containing left inguinal hernia. Small bilateral inguinal lymph nodes are noted, nonspecific and possibly reactive in etiology. Visualized vascular structures appear patent and normal in caliber. IMPRESSION: 3 x 1 x 3.5 cm subcutaneous fluid collection in the soft tissues of the medial gluteal cleft concerning for abscess. Question overlying skin ulceration/ breakdown. Possibility that this may represent a infected epidermal inclusion or pilonidal cyst can be considered. wound open. tunneling. poor granulation tissue biofilm needs to go to OR for debridement or will expand and worseng npo p mn iv fluids consent to or tomorrow at 11am s/p debriddment cont vac plan home vac will discuss with case management discussed with patient discussed with pcp Chet Cooper Aug 30, 2019 14:57
--- NOTE | 2019-08-30 15:15 | General Progress Note ---
Assessment/Plan Assessment/Plan: 24-year-old male with PMH of pilonidal cyst s/p multiple surgeries with wound vacs in the past, asthma, GERD who [place] [facility] [place]. #Infected Pilonidal Cyst #Gluteal cleft abscess #Wound dehiscence #S/p I&D on 08/28 - Continue excellent postoperative care - Encourage mobilization/ambulation - Encourage incentive spirometry to optimize pulmonary hygiene - DVT/GI prophylaxis as appropriate - Pain control and supportive care - Follow up - Continue Zosyn and Wound Vac #Asthma, controlled - Albuterol prn wheezing #GERD - ctm DVT PPx: HSQ I spent 35 minutes on this patient's case, and 20 min was dedicated to counseling and/or care coordination with other MDs, family, nursing I spent an additional 35 minutes on review of medical records including prior hospital records, consult notes, progress notes, procedures, imaging, labs, hemodynamics, and other clinical documentation. Time of note doesn't reflect time of encounter. Subjective Date patient seen: Aug 30, 2019 Time patient seen: 15:04 ROS Limited/Unobtainable: No Constitutional: Denies: chills, fever Cardiovascular: Denies: chest pain Respiratory: Denies: cough Gastrointestinal/Abdominal: Denies: abdominal pain Neurologic/Psychiatric: Denies: anxiety, depressed Allergies: Coded Allergies: No Known Allergies (Unverified , 12/21/17) Subjective Followp for gluteal cleft abscess, s/p I&D on 08/28 Feels well today. Incisional pain is well controlled. Denies any fever and chills. Wound vac with 45 ml output overnight. Objective Last 24 Hour Vital Signs Date Time Temp Pulse Resp B/P (MAP) Pulse Ox O2 Delivery O2 Flow Rate FiO2 08/30/19 12:00 97.6 91 18 113/75 (88) 97 08/30/19 09:53 97.7 08/30/19 09:00 Room Air 08/30/19 08:00 97.7 77 18 111/63 (79) 97 08/30/19 00:00 98.2 72 18 117/64 (81) 95 08/29/19 21:00 Room Air 08/29/19 20:00 98.1 86 17 120/70 (87) 94 08/29/19 17:45 98.7 108 18 111/77 (88) 97 08/29/19 15:20 97.2 70 18 139/77 (97) 100 Intake and Output 08/29/19 08/30/19 19:00 07:00 Intake Total 2150 ml 150 ml Output Total 930 ml 45 ml Balance 1220 ml 105 ml Intake Oral 450 ml 150 ml IV Total 1700 ml Output Urine Total 875 ml Drainage Total 5 ml 45 ml Estimated Blood Loss 50 ml # Voids 2 2 # Bowel Movements 1 Laboratory Tests 08/30/19 04:45: White Blood Count 10.6#, Red Blood Count 5.08, Hemoglobin 14.1L, Hematocrit 40.5L, Mean Corpuscular Volume 80, Mean Corpuscular Hemoglobin 27.7, Mean Corpuscular Hemoglobin Concent 34.8, Red Cell Distribution Width 11.3L, Platelet Count 157, Mean Platelet Volume 8.6, Neutrophils (%) (Auto) 80.2H, Lymphocytes (%) (Auto) 13.2L, Monocytes (%) (Auto) 6.1, Eosinophils (%) (Auto) 0.1, Basophils (%) (Auto) 0.4, Sodium Level 139, Potassium Level 4.0, Chloride Level 103, Carbon Dioxide Level 27, Anion Gap 10, Blood Urea Nitrogen 15, Creatinine 1.2, Estimat Glomerular Filtration Rate > 60, Glucose Level 102, Calcium Level 9.4 Height (Feet): 5 Height (Inches): 9.00 Weight (Pounds): 167 General Appearance: alert Neck: normal alignment, supple, normal inspection Cardiovascular: normal rate, regular rhythm Respiratory/Chest: lungs clear, normal breath sounds, no respiratory distress Abdomen: non tender, soft Se Dailey MD Aug 30, 2019 15:15
[2019-08-30 16:00] VITALS: BP 110/54
--- NOTE | 2019-08-30 17:05 | Infectious Diseases Prog Note ---
Assessment/Plan Assessment/Plan ASSESSMENT AND PLAN: 1. sacral wound infection/dehiscence, pilonidal cyst - zosyn and doxycycline - s/p debridement, wound VAC - check surgical culture - monitor labs 2. Patient has history of GERD. 3. Asthma. 4. Continue treatment per primary consultants. 5. History of renal failure in the past. 6. No diabetes or hypertension. 7. No known allergies. 8. Social history negative. 9. Family history noncontributory. 10. MAR is noted. 11. Case discussed with RN. 12. Orders were noted and entered. Subjective Constitutional: Denies: fever HEENT: Denies: congestion Respiratory: Denies: shortness of breath Cardiovascular: Denies: chest pain Gastrointestinal/Abdominal: Denies: nausea, vomiting, diarrhea Genitourinary: Reports: other Neurologic: Denies: headache Psychiatric: Denies: depression Skin: Denies: rash Hematologic: Denies: bleeding Musculoskeletal: Denies: pain Allergies: Coded Allergies: No Known Allergies (Unverified , 12/21/17) Objective Vital Signs Last 24 Hour Vital Signs Date Time Temp Pulse Resp B/P (MAP) Pulse Ox O2 Delivery O2 Flow Rate FiO2 08/30/19 12:00 97.6 91 18 113/75 (88) 97 08/30/19 09:53 97.7 08/30/19 09:00 Room Air 08/30/19 08:00 97.7 77 18 111/63 (79) 97 08/30/19 00:00 98.2 72 18 117/64 (81) 95 08/29/19 21:00 Room Air 08/29/19 20:00 98.1 86 17 120/70 (87) 94 08/29/19 17:45 98.7 108 18 111/77 (88) 97 Height (Feet): 5 Height (Inches): 9.00 Weight (Pounds): 167 General Appearance: no acute distress HEENT: normocephalic, atraumatic, anicteric, mucous membranes moist Respiratory/Chest: lungs clear, normal breath sounds, no respiratory distress Cardiovascular: normal rate, regular rhythm, no gallop/murmur, no JVD Abdomen: normal bowel sounds, soft, non tender, no organomegaly, non distended Genitourinary: other - no garza Extremities: no cyanosis Skin: no rash Neurologic/Psychiatric: receivable manager II-XII grossly normal, alert, oriented x 3, responsive Lymphatic: no neck adenopathy Musculoskeletal: no effusion Objective CT scan pelvis: IMPRESSION: 3 x 1 x 3.5 cm subcutaneous fluid collection in the soft tissues of the medial gluteal cleft concerning for abscess. Question overlying skin ulceration/ breakdown. Possibility that this may represent a infected epidermal inclusion or pilonidal cyst can be considered. The CT scanner at [facility] is accredited by the [employer] and the scans are performed using protocols designed to limit radiation exposure to as low as reasonably achievable to attain images of sufficient resolution adequate for diagnostic evaluation. Microbiology Date/Time Source Procedure Growth Status 08/29/19 13:05 Sacral Wound Gram Stain - Final Resulted 08/29/19 13:05 Sacral Wound Aerobic Culture - Preliminary Resulted 08/29/19 13:05 Sacral Wound Anaerobic Culture Pending Resulted Laboratory Tests Test 08/30/19 04:45 White Blood Count 10.6 K/UL (4.8-10.8) # Red Blood Count 5.08 M/UL (4.70-6.10) Hemoglobin 14.1 G/DL (14.2-18.0) L Hematocrit 40.5 % (42.0-52.0) L Mean Corpuscular Volume 80 FL (80-99) Mean Corpuscular Hemoglobin 27.7 PG (27.0-31.0) Mean Corpuscular Hemoglobin Concent 34.8 G/DL (32.0-36.0) Red Cell Distribution Width 11.3 % (11.6-14.8) L Platelet Count 157 K/UL (150-450) Mean Platelet Volume 8.6 FL (6.5-10.1) Neutrophils (%) (Auto) 80.2 % (45.0-75.0) H Lymphocytes (%) (Auto) 13.2 % (20.0-45.0) L Monocytes (%) (Auto) 6.1 % (1.0-10.0) Eosinophils (%) (Auto) 0.1 % (0.0-3.0) Basophils (%) (Auto) 0.4 % (0.0-2.0) Sodium Level 139 MMOL/L (136-145) Potassium Level 4.0 MMOL/L (3.5-5.1) Chloride Level 103 MMOL/L (98-107) Carbon Dioxide Level 27 MMOL/L (21-32) Anion Gap 10 mmol/L (5-15) Blood Urea Nitrogen 15 mg/dL (7-18) Creatinine 1.2 MG/DL (0.55-1.30) Estimat Glomerular Filtration Rate > 60 mL/min (>60) Glucose Level 102 MG/DL (74-106) Calcium Level 9.4 MG/DL (8.5-10.1) Current Medications Medications (Trade) Dose Ordered Sig/Miguelina Route PRN Reason Start Time Stop Time Status Last Admin Dose Admin Acetaminophen (Tylenol) 650 mg Q4H PRN ORAL fever 08/27/19 14:45 09/26/19 14:44 Acetaminophen (Tylenol) 650 mg Q4H PRN ORAL Mild Pain (Pain Scale 1-3) 08/28/19 14:30 09/27/19 14:29 Acetaminophen/ Hydrocodone Bitart ([place] 10/325) 1 tab Q4H PRN ORAL Severe Pain (Pain Scale 7-10) 08/29/19 14:00 09/05/19 13:59 Acetaminophen/ Hydrocodone Bitart ([place] 5/325) 1 tab Q4H PRN ORAL Moderate Pain (Pain Scale 4-6) 08/29/19 14:00 09/05/19 13:59 Albuterol Sulfate (Proventil) 2.5 mg Q12H PRN HHN Shortness of Breath 08/27/19 15:30 09/01/19 15:29 Dextrose (Dextrose 50%) 25 ml Q30M PRN IV Hypoglycemia 08/27/19 14:45 11/25/19 14:44 Dextrose (Dextrose 50%) 50 ml Q30M PRN IV Hypoglycemia 08/27/19 14:45 11/25/19 14:44 Doxycycline Hyclate 100 mg/ Dextrose 110 ml @ 110 mls/hr Q12HR IV 08/28/19 21:00 09/04/19 20:59 08/30/19 09:23 Heparin Sodium (Porcine) (Heparin 5000 units/ml) 5,000 units EVERY 8 HOURS SUBQ 08/30/19 22:00 10/14/19 21:59 Morphine Sulfate (Morphine Sulfate) 2 mg Q4H PRN IVP Moderate Pain (Pain Scale 4-6) 08/29/19 14:00 09/05/19 13:59 08/30/19 09:23 Morphine Sulfate (Morphine Sulfate) 4 mg Q4H PRN IVP Severe Pain (Pain Scale 7-10) 08/29/19 14:00 09/05/19 13:59 Ondansetron HCl (Zofran ODT) 4 mg Q6H PRN ORAL Nausea & Vomiting 08/27/19 15:30 09/26/19 15:29 Piperacillin Sod/ Tazobactam Sod 3.375 gm/Sodium Chloride 110 ml @ 27.5 mls/hr EVERY 8 HOURS IVPB 08/27/19 22:00 09/01/19 21:59 08/30/19 14:09 Trazodone HCl (Desyrel) 50 mg BEDTIME PRN ORAL INSOMNIA 08/29/19 22:45 09/28/19 22:44 08/29/19 22:52 Navneet Oakes MD Aug 30, 2019 17:05
[2019-08-30 20:00] VITALS: BP 114/59
[2019-08-30] MEDS: Morphine Sulfate 4mg/ml Inj (IV USE ONLY) IVP PRN (21:44)
[2019-08-30] MEDS: Heparin 5000 units/ml inj SUBQ SCH (21:48)
[2019-08-30] MEDS: DiphenhydrAMINE 50mg/ml Inj IVP PRN (23:21)
[2019-08-31] VITALS: BP 109/67
[2019-08-31 04:30] VITALS: BP 95/60
[2019-08-31] MEDS: Piperacillin/Tazobactam 3.375 GM in NS 110 ML IVPB SCH ×3 (05:52→21:57)
[2019-08-31] MEDS: Heparin 5000 units/ml inj SUBQ SCH ×3 (05:53→22:04)
[2019-08-31 08:00] VITALS: BP 97/50
[2019-08-31] MEDS: Doxycycline Hyclate 100 MG in D5W 110 ML IV SCH ×2 (08:44→20:19)
[2019-08-31 12:00] VITALS: BP 108/73
--- NOTE | 2019-08-31 13:29 | Surgery Progress Note ---
Surgery Progress Note Subjective Procedure Performed excisional debridement of sacral wound 11 x4 x 3cm with 6cm tunneling inferior wound vac placement Symptoms: improved Objective Last 24 Hour Vital Signs Date Time Temp Pulse Resp B/P (MAP) Pulse Ox O2 Delivery O2 Flow Rate FiO2 08/31/19 12:00 99.0 99 18 108/73 (85) 99 08/31/19 08:00 97.8 59 18 97/50 (66) 98 08/31/19 04:30 97.4 62 18 95/60 (72) 97 08/31/19 00:00 97.7 62 18 109/67 (81) 98 08/30/19 21:00 Room Air 08/30/19 20:00 98.4 64 16 114/59 (77) 98 08/30/19 16:00 98.2 71 18 110/54 (72) 97 I&O Intake and Output 08/30/19 08/31/19 19:00 07:00 Intake Total 600 ml 400 ml Output Total 1740 ml 5 ml Balance -1140 ml 395 ml Intake Oral 600 ml 400 ml Output Urine Total 1700 ml Drainage Total 40 ml 5 ml # Voids 3 Dressing: other Wound: other Drains: wound vac Cardiovascular: RSR Respiratory: clear Abdomen: soft, flat, non-tender, present bowel sounds Extremities: no edema, no tenderness, no cyanosis Plan Problems: (1) Wound dehiscence Assessment & Plan: There is subcutaneous fat stranding with ulceration involving the superior aspects of the medial gluteal cleft with a associated small fluid collection which measures approximately 3 cm AP by 1 cm transverse by 3.5 cm craniocaudal concerning for abscess. Question if this is related to an infected. No discrete bony changes in the underlying lower sacrum/coccyx 2 suggest an acute osteomyelitis. No evidence of acute fracture. Imaged portions of the visceral pelvis are without acute abnormality. There is a small fat-containing left inguinal hernia. Small bilateral inguinal lymph nodes are noted, nonspecific and possibly reactive in etiology. Visualized vascular structures appear patent and normal in caliber. IMPRESSION: 3 x 1 x 3.5 cm subcutaneous fluid collection in the soft tissues of the medial gluteal cleft concerning for abscess. Question overlying skin ulceration/ breakdown. Possibility that this may represent a infected epidermal inclusion or pilonidal cyst can be considered. wound open. tunneling. poor granulation tissue biofilm s/p OR for debridement or will expand and worseng iv fluids s/p debridement cont vac plan home vac will discuss with case management discussed with patient discussed with pcp ruben done vac change tomorrow at bedside Chet Cooper Aug 31, 2019 13:29
--- NOTE | 2019-08-31 13:29 | General Progress Note ---
Assessment/Plan Assessment/Plan: 24-year-old male with PMH of pilonidal cyst s/p multiple surgeries with wound vacs in the past, asthma, GERD [place] [facility] [place]. #Infected Pilonidal Cyst #Gluteal cleft abscess #Wound dehiscence #S/p I&D on 08/28 - Continue excellent postoperative care - Encourage mobilization/ambulation - Encourage incentive spirometry to optimize pulmonary hygiene - DVT/GI prophylaxis as appropriate - Pain control and supportive care - Follow up - Continue Vanco/Zosyn and Wound Vac #Asthma, controlled - Albuterol prn wheezing #GERD - ctm DVT PPx: HSQ I spent 35 minutes on this patient's case, and 20 min was dedicated to counseling and/or care coordination with other MDs, family, nursing Time of note doesn't reflect time of encounter. Subjective Date patient seen: Aug 31, 2019 Time patient seen: 13:28 ROS Limited/Unobtainable: No Constitutional: Denies: chills, fever Cardiovascular: Denies: chest pain Respiratory: Denies: cough Gastrointestinal/Abdominal: Denies: abdomen distended, abdominal pain Allergies: Coded Allergies: No Known Allergies (Unverified , 12/21/17) Subjective Followp for gluteal cleft abscess, s/p I&D on 08/28 Feels well today. Incisional pain is well controlled. Denies any fever and chills. Wound vac with 45 ml output overnight. Surgical cultures growing coag neg Staph and diphtheroids Objective Last 24 Hour Vital Signs Date Time Temp Pulse Resp B/P (MAP) Pulse Ox O2 Delivery O2 Flow Rate FiO2 08/31/19 12:00 99.0 99 18 108/73 (85) 99 08/31/19 08:00 97.8 59 18 97/50 (66) 98 08/31/19 04:30 97.4 62 18 95/60 (72) 97 08/31/19 00:00 97.7 62 18 109/67 (81) 98 08/30/19 21:00 Room Air 08/30/19 20:00 98.4 64 16 114/59 (77) 98 08/30/19 16:00 98.2 71 18 110/54 (72) 97 Intake and Output 08/30/19 08/31/19 19:00 07:00 Intake Total 600 ml 400 ml Output Total 1740 ml 5 ml Balance -1140 ml 395 ml Intake Oral 600 ml 400 ml Output Urine Total 1700 ml Drainage Total 40 ml 5 ml # Voids 3 Height (Feet): 5 Height (Inches): 9.00 Weight (Pounds): 167 General Appearance: alert Neck: normal alignment, supple Cardiovascular: normal rate, regular rhythm Respiratory/Chest: lungs clear, normal breath sounds, no accessory muscle use Abdomen: non tender, soft, no organomegaly Se Dailey MD Aug 31, 2019 13:29
[2019-08-31] MEDS: Morphine Sulfate 4mg/ml Inj (IV USE ONLY) IVP PRN (13:56)
[2019-08-31 16:00] VITALS: BP 103/66
[2019-08-31 20:00] VITALS: BP 107/65
[2019-08-31] MEDS: DiphenhydrAMINE 50mg/ml Inj IVP PRN (22:07)
[2019-09-01] VITALS: BP 97/54
[2019-09-01 04:00] VITALS: BP 104/72
[2019-09-01] MEDS: Piperacillin/Tazobactam 3.375 GM in NS 110 ML IVPB SCH (05:03)
[2019-09-01] MEDS: Heparin 5000 units/ml inj SUBQ SCH ×3 (05:08→21:45)
[2019-09-01 07:07] LABS: ALANINE AMINOTRANSFERASE 27 U/L (12-78); ALBUMIN 3.8 G/DL (3.4-5.0); ALBUMIN/GLOBULIN RATIO 1.2 (1.0-2.7); ALKALINE PHOSPHATASE 81 U/L (46-116); ANION GAP 11 mmol/L (5-15); ASPARTATE AMINO TRANSFERASE 19 U/L (15-37); BILIRUBIN,TOTAL 0.5 MG/DL (0.2-1.0); BLOOD UREA NITROGEN 13 mg/dL (7-18); CARBON DIOXIDE 24 MMOL/L (21-32); CHLORIDE 107 MMOL/L (98-107); CREATININE 1.3 MG/DL (0.55-1.30); POTASSIUM 3.8 MMOL/L (3.5-5.1); SODIUM 142 MMOL/L (136-145)
[2019-09-01 07:17] LABS: BASOPHILS % (AUTO) 0.9 % (0.0-2.0); EOSINOPHILS % (AUTO) 1.8 % (0.0-3.0); LYMPHOCYTES % (AUTO) 40.7 % (20.0-45.0); MEAN CORPUSCULAR VOLUME 79 FL (80-99); MONOCYTES % (AUTO) 8.3 % (1.0-10.0); NEUTROPHILS % (AUTO) 48.3 % (45.0-75.0); PLATELET COUNT 127 K/UL (150-450); RED BLOOD COUNT 5.09 M/UL (4.70-6.10); RED CELL DISTRIBUTION WIDTH 11.1 % (11.6-14.8); WHITE BLOOD COUNT 5.1 K/UL (4.8-10.8)
[2019-09-01 08:00] VITALS: BP 106/61
[2019-09-01] MEDS: Doxycycline Hyclate 100 MG in D5W 110 ML IV SCH (08:40)
[2019-09-01] MEDS: HYDROcodone/Acetamin 10/325 tab ORAL PRN (08:41)
--- NOTE | 2019-09-01 08:49 | General Progress Note ---
Assessment/Plan Assessment/Plan: 24-year-old male with PMH of pilonidal cyst s/p multiple surgeries with wound vacs in the past, asthma, GERD who presents to [facility] for worsening pilonidal cyst. #Infected Pilonidal Cyst #Gluteal cleft abscess #Wound dehiscence #S/p I&D on 08/28 - Continue excellent postoperative care - Encourage mobilization/ambulation - Encourage incentive spirometry to optimize pulmonary hygiene - DVT/GI prophylaxis as appropriate - Pain control and supportive care - will need to exchange wound vac prior to d/c - d/w General sx, pending wound vac for d/c planning - d/w ID and Gen Sx, will stop abx at this time, monitor off abx - for home health for dispo planning #Asthma, controlled - Albuterol prn wheezing #GERD - ctm DVT PPx: HSQ I spent 35 minutes on this patient's case, and 21 min was dedicated to counseling and/or care coordination with Dr. Cooper, Dr. Champ song abx/POC, pt, and RN. Time of note doesn't reflect time of encounter. Subjective Allergies: Coded Allergies: No Known Allergies (Unverified , 12/21/17) Subjective F/u for infected pilonidal cyst, s/p I&D on 08/28 w/wound vac placement. States pain well controlled on current medications, denies constipation, n/v, f/ c. Objective Last 24 Hour Vital Signs Date Time Temp Pulse Resp B/P (MAP) Pulse Ox O2 Delivery O2 Flow Rate FiO2 09/01/19 04:00 97.6 63 18 104/72 (83) 98 09/01/19 00:00 97.3 63 18 97/54 (68) 99 08/31/19 21:00 Room Air 08/31/19 20:00 97.9 71 18 107/65 (79) 95 08/31/19 16:00 98.9 96 18 103/66 (78) 99 08/31/19 14:26 99.0 08/31/19 12:00 99.0 99 18 108/73 (85) 99 08/31/19 09:00 Room Air Intake and Output 08/31/19 09/01/19 19:00 07:00 Intake Total 600 ml Output Total 40 ml 60 ml Balance 560 ml -60 ml Intake Oral 600 ml Drainage Total 40 ml 60 ml # Voids 4 Laboratory Tests 09/01/19 05:40: White Blood Count 5.1, Red Blood Count 5.09, Hemoglobin 14.0L, Hematocrit 40.0L , Mean Corpuscular Volume 79L, Mean Corpuscular Hemoglobin 27.5, Mean Corpuscular Hemoglobin Concent 35.1, Red Cell Distribution Width 11.1L, Platelet Count 127L, Mean Platelet Volume 8.9, Neutrophils (%) (Auto) 48.3, Lymphocytes (%) (Auto) 40.7, Monocytes (%) (Auto) 8.3, Eosinophils (%) (Auto) 1.8, Basophils (%) (Auto) 0.9, Sodium Level 142, Potassium Level 3.8, Chloride Level 107, Carbon Dioxide Level 24, Anion Gap 11, Blood Urea Nitrogen 13, Creatinine 1.3, Estimat Glomerular Filtration Rate > 60, Glucose Level 80, Calcium Level 9.0, Total Bilirubin 0.5, Aspartate Amino Transf (AST/SGOT) 19, Alanine Aminotransferase (ALT/SGPT) 27, Alkaline Phosphatase 81, Total Protein 7.1, Albumin 3.8, Globulin 3.3, Albumin/Globulin Ratio 1.2 Height (Feet): 5 Height (Inches): 9.00 Weight (Pounds): 167 Objective General: NAD, laying in bed comfortably HEENT: NCAT, EOMi, MMM CV: RRR, no murmurs Respiratory: CTAB, no accessory muscle usage/conversational dyspnea Abdomen: soft, NT/ND, +BS Ext: no edema Skin: wound vac in place near sacrum, c/d/i Lori Farrell M.D. Sep 01, 2019 08:49
--- NOTE | 2019-09-01 10:09 | Surgery Progress Note ---
Surgery Progress Note Subjective Procedure Performed excisional debridement of sacral wound 11 x4 x 3cm with 6cm tunneling inferior wound vac placement Additional Comments labs okay doing well no complaints micro noted discussed with PCP Objective Last 24 Hour Vital Signs Date Time Temp Pulse Resp B/P (MAP) Pulse Ox O2 Delivery O2 Flow Rate FiO2 09/01/19 04:00 97.6 63 18 104/72 (83) 98 09/01/19 00:00 97.3 63 18 97/54 (68) 99 08/31/19 21:00 Room Air 08/31/19 20:00 97.9 71 18 107/65 (79) 95 08/31/19 16:00 98.9 96 18 103/66 (78) 99 08/31/19 14:26 99.0 08/31/19 12:00 99.0 99 18 108/73 (85) 99 I&O Intake and Output 08/31/19 09/01/19 19:00 07:00 Intake Total 600 ml Output Total 40 ml 60 ml Balance 560 ml -60 ml Intake Oral 600 ml Drainage Total 40 ml 60 ml # Voids 4 Dressing: dry Wound: clean Drains: wound vac Cardiovascular: RSR Respiratory: decreased breath sounds Abdomen: soft, non-tender, present bowel sounds Extremities: no tenderness, no cyanosis Laboratory Tests Test 09/01/19 05:40 White Blood Count 5.1 K/UL (4.8-10.8) Red Blood Count 5.09 M/UL (4.70-6.10) Hemoglobin 14.0 G/DL (14.2-18.0) L Hematocrit 40.0 % (42.0-52.0) L Mean Corpuscular Volume 79 FL (80-99) L Mean Corpuscular Hemoglobin 27.5 PG (27.0-31.0) Mean Corpuscular Hemoglobin Concent 35.1 G/DL (32.0-36.0) Red Cell Distribution Width 11.1 % (11.6-14.8) L Platelet Count 127 K/UL (150-450) L Mean Platelet Volume 8.9 FL (6.5-10.1) Neutrophils (%) (Auto) 48.3 % (45.0-75.0) Lymphocytes (%) (Auto) 40.7 % (20.0-45.0) Monocytes (%) (Auto) 8.3 % (1.0-10.0) Eosinophils (%) (Auto) 1.8 % (0.0-3.0) Basophils (%) (Auto) 0.9 % (0.0-2.0) Sodium Level 142 MMOL/L (136-145) Potassium Level 3.8 MMOL/L (3.5-5.1) Chloride Level 107 MMOL/L (98-107) Carbon Dioxide Level 24 MMOL/L (21-32) Anion Gap 11 mmol/L (5-15) Blood Urea Nitrogen 13 mg/dL (7-18) Creatinine 1.3 MG/DL (0.55-1.30) Estimat Glomerular Filtration Rate > 60 mL/min (>60) Glucose Level 80 MG/DL (74-106) Calcium Level 9.0 MG/DL (8.5-10.1) Total Bilirubin 0.5 MG/DL (0.2-1.0) Aspartate Amino Transf (AST/SGOT) 19 U/L (15-37) Alanine Aminotransferase (ALT/SGPT) 27 U/L (12-78) Alkaline Phosphatase 81 U/L (46-116) Total Protein 7.1 G/DL (6.4-8.2) Albumin 3.8 G/DL (3.4-5.0) Globulin 3.3 g/dL Albumin/Globulin Ratio 1.2 (1.0-2.7) Plan Problems: (1) Wound dehiscence Assessment & Plan: There is subcutaneous fat stranding with ulceration involving the superior aspects of the medial gluteal cleft with a associated small fluid collection which measures approximately 3 cm AP by 1 cm transverse by 3.5 cm craniocaudal concerning for abscess. Question if this is related to an infected. No discrete bony changes in the underlying lower sacrum/coccyx 2 suggest an acute osteomyelitis. No evidence of acute fracture. Imaged portions of the visceral pelvis are without acute abnormality. There is a small fat-containing left inguinal hernia. Small bilateral inguinal lymph nodes are noted, nonspecific and possibly reactive in etiology. Visualized vascular structures appear patent and normal in caliber. IMPRESSION: 3 x 1 x 3.5 cm subcutaneous fluid collection in the soft tissues of the medial gluteal cleft concerning for abscess. Question overlying skin ulceration/ breakdown. Possibility that this may represent a infected epidermal inclusion or pilonidal cyst can be considered. wound open. tunneling. poor granulation tissue biofilm s/p OR for debridement or will expand and worseng iv fluids s/p debridement cont vac plan home vac will discuss with case management discussed with patient discussed with pcp papaudelia done vac change tomorrow at bedside - will need to order vac supplies as not there today okay to d/c abx faxed vac form plan d/c withsupplies once arrived Chet Cooper Sep 01, 2019 10:09
[2019-09-01 12:00] VITALS: BP 115/77
[2019-09-01 16:00] VITALS: BP 131/90
--- NOTE | 2019-09-01 18:33 | Infectious Diseases Prog Note ---
Assessment/Plan Assessment/Plan ASSESSMENT AND PLAN: 1. sacral wound infection/dehiscence, pilonidal cyst - discontinue zosyn and doxycycline - s/p debridement, wound VAC - check surgical culture - monitor labs - communicated with Dr. Farrell - wound culture c/w contaminant 2. Patient has history of GERD. 3. Asthma. 4. Continue treatment per primary consultants. 5. History of renal failure in the past. 6. No diabetes or hypertension. 7. No known allergies. 8. Social history negative. 9. Family history noncontributory. 10. MAR is noted. 11. Case discussed with RN. 12. Orders were noted and entered. Subjective Constitutional: Denies: fever HEENT: Denies: congestion Respiratory: Denies: shortness of breath Cardiovascular: Denies: chest pain Gastrointestinal/Abdominal: Denies: nausea, vomiting, diarrhea Genitourinary: Reports: other - no garza Neurologic: Denies: headache Psychiatric: Denies: depression Skin: Denies: rash Hematologic: Denies: bleeding Musculoskeletal: Denies: pain Allergies: Coded Allergies: No Known Allergies (Unverified , 12/21/17) Objective Vital Signs Last 24 Hour Vital Signs Date Time Temp Pulse Resp B/P (MAP) Pulse Ox O2 Delivery O2 Flow Rate FiO2 09/01/19 16:00 97.9 99 20 131/90 (104) 98 09/01/19 12:00 97.9 94 18 115/77 (90) 97 09/01/19 09:00 Room Air 09/01/19 08:00 97.8 60 20 106/61 (76) 97 09/01/19 04:00 97.6 63 18 104/72 (83) 98 09/01/19 00:00 97.3 63 18 97/54 (68) 99 08/31/19 21:00 Room Air 08/31/19 20:00 97.9 71 18 107/65 (79) 95 Height (Feet): 5 Height (Inches): 9.00 Weight (Pounds): 167 General Appearance: no acute distress HEENT: normocephalic, atraumatic, anicteric, EOMI, supple, no JVD, other - no thrush Respiratory/Chest: lungs clear, normal breath sounds, no respiratory distress, no accessory muscle use Cardiovascular: normal rate, regular rhythm, no gallop/murmur, no JVD Abdomen: normal bowel sounds, soft, non tender, no organomegaly, non distended Genitourinary: other - no garza Extremities: no cyanosis Skin: no rash, other - surgical wound covered 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 Question overlying skin ulceration/ breakdown. Possibility that this may represent a infected epidermal inclusion or pilonidal cyst can be considered. The CT scanner at [facility] is accredited by the [employer] and the scans are performed using protocols designed to limit radiation exposure to as low as reasonably achievable to attain images of sufficient resolution adequate for diagnostic evaluation. Microbiology Date/Time Source Procedure Growth Status 08/29/19 13:05 Sacral Wound Gram Stain - Final Resulted 08/29/19 13:05 Aerobic Culture - Final Staphylococcus Sp Coag Neg Diphtheroids Resulted 08/29/19 13:05 Sacral Wound Anaerobic Culture - Preliminary NO GROWTH Resulted Laboratory Tests Test 09/01/19 05:40 White Blood Count 5.1 K/UL (4.8-10.8) Red Blood Count 5.09 M/UL (4.70-6.10) Hemoglobin 14.0 G/DL (14.2-18.0) L Hematocrit 40.0 % (42.0-52.0) L Mean Corpuscular Volume 79 FL (80-99) L Mean Corpuscular Hemoglobin 27.5 PG (27.0-31.0) Mean Corpuscular Hemoglobin Concent 35.1 G/DL (32.0-36.0) Red Cell Distribution Width 11.1 % (11.6-14.8) L Platelet Count 127 K/UL (150-450) L Mean Platelet Volume 8.9 FL (6.5-10.1) Neutrophils (%) (Auto) 48.3 % (45.0-75.0) Lymphocytes (%) (Auto) 40.7 % (20.0-45.0) Monocytes (%) (Auto) 8.3 % (1.0-10.0) Eosinophils (%) (Auto) 1.8 % (0.0-3.0) Basophils (%) (Auto) 0.9 % (0.0-2.0) Sodium Level 142 MMOL/L (136-145) Potassium Level 3.8 MMOL/L (3.5-5.1) Chloride Level 107 MMOL/L (98-107) Carbon Dioxide Level 24 MMOL/L (21-32) Anion Gap 11 mmol/L (5-15) Blood Urea Nitrogen 13 mg/dL (7-18) Creatinine 1.3 MG/DL (0.55-1.30) Estimat Glomerular Filtration Rate > 60 mL/min (>60) Glucose Level 80 MG/DL (74-106) Calcium Level 9.0 MG/DL (8.5-10.1) Total Bilirubin 0.5 MG/DL (0.2-1.0) Aspartate Amino Transf (AST/SGOT) 19 U/L (15-37) Alanine Aminotransferase (ALT/SGPT) 27 U/L (12-78) Alkaline Phosphatase 81 U/L (46-116) Total Protein 7.1 G/DL (6.4-8.2) Albumin 3.8 G/DL (3.4-5.0) Globulin 3.3 g/dL Albumin/Globulin Ratio 1.2 (1.0-2.7) Current Medications Medications (Trade) Dose Ordered Sig/Miguelina Route PRN Reason Start Time Stop Time Status Last Admin Dose Admin Acetaminophen (Tylenol) 650 mg Q4H PRN ORAL fever 08/27/19 14:45 09/26/19 14:44 Acetaminophen (Tylenol) 650 mg Q4H PRN ORAL Mild Pain (Pain Scale 1-3) 08/28/19 14:30 09/27/19 14:29 Acetaminophen/ Hydrocodone Bitart ([place] 10/325) 1 tab Q4H PRN ORAL Severe Pain (Pain Scale 7-10) 08/29/19 14:00 09/05/19 13:59 09/01/19 08:41 Acetaminophen/ Hydrocodone Bitart ([place] 5/325) 1 tab Q4H PRN ORAL Moderate Pain (Pain Scale 4-6) 08/29/19 14:00 09/05/19 13:59 Dextrose (Dextrose 50%) 25 ml Q30M PRN IV Hypoglycemia 08/27/19 14:45 11/25/19 14:44 Dextrose (Dextrose 50%) 50 ml Q30M PRN IV Hypoglycemia 08/27/19 14:45 11/25/19 14:44 Diphenhydramine HCl (Benadryl) 25 mg Q6H PRN IVP Itching 08/30/19 23:15 09/29/19 23:14 08/31/19 22:07 Heparin Sodium (Porcine) (Heparin 5000 units/ml) 5,000 units EVERY 8 HOURS SUBQ 08/30/19 22:00 10/14/19 21:59 09/01/19 14:05 Morphine Sulfate (Morphine Sulfate) 2 mg Q4H PRN IVP Moderate Pain (Pain Scale 4-6) 08/29/19 14:00 09/05/19 13:59 08/30/19 09:23 Morphine Sulfate (Morphine Sulfate) 4 mg Q4H PRN IVP Severe Pain (Pain Scale 7-10) 08/29/19 14:00 09/05/19 13:59 08/31/19 13:56 Ondansetron HCl (Zofran ODT) 4 mg Q6H PRN ORAL Nausea & Vomiting 08/27/19 15:30 09/26/19 15:29 Trazodone HCl (Desyrel) 50 mg BEDTIME PRN ORAL INSOMNIA 08/29/19 22:45 09/28/19 22:44 08/29/19 22:52 Navneet Oakes MD Sep 01, 2019 18:33
[2019-09-01 20:00] VITALS: BP 122/75
[2019-09-01] MEDS: HYDROcodone/Acetamin 5/325 tab ORAL PRN (21:44)
[2019-09-01] MEDS: DiphenhydrAMINE 50mg/ml Inj IVP PRN (21:45)
[2019-09-02 04:00] VITALS: BP 105/57
[2019-09-02] MEDS: Heparin 5000 units/ml inj SUBQ SCH ×3 (05:35→22:03)
[2019-09-02 08:00] VITALS: BP 123/65
[2019-09-02 12:00] VITALS: BP 135/69
[2019-09-02] MEDS: HYDROcodone/Acetamin 10/325 tab ORAL PRN (13:13)
--- NOTE | 2019-09-02 14:48 | General Progress Note ---
Assessment/Plan Assessment/Plan: 24-year-old male with PMH of pilonidal cyst s/p multiple surgeries with wound vacs in the past, asthma, GERD who presents to [facility] for worsening pilonidal cyst. #Infected Pilonidal Cyst #Gluteal cleft abscess #Wound dehiscence #S/p I&D on 08/28 - Continue excellent postoperative care - Encourage mobilization/ambulation - Encourage incentive spirometry to optimize pulmonary hygiene - DVT/GI prophylaxis as appropriate - Pain control and supportive care - ctm off abx - d/w General sx, pending wound vac supplies for d/c - CM for home health #Asthma, controlled - Albuterol prn wheezing #GERD - ctm DVT PPx: HSQ I spent 26 minutes on this patient's case, and 15 min was dedicated to counseling and/or care coordination with Dr. Cooper, and RN. Time of note doesn't reflect time of encounter. Subjective Allergies: Coded Allergies: No Known Allergies (Unverified , 12/21/17) Subjective F/u for infected pilonidal cyst, s/p I&D on 08/28 w/wound vac placement. No acute events overnight, patient with no concerns at this time. Pending wound VAC supplies for DC planning. Objective Last 24 Hour Vital Signs Date Time Temp Pulse Resp B/P (MAP) Pulse Ox O2 Delivery O2 Flow Rate FiO2 09/02/19 12:00 98.0 92 20 135/69 (91) 99 09/02/19 09:00 Room Air 09/02/19 08:00 98.1 76 20 123/65 (84) 99 09/02/19 04:00 97.4 70 18 105/57 (73) 97 09/01/19 22:14 98.3 09/01/19 20:09 Room Air 09/01/19 20:00 98.3 74 16 122/75 (91) 98 09/01/19 16:00 97.9 99 20 131/90 (104) 98 Intake and Output 09/01/19 09/02/19 19:00 07:00 Intake Total 1050 ml 420 ml Output Total 1000 ml Balance 50 ml 420 ml Intake Oral 1050 ml 420 ml Output Urine Total 1000 ml Drainage Total 0 ml # Voids 4 3 Height (Feet): 5 Height (Inches): 9.00 Weight (Pounds): 167 Objective General: NAD, laying in bed comfortably HEENT: NCAT, EOMi, MMM CV: RRR, no murmurs Respiratory: CTAB, no accessory muscle usage/conversational dyspnea Abdomen: soft, NT/ND, +BS Ext: no edema Skin: wound vac in place near sacrum, c/d/i Lori Farrell M.D. Sep 02, 2019 14:48
[2019-09-02 16:12] VITALS: BP 115/67
[2019-09-02] MEDS: HYDROcodone/Acetamin 5/325 tab ORAL PRN (19:50)
[2019-09-02 20:00] VITALS: BP 111/70
--- NOTE | 2019-09-02 22:14 | Surgery Progress Note ---
Surgery Progress Note Subjective Procedure Performed excisional debridement of sacral wound 11 x4 x 3cm with 6cm tunneling inferior wound vac placement Additional Comments vac change today otherwise well pending supplies for d/c Objective Last 24 Hour Vital Signs Date Time Temp Pulse Resp B/P (MAP) Pulse Ox O2 Delivery O2 Flow Rate FiO2 09/02/19 20:00 98.0 75 20 111/70 (84) 96 09/02/19 16:12 98.4 85 20 115/67 (83) 98 09/02/19 12:00 98.0 92 20 135/69 (91) 99 09/02/19 09:00 Room Air 09/02/19 08:00 98.1 76 20 123/65 (84) 99 09/02/19 04:00 97.4 70 18 105/57 (73) 97 09/01/19 22:14 98.3 I&O Intake and Output 09/01/19 09/02/19 19:00 07:00 Intake Total 1050 ml 420 ml Output Total 1000 ml Balance 50 ml 420 ml Intake Oral 1050 ml 420 ml Output Urine Total 1000 ml Drainage Total 0 ml # Voids 4 3 Dressing: dry Wound: clean Drains: wound vac Cardiovascular: RSR Respiratory: clear Abdomen: soft, non-tender, present bowel sounds Extremities: no edema, no tenderness, no cyanosis Plan Problems: (1) Wound dehiscence Assessment & Plan: There is subcutaneous fat stranding with ulceration involving the superior aspects of the medial gluteal cleft with a associated small fluid collection which measures approximately 3 cm AP by 1 cm transverse by 3.5 cm craniocaudal concerning for abscess. Question if this is related to an infected. No discrete bony changes in the underlying lower sacrum/coccyx 2 suggest an acute osteomyelitis. No evidence of acute fracture. Imaged portions of the visceral pelvis are without acute abnormality. There is a small fat-containing left inguinal hernia. Small bilateral inguinal lymph nodes are noted, nonspecific and possibly reactive in etiology. Visualized vascular structures appear patent and normal in caliber. IMPRESSION: 3 x 1 x 3.5 cm subcutaneous fluid collection in the soft tissues of the medial gluteal cleft concerning for abscess. Question overlying skin ulceration/ breakdown. Possibility that this may represent a infected epidermal inclusion or pilonidal cyst can be considered. wound open. tunneling. poor granulation tissue biofilm s/p OR for debridement or will expand and worseng iv fluids s/p debridement cont vac plan home vac will discuss with case management discussed with patient discussed with pcp papaudelia done vac change q3 day okay to d/c abx faxed vac form plan d/c withsuppnicolasa once arrived Chet Cooper Sep 02, 2019 22:14
[2019-09-03] VITALS: BP 122/70
[2019-09-03] MEDS: DiphenhydrAMINE 50mg/ml Inj IVP PRN (00:27)
[2019-09-03 06:00] VITALS: BP 96/51
[2019-09-03] MEDS: HYDROcodone/Acetamin 5/325 tab ORAL PRN (06:15)
[2019-09-03] MEDS: Heparin 5000 units/ml inj SUBQ SCH ×2 (06:15→14:00)
[2019-09-03 08:00] VITALS: BP 108/67
--- NOTE | 2019-09-03 08:37 | General Progress Note ---
Assessment/Plan Assessment/Plan: 24-year-old male with PMH of pilonidal cyst s/p multiple surgeries with wound vacs in the past, asthma, GERD who presents to [facility] [place] for worsening pilonidal cyst. #Infected Pilonidal Cyst #Gluteal cleft abscess #Wound dehiscence #S/p I&D on 08/28 #Constipation - Continue excellent postoperative care - Encourage mobilization/ambulation - Encourage incentive spirometry to optimize pulmonary hygiene - DVT/GI prophylaxis as appropriate - Pain control and supportive care - ctm off abx - d/w General sx, pending wound vac supplies for d/c - CM for home health - docusate senna, monitor BMs #Asthma, controlled - Albuterol prn wheezing #GERD - ctm DVT PPx: HSQ I spent 35 minutes on this patient's case, and 25 min was dedicated to counseling and/or care coordination with Dr. Allison averying medical supplies, and RN. Time of note doesn't reflect time of encounter. Subjective Allergies: Coded Allergies: No Known Allergies (Unverified , 12/21/17) Subjective F/u for infected pilonidal cyst, s/p I&D on 08/28 w/wound vac placement. States has mild pain near wound vac site, states pain meds help. No BM for 2 days. Denies abd pain. Pending wound VAC supplies for DC planning. Objective Last 24 Hour Vital Signs Date Time Temp Pulse Resp B/P (MAP) Pulse Ox O2 Delivery O2 Flow Rate FiO2 09/03/19 06:00 97.4 69 18 96/51 (66) 98 09/03/19 00:00 97.8 77 20 122/70 (87) 97 09/02/19 21:00 Room Air 09/02/19 20:00 98.0 75 20 111/70 (84) 96 09/02/19 16:12 98.4 85 20 115/67 (83) 98 09/02/19 12:00 98.0 92 20 135/69 (91) 99 09/02/19 09:00 Room Air Intake and Output 09/02/19 09/03/19 19:00 07:00 Intake Total 350 ml Output Total 900 ml Balance -900 ml 350 ml Intake Oral 350 ml Output Urine Total 900 ml # Voids 3 Height (Feet): 5 Height (Inches): 9.00 Weight (Pounds): 166 Objective General: NAD, laying in bed comfortably HEENT: NCAT, EOMi, MMM CV: RRR, no murmurs Respiratory: CTAB, no accessory muscle usage/conversational dyspnea Abdomen: soft, NT/ND, +BS Ext: no edema Skin: wound vac in place near sacrum, c/d/i Lori Farrell M.D. Sep 03, 2019 08:37
[2019-09-03 09:09] LABS: EOSINOPHILS % (AUTO) 1.1 % (0.0-3.0); HEMATOCRIT 41.8 % (42.0-52.0); HEMOGLOBIN 14.6 G/DL (14.2-18.0); LYMPHOCYTES % (AUTO) 29.4 % (20.0-45.0); MEAN CORPUSCULAR VOLUME 80 FL (80-99); NEUTROPHILS % (AUTO) 60.6 % (45.0-75.0); PLATELET COUNT 136 K/UL (150-450); RED BLOOD COUNT 5.21 M/UL (4.70-6.10); RED CELL DISTRIBUTION WIDTH 11.4 % (11.6-14.8); WHITE BLOOD COUNT 6.2 K/UL (4.8-10.8)
[2019-09-03 09:47] LABS: ANION GAP 9 mmol/L (5-15); BLOOD UREA NITROGEN 19 mg/dL (7-18); CARBON DIOXIDE 28 MMOL/L (21-32); CHLORIDE 106 MMOL/L (98-107); CREATININE 1.3 MG/DL (0.55-1.30); POTASSIUM 4.4 MMOL/L (3.5-5.1); SODIUM 142 MMOL/L (136-145)
--- NOTE | 2019-09-03 10:27 | Surgery Progress Note ---
Surgery Progress Note Subjective Procedure Performed excisional debridement of sacral wound 11 x4 x 3cm with 6cm tunneling inferior wound vac placement Additional Comments doing well vac seal holding no n/v/f/c labs okay pending d/c once supplies available Objective Last 24 Hour Vital Signs Date Time Temp Pulse Resp B/P (MAP) Pulse Ox O2 Delivery O2 Flow Rate FiO2 09/03/19 06:00 97.4 69 18 96/51 (66) 98 09/03/19 00:00 97.8 77 20 122/70 (87) 97 09/02/19 21:00 Room Air 09/02/19 20:00 98.0 75 20 111/70 (84) 96 09/02/19 16:12 98.4 85 20 115/67 (83) 98 09/02/19 12:00 98.0 92 20 135/69 (91) 99 I&O Intake and Output 09/02/19 09/03/19 19:00 07:00 Intake Total 350 ml Output Total 900 ml Balance -900 ml 350 ml Intake Oral 350 ml Output Urine Total 900 ml # Voids 3 Drains: wound vac Cardiovascular: RSR Respiratory: clear Abdomen: soft, flat, non-tender, present bowel sounds Extremities: no tenderness, no cyanosis Laboratory Tests Test 09/03/19 08:45 White Blood Count 6.2 K/UL (4.8-10.8) Red Blood Count 5.21 M/UL (4.70-6.10) Hemoglobin 14.6 G/DL (14.2-18.0) Hematocrit 41.8 % (42.0-52.0) L Mean Corpuscular Volume 80 FL (80-99) Mean Corpuscular Hemoglobin 28.0 PG (27.0-31.0) Mean Corpuscular Hemoglobin Concent 34.9 G/DL (32.0-36.0) Red Cell Distribution Width 11.4 % (11.6-14.8) L Platelet Count 136 K/UL (150-450) L Mean Platelet Volume 8.6 FL (6.5-10.1) Neutrophils (%) (Auto) 60.6 % (45.0-75.0) Lymphocytes (%) (Auto) 29.4 % (20.0-45.0) Monocytes (%) (Auto) 8.0 % (1.0-10.0) Eosinophils (%) (Auto) 1.1 % (0.0-3.0) Basophils (%) (Auto) 1.0 % (0.0-2.0) Sodium Level 142 MMOL/L (136-145) Potassium Level 4.4 MMOL/L (3.5-5.1) Chloride Level 106 MMOL/L (98-107) Carbon Dioxide Level 28 MMOL/L (21-32) Anion Gap 9 mmol/L (5-15) Blood Urea Nitrogen 19 mg/dL (7-18) H Creatinine 1.3 MG/DL (0.55-1.30) Estimat Glomerular Filtration Rate > 60 mL/min (>60) Glucose Level 89 MG/DL (74-106) Calcium Level 9.0 MG/DL (8.5-10.1) Plan Problems: (1) Wound dehiscence Assessment & Plan: There is subcutaneous fat stranding with ulceration involving the superior aspects of the medial gluteal cleft with a associated small fluid collection which measures approximately 3 cm AP by 1 cm transverse by 3.5 cm craniocaudal concerning for abscess. Question if this is related to an infected. No discrete bony changes in the underlying lower sacrum/coccyx 2 suggest an acute osteomyelitis. No evidence of acute fracture. Imaged portions of the visceral pelvis are without acute abnormality. There is a small fat-containing left inguinal hernia. Small bilateral inguinal lymph nodes are noted, nonspecific and possibly reactive in etiology. Visualized vascular structures appear patent and normal in caliber. IMPRESSION: 3 x 1 x 3.5 cm subcutaneous fluid collection in the soft tissues of the medial gluteal cleft concerning for abscess. Question overlying skin ulceration/ breakdown. Possibility that this may represent a infected epidermal inclusion or pilonidal cyst can be considered. wound open. tunneling. poor granulation tissue biofilm s/p OR for debridement or will expand and worseng iv fluids s/p debridement cont vac plan home vac will discuss with case management discussed with patient discussed with pcp ruben done vac change q3 day okay to d/c abx faxed vac form plan d/c withsupplies once arrived Chet Cooper Sep 03, 2019 10:27
[2019-09-03] MEDS ORDERED: Docusate Sod/Senna tab ORAL SCH (11:00)
[2019-09-03 12:00] VITALS: BP 105/67
--- NOTE | 2019-09-03 12:19 | Discharge Instructions ---
Discharge Instructions Discharge Instructions Follow up with: w/PCP and General Sx in 1 week. For Congestive Heart Failure Reminder Report to your physician any weight gain of 5 pounds or more in one week. Lori Farrell M.D. Sep 03, 2019 12:19
--- NOTE | 2019-09-03 12:19 | Discharge Summary ---
Discharge Summary Hospital Course Date of Admission Aug 27, 2019 at 14:08 Date of Discharge Admitting Diagnosis wound dehissence HPI Sandip Marquez is a 24 year old male who was admitted on Aug 27, 2019 at 14: 08 for Wound Dehissence Hospital Course 24-year-old male with PMH of pilonidal cyst s/p multiple surgeries with wound vacs in the past, asthma, GERD who [place] [facility] [place]. Patient underwent I&D on 08/28 with general surgery, wound VAC was in place. CM consulted for home health. Patient taken off antibiotics per ID/ general surgery. Wound VAC was replaced on 09/02, discussed with general surgery , patient stable for DC home with home health for wound VAC care/management. Patient DC'd in stable condition w/instructions to follow-up with PCP and general surgery within 1 week. #Infected Pilonidal Cyst #Gluteal cleft abscess #Wound dehiscence #S/p I&D on 08/28 #Constipation #Asthma, controlled #GERD D/c planning >30 mins Discharge Condition Upon Discharge: stable Discharge Vital Signs Last Vital Signs Date Time Temp Pulse Resp B/P (MAP) Pulse Ox O2 Delivery O2 Flow Rate FiO2 09/03/19 06:00 97.4 69 18 96/51 (66) 98 09/02/19 21:00 Room Air 08/29/19 14:45 3 Discharge Disposition Patient was discharged to home w/HH Discharge Instructions Discharge Instructions Follow up with: w/PCP and General Sx in 1 week. Lori Farrell M.D. Sep 03, 2019 12:19
[2019-09-03 16:00] VITALS: BP 110/63
[2019-09-03] MEDS ORDERED: NS 275ml ONE (16:44)
== END 2019-09-03 16:45 | disposition home health service (06) | DRG 902 ==
LOC: EMR 14:00 → 3E 14:08 → EDBEDREQ 15:14
PROC: 0JB70ZZ Excision of Back Subcutaneous Tissue and Fascia, Open Approach (ICD-10-PCS; principal; 2019-08-29 11:30)
DX: T81.31XA Disruption of external operation (surgical) wound, not elsewhere classified, initial encounter (principal); L05.01 Pilonidal cyst with abscess; Y83.8 Other surgical procedures as the cause of abnormal reaction of the patient, or of later complication, without mention of misadventure at the time of the procedure; K21.9 Gastro-esophageal reflux disease without esophagitis; J45.909 Unspecified asthma, uncomplicated; K59.00 Constipation, unspecified
CPT/HCPCS: 36415; 72193; 80048; 80053; 85025; 85610; 85651; 85730; 86140; 87070; 87075; 87181; 87205; 94003; 94150; 96365; 99285; C9399; J2405; J2710; J3490; J7030